=== PATIENT | female | born 1940 | race Caucasian/White ===

== ENCOUNTER → 2024-01-09 11:18 | Outpatient (REF) | payer OTHER, SELFPAY | LOC: HWRAD 11:18 | PROVIDERS: ATTENDING PHYSICIAN Urology; FAMILY PHYSICIAN Family Medicine | DX: N13.30 Unspecified hydronephrosis (principal); N13.5 Crossing vessel and stricture of ureter without hydronephrosis; N28.89 Other specified disorders of kidney and ureter | CPT/HCPCS: 74176 ==

== ENCOUNTER → 2024-01-16 11:26 | Outpatient (REF) | payer OTHER, SELFPAY ==
[2024-01-16 13:05] LABS: Hematocrit 38.3 % (37.0-47.0); Hemoglobin 12.4 g/dL (12.0-16.0); Mean Corp Hgb Conc. 32.4 g/dL (33.0-37.0); Mean Corpuscular Volume 89.5 fL (81.0-99.0); Platelet Count 351 10^3/uL (130-400); Red Blood Cell Count 4.28 10^6/uL (4.20-5.40); Red Cell Dist. Width 14.5 % (11.5-14.5)
[2024-01-16 13:11] LABS: Urine Protein 28 mg/dl (0-12)
[2024-01-16 13:14] LABS: Albumin 4.5 g/dl (3.5-5.0); Blood Urea Nitrogen 42 mg/dl (7-17); Calcium 9.8 mg/dl (8.4-10.2); Carbon Dioxide 33 mmol/L (22-30); Chloride 95 mmol/L (98-107); Glucose 99 mg/dl (70-99); Phosphorus 3.7 mg/dl (2.5-4.5); Potassium 3.1 mmol/L (3.5-5.1); Sodium 139 mmol/L (135-145); eGFR 19.31
[2024-01-17 13:21] LABS: Intact PTH 141.2 pg/ml (13.6-85.8)
[2024-01-17 17:11] LABS: Vitamin D, 25-OH*** 38.1 ng/mL (30-80)
== END ==
LOC: REG 11:26
PROVIDERS: ATTENDING PHYSICIAN Internal Medicine; FAMILY PHYSICIAN Family Medicine; OTHER PHYSICIAN Urology
DX: N18.4 Chronic kidney disease, stage 4 (severe) (principal)
CPT/HCPCS: 36415; 80069; 82306; 82570; 83970; 84156; 85027

== ENCOUNTER → 2024-03-06 12:49 | Outpatient (REF) | payer OTHER, SELFPAY ==
[2024-03-06 13:45] LABS: Urine Albumin Negative (Neg - Trace); Urine Bilirubin Negative (Negative); Urine Character Clear (Clear); Urine Color Yellow; Urine Glucose Negative (Negative); Urine Ketone Negative (Negative); Urine Leukocyte Trace (Negative); Urine Nitrite Negative (Negative); Urine Occult Blood Negative (Negative); Urine Urobilinogen Negative (Neg - 1+)
[2024-03-06 14:13] LABS: Blood Urea Nitrogen 40 mg/dl (7-17); Calcium 10.4 mg/dl (8.4-10.2); Carbon Dioxide 29 mmol/L (22-30); Chloride 105 mmol/L (98-107); Glucose 87 mg/dl (70-99); Potassium 4.4 mmol/L (3.5-5.1); Sodium 141 mmol/L (135-145); eGFR 20.32
[2024-03-06 14:39] LABS: Urine Amorphous Seen
[2024-03-06 14:40] LABS: Urine Bacteria Moderate (Negative); Urine Red Blood Cell 0-2 /HPF (0-2)
== END ==
LOC: REG 12:49
PROVIDERS: ATTENDING PHYSICIAN Internal Medicine; FAMILY PHYSICIAN Family Medicine; OTHER PHYSICIAN Surgery
DX: N18.32 Chronic kidney disease, stage 3b (principal); D64.9 Anemia, unspecified; N13.30 Unspecified hydronephrosis; E87.5 Hyperkalemia; I10 Essential (primary) hypertension
CPT/HCPCS: 36415; 80048; 81003; 81015

== ENCOUNTER → 2024-08-03 11:19 | Outpatient (REF) | payer OTHER, SELFPAY ==
[2024-08-03 12:33] LABS: Albumin 4.1 g/dl (3.5-5.0); Blood Urea Nitrogen 46 mg/dl (7-17); Calcium 9.4 mg/dl (8.4-10.2); Carbon Dioxide 29 mmol/L (22-30); Chloride 104 mmol/L (98-107); Glucose 106 mg/dl (70-99); Phosphorus 3.1 mg/dl (2.5-4.5); Potassium 3.4 mmol/L (3.5-5.1); Sodium 147 mmol/L (135-145); eGFR 20.19
[2024-08-03 13:04] LABS: Urine Protein 18 mg/dl (0-12)
== END ==
LOC: REG 11:19
PROVIDERS: ATTENDING PHYSICIAN Internal Medicine; FAMILY PHYSICIAN Family Medicine
DX: N18.4 Chronic kidney disease, stage 4 (severe) (principal)
CPT/HCPCS: 36415; 80069; 82570; 84156

== ENCOUNTER → 2024-09-17 10:57 | Outpatient (REF) | payer OTHER, SELFPAY | LOC: HWRAD 10:57 | PROVIDERS: ATTENDING PHYSICIAN Surgery; FAMILY PHYSICIAN Family Medicine; REFERRING PHYSICIAN Internal Medicine | DX: C68.9 Malignant neoplasm of urinary organ, unspecified (principal) | CPT/HCPCS: 71250 ==

== ENCOUNTER → 2024-10-19 10:57 | Outpatient (REF) | payer OTHER, SELFPAY ==
[2024-10-19 12:15] LABS: Hematocrit 34.8 % (37.0-47.0); Hemoglobin 11.1 g/dL (12.0-16.0); Mean Corp Hgb Conc. 31.9 g/dL (33.0-37.0); Mean Corpuscular Hgb 28.2 pg (27.0-31.0); Mean Corpuscular Volume 88.5 fL (81.0-99.0); Mean Platelet Volume 9.4 fL (7.4-10.4); Platelet Count 338 10^3/uL (130-400); Red Blood Cell Count 3.93 10^6/uL (4.20-5.40); Red Cell Dist. Width 14.8 % (11.5-14.5); White Blood Cell Count 10.8 10^3/uL (4.8-10.8)
[2024-10-19 12:56] LABS: Albumin 4.3 g/dl (3.5-5.0); Blood Urea Nitrogen 43 mg/dl (7-17); Calcium 9.5 mg/dl (8.4-10.2); Carbon Dioxide 27 mmol/L (22-30); Chloride 102 mmol/L (98-107); Glucose 100 mg/dl (70-99); Phosphorus 3.5 mg/dl (2.5-4.5); Potassium 3.9 mmol/L (3.5-5.1); Sodium 143 mmol/L (135-145); eGFR 19.19
[2024-10-20 09:41] LABS: Intact PTH 129.1 pg/ml (13.6-85.8)
== END ==
LOC: REG 10:57
PROVIDERS: ATTENDING PHYSICIAN Internal Medicine; FAMILY PHYSICIAN Family Medicine; OTHER PHYSICIAN Surgery
DX: N18.4 Chronic kidney disease, stage 4 (severe) (principal)
CPT/HCPCS: 36415; 80069; 83970; 85027

== ENCOUNTER → 2024-12-01 09:20 | Outpatient (REF) | payer OTHER, SELFPAY ==
[2024-12-01 09:54] LABS: Hemoglobin 7.9 g/dL (12.0-16.0); Mean Corp Hgb Conc. 31.6 g/dL (33.0-37.0); Mean Corpuscular Hgb 27.2 pg (27.0-31.0); Mean Corpuscular Volume 86.2 fL (81.0-99.0); Mean Platelet Volume 9.4 fL (7.4-10.4); Platelet Count 368 10^3/uL (130-400); Red Cell Dist. Width 15.7 % (11.5-14.5); White Blood Cell Count 14.5 10^3/uL (4.8-10.8)
[2024-12-01 10:10] LABS: NT-proBNP 3120 pg/ml
[2024-12-01 10:41] LABS: Vitamin D, 25-OH*** 31.4 ng/mL (30-80)
[2024-12-01 10:44] LABS: Albumin 3.5 g/dl (3.5-5.0); Blood Urea Nitrogen 85 mg/dl (7-17); Calcium 9.4 mg/dl (8.4-10.2); Carbon Dioxide 21 mmol/L (22-30); Chloride 109 mmol/L (98-107); Glucose 117 mg/dl (70-99); Phosphorus 6.2 mg/dl (2.5-4.5); Potassium 4.2 mmol/L (3.5-5.1); Sodium 146 mmol/L (135-145); eGFR 6.66
[2024-12-01 10:59] LABS: Urine Albumin 2+ (Neg - Trace); Urine Bilirubin Negative (Negative); Urine Character Cloudy (Clear); Urine Color Yellow; Urine Glucose Negative (Negative); Urine Ketone Negative (Negative); Urine Leukocyte 3+ (Negative); Urine Nitrite Negative (Negative); Urine Occult Blood 4+ (Negative); Urine Urobilinogen Negative (Neg - 1+)
[2024-12-01 11:51] LABS: Urine Red Blood Cell 30-40 /HPF (0-2); Urine White Cell >100 /HPF (0-5)
[2024-12-01 12:11] LABS: Protein/creatinine Ratio 0.6; Urine Protein 46 mg/dl
== END ==
LOC: REG 09:20
PROVIDERS: ATTENDING PHYSICIAN Internal Medicine; FAMILY PHYSICIAN Family Medicine; OTHER PHYSICIAN Surgery
DX: E78.00 Pure hypercholesterolemia, unspecified (principal); D61.9 Aplastic anemia, unspecified; N18.4 Chronic kidney disease, stage 4 (severe); N25.81 Secondary hyperparathyroidism of renal origin
CPT/HCPCS: 36415; 80069; 81003; 81015; 82306; 82570; 83880; 84156; 85027

== ENCOUNTER 2024-12-07 05:20 | Inpatient (IN) | payer OTHER, SELFPAY ==
[2024-12-06 23:40] VITALS: BMI 22.3
[2024-12-06 23:46] VITALS: BP 156/71
[2024-12-07] VITALS (20 sets, daily range): BP systolic 86–163; BP diastolic 46–106; BMI 26.3
[2024-12-07 01:00] LABS: % Basophils 0.5 % (0-2); % Eosinophils 2.2 % (0-6); % Immature Granulocytes 1.7 % (0-0.5); % Lymphocytes 3.9 % (20.5-51.1); % Monocytes 12.6 % (1.7-9.3); % Neutrophils 79.1 % (42.2-75.2); Absolute Basophils 0.1 10^3/uL (0-0.2); Absolute Eosinophils 0.4 10^3/uL (0-0.7); Absolute Immature Granulocytes 0.3 10^3/uL (0-0.05); Absolute Lymphocytes 0.8 10^3/uL (1.2-3.4); Absolute Monocytes 2.4 10^3/uL (0.1-0.6); Absolute Neutrophils 15.3 10^3/uL (1.4-6.5); Hematocrit 23.2 % (37.0-47.0); Hemoglobin 7.7 g/dL (12.0-16.0); Mean Corp Hgb Conc. 33.2 g/dL (33.0-37.0); Mean Corpuscular Hgb 27.6 pg (27.0-31.0); Mean Corpuscular Volume 83.2 fL (81.0-99.0); Mean Platelet Volume 9.2 fL (7.4-10.4); Nucleated Red Blood Cells % 0 %; Platelet Count 368 10^3/uL (130-400); Red Blood Cell Count 2.79 10^6/uL (4.20-5.40); Red Cell Dist. Width 15.9 % (11.5-14.5); White Blood Cell Count 19.3 10^3/uL (4.8-10.8)
[2024-12-07 01:12] LABS: PT 15.7 Sec (11.4-14.6)
[2024-12-07 01:13] LABS: APTT 36.4 Sec (23.4-35.0)
[2024-12-07 01:19] LABS: NT-proBNP 5030 pg/ml
[2024-12-07 01:22] LABS: ALT (SGPT) 38 U/L (0-35); AST (SGOT) 30 U/L (14-36); Albumin 3.6 g/dl (3.5-5.0); Alkaline Phosphatase 158 U/L (38-126); Blood Urea Nitrogen 108 mg/dl (7-17); Calcium 9.2 mg/dl (8.4-10.2); Carbon Dioxide 19 mmol/L (22-30); Chloride 107 mmol/L (98-107); Glucose 142 mg/dl (70-99); Potassium 4.2 mmol/L (3.5-5.1); Sodium 143 mmol/L (135-145); Total Bilirubin 1.5 mg/dl (0.2-1.3); Total Protein 6.5 g/dl (6.3-8.2); eGFR 4.52
--- NOTE | 2024-12-07 01:22 | ED.GENMED ---
History of Present Illness
General
Chief Complaint: Swelling
Source: patient
Exam Limitations: none
Time Seen by Provider: 12/07/24 00:44
Nursing documentation reviewed up to this point in time: agreed with
History of Present Illness
History of Present Illness:
84 y/o F with h/o ureteral strictuer, L ureteropelvic junction obstruction, (urothelial cancer, obstructing, treated with radiation 2023 [facility]) chronic hydro and CKD stage IV
2 weeks ago started having weight gain, edema in her legs and abdomen, WEBSTER
she had outpatietn labs which may have not been relayed to her immediately with bump in cr from 2.4 to 5.8
she has had a 10 pound weight gain
her bindery cutter operator harsha prescribed lasix 20 mg which she has been on for the past week
she feels like she is peeing but not enough
she continues to have leg edema, abdomen edema and some WEBSTER
apparently on outpatient imaging the edema was noticed and thus she had paracentesis yesterday at [facility] to tell whether this is malignant ascites
she has never had CHF before
used to be on HCTZ
pt has no chest pain, syncope, vomiting, bleeding
she is also chronically anemic and her hg is low [address] mcleod for admission
Past History
Past History
ED Past Medical History: GERD, HTN and Other (Sepsis)
ED Past Surgical History: Gynecological (Hysterectomy), Orthopedic (Right carpal tunnel release, right knee arthroscopy, right knee total replacement, cervical spine with tylor, lumbar synovial cyst excision, left carpal tunnel release, left knee
replacement) and Urological (Stent left ureter)
Social History
Tobacco: Former smoker
Alcohol: None
Drug: None
Personal:
Living: with family
Employment: Retired
Review of Systems
Review of Systems
Allergies reviewed?: Yes
All Other Systems: Not applicable
Phy Exam
Physical Exam
Physical Exam:
GENERAL: Alert , in no apparent distress
EYE: pupils equal and reactive
NECK: Supple
ENT: o/p clr, mmm.
CARDIAC: Regular rate and rhythm .+ edema in b/l LE, pitting symmetric 2+
LUNGS: slight crackles bases; no tachypnea
ABDOMEN: Soft, some edema in abdomen, nontender without focal tenderness, no r/g, no cvat, normal bowel sounds
NEUROLOGICAL: Alert and oriented, no focal neuro deficits
SKIN: Warm and dry, skin intact.
MUSCULOSKELETAL: moderate edema, well perfused. neg boubacar's sign
PSYCH: Normal and appropriate interaction.
Scores
Heart Failure Risk
Heart Failure Risk Score: Not Applicable
Course
Orders/Labs/Results
Orders:
Orders
12/07/24 00:51
IV Insert/Care/Rem.- Treatment PRN
12/07/24 00:52
Type+Screen Urgent
Complete Blood Count/With Diff Urgent
Comprehensive Metabolic Panel Urgent
PTT Urgent
Pro-BNP [NT-proBNP] Urgent
Prothrombin Time Urgent
12/07/24 01:11
Electrocardiogram (*1) Urgent
Reason for Study: Shortness of Breath
EKG- Treatment ONCE
12/07/24 01:18
CR Chest - 2 Views Urgent
Comment:
Reason For Exam: chf
12/07/24 01:22
CT Abd/pel Without Iv Or Oral Urgent
Comment:
Reason For Exam: ureteral stent, known cancer; ARF
12/07/24 02:54
Paris Placement- Treatment ONCE
Reason for insertion: Acute Kidney Injury
12/07/24 03:19
Urinalysis Reflex To Culture Urgent
Date Specimen was Collected: 12/07/24
Time Specimen was Collected: 03:17
Urine Microscopic Reflex Cult Urgent
Urine Culture Urgent
ISAAC Source: U
Specimen Description:
Date Specimen was Collected: 12/07/24
Time Specimen was Collected: 03:17
12/07/24 03:46
CefTRIAXone [Rocephin] 2,000 mg IV NOW STA
12/07/24 03:57
Sterile Water [Sterile Water For Injection] 20 ml .ROUTE .STK-MED
12/07/24 04:41
Admit/Transfer Patient As Directed
Co-Sign Provider:
Level of Care: Inpatient admission
Assign to:: IMU- Intermediate Care
Physician / Group: Lemuel
Diagnosis: CLAUDIA / Ureteral Obstruction
Reason for Hospitalization: CLAUDIA / Ureteral Obstruction
Expected length of stay greater than two midnights?: Yes
ELOS- Estimated Length of Stay in days: 5
I certify the patient meets the requirements for IP care: Yes
Code Status As Directed
Resuscitation Status: Full Code
PRN Pain Medication Management As Directed
May give lesser potent ordered pain med per pt: Yes
preference::
Protocol:: Medication orders for pain may be administered in a
manner that supports deferring to patient preference
when the pt is:
- Requesting an ordered lesser potent pain medication.
Least to most potent pain medications are defined
as: acetaminophen < NSAID < tramadol < opioids
(morphine, oxycodone, hydromorphone).
- Requesting a lesser dose of the same medication IF
ORDERED.
- Requesting a less intrusive route of administration
if both routes are prescribed by the provider (PO <
IV).
12/07/24 05:22
Basic Metabolic Panel IN AM
Complete Blood Count/No Diff IN AM
Magnesium IN AM
Phosphorus IN AM
12/07/24 Breakfast
NPO
Allow oral meds: Yes
Allow clear liquids: Sips of Clears
12/07/24 09:22
IRAD CONSULT Urgent
Consulting Provider: Andre Ly
Was physician already notified: Yes
Reason for Consult/Procedure: CLAUDIA / Ureteral Obstruction
Acknowledgement that appropriate orders are entered: N/A
UROLOGY CONSULT Routine
Consulting Provider: Felipe Damico Jr.
Was physician already notified: Yes
Comment: CLAUDIA / Ureteral Obstruction
Activity As Directed
Activity Level: Ambulate
With Assistance
Paris Catheter [Catheter- Indwelling] As Directed
Reason for insertion: Acute Retention
Discontinue Date/Time: 12/10/24 0600
I/O [Intake/ Output] As Directed
Frequency: Per unit guidelines
Pneumatic Compression Sleeves As Directed
Type: Knee high
Vital Signs As Directed
Frequency: Per unit guidelines
Weight As Directed
Frequency: Daily
Oxygen Therapy [O2 Therapy] [RESP] Routine
Titrate/Wean O2 to maintain O2 sat greater than (%): 94
DX Deep Vein Thrombosis Video Routine
12/07/24 15:16
B12 [Vitamin B12] Routine
Folate Routine
Iron Routine
Total Iron Binding Routine
12/08/24 06:00
CefTRIAXone [Rocephin] 1,000 mg IV Q24H
Abnormal Lab Results
12/07/24 12/07/24
00:52 03:19
WBC 19.3 H 10^3/uL
(4.8-10.8)
RBC 2.79 L 10^6/uL
(4.20-5.40)
Hgb 7.7 L g/dL
(12.0-16.0)
Hct 23.2 L %
(37.0-47.0)
RDW 15.9 H %
(11.5-14.5)
Abs Immat Gran (auto) 0.3 H 10^3/uL
(0-0.05)
Absolute Neuts (auto) 15.3 H 10^3/uL
(1.4-6.5)
Absolute Lymphs (auto) 0.8 L 10^3/uL
(1.2-3.4)
Absolute Monos (auto) 2.4 H 10^3/uL
(0.1-0.6)
Immature Gran % 1.7 H %
(0-0.5)
Neutrophils % 79.1 H %
(42.2-75.2)
Lymphocytes % 3.9 L %
(20.5-51.1)
Monocytes % 12.6 H %
(1.7-9.3)
PT 15.7 H Sec
(11.4-14.6)
APTT 36.4 H Sec
(23.4-35.0)
Carbon Dioxide 19 L mmol/L
(22-30)
BUN 108 H* mg/dl
(7-17)
Creatinine 8.0 H* mg/dL
(0.6-1.0)
Glucose 142 H mg/dl
(70-99)
Total Bilirubin 1.5 H mg/dl
(0.2-1.3)
ALT 38 H U/L
(0-35)
Alkaline Phosphatase 158 H U/L
(38-126)
Ur Occult Blood Reflex 4+ A
(Negative)
Urine Nitrite (Reflex) Positive A
(Negative)
Leukocyte Esterase Rfl 3+ A
(Negative)
Urine RBC >100 A /HPF
(0-2)
Urine WBC (Reflex) >100 A /HPF
(0-5)
Urine Bacteria (Reflex) Many A
(Negative)
Urine Albumin (Reflex) 2+ A
(Neg - Trace)
12/07/24 00:52
12/07/24 00:52
Vital Signs
Initial and Last Documented VS:
Initial Vital Signs
Temp Pulse Resp BP Pulse Ox
36.9 C 84 24 156/71 96
12/06/24 23:46 12/06/24 23:46 12/06/24 23:46 12/06/24 23:46 12/06/24 23:46
Last Documented Vital Signs
Temp Pulse Resp BP Pulse Ox
36.2 C 81 15 139/60 95
12/08/24 12:17 12/08/24 13:39 12/08/24 13:39 12/08/24 13:39 12/08/24 13:39
MDM/Problems Addressed
Differential Diagnosis Includes:
acute renal failure, CHF
MDM/Problems Addressed:
84 y/o F
h/o urothelial cell ca
s/p radiation treatment
has had stent
but L kidney nonworking
hash ad cr in the 2 range until recently, outpatient labs showing cr 5 and pt developing edema in the legs and abdomena nds ome WEBSTER
no h/o CHF
on lasix for the past 1 week but not really doing better
sent in for admission
today hypertensive 150/100
no o2 requirement
able to speak full sentences
some edema in legs
had paracentesis yesterday to r/o malignant ascites
no results back
no fever
abdomen nontender
lungs crackles bases but moving good air
bnp 5000
cxr shows fluid in R lung
cr is unfortuantely up to 8.0 from 5, k is normal
no ekg changes
noncon ct shows new hydro in the R side no obvious obstruction
chronic atrophic L kidney
ascites
d/w dr. mukherjee, ed attending
and updated dr. mcleod
hg also low
pt could not tolerate fluid at this point
will hold on trasnfusion
hold on lasix
needs her renal dysfucntion addressed
notified economics department chair urologist
also notified IR dr ly for perc nephrostomy, recommended consutlation by dr. damico from uro
*Critical Care Note
Total Time (30-74mins, 75-104mins- exclusive of procedures): Not Applicable
ED Attending Note
-
Portions of this chart may have been created with voice recognition software.� Occasional wrong word or��sound alike� substitutions may have occurred due to the inherent limitations of voice recognition software.
Discharge Plan
Departure
Patient Disposition: Admit
Date of Disposition: 12/07/24
Time of Disposition: 02:34
Admit to: IMU
Presentation/result/management discussed w/ accepting MD/DO: Hospitalist
Condition: Fair
Covid-19: Not Applicable
Discharge Problem:
Acute renal failure, Anemia, CHF (congestive heart failure)
Interventions
Interventions:
*Risk Screen - Suicide Last Done: 12/06/24 23:46
*Neglect/Abuse Screening Last Done: 12/07/24 03:29
*ED- Fall Risk Assessment Last Done: 12/06/24 23:52
ED- Cardiac Assessment Last Done: 12/07/24 03:28
ED- Pulmonary Assessment Last Done: 12/07/24 03:28
ED-Skin Assessment Last Done: 12/07/24 03:28
[2024-12-07 03:25] LABS: Urine Albumin 2+ (Neg - Trace); Urine Bilirubin Negative (Negative); Urine Character Cloudy (Clear); Urine Color Yellow; Urine Glucose Negative (Negative); Urine Ketone Negative (Negative); Urine Leukocyte 3+ (Negative); Urine Nitrite Positive (Negative); Urine Occult Blood 4+ (Negative); Urine Urobilinogen Negative (Neg - 1+)
[2024-12-07] MEDS: ROCEPHIN 2000 MG IV (04:01)
[2024-12-07 04:03] LABS: Urine Bacteria Many (Negative); Urine Red Blood Cell >100 /HPF (0-2); Urine White Cell >100 /HPF (0-5)
--- NOTE | 2024-12-07 04:45 | HPS.HSE ---
Family Physician
-
Family Physician: Rigo Ball
Chief Complaint
-
Weight Gain / Edema
History of Present Illness
Patient is an 84y F with PMH significant for urothelial carcinoma, CKD and GERD who presents to ED complaining of weight gain and edema. Patient states that she appreciated weight gain and worsening edema over the past 2 months or so. She spoke
with her Hardness Tester and was started on Lasix 20mg daily one week ago. She has noted no increase in urine output and in fact states that she is urinating less. She has continued to note progressive edema and weight gain. Patient had outpatient
labs done today that showed worsening of renal function and she was advised to present to the ED for further evaluation.
Patient has prior h/o L ureteral obstruction one year ago. She had initial ureteroscopy and biopsy done here. Biopsy was negative; however, stent could not be fully placed. Patient was then seen at [facility] and diagnosed with
urothelial carcinoma of the L ureter. She underwent XRT x 5 treatments. Patient states that her left kidney is '' as a result.
She denies any recent medication changes other than the newly added Lasix.
No fevers / chills. No flank pain. No dysuria, frequency, urgency or hematuria.
Medical History
Past Medical History
Past Medical History: Reports Other
Additional Past Medical History:
CKD IV
Hypertension
Migraine Headaches
Spinal Stenosis
GERD
Endometriosis
Urothelial Cancer s/p XRT
Past Surgical History: Reports Other
Additional Past Surgical History:
Bilateral TKA
Lumbar Laminectomy
Hysterectomy
Bilateral Carpal Tunnel Release
Left Ureteral Biopsy / Stent
Social History
Tobacco: Former Smoker (Quit smoking over 40 years ago.)
Alcohol: Occasional
Drug: None
Family History
Family History: Not pertinent
Allergies / Home Medications
Allergies reflects when Allergies were last updated in [facility].
Home Medications with original date entered in [facility]
Allergy/Medication List:
Allergies
Allergy/AdvReac Type Severity Reaction Status Date / Time
RADAMES Inhibitors Allergy lisinopril- Verified 12/06/24 23:45
Cough
lisinopril Allergy radames Verified 12/06/24 23:45
inhibitors-cough
Home Medications
doxepin 25 mg capsule 50 mg PO Q12H Mental Health 03/31/23
sodium bicarbonate 650 mg tablet 650 mg PO DAILY Electrolyte Repletion 03/31/23
cranberry 500 mg capsule 500 mg PO DAILY Supplement 04/05/23
multivitamin 1 tab PO DAILY Supplement 04/05/23
omega 6-phb-ukp-fish oil 1,000 mg (120 mg-180 mg) capsule (Fish Oil) 1 cap PO DAILY Supplement ##0 04/05/23
trospium 20 mg tablet 20 mg PO TIDPRN PRN frequent urination 04/05/23
brinzolamide 1 % eye drops,suspension 1 drp BOTH EYES TID Eye Condition 04/19/23
dextran 70-hypromellose 0.1 %-0.3 % eye drops (GenTeal Tears Mild) 1 drp BOTH EYES TIDPRN PRN dry eyes 04/19/23
cyclosporine 0.05 % eye drops 1 drp BOTH EYES Q12H 09/09/23
famotidine 10 mg tablet 10 mg PO DAILY 09/09/23
sennosides 8.6 mg-docusate sodium 50 mg tablet (Senna Plus) 1 tab PO DAILY 09/09/23
Review of Systems
-
History Source: Patient
A 12 point ROS was completed and negative except as noted: Yes
Constitutional: Reports Weight Gain and Fatigue; Denies Fever or Chills
Respiratory: Denies Cough or Trouble Breathing
Cardiac: Denies Chest Pain or Palpitations
Abdomen/GI: Denies Abdominal Pain, Nausea, Vomiting or Diarrhea
: Reports Other (Decreased urination.); Denies Dysuria, Frequency or Flank Pain
Musculoskeletal: Reports Edema
Neurological: Denies Dizzy or Headache
Psych: Denies Depression or Anxiety
Physical Exam
Vital Signs
Vital Signs
Temp Pulse Resp BP Pulse Ox
98.1 F 84 22 157/46 97
12/07/24 03:39 12/07/24 04:30 12/07/24 04:30 12/07/24 04:00 12/07/24 01:21
Physical Exam
General: Other (84y F in no acute distress.)
HEENT: Moist mucous membranes and PERRLA
Respiratory: Clear; No Wheezes, Rales or Rhonchi
Cardiac: S1/S2 and Regular Rhythm
GI: Normal Bowel Sounds and Other (Abdomen is distended. No focal tenderness.)
Genito-urinary: Other (Paris in place with minimal urine output.)
Musculoskeletal: Other (2+ pitting edema b/l LEs.)
Skin: Other (Ecchymosis L cosme and L eye / face from recent fall.)
Neuro: AO x 3
Laboratory Results
-
12/07/24 00:52
12/07/24 00:52
Laboratory Results
PT 15.7 Sec (11.4-14.6) H 12/07/24 00:52
INR 1.20 12/07/24 00:52
APTT 36.4 Sec (23.4-35.0) H 12/07/24 00:52
Total Bilirubin 1.5 mg/dl (0.2-1.3) H 12/07/24 00:52
AST 30 U/L (14-36) 12/07/24 00:52
ALT 38 U/L (0-35) H 12/07/24 00:52
Alkaline Phosphatase 158 U/L (38-126) H 12/07/24 00:52
Impression/Plan
-
A/P: Patient is an 84y F with PMH significant for urothelial carcinoma and CKD IV who presents to ED for evaluation of weight gain, edema and rising creatinine.
Right Hydronephrosis / Ureteral Obstruction
CLAUDIA on CKD IV secondary to the above
History of Urothelial Cancer / Left Ureteral Obstruction s/p XRT
- Admit for further evaluation and treatment.
- CT scan shows R hydronephrosis with atrophic L kidney.
- Paris placed in ED for minimal urine output.
- Needs R renal decompression with either ureteral stent or IR perc nephrostomy.
- Hold on further IVFs or diuretics for now pending above.
- SCr = 8 compared to baseline of 2.3.
- Nephrology, Urology and IR consults for further recommendations / interventions.
- Will likely require eventual diuresis with IV Lasix once obstruction has been alleviated.
UTI
- UA in the ED suggests infection. Leukocytosis but no other indicators to suggest sepsis.
- Continue IV ceftriaxone pending culture data.
- Urinary intervention(s) as noted above.
Normocytic Anemia
Anemia of CKD
- Hgb = 7.7 compared to baseline of 11-12 by recent labs.
- No gross blood loss, etc pre patient.
- ? degree of hemodilution given edema, weight gain, etc.
- Follow for changes in H&H.
- Monitor for improvement with eventual diuresis.
- Type and Screen and transfuse if needed.
Benign Hypertension
- Patient cannot recall her current meds / doses.
- Confirm meds with pharmacy in AM and then resume as appropriate.
DVT Prophylaxis: SCDs
Code Status: Full
[2024-12-07 05:42] LABS: Hematocrit 22.3 % (37.0-47.0); Hemoglobin 7.1 g/dL (12.0-16.0); Mean Corp Hgb Conc. 31.8 g/dL (33.0-37.0); Mean Corpuscular Hgb 26.6 pg (27.0-31.0); Mean Corpuscular Volume 83.5 fL (81.0-99.0); Mean Platelet Volume 9.2 fL (7.4-10.4); Platelet Count 347 10^3/uL (130-400); Red Blood Cell Count 2.67 10^6/uL (4.20-5.40); White Blood Cell Count 16.1 10^3/uL (4.8-10.8)
[2024-12-07 06:07] LABS: Blood Urea Nitrogen 110 mg/dl (7-17); Calcium 9.2 mg/dl (8.4-10.2); Carbon Dioxide 19 mmol/L (22-30); Chloride 109 mmol/L (98-107); Estimated Creatinine Clearance 5 ml/min; Glucose 111 mg/dl (70-99); Magnesium 2.5 mg/dl (1.6-2.3); Phosphorus 7.1 mg/dl (2.5-4.5); Potassium 4.3 mmol/L (3.5-5.1); Sodium 145 mmol/L (135-145); eGFR 4.52
--- NOTE | 2024-12-07 06:45 | CON.MD ---
Consultation - Medical
-
see dictated note
pt seen=- history reviewed and examined
likely malig obstruction of right kindey which is her only functional renal unit
reviewed options
discussed with IR
for perc placement lucy
pt currently clinically stable
--- NOTE | 2024-12-07 09:11 | CM ---
Patient seen at bedside in ED. Patient stated that she lives in a one story home with loft but her bedroom is in the loft as well as the bathroom. 2 steps to enter home and `3 steps to bedroom. Patient PCP is with [facility] and
she uses the [facility] in [facility]. Patient daughter Brandi at bedside. CM will continue to follow for discharge planning needs.
Plan; home with VN vs home with no needs.
--- NOTE | 2024-12-07 10:28 | W.CON.NEPH ---
Consultation
-
Date/Time Consultation Requested: December 07, 2024 at 7 AM
Date/Time Consultation Performed: December 07, 2024 at 10 AM
Requesting Provider: Dr. Hdez
Performing Provider: Dr. Sylvester
Reason for Consultation: Acute on chronic kidney disease
Medical History
-
Chief Complaint: Acute on chronic kidney disease
History of Present Illness:
84y F with PMH significant for urothelial carcinoma, CKD and GERD who presents to ED complaining of weight gain and edema. Patient states that she appreciated weight gain and worsening edema over the past 2 months or so. She spoke with
Gayle and was started on Lasix 20mg daily one week ago. She has noted no increase in urine output and in fact states that she is urinating less. was advised to present to the ED for further evaluation.
Patient has prior h/o L ureteral obstruction one year ago. She had initial ureteroscopy and biopsy done here. Biopsy was negative; however, stent could not be fully placed. Patient was then seen at [facility] and diagnosed with
urothelial carcinoma of the L ureter. She underwent XRT x 5 treatments.
Renal consult for acute on chronic kidney disease baseline creatinine at 2.4 with presenting creatinine of 8 and obstructive uropathy.
Past Medical History
PMH significant for urothelial carcinoma, CKD and GERD
Social History
Tobacco: Non-Smoker
Alcohol: None
Family History
Family History: Not Pertinent
Allergies / Home Medications
Allergy/AdvReac Type Severity Reaction Status Date / Time
RADAMES Inhibitors Allergy lisinopril- Verified 12/06/24 23:45
Cough
lisinopril Allergy radames Verified 12/06/24 23:45
inhibitors-cough
�Medication �Instructions �Recorded �Confirmed �Type
doxepin 25 mg capsule 50 mg PO Q12H Mental Health 03/31/23 09/15/23 History
sodium bicarbonate 650 mg tablet 650 mg PO DAILY Electrolyte 03/31/23 09/15/23 History
Repletion
cranberry 500 mg capsule 500 mg PO DAILY Supplement 04/05/23 09/15/23 History
multivitamin 1 tab PO DAILY Supplement 04/05/23 09/15/23 History
omega 6-jup-esm-fish oil 1,000 mg 1 cap PO DAILY Supplement ##0 04/05/23 09/15/23 History
(120 mg-180 mg) capsule (Fish Oil)
trospium 20 mg tablet 20 mg PO TIDPRN PRN frequent 04/05/23 09/15/23 History
urination
brinzolamide 1 % eye 1 drp BOTH EYES TID Eye Condition 04/19/23 09/15/23 History
drops,suspension
dextran 70-hypromellose 0.1 %-0.3 1 drp BOTH EYES TIDPRN PRN dry eyes 04/19/23 09/15/23 History
% eye drops (GenTeal Tears Mild)
cyclosporine 0.05 % eye drops 1 drp BOTH EYES Q12H 09/09/23 09/15/23 History
famotidine 10 mg tablet 10 mg PO DAILY 09/09/23 09/15/23 History
sennosides 8.6 mg-docusate sodium 1 tab PO DAILY 09/09/23 09/15/23 History
50 mg tablet (Senna Plus)
Review of Systems
-
Decreased urine output increased lower extremity swelling
All other systems: Negative unless noted
Physical Exam
Vital Signs
Vital Signs
Temp Pulse Resp BP Pulse Ox
98.1 F 84 14 98/56 95
12/07/24 03:39 12/07/24 10:00 12/07/24 10:00 12/07/24 07:00 12/07/24 10:00
Lab Results
WBC 16.1 10^3/uL (4.8-10.8) H 12/07/24 05:22
RBC 2.67 10^6/uL (4.20-5.40) L 12/07/24 05:22
Hgb 7.1 g/dL (12.0-16.0) L 12/07/24 05:22
Hct 22.3 % (37.0-47.0) L 12/07/24 05:22
Plt Count 347 10^3/uL (130-400) 12/07/24 05:22
Sodium 145 mmol/L (135-145) 12/07/24 05:22
Potassium 4.3 mmol/L (3.5-5.1) 12/07/24 05:22
Chloride 109 mmol/L (98-107) H 12/07/24 05:22
Carbon Dioxide 19 mmol/L (22-30) L 12/07/24 05:22
BUN 110 mg/dl (7-17) H* 12/07/24 05:22
Creatinine 8.0 mg/dL (0.6-1.0) H* 12/07/24 05:22
eGFR 4.52 12/07/24 05:22
Glucose 111 mg/dl (70-99) H 12/07/24 05:22
Calcium 9.2 mg/dl (8.4-10.2) 12/07/24 05:22
Phosphorus 7.1 mg/dl (2.5-4.5) H 12/07/24 05:22
Mmh-R-Nfzjkkdwsgw Pept 5030 pg/ml 12/07/24 00:52
Albumin 3.6 g/dl (3.5-5.0) 12/07/24 00:52
Physical Exam
General no acute distress
HEENT no cephalic atraumatic extraocular muscle intact no scleral icterus no JVD neck supple
lungs clear to auscultation bilateral
heart regular S1-S2 positive
abdomen soft nontender positive bowel sounds
extremities +2 edema bilateral lower extremity
Neurologically nonfocal alert and oriented x 3
Skin no lesions no abrasions no petechiae
Psych normal affect no bizarre behavior
Data Reviewed
-
CT Scan: Image Personally Visualized and interpreted
Labs: Labs Reviewed by me, Discussed with Patient and Discussed with Family
Critical Care Time (in minutes): 32
Assessment/Plan
-
Impression:
Acute kidney injury and obstructive uropathy with right hydro
CKD 4� (2.6),
Hypertension (now off meds)
New onset edema
Urothelial cancer
History of left hydronephrosis status post stent placement March 2023 with left atrophic kidney
Plan:
Follows with our practice at baseline creatinine at 2.4.
Obstructive uropathy acute kidney injury pending right percutaneous nephrostomy to be placed by interventional radiology.
Follow for postobstructive diuresis.
Redraw labs this afternoon.
Total Time Spent with Patient (in minutes): 35
--- NOTE | 2024-12-07 10:30 | PTCARENOTE ---
Rec'd pt from Ed. all vitals stable. Pt transported to IR for Neph tube placement.
--- NOTE | 2024-12-07 12:49 | PTCARENOTE ---
Rec'd pt from IRAD with new right nephrostomy tube. Pt nauseous on arrival to IMU with vomittiing. C/o headache since last night. Dr. Kohler notified via TT
[2024-12-07] MEDS: ZOFRAN 4 MG IV (13:01)
--- NOTE | 2024-12-07 14:10 | PTCARENOTE ---
Pt's nausea and vomitting relieved with zofran. Neph tube with puralent drainage.
--- NOTE | 2024-12-07 14:15 | W.PN.HOSP.TC ---
Today's Communication/Plan
-
IR for nephrostomy tube
Assessment / Plan
Assessment / Plan
Impression
patient is an 84y F with PMH significant for urothelial carcinoma and CKD IV who presents to ED for evaluation of weight gain, edema and rising creatinine.
Assessment/plan:
Right Hydronephrosis / Ureteral Obstruction
CLAUDIA on CKD IV secondary to the above
History of Urothelial Cancer / Left Ureteral Obstruction s/p XRT
- Admit for further evaluation and treatment.
- CT scan shows R hydronephrosis with atrophic L kidney.
- Paris placed in ED for minimal urine output.
- Needs R renal decompression with either ureteral stent or IR perc nephrostomy.
- Hold on further IVFs or diuretics for now pending above.
- SCr = 8 compared to baseline of 2.3.
- Nephrology, Urology and IR consults for further recommendations / interventions.
- Will likely require eventual diuresis with IV Lasix once obstruction has been alleviated.
4/4
For IR for right nephrostomy tube today
UTI
- UA in the ED suggests infection. Leukocytosis but no other indicators to suggest sepsis.
- Continue IV ceftriaxone pending culture data.
- Urinary intervention(s) as noted above.
Normocytic Anemia
Anemia of CKD
- Hgb = 7.7 compared to baseline of 11-12 by recent labs.
- No gross blood loss, etc pre patient.
- ? degree of hemodilution given edema, weight gain, etc.
- Follow for changes in H&H.
- Monitor for improvement with eventual diuresis.
- Type and Screen and transfuse if needed.
Benign Hypertension
- Patient cannot recall her current meds / doses.
- Confirm meds with pharmacy in AM and then resume as appropriate.
CODE STATUS: Full code
DVT prophylaxis: SCDs
Diet: renal
Total time spent on today's encounter was 75 minutes which included time spent in counseling the patient/family regarding diagnosis and treatment plan as listed above, goals of care, and symptom management. Case was discussed with nursing staff,
specialists, and care coordinators/case management. All labs and imaging personally reviewed by me. Remainder the time spent in detailed review of previous records, lab data, imaging, and other medical provider documentation.
Anticipated Discharge: > 48 hours
Subjective/Interval History
-
Date of Service: December 07, 2024
Patient seen and examined at bedside, denies any chest pain or shortness of breath, no abdominal pain, + nausea, no vomiting, no diarrhea or constipation.
Objective Data
-
Labs:
Laboratory Results
12/07/24
05:22
WBC 16.1 H
Hgb 7.1 L
Hct 22.3 L
Plt Count 347
Sodium 145
Potassium 4.3
Chloride 109 H
Carbon Dioxide 19 L
BUN 110 H*
Creatinine 8.0 H*
Glucose 111 H
Calcium 9.2
Vital Signs:
Vital Signs
Temp Pulse Resp BP Pulse Ox
98.4 F 88 18 157/72 100
12/07/24 12:30 12/07/24 12:00 12/07/24 12:00 12/07/24 12:00 12/07/24 12:00
I&O
12/06/24 12/07/24 12/08/24
06:59 06:59 06:59
Output Total 250 / 250
Balance -250 / -250
Physical Exam
-
General: Well Developed, Well Nourished, No Apparent Distress and Comfortable
HEENT: Normocephalic, Atraumatic, Moist Mucous Membranes, No Ptosis, PERRLA and Nose Appears Normal
Respiratory: Clear to Auscultation and Non Labored Respirations
Cardiac: Regular Rhythm and S1/S2
Breast: Deferred by me
GI: Soft, Nontender, Nondistended and Normal Bowel Sounds
Genito-urinary: No Costovertebral Tender
Musculoskeletal: No Clubbing, No Cyanosis and No Edema
Skin: Warm
Neuro: Awake, Alert, Oriented, AO x 3 and No Motor Deficits
Psych: Calm
Data Reviewed
-
Diagnostic Radiology: Image personally visualized and interpreted and Report Reviewed by me
CT Scan: Image personally visualized and interpreted and Report Reviewed by me
Ultrasound: Image personally visualized and interpreted and Report Reviewed by me
MRI: Image personally visualized and interpreted and Report Reviewed by me
Medical Tests (Nuc Med, Echo etc): Image personally visualized and interpreted and Report Reviewed by me
Labs: Labs Reviewed by me
Old Records: Reviewed
[2024-12-07 15:50] LABS: Iron 40 ug/dl (37-170)
[2024-12-07 15:59] LABS: Percent Saturation 18 % (20-50); Total Iron Binding Capacity 220 ug/dl (265-497)
[2024-12-07 16:44] LABS: Folate > 20.0 ng/ml (2.76-20); Vitamin B12 883 pg/ml (239-931)
[2024-12-08] VITALS (15 sets, daily range): BP systolic 118–166; BP diastolic 50–123; BMI 26.4
[2024-12-08] MEDS: STERILE WATER FOR INJECTION 10 ML IV (04:55)
[2024-12-08] MEDS: ROCEPHIN 1000 MG IV (04:55)
[2024-12-08 05:27] LABS: Hematocrit 22.8 % (37.0-47.0); Hemoglobin 7.3 g/dL (12.0-16.0); Mean Corpuscular Volume 84.4 fL (81.0-99.0); Mean Platelet Volume 9.3 fL (7.4-10.4); Platelet Count 363 10^3/uL (130-400); Red Cell Dist. Width 16.3 % (11.5-14.5); White Blood Cell Count 31.4 10^3/uL (4.8-10.8)
[2024-12-08 05:53] LABS: Blood Urea Nitrogen 106 mg/dl (7-17); Calcium 9.3 mg/dl (8.4-10.2); Carbon Dioxide 18 mmol/L (22-30); Chloride 108 mmol/L (98-107); Estimated Creatinine Clearance 4 ml/min; Glucose 118 mg/dl (70-99); Potassium 4.7 mmol/L (3.5-5.1); Sodium 146 mmol/L (135-145); eGFR 4.39
--- NOTE | 2024-12-08 10:00 | PTCARENOTE ---
Patient with no complaints. State she recalls having hallucinations last night but currently does not and is AAOx3. Nephrostomy tube CDI. NSR on monitor. VSS. Poor appetite. Will closely monitor.
--- NOTE | 2024-12-08 13:19 | W.PN.NEPH.PH ---
Today's Communication / Plan
-
Half-normal saline
Assessment/Plan
-
Impression:
Acute kidney injury and obstructive uropathy with right hydro
CKD 4� (2.6),
Hypertension (now off meds)
New onset edema
Urothelial cancer
History of left hydronephrosis status post stent placement March 2023 with left atrophic kidney
Plan:
Follows with our practice at baseline creatinine at 2.4.
Obstructive uropathy acute kidney injury status post right percutaneous nephrostomy.
Creatinine of 8.5 unfortunately no improvement status post decompression despite her being nonoliguric.
Discussed with the patient and her daughter at the bedside about potential for dialysis in the next 48 hours.
No acute need for dialysis at this time.
Start half-normal saline
Total Time Spent with Patient (in minutes): 35
-
-
Date of Service: December 08, 2024
CC / HPI / ROS
-
Chief Complaint:
Acute kidney injury
History of Present Illness:
Acute kidney injury status post 2 obstructive uropathy status post nephrostomy
Review of Systems:.
No chest pain or shortness of breath.
Nephrostomy tube draining as well as Paris catheter
Labs
-
Labs:
WBC 31.4 10^3/uL (4.8-10.8) H 12/08/24 04:55
RBC 2.70 10^6/uL (4.20-5.40) L 12/08/24 04:55
Hgb 7.3 g/dL (12.0-16.0) L 12/08/24 04:55
Hct 22.8 % (37.0-47.0) L 12/08/24 04:55
Plt Count 363 10^3/uL (130-400) 12/08/24 04:55
Sodium 146 mmol/L (135-145) H 12/08/24 04:55
Potassium 4.7 mmol/L (3.5-5.1) 12/08/24 04:55
Chloride 108 mmol/L (98-107) H 12/08/24 04:55
Carbon Dioxide 18 mmol/L (22-30) L 12/08/24 04:55
BUN 106 mg/dl (7-17) H* 12/08/24 04:55
Creatinine 8.2 mg/dL (0.6-1.0) H* 12/08/24 04:55
eGFR 4.39 12/08/24 04:55
Glucose 118 mg/dl (70-99) H 12/08/24 04:55
Calcium 9.3 mg/dl (8.4-10.2) 12/08/24 04:55
Phosphorus 7.1 mg/dl (2.5-4.5) H 12/07/24 05:22
Psn-Y-Hxnmwkqlaeh Pept 5030 pg/ml 12/07/24 00:52
Albumin 3.6 g/dl (3.5-5.0) 12/07/24 00:52
Physical Exam
-
Vital Signs:
Vital Signs
Temp Pulse Resp BP Pulse Ox
97.2 F 83 18 166/84 96
12/08/24 12:17 12/08/24 12:00 12/08/24 12:00 12/08/24 12:00 12/08/24 12:00
Cardiovascular:: Regular rate and rhythm
Respiratory:: Bilateral: CTA
Lung Excursion:: Normal
Abdomen:: Nontender
Bowel Sounds:: Normal
Extremity Edema:: +1: Bilateral:
Paris Catheter: No
[2024-12-08] MEDS: 0.45%NACL 1000 IV ×2 (13:39→20:33)
--- NOTE | 2024-12-08 15:43 | W.PN.HOSP.TC ---
Today's Communication/Plan
-
start normal saline
Assessment / Plan
Assessment / Plan
Impression
patient is an 84y F with PMH significant for urothelial carcinoma and CKD IV who presents to ED for evaluation of weight gain, edema and rising creatinine.
Status post right nephrostomy
Assessment/plan:
Right Hydronephrosis / Ureteral Obstruction
CLAUDIA on CKD IV secondary to the above
History of Urothelial Cancer / Left Ureteral Obstruction s/p XRT
- Admit for further evaluation and treatment.
- CT scan shows R hydronephrosis with atrophic L kidney.
- Paris placed in ED for minimal urine output.
- Needs R renal decompression with either ureteral stent or IR perc nephrostomy.
- Hold on further IVFs or diuretics for now pending above.
- SCr = 8 compared to baseline of 2.3.
- Nephrology, Urology and IR consults for further recommendations / interventions.
- Will likely require eventual diuresis with IV Lasix once obstruction has been alleviated.
4/4
For IR for right nephrostomy tube today
4/5
Acute function still elevated.
Status post right nephrostomy tube.
Start half-normal saline.
No indication for acute hemodialysis.
Acute metabolic encephalopathy, hallucinations.
Possible secondary to worsening uremia/UTI.
Cannot rule out underlying dementia
UTI
- UA in the ED suggests infection. Leukocytosis but no other indicators to suggest sepsis.
- Continue IV ceftriaxone pending culture data.
- Urinary intervention(s) as noted above.
Normocytic Anemia
Anemia of CKD
- Hgb = 7.7 compared to baseline of 11-12 by recent labs.
- No gross blood loss, etc pre patient.
- ? degree of hemodilution given edema, weight gain, etc.
- Follow for changes in H&H.
- Monitor for improvement with eventual diuresis.
- Type and Screen and transfuse if needed.
Benign Hypertension
- Patient cannot recall her current meds / doses.
- Confirm meds with pharmacy in AM and then resume as appropriate.
CODE STATUS: Full code
DVT prophylaxis: SCDs
Diet: renal
Total time spent on today's encounter was 75 minutes which included time spent in counseling the patient/family regarding diagnosis and treatment plan as listed above, goals of care, and symptom management. Case was discussed with nursing staff,
specialists, and care coordinators/case management. All labs and imaging personally reviewed by me. Remainder the time spent in detailed review of previous records, lab data, imaging, and other medical provider documentation.
Anticipated Discharge: > 48 hours
Subjective/Interval History
-
Date of Service: December 08, 2024
Patient seen and examined at bedside, daughter at bedside, episodes of hallucinations overnight but otherwise denies any chest pain or shortness of breath, no abdominal pain, no nausea, no vomiting, no diarrhea or constipation.
Objective Data
-
Labs:
Laboratory Results
12/08/24
04:55
WBC 31.4 H
Hgb 7.3 L
Hct 22.8 L
Plt Count 363
Sodium 146 H
Potassium 4.7
Chloride 108 H
Carbon Dioxide 18 L
BUN 106 H*
Creatinine 8.2 H*
Glucose 118 H
Calcium 9.3
Vital Signs:
Vital Signs
Temp Pulse Resp BP Pulse Ox
97.2 F 82 16 145/104 95
12/08/24 12:17 12/08/24 14:00 12/08/24 14:00 12/08/24 14:00 12/08/24 13:39
I&O
12/07/24 12/08/24 12/09/24
06:59 06:59 06:59
Output Total 1275 / 1275 410 / 410
Balance -1275 / -1275 -410 / -410
Physical Exam
-
General: Well Developed, Well Nourished, No Apparent Distress and Comfortable
HEENT: Normocephalic, Atraumatic, Moist Mucous Membranes, No Ptosis, PERRLA and Nose Appears Normal
Respiratory: Clear to Auscultation and Non Labored Respirations
Cardiac: Regular Rhythm and S1/S2
Breast: Deferred by me
GI: Soft, Nontender, Nondistended and Normal Bowel Sounds
Genito-urinary: No Costovertebral Tender
Musculoskeletal: No Clubbing, No Cyanosis, No Edema and Other (Right nephrostomy tube)
Skin: Warm
Neuro: Awake, Alert, Oriented, AO x 3 and No Motor Deficits
Psych: Calm
Data Reviewed
-
Diagnostic Radiology: Image personally visualized and interpreted and Report Reviewed by me
CT Scan: Image personally visualized and interpreted and Report Reviewed by me
Ultrasound: Image personally visualized and interpreted and Report Reviewed by me
MRI: Image personally visualized and interpreted and Report Reviewed by me
Medical Tests (Nuc Med, Echo etc): Image personally visualized and interpreted and Report Reviewed by me
Labs: Labs Reviewed by me
Old Records: Reviewed
[2024-12-08] MEDS: AZOPT 1% OPHTHALMIC SUSPENSION 1 DROP BOTH EYES ×2 (17:06→20:33)
[2024-12-08] MEDS: NORVASC 2.5 MG PO (17:06)
[2024-12-08] MEDS: XALATAN OPHTHALMIC SOLUTION 1 DROP BOTH EYES (20:33)
[2024-12-09] VITALS (23 sets, daily range): BP systolic 119–188; BP diastolic 52–150; BMI 26.6
[2024-12-09] MEDS: 0.45%NACL 1000 IV ×3 (03:29→15:32)
[2024-12-09] MEDS: STERILE WATER FOR INJECTION 10 ML IV (05:05)
[2024-12-09] MEDS: ROCEPHIN 1000 MG IV (05:05)
[2024-12-09 05:47] LABS: Hematocrit 23.2 % (37.0-47.0); Hemoglobin 7.6 g/dL (12.0-16.0); Mean Corp Hgb Conc. 32.8 g/dL (33.0-37.0); Mean Corpuscular Volume 82.6 fL (81.0-99.0); Platelet Count 351 10^3/uL (130-400); Red Blood Cell Count 2.81 10^6/uL (4.20-5.40); Red Cell Dist. Width 16.1 % (11.5-14.5); White Blood Cell Count 16.4 10^3/uL (4.8-10.8)
--- NOTE | 2024-12-09 06:00 | PTCARENOTE ---
Received pt at change of shift. Pt reports no hallucinations this shift. OOB to chair at start of shift. Assist x1 back to bed. Assessment as documented. Resting in bed with call hollis in reach.
[2024-12-09 06:15] LABS: Blood Urea Nitrogen 98 mg/dl (7-17); Calcium 8.8 mg/dl (8.4-10.2); Carbon Dioxide 17 mmol/L (22-30); Chloride 110 mmol/L (98-107); Estimated Creatinine Clearance 5 ml/min; Glucose 104 mg/dl (70-99); Potassium 3.8 mmol/L (3.5-5.1); Sodium 143 mmol/L (135-145); eGFR 5.31
[2024-12-09] MEDS: NORVASC 2.5 MG PO (08:09)
[2024-12-09] MEDS: AZOPT 1% OPHTHALMIC SUSPENSION 1 DROP BOTH EYES ×3 (08:10→22:05)
[2024-12-09] MEDS: TYLENOL 650 MG PO (08:18)
--- NOTE | 2024-12-09 11:04 | PTCARENOTE ---
Notified Dr. Her of positive urine cultures for ecoli.
--- NOTE | 2024-12-09 11:51 | W.PN.NEPH.PH ---
Today's Communication / Plan
-
Continue half-normal saline
Assessment/Plan
-
Impression:
Acute kidney injury and obstructive uropathy with right hydro
CKD 4� (2.6),
Hypertension (now off meds)
New onset edema
Urothelial cancer
History of left hydronephrosis status post stent placement March 2023 with left atrophic kidney
Plan:
Follows with our practice at baseline creatinine at 2.4.
Obstructive uropathy acute kidney injury status post right percutaneous nephrostomy.
Creatinine of 8.5 unfortunately no improvement status post decompression despite her being nonoliguric.
Discussed with the patient and her daughter at the bedside about potential for dialysis in the next 48 hours.
No acute need for dialysis at this time.
Mild improvement in the creatinine down to 7.
Nonoliguric.
Continue half-normal saline
Discussed with the patient and daughter at bedside
Total Time Spent with Patient (in minutes): 35
-
-
Date of Service: December 09, 2024
CC / HPI / ROS
-
Chief Complaint:
Acute kidney injury
History of Present Illness:
Acute kidney injury status post 2 obstructive uropathy status post nephrostomy
Review of Systems:.
No chest pain or shortness of breath.
Nephrostomy tube draining as well as Paris catheter
Labs
-
Labs:
WBC 16.4 10^3/uL (4.8-10.8) H 12/09/24 05:19
RBC 2.81 10^6/uL (4.20-5.40) L 12/09/24 05:19
Hgb 7.6 g/dL (12.0-16.0) L 12/09/24 05:19
Hct 23.2 % (37.0-47.0) L 12/09/24 05:19
Plt Count 351 10^3/uL (130-400) 12/09/24 05:19
Sodium 143 mmol/L (135-145) 12/09/24 05:10
Potassium 3.8 mmol/L (3.5-5.1) 12/09/24 05:10
Chloride 110 mmol/L (98-107) H 12/09/24 05:10
Carbon Dioxide 17 mmol/L (22-30) L 12/09/24 05:10
BUN 98 mg/dl (7-17) H 12/09/24 05:10
Creatinine 7.0 mg/dL (0.6-1.0) H* 12/09/24 05:10
eGFR 5.31 12/09/24 05:10
Glucose 104 mg/dl (70-99) H 12/09/24 05:10
Calcium 8.8 mg/dl (8.4-10.2) 12/09/24 05:10
Phosphorus 7.1 mg/dl (2.5-4.5) H 12/07/24 05:22
Lbz-O-Ckbcckeytbv Pept 5030 pg/ml 12/07/24 00:52
Albumin 3.6 g/dl (3.5-5.0) 12/07/24 00:52
Physical Exam
-
Vital Signs:
Vital Signs
Temp Pulse Resp BP Pulse Ox
97.6 F 78 16 152/60 96
12/09/24 11:05 12/09/24 08:09 12/08/24 20:00 12/09/24 08:09 12/08/24 16:49
--- NOTE | 2024-12-09 13:17 | W.PN.HOSP.TC ---
Today's Communication/Plan
-
Continue IV fluid
Assessment / Plan
Assessment / Plan
Impression
patient is an 84y F with PMH significant for urothelial carcinoma and CKD IV who presents to ED for evaluation of weight gain, edema and rising creatinine.
Status post right nephrostomy-creatinine continue to improve, also treated for UTI (pansensitive E. coli)
Assessment/plan:
Right Hydronephrosis / Ureteral Obstruction
CLAUDIA on CKD IV secondary to the above
History of Urothelial Cancer / Left Ureteral Obstruction s/p XRT
- Admit for further evaluation and treatment.
- CT scan shows R hydronephrosis with atrophic L kidney.
- Paris placed in ED for minimal urine output.
- Needs R renal decompression with either ureteral stent or IR perc nephrostomy.
- Hold on further IVFs or diuretics for now pending above.
- SCr = 8 compared to baseline of 2.3.
- Nephrology, Urology and IR consults for further recommendations / interventions.
- Will likely require eventual diuresis with IV Lasix once obstruction has been alleviated.
4/4
For IR for right nephrostomy tube today
4/5
Kidney function still elevated.
Status post right nephrostomy tube.
Start half-normal saline.
No indication for acute hemodialysis.
4/6
Improved creatinine.
Continue IVF
Acute metabolic encephalopathy, hallucinations.
Possible secondary to worsening uremia/UTI.
Cannot rule out underlying dementia
UTI (pansensitive E. coli)
- UA in the ED suggests infection. Leukocytosis but no other indicators to suggest sepsis.
- Continue IV ceftriaxone , culture with pansensitive E. coli, continue Rocephin for now (patient just had surgical procedure-nephrostomy tube).
- Urinary intervention(s) as noted above.
Normocytic Anemia
Anemia of CKD
- Hgb = 7.7 compared to baseline of 11-12 by recent labs.
- No gross blood loss, etc pre patient.
- ? degree of hemodilution given edema, weight gain, etc.
- Follow for changes in H&H.
- Monitor for improvement with eventual diuresis.
- Type and Screen and transfuse if needed.
Benign Hypertension
- Patient cannot recall her current meds / doses.
- Confirm meds with pharmacy in AM and then resume as appropriate.
CODE STATUS: Full code
DVT prophylaxis: SCDs
Diet: renal
Total time spent on today's encounter was 75 minutes which included time spent in counseling the patient/family regarding diagnosis and treatment plan as listed above, goals of care, and symptom management. Case was discussed with nursing staff,
specialists, and care coordinators/case management. All labs and imaging personally reviewed by me. Remainder the time spent in detailed review of previous records, lab data, imaging, and other medical provider documentation.
Anticipated Discharge: > 48 hours
Subjective/Interval History
-
Date of Service: December 09, 2024
Patient seen and examined at bedside, denies any chest pain or shortness of breath, no abdominal pain, no nausea, no vomiting, no diarrhea or constipation.
Family at bedside, improved creatinine.
Objective Data
-
Labs:
Laboratory Results
12/09/24 12/09/24
05:10 05:19
WBC 16.4 H
Hgb 7.6 L
Hct 23.2 L
Plt Count 351
Sodium 143
Potassium 3.8
Chloride 110 H
Carbon Dioxide 17 L
BUN 98 H
Creatinine 7.0 H*
Glucose 104 H
Calcium 8.8
Vital Signs:
Vital Signs
Temp Pulse Resp BP Pulse Ox
97.6 F 78 20 147/86 98
12/09/24 11:05 12/09/24 12:00 12/09/24 12:00 12/09/24 12:00 12/09/24 12:32
I&O
12/08/24 12/09/24 12/10/24
06:59 06:59 06:59
Intake Total 300 / 300
Output Total 1275 / 1275 1715 / 1715 950 / 950
Balance -1275 / -1275 -1715 / -1715 -650 / -650
Physical Exam
-
General: Well Developed, Well Nourished, No Apparent Distress and Comfortable
HEENT: Normocephalic, Atraumatic, Moist Mucous Membranes, No Ptosis, PERRLA and Nose Appears Normal
Respiratory: Clear to Auscultation and Non Labored Respirations
Cardiac: Regular Rhythm and S1/S2
Breast: Deferred by me
GI: Soft, Nontender, Nondistended and Normal Bowel Sounds
Genito-urinary: No Costovertebral Tender
Musculoskeletal: No Clubbing, No Cyanosis, No Edema and Other (Right nephrostomy tube)
Skin: Warm
Neuro: Awake, Alert, Oriented, AO x 3 and No Motor Deficits
Psych: Calm
Data Reviewed
-
Diagnostic Radiology: Image personally visualized and interpreted and Report Reviewed by me
CT Scan: Image personally visualized and interpreted and Report Reviewed by me
Ultrasound: Image personally visualized and interpreted and Report Reviewed by me
MRI: Image personally visualized and interpreted and Report Reviewed by me
Medical Tests (Nuc Med, Echo etc): Image personally visualized and interpreted and Report Reviewed by me
Labs: Labs Reviewed by me
Old Records: Reviewed
--- NOTE | 2024-12-09 14:48 | PTCARENOTE ---
Patient is out of bed to chair sitting with family. Patient had a bowel movement today, eating well. Mild headache relieved with Tylenol 650mg. Patients right sided nephrostomy draining juanjose urine so far 950 out this shift. IVF continue as per
doctors orders.
--- NOTE | 2024-12-09 18:12 | PTCARENOTE ---
Patients blood pressure is 176/69. Notified Dr. Her, new orders pending.
[2024-12-09] MEDS: APRESOLINE 10 MG IV (18:19)
[2024-12-09] MEDS: XALATAN OPHTHALMIC SOLUTION 1 DROP BOTH EYES (21:34)
[2024-12-09] MEDS: MELATONIN 5 MG PO (22:04)
--- NOTE | 2024-12-09 23:52 | PTCARENOTE ---
Assumed care of pt from day shift RN. Pt aaox3 and YAVAPAI-PRESCOTT. Pt NSR on monitor, hr 82. Pt 97% on RA, pt's RR 14. Expiratory wheezing auscultated throughout lungs and diminished at bilateral bases. Pt is asymptomatic and denies SOB or trouble breathing.
MAEVE Macdonald notified and CXR Rx'd.
Right nephrostomy dressing not intact. Wound care provided as ordered. Paris in place with scant amount of yellow urine in bag. Bladder scan showed no urine. MAEVE Macdonald made aware. Paris scheduled to be removed at 0730 on 12/10.
[2024-12-10] VITALS (25 sets, daily range): BP systolic 86–179; BP diastolic 49–118; BMI 26.6
[2024-12-10] MEDS: 0.45%NACL 1000 IV ×4 (00:46→22:54)
[2024-12-10] MEDS: APRESOLINE 10 MG IV (04:09)
[2024-12-10] MEDS: TYLENOL 650 MG PO ×2 (04:58→12:12)
[2024-12-10] MEDS: STERILE WATER FOR INJECTION 10 ML IV (05:01)
[2024-12-10] MEDS: ROCEPHIN 1000 MG IV (05:01)
[2024-12-10 05:02] LABS: Hematocrit 23.7 % (37.0-47.0); Hemoglobin 7.5 g/dL (12.0-16.0); Mean Corp Hgb Conc. 31.6 g/dL (33.0-37.0); Mean Corpuscular Hgb 26.2 pg (27.0-31.0); Mean Corpuscular Volume 82.9 fL (81.0-99.0); Mean Platelet Volume 8.9 fL (7.4-10.4); Platelet Count 392 10^3/uL (130-400); Red Blood Cell Count 2.86 10^6/uL (4.20-5.40); Red Cell Dist. Width 15.9 % (11.5-14.5); White Blood Cell Count 15.2 10^3/uL (4.8-10.8)
[2024-12-10 05:29] LABS: Blood Urea Nitrogen 89 mg/dl (7-17); Calcium 8.9 mg/dl (8.4-10.2); Carbon Dioxide 17 mmol/L (22-30); Chloride 109 mmol/L (98-107); Estimated Creatinine Clearance 6 ml/min; Glucose 109 mg/dl (70-99); Potassium 3.9 mmol/L (3.5-5.1); Sodium 142 mmol/L (135-145); eGFR 6.39
[2024-12-10] MEDS: NORVASC 2.5 MG PO (08:34)
[2024-12-10] MEDS: AZOPT 1% OPHTHALMIC SUSPENSION 1 DROP BOTH EYES ×3 (08:35→20:21)
--- NOTE | 2024-12-10 10:00 | W.PN.NEPH.PH ---
Today's Communication / Plan
-
follow BMP
Assessment/Plan
-
Impression:
Acute kidney injury and obstructive uropathy with right hydro
right PCN
CKD 4� (2.6), Dr. Shearer
Hypertension (now off meds)
New onset edema
Urothelial cancer, metastatic with malignant ascites
History of left hydronephrosis status post stent placement March 2023 with left atrophic kidney
Plan:
[facility] per urology
to see medical oncology at [facility]
follow BMP
no dialysis needs currently
continue IVF reduce rate
while she would accept HD if needed, there are no indications for initiation at this time
d/w pt and
-
-
Date of Service: December 10, 2024
CC / HPI / ROS
-
Chief Complaint:
Acute kidney injury
History of Present Illness:
Acute kidney injury status post 2 obstructive uropathy status post nephrostomy
CLAUDIA/Cr down to 6
acidosis persists
nonoliguric from right PCN
BP stable
Review of Systems:.
No chest pain or shortness of breath.
Nephrostomy tube draining as well as Wlilett catheter (less from willett)
Labs
-
Labs:
WBC 15.2 10^3/uL (4.8-10.8) H 12/10/24 04:21
RBC 2.86 10^6/uL (4.20-5.40) L 12/10/24 04:21
Hgb 7.5 g/dL (12.0-16.0) L 12/10/24 04:21
Hct 23.7 % (37.0-47.0) L 12/10/24 04:21
Plt Count 392 10^3/uL (130-400) 12/10/24 04:21
Sodium 142 mmol/L (135-145) 12/10/24 04:21
Potassium 3.9 mmol/L (3.5-5.1) 12/10/24 04:21
Chloride 109 mmol/L (98-107) H 12/10/24 04:21
Carbon Dioxide 17 mmol/L (22-30) L 12/10/24 04:21
BUN 89 mg/dl (7-17) H 12/10/24 04:21
Creatinine 6.0 mg/dL (0.6-1.0) H* 12/10/24 04:21
eGFR 6.39 12/10/24 04:21
Glucose 109 mg/dl (70-99) H 12/10/24 04:21
Calcium 8.9 mg/dl (8.4-10.2) 12/10/24 04:21
Phosphorus 7.1 mg/dl (2.5-4.5) H 12/07/24 05:22
Vzy-X-Reyuspqnimu Pept 5030 pg/ml 12/07/24 00:52
Albumin 3.6 g/dl (3.5-5.0) 12/07/24 00:52
Physical Exam
-
Vital Signs:
Vital Signs
Temp Pulse Resp BP Pulse Ox
98.4 F 88 15 152/70 98
12/10/24 07:18 12/10/24 08:34 12/10/24 07:00 12/10/24 08:34 12/10/24 07:00
Cardiovascular:: Regular rate and rhythm
Respiratory:: Bilateral: Coarse
Lung Excursion:: Normal
Abdomen:: Soft
Bowel Sounds:: Normal
Extremity Edema:: None: Bilateral:
--- NOTE | 2024-12-10 15:32 | W.PN.HOSP.TC ---
Today's Communication/Plan
-
Assessment / Plan
Assessment / Plan
NAD
Scleral Anicteric
MMM
No JVD
CTABL
RRR, S1/S2
Soft, NT, ND, BS+
Warm, Dry
AAOx3
Calm
Assessment/plan:
CLAUDIA on CKD stage IV secondary to right-sided hydronephrosis/urethral obstruction
S/p Paris placement in percutaneous nephrostomy placement on the right side with good output
Renal function improving slowly at 6 now down from 8 however baseline of 2.3
Continue to follow nephrology recommendations
I personally had a discussion today with Ms. Crump at bedside and Mr. Crump her over the phone.
- Informed her that she may require dialysis in the next 1 or 2 days however if her kidney function continues to improve without evidence of volume overload uremia or shortness of breath then likely able to avoid
- She tells me that she would not want hemodialysis whatsoever. I did bring up the subject of CODE STATUS however stated that she would need to talk to her . Therefore I called Mr. Crump to provide him with an update and informed him of
these findings. I did impress upon him that if she does not get dialysis electrolyte abnormalities can stop her heart, if she does not get dialysis she can become volume overloaded which could lead to respiratory arrest and eventual cardiac arrest.
Without dialysis we will not allow for meaningful recovery and if no dialysis is chosen would recommend DNR/DNI
History of Urothelial Cancer / Left Ureteral Obstruction s/p XRT
-Outpatient urology follow-up
Acute metabolic encephalopathy, hallucinations., Seems to have resolved
Possible secondary to worsening uremia/UTI.
Cannot rule out underlying dementia
UTI (pansensitive E. coli)
- UA in the ED suggests infection. Leukocytosis but no other indicators to suggest sepsis.
- Continue IV ceftriaxone , culture with pansensitive E. coli, continue Rocephin for now (patient just had surgical procedure-nephrostomy tube).
- Urinary intervention(s) as noted above.
Normocytic Anemia
Anemia of CKD
- Hgb = 7.7 compared to baseline of 11-12 by recent labs.
- No gross blood loss, etc pre patient.
- ? degree of hemodilution given edema, weight gain, etc.
- Follow for changes in H&H.
- Monitor for improvement with eventual diuresis.
- Type and Screen and transfuse if needed.
Benign Hypertension
- Patient cannot recall her current meds / doses.
- Confirm meds with pharmacy in AM and then resume as appropriate.
Anticipated Discharge: > 48 hours
Subjective/Interval History
-
Date of Service: December 10, 2024
seen and examined. no new complaints. no acute overnight events
Objective Data
-
Labs:
Laboratory Results
12/10/24
04:21
WBC 15.2 H
Hgb 7.5 L
Hct 23.7 L
Plt Count 392
Sodium 142
Potassium 3.9
Chloride 109 H
Carbon Dioxide 17 L
BUN 89 H
Creatinine 6.0 H*
Glucose 109 H
Calcium 8.9
Vital Signs:
Vital Signs
Temp Pulse Resp BP Pulse Ox
98.4 F 88 17 161/118 98
12/10/24 07:18 12/10/24 10:00 12/10/24 10:00 12/10/24 10:00 12/10/24 10:00
I&O
12/09/24 12/10/24 12/11/24
06:59 06:59 06:59
Intake Total 4020 / 4020
Output Total 1715 / 1715 3550 / 3550 250 / 250
Balance -1715 / -1715 470 / 470 -250 / -250
--- NOTE | 2024-12-10 16:43 | PTCARENOTE ---
Patient AAOx3, pleasant. C/o headaches which are not new for her. Tylenol given with some relief. Patient currently OOB to chair with family at bedside. VSS. Nephrostomy draining appropriately. IV fluids infusing per order. Paris removed, awaiting
void. Poor appetite noted. Will continue to closely monitor.
[2024-12-10] MEDS: XALATAN OPHTHALMIC SOLUTION 1 DROP BOTH EYES (22:54)
[2024-12-11] MEDS: MELATONIN 5 MG PO (00:19)
[2024-12-11 03:41] VITALS: BP 151/62
--- NOTE | 2024-12-11 04:32 | PTCARENOTE ---
Pt received from IMU as transfer. Pt aaox3 lethargic but easily arousable.Denies pain. Pt on bed alarm for safety.Pt R nephrostomy tube draining.Pt call hollis in reach.Plan of care continued.
[2024-12-11] MEDS: STERILE WATER FOR INJECTION 10 ML IV (05:02)
[2024-12-11] MEDS: ROCEPHIN 1000 MG IV (05:03)
[2024-12-11 06:00] VITALS: BMI 26.6
[2024-12-11 06:22] LABS: Hematocrit 22.8 % (37.0-47.0); Hemoglobin 7.4 g/dL (12.0-16.0); Mean Corp Hgb Conc. 32.5 g/dL (33.0-37.0); Mean Corpuscular Hgb 26.9 pg (27.0-31.0); Mean Corpuscular Volume 82.9 fL (81.0-99.0); Platelet Count 358 10^3/uL (130-400); Red Blood Cell Count 2.75 10^6/uL (4.20-5.40); Red Cell Dist. Width 15.9 % (11.5-14.5); White Blood Cell Count 11.9 10^3/uL (4.8-10.8)
[2024-12-11 06:43] LABS: Blood Urea Nitrogen 80 mg/dl (7-17); Calcium 8.6 mg/dl (8.4-10.2); Carbon Dioxide 19 mmol/L (22-30); Chloride 114 mmol/L (98-107); Estimated Creatinine Clearance 8 ml/min; Glucose 106 mg/dl (70-99); Potassium 3.3 mmol/L (3.5-5.1); Sodium 144 mmol/L (135-145); eGFR 8.57
[2024-12-11] MEDS: NORVASC 2.5 MG PO (07:43)
[2024-12-11] MEDS: AZOPT 1% OPHTHALMIC SUSPENSION 1 DROP BOTH EYES ×3 (07:43→19:47)
--- NOTE | 2024-12-11 07:49 | PN.CDI ---
CDI
- -
CDI:
Physician Documentation Request
Admit Date: 12/07/24 05:20
Dear Doctor Lauri,
Please review the following and provide your response in the progress notes.
Clinical Indicators:
- 12/10 PN 'right-sided hydronephrosis/urethral obstruction
- 12/07 Urology 'right hydronephrosis and proximal hydroureter...possible retroperitoneal mass or adenopathy'
- 'likely malignant nature of this obstruction, I have recommended a right percutaneous nephrostomy tube'
- 12/07 right neprhostomy tube placed
Please clarify the likely/suspected etiology of right sided urethral obstruction:
Malignant right ureteral obstruction
Other (please specify)
Use of terms such as suspected, likely, concern for, or probable (associated with a specific diagnosis that is being evaluated, monitored, or treated as if it exists) are acceptable and can be coded in the inpatient setting, when documented at the
time of discharge.
Thank you,
Colette Vazquez RN
CDI Specialist
Please use your independent medical judgment in providing your response.
[2024-12-11 07:59] VITALS: BP 162/78
[2024-12-11] MEDS: KCL 20 MEQ PO (08:52)
--- NOTE | 2024-12-11 11:28 | W.PN.NEPH.PH ---
Today's Communication / Plan
-
cap IVF
Assessment/Plan
-
Impression:
Acute kidney injury and obstructive uropathy with right hydro
right PCN
CKD 4� (2.6), Dr. Shearer
Hypertension (now off meds)
New onset edema
Urothelial cancer, metastatic with malignant ascites
History of left hydronephrosis status post stent placement March 2023 with left atrophic kidney
Plan:
to see medical oncology at [facility]
follow BMP
no dialysis needs
cap IVF
encourage po intake
-
-
Date of Service: December 11, 2024
CC / HPI / ROS
-
Chief Complaint:
Acute kidney injury
History of Present Illness:
Acute kidney injury status post 2 obstructive uropathy status post nephrostomy
CLAUDIA/Cr down to 4.7
acidosis persists 19
nonoliguric from right PCN
BP stable
Hgb low stable 7.4
Review of Systems:.
No chest pain or shortness of breath.
Nephrostomy tube draining well
willett out
eating
Labs
-
Labs:
WBC 11.9 10^3/uL (4.8-10.8) H 12/11/24 05:46
RBC 2.75 10^6/uL (4.20-5.40) L 12/11/24 05:46
Hgb 7.4 g/dL (12.0-16.0) L 12/11/24 05:46
Hct 22.8 % (37.0-47.0) L 12/11/24 05:46
Plt Count 358 10^3/uL (130-400) 12/11/24 05:46
Sodium 144 mmol/L (135-145) 12/11/24 05:46
Potassium 3.3 mmol/L (3.5-5.1) L 12/11/24 05:46
Chloride 114 mmol/L (98-107) H 12/11/24 05:46
Carbon Dioxide 19 mmol/L (22-30) L 12/11/24 05:46
BUN 80 mg/dl (7-17) H 12/11/24 05:46
Creatinine 4.7 mg/dL (0.6-1.0) H* 12/11/24 05:46
eGFR 8.57 12/11/24 05:46
Glucose 106 mg/dl (70-99) H 12/11/24 05:46
Calcium 8.6 mg/dl (8.4-10.2) 12/11/24 05:46
Phosphorus 7.1 mg/dl (2.5-4.5) H 12/07/24 05:22
Bug-D-Fahxautjixt Pept 5030 pg/ml 12/07/24 00:52
Albumin 3.6 g/dl (3.5-5.0) 12/07/24 00:52
Physical Exam
-
Vital Signs:
Vital Signs
Temp Pulse Resp BP Pulse Ox
98 F 81 18 162/78 97
12/11/24 07:59 12/11/24 07:59 12/11/24 07:59 12/11/24 07:59 12/11/24 07:59
Cardiovascular:: Regular rate and rhythm
Respiratory:: Bilateral: CTA
Lung Excursion:: Normal
Abdomen:: Nontender and Soft
Bowel Sounds:: Normal
Extremity Edema:: None: Bilateral:
[2024-12-11 12:11] VITALS: BP 128/70
--- NOTE | 2024-12-11 12:46 | W.PN.HOSP.TC ---
Today's Communication/Plan
-
Physical therapy/Occupational Therapy to evaluate
Begin disposition process/discharge plan
Assessment / Plan
Assessment / Plan
NAD
Scleral Anicteric
MMM
No JVD
CTABL
RRR, S1/S2
Soft, NT, ND, BS+
Warm, Dry
AAOx3
Calm
Assessment/plan:
CLAUDIA on CKD stage IV secondary to right-sided hydronephrosis/urethral obstruction
S/p Paris placement in percutaneous nephrostomy placement on the right side with good output
Renal function improving slowly at 6 now down from 8 however baseline of 2.3
Continue to follow nephrology recommendations
I personally had a discussion today with Ms. Crump at bedside and Mr. Crump her over the phone.
- Informed her that she may require dialysis in the next 1 or 2 days however if her kidney function continues to improve without evidence of volume overload uremia or shortness of breath then likely able to avoid
- She tells me that she would not want hemodialysis whatsoever. I did bring up the subject of CODE STATUS however stated that she would need to talk to her . Therefore I called Mr. Crump to provide him with an update and informed him of
these findings. I did impress upon him that if she does not get dialysis electrolyte abnormalities can stop her heart, if she does not get dialysis she can become volume overloaded which could lead to respiratory arrest and eventual cardiac arrest.
Without dialysis we will not allow for meaningful recovery and if no dialysis is chosen would recommend DNR/DNI
History of Urothelial Cancer / Left Ureteral Obstruction s/p XRT
-Outpatient urology follow-up
Acute metabolic encephalopathy, hallucinations., Seems to have resolved
Possible secondary to worsening uremia/UTI.
Cannot rule out underlying dementia
UTI (pansensitive E. coli)
- UA in the ED suggests infection. Leukocytosis but no other indicators to suggest sepsis.
- Continue IV ceftriaxone , culture with pansensitive E. coli, continue Rocephin for now (patient just had surgical procedure-nephrostomy tube).
- Urinary intervention(s) as noted above.
Normocytic Anemia
Anemia of CKD
- Hgb = 7.7 compared to baseline of -12 by recent labs.
- No gross blood loss, etc pre patient.
- ? degree of hemodilution given edema, weight gain, etc.
- Follow for changes in H&H.
- Monitor for improvement with eventual diuresis.
- Type and Screen and transfuse if needed.
Benign Hypertension
- Patient cannot recall her current meds / doses.
- Confirm meds with pharmacy in AM and then resume as appropriate.
Anticipated Discharge: 24 - 48 hours
Subjective/Interval History
-
Date of Service: December 11, 2024
Seen and examined. No new complaints. No acute overnight events.
Objective Data
-
Labs:
Laboratory Results
12/11/24
05:46
WBC 11.9 H
Hgb 7.4 L
Hct 22.8 L
Plt Count 358
Sodium 144
Potassium 3.3 L
Chloride 114 H
Carbon Dioxide 19 L
BUN 80 H
Creatinine 4.7 H*
Glucose 106 H
Calcium 8.6
Vital Signs:
Vital Signs
Temp Pulse Resp BP Pulse Ox
98.2 F 88 18 128/70 98
12/11/24 12:11 12/11/24 12:11 12/11/24 12:11 12/11/24 12:11 12/11/24 12:11
I&O
12/10/24 12/11/24 12/12/24
06:59 06:59 06:59
Intake Total 4020 / 4020 323 / 323
Output Total 3550 / 3550 300 / 300 1370 / 1370
Balance 470 / 470 -300 / -300 -1047 / -1047
[2024-12-11 15:54] VITALS: BP 157/71
--- NOTE | 2024-12-11 17:05 | CM ---
Nephrology involved. Pt has right nephrostomy tube.
Requested Pt OT order for pt.
Will continue to follow for dc needs
PLAN Will depend on PT OT
[2024-12-11 19:40] VITALS: BP 154/63
[2024-12-11] MEDS: XALATAN OPHTHALMIC SOLUTION 1 DROP BOTH EYES (19:47)
[2024-12-11 23:53] VITALS: BP 120/53
[2024-12-12] VITALS (8 sets, daily range): BP systolic 112–152; BP diastolic 51–66; PULSE 84–88; O2SAT 96; BMI 26.4
[2024-12-12] MEDS: MELATONIN 5 MG PO ×2 (00:41→23:07)
[2024-12-12] MEDS: STERILE WATER FOR INJECTION IV (05:10)
[2024-12-12 06:29] LABS: Hematocrit 21.7 % (37.0-47.0); Hemoglobin 7.1 g/dL (12.0-16.0); Mean Corp Hgb Conc. 32.7 g/dL (33.0-37.0); Mean Corpuscular Hgb 27.3 pg (27.0-31.0); Mean Corpuscular Volume 83.5 fL (81.0-99.0); Mean Platelet Volume 8.8 fL (7.4-10.4); Platelet Count 345 10^3/uL (130-400); Red Cell Dist. Width 15.9 % (11.5-14.5)
[2024-12-12 06:58] LABS: Blood Urea Nitrogen 75 mg/dl (7-17); Calcium 8.8 mg/dl (8.4-10.2); Carbon Dioxide 19 mmol/L (22-30); Chloride 113 mmol/L (98-107); Estimated Creatinine Clearance 9 ml/min; Glucose 109 mg/dl (70-99); Potassium 3.4 mmol/L (3.5-5.1); Sodium 144 mmol/L (135-145); eGFR 10.39
[2024-12-12] MEDS: AZOPT 1% OPHTHALMIC SUSPENSION 1 DROP BOTH EYES ×3 (07:54→20:31)
[2024-12-12] MEDS: NORVASC 2.5 MG PO (07:54)
[2024-12-12] MEDS: FLUSH (NSS) 1 FLUSH IV (07:56)
--- NOTE | 2024-12-12 12:10 | W.PN.HOSP.TC ---
Today's Communication/Plan
-
Assessment / Plan
Assessment / Plan
NAD
Scleral Anicteric
MMM
No JVD
CTABL
RRR, S1/S2
Soft, NT, ND, BS+
Warm, Dry
AAOx3
Calm
Assessment/plan:
CLAUDIA on CKD stage IV secondary to right-sided hydronephrosis/urethral obstruction
S/p Paris placement in percutaneous nephrostomy placement on the right side with good output
Renal function improving slowly at 4 now down from 8 however baseline of 2.3
Continue to follow nephrology recommendations
History of Urothelial Cancer / Left Ureteral Obstruction s/p XRT
-Outpatient urology follow-up
Acute metabolic encephalopathy, hallucinations., Resolved
Possible secondary to worsening uremia/UTI.
Cannot rule out underlying dementia
UTI (pansensitive E. coli)
- Completed 3days
Normocytic Anemia
Anemia of CKD
- Hgb = 7.1 compared to baseline of 11-12 by recent labs.
- No gross blood loss, etc pre patient.
- ? degree of hemodilution given edema, weight gain, etc.
- Follow for changes in H&H.
- Monitor for improvement with eventual diuresis.
- Type and Screen and transfuse if needed.
Benign Hypertension
- Patient cannot recall her current meds / doses.
- Confirm meds with pharmacy in AM and then resume as appropriate.
PT/OT
Begin Dispo planning
Anticipated Discharge: Within 24 hours
Subjective/Interval History
-
Date of Service: December 12, 2024
Seen and examined. no new complaints. no acute overnight events
Objective Data
-
Labs:
Laboratory Results
12/12/24
06:06
WBC 12.0 H
Hgb 7.1 L
Hct 21.7 L
Plt Count 345
Sodium 144
Potassium 3.4 L
Chloride 113 H
Carbon Dioxide 19 L
BUN 75 H
Creatinine 4.0 H
Glucose 109 H
Calcium 8.8
Vital Signs:
Vital Signs
Temp Pulse Resp BP Pulse Ox
98.5 F 83 16 134/63 98
12/12/24 11:00 12/12/24 11:00 12/12/24 11:00 12/12/24 11:00 12/12/24 11:00
I&O
12/11/24 12/12/24 12/13/24
06:59 06:59 06:59
Intake Total 723 / 723
Output Total 300 / 300 3195 / 3195
Balance -300 / -300 -2472 / -2472
[2024-12-12] MEDS: KCL 10 MEQ PO (13:00)
--- NOTE | 2024-12-12 15:51 | W.PN.NEPH.PH ---
Today's Communication / Plan
-
replace k
resume po bicarb
labs in am
Assessment/Plan
-
Impression:
Acute kidney injury and obstructive uropathy with right hydro
right PCN
CKD 4� (2.6), Dr. Shearer
Hypertension (now off meds)
New onset edema
Urothelial cancer, metastatic with malignant ascites
History of left hydronephrosis status post stent placement March 2023 with left atrophic kidney
Plan:
cr improving to 4, non oliguric
off IVF and encourage po intake
edema seem to improve, cont to hold diuretics
Ascites s/p paracentesis [facility] at [facility] and reportedly has malig effusion
to see medical oncology at [facility] however prefers at to stay closer to home
no dialysis needs
replace k
mild met acidosis resume po bicarb
BP stable on low dose CCB
labs in am
d/w pt and family at bedside
d/c plan
-
-
Date of Service: December 12, 2024
CC / HPI / ROS
-
Chief Complaint:
Acute kidney injury
History of Present Illness:
Acute kidney injury status post 2 obstructive uropathy status post nephrostomy
CLAUDIA/Cr down to 4.
acidosis persists 19
nonoliguric from right PCN
BP stable
Hgb low stable 7.1
Review of Systems:.
No chest pain or shortness of breath.
Nephrostomy tube draining well
eating
Labs
-
Labs:
WBC 12.0 10^3/uL (4.8-10.8) H 12/12/24 06:06
RBC 2.60 10^6/uL (4.20-5.40) L 12/12/24 06:06
Hgb 7.1 g/dL (12.0-16.0) L 12/12/24 06:06
Hct 21.7 % (37.0-47.0) L 12/12/24 06:06
Plt Count 345 10^3/uL (130-400) 12/12/24 06:06
Sodium 144 mmol/L (135-145) 12/12/24 06:06
Potassium 3.4 mmol/L (3.5-5.1) L 12/12/24 06:06
Chloride 113 mmol/L (98-107) H 12/12/24 06:06
Carbon Dioxide 19 mmol/L (22-30) L 12/12/24 06:06
BUN 75 mg/dl (7-17) H 12/12/24 06:06
Creatinine 4.0 mg/dL (0.6-1.0) H 12/12/24 06:06
eGFR 10.39 12/12/24 06:06
Glucose 109 mg/dl (70-99) H 12/12/24 06:06
Calcium 8.8 mg/dl (8.4-10.2) 12/12/24 06:06
Phosphorus 7.1 mg/dl (2.5-4.5) H 12/07/24 05:22
Rej-G-Kgvgeyddtcc Pept 5030 pg/ml 12/07/24 00:52
Albumin 3.6 g/dl (3.5-5.0) 12/07/24 00:52
Physical Exam
-
Vital Signs:
Vital Signs
Temp Pulse Resp BP Pulse Ox
98.5 F 83 16 134/63 98
12/12/24 11:00 12/12/24 11:00 12/12/24 11:00 12/12/24 11:00 12/12/24 11:00
Cardiovascular:: Regular rate and rhythm
Respiratory:: Bilateral: CTA (trace)
Lung Excursion:: Normal
Abdomen:: Nontender and Soft
Bowel Sounds:: Normal
Extremity Edema:: None: Bilateral:
Paris Catheter: No
--- NOTE | 2024-12-12 16:28 | PTCARENOTE ---
Pt AAO x3, sl forgetful at times. MCKEON well, OOB in chair for most of shift with assistance, dusty well. VSS. Telemetry:NSR. On room air- pulse ox 97%, no c/o SOB. Abd large, soft, dusty PO. Pt oliguric; Rt PCN tube P/I large amts occ slightly
pink-tinged clear yellow urine; site dsg D/I. Skin pale, afebrile; bruised areas Lt upper cheek/outer eye/Lt lower legs/bilat arms. Resting comfortably at present. Will continue to monitor.
--- NOTE | 2024-12-12 16:35 | CM ---
Reviewed PT OT with pt son and in room.
Pt requested [facility] PCP Hussein Becerril
Referral placed in care port.
PLAN Home with [facility]
[2024-12-12] MEDS: TYLENOL 650 MG PO (16:47)
[2024-12-12] MEDS: SODIUM BICARBONATE 650 MG PO (16:47)
[2024-12-12] MEDS: XALATAN OPHTHALMIC SOLUTION 1 DROP BOTH EYES (20:31)
[2024-12-13] MEDS: TYLENOL 650 MG PO (03:17)
[2024-12-13 03:24] VITALS: BP 137/51
[2024-12-13 05:40] VITALS: BMI 26.6
[2024-12-13 07:10] VITALS: BP 129/55
[2024-12-13] MEDS: AZOPT 1% OPHTHALMIC SUSPENSION 1 DROP BOTH EYES (08:36)
[2024-12-13] MEDS: SODIUM BICARBONATE 650 MG PO (08:37)
[2024-12-13] MEDS: NORVASC 2.5 MG PO (08:37)
[2024-12-13 09:47] LABS: Blood Urea Nitrogen 73 mg/dl (7-17); Calcium 8.9 mg/dl (8.4-10.2); Carbon Dioxide 22 mmol/L (22-30); Chloride 112 mmol/L (98-107); Estimated Creatinine Clearance 10 ml/min; Glucose 107 mg/dl (70-99); Potassium 3.5 mmol/L (3.5-5.1); Sodium 144 mmol/L (135-145)
[2024-12-13 11:00] VITALS: BP 134/50
--- NOTE | 2024-12-13 11:53 | VNURNOTE ---
Chart reviewed. [facility] Lia[facility] met with patient and spouse at bedside. Patient and spouse have had [facility] in the past. Reviewed visits, schedule and homebound status. Patient is agreeable and understands that visits at home will be 2-3 x per week
to assess and teach medical management. [facility] 1-2 days after discharge from . Referral accepted [facility].
--- NOTE | 2024-12-13 12:07 | W.PN.NEPH.PH ---
Today's Communication / Plan
-
follow labs
Assessment/Plan
-
Impression:
Acute kidney injury and obstructive uropathy with right hydro
right PCN
CKD 4� (2.6), Dr. Shearer
Hypertension (now off meds)
New onset edema
Urothelial cancer, metastatic with malignant ascites
History of left hydronephrosis status post stent placement March 2023 with left atrophic kidney
Plan:
cr improving to 3.6, non oliguric
cont to hold diuretics
Ascites s/p paracentesis HEEL BLACKER at [facility] and reportedly has malig effusion-onc consulted
monitor h/h, hb low 7.1 transfusion per primary
met acidosis better on po bicarb
BP stable on low dose CCB
d/w pt and family at bedside
d/c plan
f/u Dr Shearer
-
-
Date of Service: December 13, 2024
CC / HPI / ROS
-
Chief Complaint:
Acute kidney injury
History of Present Illness:
Acute kidney injury status post 2 obstructive uropathy status post nephrostomy
CLAUDIA/Cr down to 3.6
acidosis better at 22
nonoliguric from right PCN
BP stable
Hgb low stable 7.1
Review of Systems:.
No chest pain or shortness of breath.
Nephrostomy tube draining well
eating well
Labs
-
Labs:
WBC 12.0 10^3/uL (4.8-10.8) H 12/12/24 06:06
RBC 2.60 10^6/uL (4.20-5.40) L 12/12/24 06:06
Hgb 7.1 g/dL (12.0-16.0) L 12/12/24 06:06
Hct 21.7 % (37.0-47.0) L 12/12/24 06:06
Plt Count 345 10^3/uL (130-400) 12/12/24 06:06
Sodium 144 mmol/L (135-145) 12/13/24 09:02
Potassium 3.5 mmol/L (3.5-5.1) 12/13/24 09:02
Chloride 112 mmol/L (98-107) H 12/13/24 09:02
Carbon Dioxide 22 mmol/L (22-30) 12/13/24 09:02
BUN 73 mg/dl (7-17) H 12/13/24 09:02
Creatinine 3.6 mg/dL (0.6-1.0) H 12/13/24 09:02
eGFR 11.80 12/13/24 09:02
Glucose 107 mg/dl (70-99) H 12/13/24 09:02
Calcium 8.9 mg/dl (8.4-10.2) 12/13/24 09:02
Phosphorus 7.1 mg/dl (2.5-4.5) H 12/07/24 05:22
Kwu-P-Rgoudyikblg Pept 5030 pg/ml 12/07/24 00:52
Albumin 3.6 g/dl (3.5-5.0) 12/07/24 00:52
Physical Exam
-
Vital Signs:
Vital Signs
Temp Pulse Resp BP Pulse Ox
97.9 F 80 18 134/50 97
12/13/24 11:00 12/13/24 11:00 12/13/24 11:00 12/13/24 11:00 12/13/24 11:00
Cardiovascular:: Regular rate and rhythm
Respiratory:: Bilateral: CTA
Lung Excursion:: Normal
Abdomen:: Nontender and Soft
Bowel Sounds:: Normal
Extremity Edema:: None: Bilateral: (trace)
Paris Catheter: No
--- NOTE | 2024-12-13 12:31 | CON.ONC ---
Impression
Impression
Metastatic urothelial carcinoma
Ascites
Deteriorating performance status
CLAUDIA with history of left hydronephrosis
Plan
Plan
Discussed with patient general prognosis associated with your recurrent urothelial carcinoma
She understands that therapeutic interventions would be palliative
These palliative measures would be systemic in character
She will likely need a port placed pending her performance status on discharge
She may be be a candidate for Padcev/pembrolizumab
Will arrange follow-up
Patient History
History of Present Illness
The patient is an 84-year-old female with a fairly
complex urologic history. In brief, she was followed by Dr. Leon
throughout 2022 and 2023 for renal insufficiency and what appeared
to be an obstructed left kidney. The presumptive diagnosis was ureteral
carcinoma and she received radiation therapy in July 29.
She continued to have renal insufficiency and some anemia. She denies
any hematuria. Recent imaging, however, at [facility] revealed ascites. There was some
concern that this was malignant in nature. Within the last 48
hours, again at [facility], she had a paracentesis, and results of
this fluid was pending. She has continued to feel poorly since treatment.
A recent CAT scan showed an atrophic, chronically obstructed
left kidney still with a mass in the area of the proximal ureter.
There was still ascitic fluid in the pelvis. The ascitic fluid was sampled and
Cells consistent consistent with urothelial carcinoma were identified.
Past-Medical/Surgical History
Past Medical History
Past Medical History: Reports Other
Additional Past Medical History:
CKD IV
Hypertension
Migraine Headaches
Spinal Stenosis
GERD
Endometriosis
Urothelial Cancer s/p XRT
Past Surgical History:
Bilateral TKA
Lumbar Laminectomy
Hysterectomy
Bilateral Carpal Tunnel Release
Left Ureteral Biopsy / Stent
Social History
Tobacco: Former Smoker (Quit smoking over 40 years ago.)
Alcohol: Occasional
Drug: None
Family History
Family History: Not pertinent
Patient Medication
�Medication �Instructions �Recorded �Confirmed �Last Taken �Type
doxepin 25 mg capsule 50 mg PO Q12H Mental Health 03/31/23 09/15/23 09/15/23 05:30 History
brinzolamide 1 % eye 1 drp BOTH EYES TID Eye Condition 04/19/23 09/15/23 09/14/23 22:00 History
drops,suspension
cyclosporine 0.05 % eye drops 1 drp BOTH EYES Q12H DRY EYES 09/09/23 09/15/23 09/14/23 22:30 History
amlodipine 2.5 mg tablet 2.5 mg PO DAILY Blood Pressure 12/07/24 Unknown History
furosemide 20 mg tablet 20 mg PO DAILY Fluid 12/07/24 Unknown History
Retention/Swelling
hydrochlorothiazide 12.5 mg capsule 25 mg PO DAILY Fluid 12/07/24 Unknown History
Retention/Swelling
latanoprost 0.005 % eye drops 1 drp BOTH EYES HS Eye Condition 12/07/24 Unknown History
potassium chloride 10 mEq 10 meq PO DAILY Electrolyte 12/07/24 Unknown History
tablet,extended release(part/cryst) Repletion
sodium bicarbonate 650 mg tablet 650 mg PO DAILY 12/07/24 Unknown History
Active Medications
Generic Name Dose Route Start Last Admin
Trade Name Freq PRN Reason Stop Dose Admin
Acetaminophen 650 mg 12/09/24 08:14 12/13/24 03:17
Acetaminophen 325 Mg Tablet PO 01/06/25 08:13 650 mg
Q6HPRN PRN Administration
mild pain/ fever>100.5F
Albuterol/Ipratropium 3 ml 12/09/24 23:45
Ipratropium 0.5/Albuterol 3 Mg (3 Ml Ampul) INH
R Q4HPRN PRN
SOB or wheezing
Protocol
Amlodipine Besylate 2.5 mg 12/08/24 16:00 12/13/24 08:37
Amlodipine 2.5 Mg Tablet PO 01/05/25 15:59 2.5 mg
DAILY NILSON Administration
Brinzolamide 0 drop 12/08/24 16:00 12/13/24 08:36
Brinzolamide 1% (Ophthalmic Suspension) 10 Ml Bottle BOTH EYES 01/05/25 15:59 1 drop
TID NILSON Administration
Hydralazine HCl 10 mg 12/09/24 18:13 12/10/24 04:09
Hydralazine 20 Mg/Ml Vial IV 01/06/25 18:12 10 mg
Q6HPRN PRN Administration
SBP>170
Latanoprost 0 drop 12/08/24 22:00 12/12/24 20:31
Latanoprost 0.005% (Ophthalmic Solution) 2.5 Ml Bottle BOTH EYES 01/05/25 21:59 1 drop
HS NILSON Administration
Melatonin 5 mg 12/12/24 23:00 12/12/24 23:07
Melatonin 5 Mg Tablet PO 01/09/25 22:59 5 mg
HSPRN PRN Administration
insomnina
Ondansetron HCl 4 mg 12/07/24 12:53 12/07/24 13:01
Ondansetron 4 Mg/2 Ml Vial IV 01/04/25 12:52 4 mg
Q6HPRN PRN Administration
NAUSEA/VOMITING
Sodium Bicarbonate 650 mg 12/12/24 16:00 12/13/24 08:37
Sodium Bicarbonate 650 Mg Tablet PO 01/09/25 15:59 650 mg
DAILY NILSON Administration
Sodium Chloride 0 flush 12/07/24 10:00 12/12/24 07:56
Sodium Chloride 0.9% (Flush) Syringe IV 01/04/25 09:59 1 flush
PER PROTOCOL NILSON Administration
Review of Systems
-
12 point review of systems fails to elicit additional complaints of those reviewed in the HPI.
Physical Exam
-
Physical Exam
General: Sitting in chair comfortable well-hydrated
HEENT: Moist mucous membranes and no scleral icterus
Respiratory: Clear; No Wheezes, Rales or Rhonchi
Cardiac: S1/S2 and Regular Rhythm
GI: Normal Bowel Sounds and mildly distended with ascitic fluid
Musculoskeletal: +1 bilateral edema
Neuro: AO x 3
Labs
Lab Results
WBC 12.0 10^3/uL (4.8-10.8) H 12/12/24 06:06
RBC 2.60 10^6/uL (4.20-5.40) L 12/12/24 06:06
Hgb 7.1 g/dL (12.0-16.0) L 12/12/24 06:06
Hct 21.7 % (37.0-47.0) L 12/12/24 06:06
MCV 83.5 fL (81.0-99.0) 12/12/24 06:06
MCH 27.3 pg (27.0-31.0) 12/12/24 06:06
MCHC 32.7 g/dL (33.0-37.0) L 12/12/24 06:06
RDW 15.9 % (11.5-14.5) H 12/12/24 06:06
Plt Count 345 10^3/uL (130-400) 12/12/24 06:06
MPV 8.8 fL (7.4-10.4) 12/12/24 06:06
Abs Immat Gran (auto) 0.3 10^3/uL (0-0.05) H 12/07/24 00:52
Absolute Neuts (auto) 15.3 10^3/uL (1.4-6.5) H 12/07/24 00:52
Absolute Lymphs (auto) 0.8 10^3/uL (1.2-3.4) L 12/07/24 00:52
Absolute Monos (auto) 2.4 10^3/uL (0.1-0.6) H 12/07/24 00:52
Absolute Eos (auto) 0.4 10^3/uL (0-0.7) 12/07/24 00:52
Absolute Basos (auto) 0.1 10^3/uL (0-0.2) 12/07/24 00:52
Immature Gran % 1.7 % (0-0.5) H 12/07/24 00:52
Neutrophils % 79.1 % (42.2-75.2) H 12/07/24 00:52
Lymphocytes % 3.9 % (20.5-51.1) L 12/07/24 00:52
Monocytes % 12.6 % (1.7-9.3) H 12/07/24 00:52
Eosinophils % 2.2 % (0-6) 12/07/24 00:52
Basophils % 0.5 % (0-2) 12/07/24 00:52
Creatinine 3.6 mg/dL (0.6-1.0) H 12/13/24 09:02
Vital Signs
Vital Signs
Temp Pulse Resp BP Pulse Ox
97.9 F 80 18 134/50 97
12/13/24 11:00 12/13/24 11:00 12/13/24 11:00 12/13/24 11:00 12/13/24 11:00
--- NOTE | 2024-12-13 13:00 | W.PN.HOSP.TC ---
Addendum entered and electronically signed by Bryant Carreon MD 12/13/24 14:08:
Malignant right ureteral obstruction
Original Note:
Today's Communication/Plan
-
Discharge home
More than 30 minutes spent in discharge including
Final examination of the patient
Summarizing hospital stay
Instructions for continuing care to all relevant caregivers
Preparation of discharge records, prescriptions, and referral forms
Total time spent (in minutes): 33min
Assessment / Plan
Assessment / Plan
NAD
Scleral Anicteric
MMM
No JVD
CTABL
RRR, S1/S2
Soft, NT, ND, BS+
Warm, Dry
AAOx3
Calm
Assessment/plan:
CLAUDIA on CKD stage IV secondary to right-sided hydronephrosis/urethral obstruction
S/p [place] placement in percutaneous nephrostomy placement on the right side with good output
Renal function improving slowly at 3.6 now down from 8 however baseline of 2.3
Continue to follow nephrology recommendations
History of Urothelial Cancer / Left Ureteral Obstruction s/p XRT
-Outpatient urology follow-up
Acute metabolic encephalopathy, hallucinations., Resolved
Possible secondary to worsening uremia/UTI.
Cannot rule out underlying dementia
UTI (pansensitive E. coli)
- Completed 3days
Normocytic Anemia
Anemia of CKD
- Hgb = 7.1 compared to baseline of 11-12 by recent labs.
- No gross blood loss, etc pre patient.
- ? degree of hemodilution given edema, weight gain, etc.
- Follow for changes in H&H.
- Monitor for improvement with eventual diuresis.
- Type and Screen and transfuse if needed.
Benign Hypertension
- Patient cannot recall her current meds / doses.
- Confirm meds with pharmacy in AM and then resume as appropriate.
PT/OT
Home with visiting nurses
Anticipated Discharge: Today
Subjective/Interval History
-
Date of Service: December 13, 2024
Seen and examined. No new complaints. No acute overnight events.
Objective Data
-
Labs:
Laboratory Results
12/13/24
09:02
Sodium 144
Potassium 3.5
Chloride 112 H
Carbon Dioxide 22
BUN 73 H
Creatinine 3.6 H
Glucose 107 H
Calcium 8.9
Vital Signs:
Vital Signs
Temp Pulse Resp BP Pulse Ox
97.9 F 80 18 134/50 97
12/13/24 11:00 12/13/24 11:00 12/13/24 11:00 12/13/24 11:00 12/13/24 11:00
I&O
12/12/24 12/13/24 12/14/24
06:59 06:59 06:59
Intake Total 723 / 723 1500 / 1500
Output Total 3195 / 3195 1400 / 1400
Balance -2472 / -2472 100 / 100
--- NOTE | 2024-12-13 13:01 | W.DCSUMMARY ---
Discharge Summary
Discharge Data
Date of Admission: 12/07/24
Date of Discharge: 12/13/24
-
Pending Results: No
Hospital Course
84y F with PMH significant for urothelial carcinoma, CKD and GERD
Presenting with complaints of of weight gain and edema in the increasing/rising creatinine of 8.5. Imaging studies demonstrating concerning findings for urethral obstruction with right-sided hydronephrosis with an CLAUDIA on CKD with known history of
urothelial cancer. Nephrology and urology were both consulted. Urology believed the obstruction was secondary to malignancy therefore IR was consulted and a right percutaneous nephrostomy tube was placed. Renal function did begin improving with a
creatinine on discharge of 3.6. Should be noted there was as dialysis may be required fortunately we did not need to go down this route at this time but may need to do so in the very near future. Will need continued outpatient nephrology
follow-up/care. Follow-up with IR as outpatient
Will need outpatient oncology follow-up for history of urothelial cancer. Stated that she wants to transfer care from [place] to [place]
Discharge Plan
-
Patient Disposition: Home with Home Care
Discharge Diagnosis/Procedures: Claudia on CKD
post obstructive uropathy secondary to malignancy
Condition: Good
Diet: As tolerated, Low Fat, Low Cholesterol, Low Sodium and Restrict fluids to 48 oz
Activity: As tolerated
Blood Work: Repeat CBC and BMP in 1 weeks
Activity Restrictions/Additional Instructions:
Presenting with complaints of of weight gain and edema in the increasing/rising creatinine of 8.5. Imaging studies demonstrating concerning findings for urethral obstruction with right-sided hydronephrosis with an CLAUDIA on CKD with known history of
urothelial cancer. Nephrology and urology were both consulted. Urology believed the obstruction was secondary to malignancy therefore IR was consulted and a right percutaneous nephrostomy tube was placed. Renal function did begin improving with a
creatinine on discharge of 3.6. Should be noted there was as dialysis may be required fortunately we did not need to go down this route at this time but may need to do so in the very near future. Will need continued outpatient nephrology
follow-up/care. Follow-up with IR as outpatient
Will need outpatient oncology follow-up for history of urothelial cancer. Stated that she wants to transfer care from [place] to [place]
Instructions: How to care for a nephrostomy tube, Percutaneous nephrostomy
Referrals:
All Drake DO [Active] - in two to three weeks
Rigo Ball MD [Family Provider] -
Andre Ly MD [Active] - in two to three weeks
Felipe Sanchez Jr., MD [Active] - in two weeks
Additional Discharge Medication Instructions: Avoid NSAID's
Prescriptions:
Continued
doxepin 25 mg Capsule
50 mg PO Q12H
brinzolamide 1 % Drops,Suspension
1 drp BOTH EYES TID
cyclosporine 0.05 % Drops
1 drp BOTH EYES Q12H
latanoprost 0.005 % drops
1 drp BOTH EYES HS
amlodipine 2.5 mg tablet
2.5 mg PO DAILY
sodium bicarbonate 650 mg tablet
650 mg PO DAILY
Held
potassium chloride 10 mEq tablet,ER particles/crystals
10 meq PO DAILY
Hold Instructions: Resume on 12/20/24. Until recommended by medical provider to resume
Discontinued
hydrochlorothiazide 12.5 mg capsule
25 mg PO DAILY
furosemide 20 mg tablet
20 mg PO DAILY
Discharge Orders:
Discharge Patient (As Directed); Ordered 12/13/24
Ordered By: Bryant Carreon
Discharge Date and Time
Print Language: EGYPTIAN
--- NOTE | 2024-12-13 15:28 | PTCARENOTE ---
Received patient this am AAOx3. Pt is [facility] Nephrostomy Tube Teaching completed. Pt tolerated diet. OOB to chair as tolerated. Offered no complaints. Made patient comfortable. Pt for discharge today.
--- NOTE | 2024-12-13 16:42 | CM ---
MD entered order for discharge.
Pt with nephrostomy tube.
[facility] set up .
IMM reviewed signed on chart.
son drove her home.
PLAN Home with [facility]
== END 2024-12-13 14:28 | disposition home health service (06) | DRG 686 ==
LOC: 4 EAST ACU 05:20
PROVIDERS: General Practice; Internal Medicine; Physician Assistant; Radiology Vascular & Interventional Radiology; Student in an Organized Health Care Education/Training Program; ADMITTING PHYSICIAN Hospitalist; ATTENDING PHYSICIAN Hospitalist; CONSULT PHYSICIAN Specialist; EMERGENCY PHYSICIAN Emergency Medicine; FAMILY PHYSICIAN Family Medicine; OTHER PHYSICIAN Internal Medicine Hematology & Oncology; OTHER PHYSICIAN Internal Medicine Nephrology
PROC: 0T9030Z Drainage of Right Kidney with Drainage Device, Percutaneous Approach (ICD-10-PCS; 2024-12-07)
DX: C66.1 Malignant neoplasm of right ureter (principal); G93.41 Metabolic encephalopathy; N18.4 Chronic kidney disease, stage 4 (severe); I13.0 Hypertensive heart and chronic kidney disease with heart failure and stage 1 through stage 4 chronic kidney disease, or unspecified chronic kidney disease; N17.9 Acute kidney failure, unspecified; N13.6 Pyonephrosis; R18.8 Other ascites; R44.3 Hallucinations, unspecified; R18.0 Malignant ascites; E87.20 Acidosis, unspecified; I50.9 Heart failure, unspecified; R63.5 Abnormal weight gain; N26.1 Atrophy of kidney (terminal); K21.9 Gastro-esophageal reflux disease without esophagitis; G43.909 Migraine, unspecified, not intractable, without status migrainosus; N80.9 Endometriosis, unspecified; M48.00 Spinal stenosis, site unspecified; B96.20 Unspecified Escherichia coli [E. coli] as the cause of diseases classified elsewhere; D63.1 Anemia in chronic kidney disease; Z96.653 Presence of artificial knee joint, bilateral; Z88.8 Allergy status to other drugs, medicaments and biological substances; Z87.891 Personal history of nicotine dependence; Z90.710 Acquired absence of both cervix and uterus; Z92.3 Personal history of irradiation
CPT/HCPCS: 50432; 71045; 71046; 74176; 80048; 80053; 81003; 81015; 82607; 82746; 83540; 83550; 83735; 83880; 84100; 85025; 85027; 85610; 85730; 86850; 86900; 86901; 87077; 87086; 87186; 93005; 97163; 97167; 99152; 99153; C1729; C1769

== ENCOUNTER → 2024-12-18 12:23 | Outpatient (REF) | payer OTHER, SELFPAY ==
[2024-12-18 13:43] LABS: % Basophils 0.8 % (0-2); % Eosinophils 2.4 % (0-6); % Lymphocytes 9.3 % (20.5-51.1); % Monocytes 10.1 % (1.7-9.3); % Neutrophils 76.4 % (42.2-75.2); Absolute Basophils 0.1 10^3/uL (0-0.2); Absolute Eosinophils 0.3 10^3/uL (0-0.7); Absolute Immature Granulocytes 0.1 10^3/uL (0-0.05); Absolute Lymphocytes 1.1 10^3/uL (1.2-3.4); Absolute Monocytes 1.2 10^3/uL (0.1-0.6); Absolute Neutrophils 9.3 10^3/uL (1.4-6.5); Hematocrit 23.3 % (37.0-47.0); Hemoglobin 7.3 g/dL (12.0-16.0); Mean Corp Hgb Conc. 31.3 g/dL (33.0-37.0); Mean Corpuscular Hgb 27.1 pg (27.0-31.0); Mean Corpuscular Volume 86.6 fL (81.0-99.0); Mean Platelet Volume 9.3 fL (7.4-10.4); Nucleated Red Blood Cells % 0 %; Platelet Count 508 10^3/uL (130-400); Red Blood Cell Count 2.69 10^6/uL (4.20-5.40); Red Cell Dist. Width 16.8 % (11.5-14.5); White Blood Cell Count 12.2 10^3/uL (4.8-10.8)
[2024-12-18 15:23] LABS: ALT (SGPT) 30 U/L (0-35); AST (SGOT) 32 U/L (14-36); Albumin 3.8 g/dl (3.5-5.0); Alkaline Phosphatase 183 U/L (38-126); Blood Urea Nitrogen 48 mg/dl (7-17); Calcium 9.3 mg/dl (8.4-10.2); Carbon Dioxide 21 mmol/L (22-30); Chloride 110 mmol/L (98-107); Glucose 107 mg/dl (70-99); Phosphorus 3.8 mg/dl (2.5-4.5); Potassium 3.8 mmol/L (3.5-5.1); Sodium 144 mmol/L (135-145); Total Bilirubin 0.6 mg/dl (0.2-1.3); Total Protein 6.6 g/dl (6.3-8.2); eGFR 15.95
[2024-12-18 15:48] LABS: TSH 4.47 uIU/ml (0.47-4.68)
== END ==
LOC: REG 12:23
PROVIDERS: ATTENDING PHYSICIAN Internal Medicine; FAMILY PHYSICIAN Family Medicine; REFERRING PHYSICIAN Internal Medicine Hematology & Oncology
DX: E78.00 Pure hypercholesterolemia, unspecified (principal); D63.8 Anemia in other chronic diseases classified elsewhere; I10 Essential (primary) hypertension; N18.4 Chronic kidney disease, stage 4 (severe); C67.9 Malignant neoplasm of bladder, unspecified
CPT/HCPCS: 36415; 80053; 84100; 84439; 84443; 84480; 85025; 86850; 86900; 86901

== ENCOUNTER → 2024-12-27 10:59 | Outpatient (REF) | payer OTHER, SELFPAY ==
[2024-12-27 11:45] LABS: % Basophils 1.1 % (0-2); % Immature Granulocytes 0.7 % (0-0.5); % Lymphocytes 10.1 % (20.5-51.1); % Monocytes 12.6 % (1.7-9.3); % Neutrophils 73.5 % (42.2-75.2); Absolute Basophils 0.1 10^3/uL (0-0.2); Absolute Eosinophils 0.2 10^3/uL (0-0.7); Absolute Immature Granulocytes 0.1 10^3/uL (0-0.05); Absolute Monocytes 1.2 10^3/uL (0.1-0.6); Absolute Neutrophils 7.1 10^3/uL (1.4-6.5); Hematocrit 27.1 % (37.0-47.0); Hemoglobin 8.4 g/dL (12.0-16.0); Mean Corpuscular Hgb 27.2 pg (27.0-31.0); Mean Corpuscular Volume 87.7 fL (81.0-99.0); Mean Platelet Volume 8.9 fL (7.4-10.4); Nucleated Red Blood Cells % 0 %; Platelet Count 451 10^3/uL (130-400); Red Blood Cell Count 3.09 10^6/uL (4.20-5.40); Red Cell Dist. Width 16.6 % (11.5-14.5); White Blood Cell Count 9.7 10^3/uL (4.8-10.8)
== END ==
LOC: REG 10:59
PROVIDERS: ATTENDING PHYSICIAN Internal Medicine Hematology & Oncology; FAMILY PHYSICIAN Family Medicine
DX: C67.9 Malignant neoplasm of bladder, unspecified (principal); N18.4 Chronic kidney disease, stage 4 (severe); D63.1 Anemia in chronic kidney disease; D63.0 Anemia in neoplastic disease
CPT/HCPCS: 36415; 85025; 86850; 86900; 86901

== ENCOUNTER → 2025-01-01 08:31 | Outpatient (REF) | payer OTHER, SELFPAY ==
[2025-01-01 08:45] VITALS: BP 146/69; BP_SYST 78; BMI 26.5
[2025-01-01] MEDS: ANCEF 10 IV (09:21)
[2025-01-01 10:56] VITALS: BP 135/91
== END ==
LOC: RADI 08:31
PROVIDERS: ATTENDING PHYSICIAN Internal Medicine Hematology & Oncology
DX: C67.9 Malignant neoplasm of bladder, unspecified (principal)
CPT/HCPCS: 36561; 76937; 77001; 99152; 99153; C1788

== ENCOUNTER → 2025-01-03 11:25 | Outpatient (REF) | payer OTHER, SELFPAY ==
[2025-01-03 12:23] LABS: % Basophils 0.9 % (0-2); % Eosinophils 1.9 % (0-6); % Immature Granulocytes 0.8 % (0-0.5); % Lymphocytes 7.3 % (20.5-51.1); % Monocytes 12.2 % (1.7-9.3); % Neutrophils 76.9 % (42.2-75.2); Absolute Basophils 0.1 10^3/uL (0-0.2); Absolute Eosinophils 0.2 10^3/uL (0-0.7); Absolute Immature Granulocytes 0.1 10^3/uL (0-0.05); Absolute Lymphocytes 0.9 10^3/uL (1.2-3.4); Absolute Monocytes 1.4 10^3/uL (0.1-0.6); Hematocrit 26.9 % (37.0-47.0); Hemoglobin 8.4 g/dL (12.0-16.0); Mean Corp Hgb Conc. 31.2 g/dL (33.0-37.0); Mean Corpuscular Hgb 27.2 pg (27.0-31.0); Mean Corpuscular Volume 87.1 fL (81.0-99.0); Mean Platelet Volume 9.1 fL (7.4-10.4); Nucleated Red Blood Cells % 0 %; Platelet Count 437 10^3/uL (130-400); Red Blood Cell Count 3.09 10^6/uL (4.20-5.40); Red Cell Dist. Width 16.2 % (11.5-14.5); White Blood Cell Count 11.7 10^3/uL (4.8-10.8)
[2025-01-03 13:01] LABS: ALT (SGPT) 12 U/L (0-35); AST (SGOT) 28 U/L (14-36); Albumin 3.4 g/dl (3.5-5.0); Alkaline Phosphatase 157 U/L (38-126); Blood Urea Nitrogen 36 mg/dl (7-17); Calcium 9.3 mg/dl (8.4-10.2); Carbon Dioxide 25 mmol/L (22-30); Chloride 106 mmol/L (98-107); Glucose 120 mg/dl (70-99); Sodium 143 mmol/L (135-145); Total Bilirubin 0.6 mg/dl (0.2-1.3); Total Protein 6.2 g/dl (6.3-8.2); eGFR 17.43
== END ==
LOC: REG 11:25
PROVIDERS: ATTENDING PHYSICIAN Internal Medicine Hematology & Oncology; FAMILY PHYSICIAN Internal Medicine
DX: C67.9 Malignant neoplasm of bladder, unspecified (principal); N18.4 Chronic kidney disease, stage 4 (severe); D63.1 Anemia in chronic kidney disease; D63.0 Anemia in neoplastic disease
CPT/HCPCS: 36415; 80053; 85025; 86850; 86900; 86901

== ENCOUNTER → 2025-01-09 10:50 | Outpatient (REF) | payer OTHER, SELFPAY | LOC: PET 10:50 | PROVIDERS: ATTENDING PHYSICIAN Internal Medicine Hematology & Oncology | DX: C67.9 Malignant neoplasm of bladder, unspecified (principal) | CPT/HCPCS: 78815; A9552 ==

== ENCOUNTER → 2025-01-10 11:07 | Outpatient (REF) | payer OTHER, SELFPAY ==
[2025-01-10 11:45] LABS: % Basophils 0.4 % (0-2); % Eosinophils 2.4 % (0-6); % Immature Granulocytes 1.6 % (0-0.5); % Lymphocytes 4.9 % (20.5-51.1); % Monocytes 13.8 % (1.7-9.3); % Neutrophils 76.9 % (42.2-75.2); Absolute Basophils 0.1 10^3/uL (0-0.2); Absolute Eosinophils 0.3 10^3/uL (0-0.7); Absolute Immature Granulocytes 0.2 10^3/uL (0-0.05); Absolute Lymphocytes 0.7 10^3/uL (1.2-3.4); Absolute Neutrophils 10.9 10^3/uL (1.4-6.5); Hematocrit 24.5 % (37.0-47.0); Hemoglobin 7.6 g/dL (12.0-16.0); Mean Corpuscular Hgb 26.7 pg (27.0-31.0); Mean Platelet Volume 9.1 fL (7.4-10.4); Nucleated Red Blood Cells % 0.2 %; Platelet Count 464 10^3/uL (130-400); Red Blood Cell Count 2.85 10^6/uL (4.20-5.40); Red Cell Dist. Width 16.9 % (11.5-14.5); White Blood Cell Count 14.2 10^3/uL (4.8-10.8)
[2025-01-10 12:00] LABS: ALT (SGPT) 18 U/L (0-35); AST (SGOT) 32 U/L (14-36); Albumin 3.4 g/dl (3.5-5.0); Alkaline Phosphatase 147 U/L (38-126); Blood Urea Nitrogen 50 mg/dl (7-17); Calcium 9.5 mg/dl (8.4-10.2); Carbon Dioxide 26 mmol/L (22-30); Chloride 104 mmol/L (98-107); Glucose 121 mg/dl (70-99); Potassium 3.7 mmol/L (3.5-5.1); Sodium 142 mmol/L (135-145); Total Bilirubin 0.8 mg/dl (0.2-1.3); Total Protein 6.1 g/dl (6.3-8.2); eGFR 15.95
== END ==
LOC: REG 11:07
PROVIDERS: ATTENDING PHYSICIAN Internal Medicine Hematology & Oncology; FAMILY PHYSICIAN Family Medicine; REFERRING PHYSICIAN Internal Medicine
DX: C67.9 Malignant neoplasm of bladder, unspecified (principal); N18.4 Chronic kidney disease, stage 4 (severe); D63.1 Anemia in chronic kidney disease; D63.0 Anemia in neoplastic disease
CPT/HCPCS: 36415; 80053; 85025; 86850; 86900; 86901

== ENCOUNTER 2025-01-13 16:23 | Inpatient (IN) | payer OTHER, SELFPAY ==
[2025-01-13] VITALS (18 sets, daily range): BP systolic 109–161; BP diastolic 61–87; BMI 26.7; BMI 27.7
--- NOTE | 2025-01-13 12:34 | ED.GENMED ---
History of Present Illness
General
Chief Complaint: Breathing Problem
Source: patient and family
Time Seen by Provider: 01/13/25 12:17
History of Present Illness
History of Present Illness:
Patient presents with progressive shortness of breath. Some weight gain. History of anemia. Short of breath with any exertion. No chest pain no fever no cough.
Past History
Past History
ED Past Medical History: GERD, HTN, Other (Sepsis) and Other (Metastatic urothelial CA)
ED Past Surgical History: Gynecological (Hysterectomy), Orthopedic (Right carpal tunnel release, right knee arthroscopy, right knee total replacement, cervical spine with tylor, lumbar synovial cyst excision, left carpal tunnel release, left knee
replacement) and Urological (Stent left ureter)
Social History
Tobacco: Former smoker
Alcohol: None
Drug: None
Personal:
Living: with family
Employment: Retired
Review of Systems
Review of Systems
All Other Systems: Not applicable
Constitutional: Denies fever or chills
Cardiac: Denies chest pain or syncope
ABD/GI: Denies bloody stools or black stools
Phy Exam
Physical Exam
Physical Exam:
GENERAL: Alert and oriented in no apparent distress
EYE: Orbits normal.
NECK: Supple, no significant adenopathy.
ENT: Pharynx without erythema
CARDIAC: Tachycardic and regular with midsystolic murmur
LUNGS: Relatively clear but tachypnea
ABDOMEN: Soft, without focal tenderness or distention. Stool heme-negative
NEUROLOGICAL: Alert and oriented , grossly non-focal
SKIN: Warm and dry, no rash or lesion, no discoloration, skin intact.
MUSCULOSKELETAL: Moderate bilateral lower extremity pitting edema
PSYCH: Normal and appropriate interaction.
Scores
Heart Failure Risk
Heart Failure Risk Score: Not Applicable
Course
Orders/Labs/Results
Orders:
Orders
01/13/25 12:24
IV Insert/Care/Rem.- Treatment PRN
Pulse Ox/cont/shift [RESP] Stat
Quantity: 1
01/13/25 12:25
Electrocardiogram (*1) Stat
Reason for Study: Other
Other Reason for Exam: chest pain
Cardiac Monitoring- Treatment ONCE
EKG- Treatment ONCE
IV Insert/Care/Rem.- Treatment PRN
CR Chest - 2 Views Urgent
Comment:
Reason For Exam: Short of breath
01/13/25 12:26
Add On- LAB Urgent
Tests Added?: weight please
01/13/25 13:24
Basic Metabolic Panel Urgent
Complete Blood Count/With Diff Urgent
NT-proBNP Urgent
Troponin I Urgent
01/13/25 13:46
* Blood Bank Products Urgent
Blood Bank Products: *Packed RBC Leuko(PRBC's)
Quantity: 2
Transfuse Today: Yes
Reason: Anemia
01/13/25 13:47
IV Insert/Care/Rem.- Treatment PRN
01/13/25 13:57
Type+Screen Urgent
BBK Wristband Number:
Abnormal Lab Results
01/13/25 01/13/25
13:24 13:57
WBC 18.2 H 10^3/uL
(4.8-10.8)
RBC 2.22 L 10^6/uL
(4.20-5.40)
Hgb 5.9 L* D g/dL
(12.0-16.0)
Hct 19.1 L* %
(37.0-47.0)
MCH 26.6 L pg
(27.0-31.0)
MCHC 30.9 L g/dL
(33.0-37.0)
RDW 17.8 H %
(11.5-14.5)
Plt Count 450 H 10^3/uL
(130-400)
Abs Immat Gran (auto) 0.3 H 10^3/uL
(0-0.05)
Absolute Neuts (auto) 15.3 H 10^3/uL
(1.4-6.5)
Absolute Lymphs (auto) 0.5 L 10^3/uL
(1.2-3.4)
Absolute Monos (auto) 2.1 H 10^3/uL
(0.1-0.6)
Immature Gran % 1.4 H %
(0-0.5)
Neutrophils % 83.9 H %
(42.2-75.2)
Lymphocytes % 2.7 L %
(20.5-51.1)
Monocytes % 11.4 H %
(1.7-9.3)
Potassium 3.3 L mmol/L
(3.5-5.1)
BUN 57 H mg/dl
(7-17)
Creatinine 2.7 H mg/dL
(0.6-1.0)
Glucose 144 H mg/dl
(70-99)
Crossmatch IS Only See Detail
01/13/25 13:24
01/13/25 13:24
Vital Signs
Initial and Last Documented VS:
Initial Vital Signs
Temp Pulse Resp BP Pulse Ox
98.0 F 116 18 154/87 97
01/13/25 12:10 01/13/25 12:10 01/13/25 12:10 01/13/25 12:10 01/13/25 12:10
Last Documented Vital Signs
Temp Pulse Resp BP Pulse Ox
98.4 F 92 21 109/81 93
01/13/25 15:36 01/13/25 15:45 01/13/25 15:45 01/13/25 15:36 01/13/25 15:45
MDM/Problems Addressed
Differential Diagnosis Includes:
Differential includes CHF/fluid retention, symptomatic anemia, pulmonary emboli. Doubt infectious issue. Workup in progress
*Radiology
Radiology exam reviewed: radiology read reviewed (Trace effusions)
*Pulse Oximetry
Patient hypoxic: no
*EKG
Interpreted by ED Provider?: Yes
Interpretation: abnormal
Comparison EKG: changes noted
Heart Rate: 114
Rate: tachycardiac
Rhythm: sinus
Hurst: normal axis
Interval: normal interval
QRS Pattern: right bundle branch block
Ischemia: non-specific ST changes
*Critical Care Note
Total Time (30-74mins, 75-104mins- exclusive of procedures): Not Applicable
Data Reviewed
Review of Other/Old Records Reveals: Labs, Records and Testing
Update Note
Update Note:
Severe symptomatic anemia. Warrants in place and management
ED Attending Note
-
Portions of this chart may have been created with voice recognition software.� Occasional wrong word or��sound alike� substitutions may have occurred due to the inherent limitations of voice recognition software.
Discharge Plan
Departure
Patient Disposition: Admit
Date of Disposition: 01/13/25
Time of Disposition: 15:31
Presentation/result/management discussed w/ accepting MD/DO: Hospitalist
Discharge Problem:
Symptomatic anemia, Renal insufficiency, Metastatic urothelial CA
Prescriptions:
No Action
doxepin 25 mg Capsule
50 mg PO Q12H
brinzolamide 1 % Drops,Suspension
1 drp BOTH EYES TID
cyclosporine 0.05 % Drops
1 drp BOTH EYES Q12H
latanoprost 0.005 % drops
1 drp BOTH EYES HS
amlodipine 2.5 mg tablet
2.5 mg PO DAILY
sodium bicarbonate 650 mg tablet
650 mg PO DAILY
potassium chloride 10 mEq tablet,ER particles/crystals
10 meq PO DAILY
Referrals:
Rigo Ball MD [Family Provider] -
Interventions
Interventions:
*Risk Screen - Suicide Last Done: 01/13/25 12:10
*General Assessment Last Done: 01/13/25 12:10
*Neglect/Abuse Screening Last Done: 01/13/25 12:10
*ED- Fall Risk Assessment Last Done: 01/13/25 13:29
*ED COVID-19 Vaccine History Last Done: 01/13/25 13:29
ED- Cardiac Assessment Last Done: 01/13/25 13:29
ED- Pulmonary Assessment Last Done: 01/13/25 13:29
Discharge Date and Time
Print Language: YORUBA
[2025-01-13 13:45] LABS: % Basophils 0.2 % (0-2); % Eosinophils 0.4 % (0-6); % Immature Granulocytes 1.4 % (0-0.5); % Lymphocytes 2.7 % (20.5-51.1); % Monocytes 11.4 % (1.7-9.3); % Neutrophils 83.9 % (42.2-75.2); Absolute Eosinophils 0.1 10^3/uL (0-0.7); Absolute Immature Granulocytes 0.3 10^3/uL (0-0.05); Absolute Lymphocytes 0.5 10^3/uL (1.2-3.4); Absolute Monocytes 2.1 10^3/uL (0.1-0.6); Absolute Neutrophils 15.3 10^3/uL (1.4-6.5); Hematocrit 19.1 % (37.0-47.0); Hemoglobin 5.9 g/dL (12.0-16.0); Mean Corp Hgb Conc. 30.9 g/dL (33.0-37.0); Mean Corpuscular Hgb 26.6 pg (27.0-31.0); Mean Platelet Volume 8.8 fL (7.4-10.4); Nucleated Red Blood Cells % 0.3 %; Platelet Count 450 10^3/uL (130-400); Red Blood Cell Count 2.22 10^6/uL (4.20-5.40); Red Cell Dist. Width 17.8 % (11.5-14.5); White Blood Cell Count 18.2 10^3/uL (4.8-10.8)
[2025-01-13 13:49] LABS: Blood Urea Nitrogen 57 mg/dl (7-17); Calcium 8.7 mg/dl (8.4-10.2); Carbon Dioxide 25 mmol/L (22-30); Chloride 104 mmol/L (98-107); Estimated Creatinine Clearance 13 ml/min; Glucose 144 mg/dl (70-99); Potassium 3.3 mmol/L (3.5-5.1); Sodium 141 mmol/L (135-145); eGFR 16.66
[2025-01-13 14:01] LABS: NT-proBNP 2520 pg/ml; Troponin I 0.018 ng/ml
--- NOTE | 2025-01-13 15:00 | EDRN ---
per the provider Dr. Mckenzie, this RN is to run the pts unit of blood over 3 hours
--- NOTE | 2025-01-13 16:14 | HPS.HSE ---
Family Physician
-
Family Physician: Rigo Ball
Chief Complaint
-
History of Present Illness
84 female history of urothelial cancer, CKD, GERD, endometriosis, complaining of shortness of breath fatigue that has been progressively getting worse over the last 4 days. Found to have a hemoglobin of 5.9 previously checked approximately 10 days
ago prior to chemotherapy which at that time was in the sevens. No chest pain fevers chills. No blood in urine stool, no dark stool, no coughing blood vomiting blood or bloody noses. Currently not on anticoagulants or NSAIDs.
Past surgical history bilateral knee replacements, total hysterectomy in her 30s
Family history father brain cancer, mother emphysema
Former smoker quit 40 years ago, drinks a glass of wine occasionally, no drug use history
12 point ROS completed everything negative apart from what is stated above
Medical History
Past Medical History
Past Medical History: Reports Cancer
Past Surgical History: Reports Gynocological and Orthopedic
Social History
Tobacco: Former Smoker
Alcohol: Occasional
Drug: None
Family History
Family History: Not pertinent and Cancer
Allergies / Home Medications
Allergies reflects when Allergies were last updated in [facility].
Home Medications with original date entered in [facility]
Allergy/Medication List:
Allergies
Allergy/AdvReac Type Severity Reaction Status Date / Time
RADAMES Inhibitors Allergy lisinopril- Verified 01/13/25 12:10
Cough
lisinopril Allergy radames Verified 01/13/25 12:10
inhibitors-cough
Home Medications
doxepin 25 mg capsule 50 mg PO Q12H Mental Health 03/31/23
brinzolamide 1 % eye drops,suspension 1 drp BOTH EYES TID Eye Condition 04/19/23
cyclosporine 0.05 % eye drops 1 drp BOTH EYES Q12H DRY EYES 09/09/23
amlodipine 2.5 mg tablet 2.5 mg PO DAILY Blood Pressure 12/07/24
latanoprost 0.005 % eye drops 1 drp BOTH EYES HS Eye Condition 12/07/24
potassium chloride 10 mEq tablet,extended release(part/cryst) 10 meq PO DAILY Electrolyte Repletion 12/07/24
sodium bicarbonate 650 mg tablet 650 mg PO DAILY 12/07/24
Review of Systems
-
History Source: Patient
A 12 point ROS was completed and negative except as noted: Yes
Physical Exam
Vital Signs
Vital Signs
Temp Pulse Resp BP Pulse Ox
98.6 F 102 22 129/66 93
01/13/25 15:56 01/13/25 16:00 01/13/25 16:00 01/13/25 16:00 01/13/25 15:56
Physical Exam
General: Well Developed
Laboratory Results
-
01/13/25 13:24
01/13/25 13:24
Laboratory Results
Troponin I 0.018 ng/ml 01/13/25 13:24
Impression/Plan
-
NAD
Scleral Anicteric, wearing corrective lenses
MMM
No JVD
CTABL
Chest port with blood running through it
RRR, S1/S2
Soft, NT, ND, BS+
Warm, Dry
Bilateral lower extremity pitting edema
AAOx3
Symptomatic anemia without evidence of acute blood loss. Likely related to anemia of renal disease in the setting of chemotherapy.
Consult oncology
Transfuse
Give 40 mg IV Lasix after 1 unit has completed
Repeat CBC in the a.m.
Right-sided hydronephrosis/urethral obstruction in the setting of urothelial cancer. S/p nephrostomy tube draining yellow urine.
Outpatient oncology follow-up
CKD stage IV
Avoid nephrotoxins hypotension
Will need outpatient nephrology follow-up for initiating discussions about hemodialysis
Continue bicarb
Hypertension
Continue antihypertensives
--- NOTE | 2025-01-13 18:17 | EDRN ---
this RN called the receiving unit and notified them that paper report was going to be tubed up
[2025-01-13] MEDS: SINEQUAN 50 MG PO (20:24)
[2025-01-13] MEDS: LASIX 40 MG IV (20:24)
[2025-01-13] MEDS: TYLENOL 650 MG PO (20:24)
[2025-01-13] MEDS: RESTASIS 0.05% OPHTHALMIC EMULSION 1 DROPS BOTH EYES (20:24)
[2025-01-13] MEDS: XALATAN OPHTHALMIC SOLUTION 1 DROP BOTH EYES (22:08)
[2025-01-13] MEDS: AZOPT 1% OPHTHALMIC SUSPENSION 1 DROP BOTH EYES (22:08)
[2025-01-13] MEDS: AZOPT 1% OPHTHALMIC SUSPENSION BOTH EYES (22:11)
[2025-01-13 22:18] LABS: Glucose - Point of Care 185 mg/dl (70-99)
[2025-01-14] MEDS: MELATONIN 10 MG PO (00:26)
[2025-01-14 02:03] VITALS: BP 154/82
[2025-01-14] MEDS: TYLENOL 650 MG PO ×2 (03:24→10:14)
[2025-01-14] MEDS: COMPAZINE 5 MG IV (03:24)
[2025-01-14 04:00] VITALS: BP 145/63
[2025-01-14] MEDS: FIORICET 1 TAB PO ×2 (05:10→11:21)
[2025-01-14 05:22] LABS: Blood Urea Nitrogen 56 mg/dl (7-17); Calcium 8.5 mg/dl (8.4-10.2); Carbon Dioxide 25 mmol/L (22-30); Chloride 105 mmol/L (98-107); Estimated Creatinine Clearance 14 ml/min; Glucose 138 mg/dl (70-99); Potassium 3.1 mmol/L (3.5-5.1); Sodium 141 mmol/L (135-145); eGFR 17.43
[2025-01-14 05:41] LABS: Hematocrit 26.4 % (37.0-47.0); Hemoglobin 8.6 g/dL (12.0-16.0); Mean Corp Hgb Conc. 32.6 g/dL (33.0-37.0); Mean Corpuscular Hgb 27.5 pg (27.0-31.0); Mean Corpuscular Volume 84.3 fL (81.0-99.0); Mean Platelet Volume 8.6 fL (7.4-10.4); Platelet Count 384 10^3/uL (130-400); Red Blood Cell Count 3.13 10^6/uL (4.20-5.40); Red Cell Dist. Width 16.1 % (11.5-14.5); White Blood Cell Count 15.2 10^3/uL (4.8-10.8)
[2025-01-14] MEDS: KCL 40 MEQ PO (05:54)
--- NOTE | 2025-01-14 06:14 | W.PN.UPDATE ---
Update Note
Progress Note Update
-Ordered Lasix 40 mg IV x 1 in between 2 units PRBC's as per note.
K+ 3.2, repeat labs ordered for 2 hours after transfusion completed for 2nd unit.�
~ 4 AM�Repeat K+ 3.1, ordered supplemental potassium 40 meq PO.�
~ 8 pm�Pt c/o headache, ordered Tylenol 650 mg PO Q4HPRN.
~ midnight�Pt c/o insomnia, said she takes Melatonin 10 mg po at home every night. Medication ordered.
~ 3 am�Pt c/o nausea, takes compazine at home. Ordered Compazine 5 mg IV Q6HPRN.
~ 5 am�Pt c/o headache, unrelieved by Tylenol. Pt w/hx of migraine headaches, ordered Fioricet 1 tab x 1 dose. Pt stated worked well.
--- NOTE | 2025-01-14 06:28 | W.PN.HOSP.TC ---
Today's Communication/Plan
-
discharge
Assessment / Plan
Assessment / Plan
Physical Exam
Genera: no acute distress, appears comfortable at this time.
HEENT: Scleral Anicteric, MMM, No JVD
Pulm: CTABL
Cardio: S1 S2 Sinus Tachy no murmurs/rubs/gallops, chest port present
Abd: Soft, NT, distended, BS+. Right nephrostomy tube draining yellow urine.
Ext: Warm, Dry, Bilateral lower extremity pitting edema
Neuro: AAOx3
Psych: Calm cooperative
84F urothelial Ca on chemo CKD IV GERD Endometriosis here for symptomatic severe Anemia Hgb 5.9
Symptomatic anemia without evidence of acute blood loss. Likely related to anemia of renal disease and recent chemo.
responded well to 2PRBC
Consult oncology appreciated stable for discharge outpatient follow up
Right-sided hydronephrosis/urethral obstruction in the setting of urothelial cancer. S/p nephrostomy tube draining yellow urine.
Outpatient oncology follow-up
CKD stage IV
Avoid nephrotoxins hypotension
Continue bicarb
outpt nephro follow up
Hypertension
Continue antihypertensives
PT/OT appreciated home services
Medically stable for discharge home with home services and outpatient follow up recommendations.
Discussed with patient and patient's Tang
Total Time Preparing Discharge __40 minutes including examination of the patient, summary of the hospital stay, instructions for continuing care to all relevant caregivers; and preparation of discharge records, prescriptions, and referral
forms if necessary.
Anticipated Discharge: Today
Subjective/Interval History
-
Date of Service: January 14, 2025
Seen and examined at bedside in no acute distress resting comfortably in bed. Reports improvement in overall symptoms since transfusion, including weakness/fatigue. Eager to go home. Tang present during evaluation.
Objective Data
-
Labs:
Laboratory Results
01/14/25 01/14/25
02:00 04:07
WBC Pending 15.2 H
Hgb Pending 8.6 L D
Hct Pending 26.4 L
Plt Count Pending 384
Sodium Pending 141
Potassium Pending 3.1 L
Chloride Pending 105
Carbon Dioxide Pending 25
BUN Pending 56 H
Creatinine Pending 2.6 H
Glucose Pending 138 H
Calcium Pending 8.5
Vital Signs:
Vital Signs
Temp Pulse Resp BP Pulse Ox
98.6 F 102 18 145/63 96
01/14/25 04:00 01/14/25 04:00 01/14/25 04:00 01/14/25 04:00 01/14/25 04:00
I&O
01/12/25 01/13/25 01/14/25
06:59 06:59 06:59
Intake Total 500 / 500
Balance 500 / 500
[2025-01-14 07:15] VITALS: BP 131/70
[2025-01-14] MEDS: SINEQUAN PO (08:12)
[2025-01-14] MEDS: KCL 10 MEQ PO (08:13)
[2025-01-14] MEDS: RESTASIS 0.05% OPHTHALMIC EMULSION 1 DROPS BOTH EYES (08:13)
[2025-01-14] MEDS: SODIUM BICARBONATE 650 MG PO (08:13)
[2025-01-14] MEDS: NORVASC 2.5 MG PO (08:14)
[2025-01-14 08:25] LABS: Glucose - Point of Care 149 mg/dl (70-99)
--- NOTE | 2025-01-14 08:42 | VNURNOTE ---
Chart reviewed. Patient is current with [facility] nursing. Will continue to follow hospital course and DC plans.
--- NOTE | 2025-01-14 09:27 | CON.ONC ---
Consultation
-
Reason for Consultation: anemia
Impression
Impression
- continue to monitor Hb levels and transfuse as needed
- plan for OP bone marrow biopsy with Dr. Solorzano
- continue to replete electrolytes as needed
- continue all other care per primary medical team
Patient History
History of Present Illness
84 YO F with PMH of urothelial cancer (dx 12/28), CKD, GERD, endometriosis presenting to with complaints of SOB. Hb at time of admission was 5.9 and pt recieved 2 units of pRBC overnight. 10 days ago during chemotherapy, Hb levels were in the 7s.
Hb this morning 8.6. She follows with Dr. Solorzano outpatient at [facility] for chemotherapy.
She states she continues to have SOB with exertion and currently has a headache. She has been having ongoing abdominal distension and discomfort, but has never had a paracentesis in the past.
Past-Medical/Surgical History
Gynecological (Hysterectomy), Orthopedic (Right carpal tunnel release, right knee arthroscopy, right knee total replacement, cervical spine with tylor, lumbar synovial cyst excision, left carpal tunnel release, left knee replacement) and Urological
(Stent left ureter)
Patient Medication
�Medication �Instructions �Recorded �Confirmed �Last Taken �Type
doxepin 25 mg capsule 50 mg PO Q12H Mental Health 03/31/23 01/01/25 12/31/24 History
brinzolamide 1 % eye 1 drp BOTH EYES TID Eye Condition 04/19/23 01/01/25 12/31/24 History
drops,suspension
cyclosporine 0.05 % eye drops 1 drp BOTH EYES Q12H DRY EYES 09/09/23 01/01/25 12/31/24 History
amlodipine 2.5 mg tablet 2.5 mg PO DAILY Blood Pressure 12/07/24 01/01/25 01/01/25 History
latanoprost 0.005 % eye drops 1 drp BOTH EYES HS Eye Condition 12/07/24 01/01/25 12/31/24 History
potassium chloride 10 mEq 10 meq PO DAILY Electrolyte 12/07/24 01/01/25 12/31/24 History
tablet,extended release(part/cryst) Repletion
sodium bicarbonate 650 mg tablet 650 mg PO DAILY alkalinizer 12/07/24 01/01/25 12/31/24 History
Active Medications
Generic Name Dose Route Start Last Admin
Trade Name Freq PRN Reason Stop Dose Admin
Acetaminophen 650 mg 01/13/25 20:14 01/14/25 03:24
Acetaminophen 325 Mg Tablet PO 02/10/25 20:13 650 mg
Q4HPRN PRN Administration
headache,mild pain,fever>100.4
Amlodipine Besylate 2.5 mg 01/14/25 08:00 01/14/25 08:14
Amlodipine 2.5 Mg Tablet PO 02/11/25 07:59 2.5 mg
DAILY NILSON Administration
Bisacodyl 10 mg 01/13/25 19:42
Bisacodyl 10 Mg Rectal Suppository RECTAL 02/10/25 19:41
[id number] PRN
constipation
Brinzolamide 0 drop 01/13/25 19:42 01/13/25 22:11
Brinzolamide 1% (Ophthalmic Suspension) 10 Ml Bottle BOTH EYES 02/10/25 19:41 Not Given
TID NILSON
Cyclosporine 1 drops 01/13/25 20:00 01/14/25 08:13
Cyclosporine 0.05% (Ophthalmic Emulsion) 10 Drop Droperette BOTH EYES 02/10/25 19:59 1 drops
Q12H NILSON Administration
Doxepin HCl 50 mg 01/13/25 20:00 01/14/25 08:12
Doxepin 25 Mg Capsule PO 02/10/25 19:59 Not Given
Q12H NILSON
Latanoprost 0 drop 01/13/25 22:00 01/13/25 22:08
Latanoprost 0.005% (Ophthalmic Solution) 2.5 Ml Bottle BOTH EYES 02/10/25 21:59 1 drop
HS NILSON Administration
Melatonin 10 mg 01/14/25 00:13 01/14/25 00:26
Melatonin 5 Mg Tablet PO 02/11/25 21:59 10 mg
HS PRN Administration
insomnia
Polyethylene Glycol 17 grams 01/13/25 19:42
Polyethylene Glycol Powder 17 Grams Packet PO 02/10/25 19:41
DAILYPRN PRN
constipation
Potassium Chloride 10 meq 01/14/25 08:00 01/14/25 08:13
Potassium Chloride 10 Meq Extended Release Tablet PO 02/11/25 07:59 10 meq
DAILY NILSON Administration
Prochlorperazine Edisylate 5 mg 01/14/25 03:13 01/14/25 03:24
Prochlorperazine 10 Mg/2 Ml Vial IV 02/11/25 03:12 5 mg
Q6HPRN PRN Administration
nausea/vomiting
Senna/Docusate Sodium 1 tablet 01/13/25 19:42
Docusate W/Senna (Araceli-Colace) Tablet PO 02/10/25 19:41
BIDPRN PRN
constipation
Sodium Bicarbonate 650 mg 01/14/25 08:00 01/14/25 08:13
Sodium Bicarbonate 650 Mg Tablet PO 02/11/25 07:59 650 mg
DAILY NILSON Administration
Sodium Chloride 0 flush 01/13/25 21:00
Sodium Chloride 0.9% (Flush) Syringe IV 02/10/25 20:59
PER PROTOCOL NILSON
Review of Systems
-
History Source: Patient
Constitutional: Reports Fatigue and Weakness
Respiratory: Reports Trouble Breathing
Cardiac: Reports No Symptoms
GI: Reports Other (distention)
Musculoskeletal: Reports Muscle Weakness
Neuro: Reports Headache
Physical Exam
-
General: Comfortable, Conversant and Appears Chronically Ill
GI: Soft and Distended
Musculoskeletal: No Clubbing and No Cyanosis
Skin: Warm and Dry
Psych: Calm
Labs
Lab Results
WBC 15.2 10^3/uL (4.8-10.8) H 01/14/25 04:07
RBC 3.13 10^6/uL (4.20-5.40) L 01/14/25 04:07
Hgb 8.6 g/dL (12.0-16.0) L D 01/14/25 04:07
Hct 26.4 % (37.0-47.0) L 01/14/25 04:07
MCV 84.3 fL (81.0-99.0) 01/14/25 04:07
MCH 27.5 pg (27.0-31.0) 01/14/25 04:07
MCHC 32.6 g/dL (33.0-37.0) L 01/14/25 04:07
RDW 16.1 % (11.5-14.5) H 01/14/25 04:07
Plt Count 384 10^3/uL (130-400) 01/14/25 04:07
MPV 8.6 fL (7.4-10.4) 01/14/25 04:07
Abs Immat Gran (auto) 0.3 10^3/uL (0-0.05) H 01/13/25 13:24
Absolute Neuts (auto) 15.3 10^3/uL (1.4-6.5) H 01/13/25 13:24
Absolute Lymphs (auto) 0.5 10^3/uL (1.2-3.4) L 01/13/25 13:24
Absolute Monos (auto) 2.1 10^3/uL (0.1-0.6) H 01/13/25 13:24
Absolute Eos (auto) 0.1 10^3/uL (0-0.7) 01/13/25 13:24
Absolute Basos (auto) 0.0 10^3/uL (0-0.2) 01/13/25 13:24
Immature Gran % 1.4 % (0-0.5) H 01/13/25 13:24
Neutrophils % 83.9 % (42.2-75.2) H 01/13/25 13:24
Lymphocytes % 2.7 % (20.5-51.1) L 01/13/25 13:24
Monocytes % 11.4 % (1.7-9.3) H 01/13/25 13:24
Eosinophils % 0.4 % (0-6) 01/13/25 13:24
Basophils % 0.2 % (0-2) 01/13/25 13:24
Creatinine 2.6 mg/dL (0.6-1.0) H 01/14/25 04:07
Vital Signs
Vital Signs
Temp Pulse Resp BP Pulse Ox
98.6 F 97 18 149/79 96
01/14/25 04:00 01/14/25 08:14 01/14/25 04:00 01/14/25 08:14 01/14/25 04:00
[2025-01-14 09:43] LABS: Magnesium 1.6 mg/dl (1.6-2.3); Phosphorus 4.1 mg/dl (2.5-4.5)
[2025-01-14] MEDS: AZOPT 1% OPHTHALMIC SUSPENSION 1 DROP BOTH EYES ×2 (10:34→15:45)
[2025-01-14 11:56] VITALS: BP 141/85
[2025-01-14 12:26] LABS: Glucose - Point of Care 140 mg/dl (70-99)
[2025-01-14 13:01] LABS: Blood Urea Nitrogen 55 mg/dl (7-17); Calcium 8.6 mg/dl (8.4-10.2); Carbon Dioxide 25 mmol/L (22-30); Chloride 104 mmol/L (98-107); Estimated Creatinine Clearance 14 ml/min; Glucose 123 mg/dl (70-99); Potassium 3.7 mmol/L (3.5-5.1); Sodium 140 mmol/L (135-145); eGFR 17.43
[2025-01-14 14:31] VITALS: BP 142/85; PULSE 118; O2SAT 94
--- NOTE | 2025-01-14 14:55 | CM ---
Alert awake oriented patient who lives with her Tang in a 2 story home with 1 steps to enter.They live on first floor. She is assisted in activates of daily living.She does not drive .She uses a walker.PT OT saw pt said home with VN . Pt
requested [facility] . Liaison Bettye S aware of resumption.
Has [facility] . No SNF hx
Pharmacy [facility] [place]
PCP Dr Rigo Ball
PLAN Home with [facility]
[2025-01-14 15:10] VITALS: BP 143/73
--- NOTE | 2025-01-14 15:48 | W.DCSUMMARY ---
Discharge Summary
Discharge Data
Date of Admission: 01/13/25
Date of Discharge: 01/14/25
-
Pending Results: No
Discharge Plan
-
Patient Disposition: Home with Home Care
Discharge Diagnosis/Procedures: Severe anemia likely secondary to chronic renal insufficiency and chemotherapy
Chronic Kidney Disease Stage IV
Urothelial Cancer
Condition: Fair
Diet: Regular
Activity: As tolerated and With Walker
Driving Restrictions: As prior to admission
Bathing Restrictions: None
Other Services: PT and OT
Activity Restrictions/Additional Instructions:
Keep your appointment with oncology. Follow up with primary care provider in 1 week of discharge and Nephrology in 2-4 weeks.
Referrals:
Rigo Ball MD [Family Provider] - in one week
Karolina Guerra MD [Active] - 01/17/25
Taty Shearer MD [Active] - in two to four weeks
Prescriptions:
Continued
doxepin 25 mg Capsule
50 mg PO QHS
brinzolamide 1 % Drops,Suspension
1 drp BOTH EYES TID
cyclosporine 0.05 % Drops
1 drp BOTH EYES BID
latanoprost 0.005 % drops
1 drp BOTH EYES HS
amlodipine 2.5 mg tablet
2.5 mg PO DAILY
sodium bicarbonate 650 mg tablet
650 mg PO DAILY
potassium chloride 10 mEq tablet,ER particles/crystals
10 meq PO DAILY
Lasix
40 mg PO DAILY
Discharge Orders:
Discharge Patient (As Directed); Ordered 01/14/25
Ordered By: Balbina Enriquez
Discharge Date and Time
Print Language: PANAMANIAN
== END 2025-01-14 16:52 | disposition home health service (06) | DRG 683 ==
LOC: 3 WEST ACU 16:23
PROVIDERS: ADMITTING PHYSICIAN Hospitalist; ATTENDING PHYSICIAN Internal Medicine; EMERGENCY PHYSICIAN Emergency Medicine; FAMILY PHYSICIAN Family Medicine; OTHER PHYSICIAN Internal Medicine Hematology & Oncology
DX: N18.4 Chronic kidney disease, stage 4 (severe) (principal); C68.9 Malignant neoplasm of urinary organ, unspecified; D63.1 Anemia in chronic kidney disease; K21.9 Gastro-esophageal reflux disease without esophagitis; N13.30 Unspecified hydronephrosis; Z93.6 Other artificial openings of urinary tract status; Z96.653 Presence of artificial knee joint, bilateral; Z87.891 Personal history of nicotine dependence; Z88.8 Allergy status to other drugs, medicaments and biological substances; G47.00 Insomnia, unspecified; I12.9 Hypertensive chronic kidney disease with stage 1 through stage 4 chronic kidney disease, or unspecified chronic kidney disease; I45.10 Unspecified right bundle-branch block; K59.00 Constipation, unspecified; Z79.899 Other long term (current) drug therapy; Z80.8 Family history of malignant neoplasm of other organs or systems; Z90.710 Acquired absence of both cervix and uterus
CPT/HCPCS: 71046; 80048; 82962; 83735; 83880; 84100; 84484; 85025; 85027; 86850; 86900; 86901; 86920; 93005; 97116; 97162; 97166; 99285; P9016

== ENCOUNTER 2025-01-15 17:06 | Inpatient (IN) | payer OTHER, SELFPAY ==
[2025-01-15] VITALS (20 sets, daily range): BP systolic 93–160; BP diastolic 49–102; BMI 27.9; BMI 26.2
[2025-01-15 10:50] LABS: % Basophils 0.2 % (0-2); % Eosinophils 0.8 % (0-6); % Immature Granulocytes 1.1 % (0-0.5); % Lymphocytes 2.7 % (20.5-51.1); % Monocytes 14.1 % (1.7-9.3); % Neutrophils 81.1 % (42.2-75.2); Absolute Eosinophils 0.1 10^3/uL (0-0.7); Absolute Immature Granulocytes 0.2 10^3/uL (0-0.05); Absolute Lymphocytes 0.5 10^3/uL (1.2-3.4); Absolute Monocytes 2.3 10^3/uL (0.1-0.6); Absolute Neutrophils 13.5 10^3/uL (1.4-6.5); Hematocrit 24.1 % (37.0-47.0); Hemoglobin 7.8 g/dL (12.0-16.0); Mean Corp Hgb Conc. 32.4 g/dL (33.0-37.0); Mean Corpuscular Hgb 27.2 pg (27.0-31.0); Mean Platelet Volume 8.6 fL (7.4-10.4); Nucleated Red Blood Cells % 0.2 %; Platelet Count 386 10^3/uL (130-400); Red Blood Cell Count 2.87 10^6/uL (4.20-5.40); Red Cell Dist. Width 16.9 % (11.5-14.5); White Blood Cell Count 16.6 10^3/uL (4.8-10.8)
--- NOTE | 2025-01-15 10:59 | ED.GENMED ---
Addendum entered and electronically signed by Stanley Anne MD 01/15/25 16:52:
Final report for CT read as significant abdominal ascites and some blood products noted in the right upper abdomen. Discussed with patient she did not have any recent fall or trauma�she says that in November she had a fall on a cement floor but
nothing more recent than this. Discussed with the radiologist and no bleeding source identified and it appears convincingly to be old blood products. She did have a biopsy of her liver about a month ago and this could be potential source. Patient
consented for blood and we will give her 2 units of PRBCs as she is tachycardic. She was taken to [facility] and had paracentesis which showed ascites mixed with old appearing blood�fluid studies sent off. Discussed with hospitalist team as well as
patient to update.
Original Note:
History of Present Illness
General
Chief Complaint: Cancer Problem
Source: patient, records and spouse
Exam Limitations: none
Time Seen by Provider: 01/15/25 10:29
Nursing documentation reviewed up to this point in time: agreed with
History of Present Illness
History of Present Illness:
84-year-old female with extensive medical history as documented presents to the emergency room with her for evaluation of weakness. Patient is notably on chemotherapy and immunotherapy for urothelial cancer; her oncologist is Dr. Solorzano.
She has a right sided nephrostomy tube. She started treatment 2 weeks ago, last treatment was chemotherapy this past Tuesday. She was notably admitted to this hospital 01/13 until 01/14 with weakness secondary to anemia requiring blood transfusion.
She received 2 units of PRBCs while she was admitted. Since returning home she has had increasing weakness once again to the point that she says she cannot even walk. She describes weakness all over no focal weakness. No numbness or tingling or
other neurologic symptoms. She has felt short of breath with minimal exertion. She has had swelling in her legs which she says this is been going on for a few weeks. Denies any cough, fever. Good output from her nephrostomy tube; although she
did notice some leaking around the tube earlier today that seems to have resolved.
Past History
Past History
ED Past Medical History: GERD, HTN, Other (Sepsis) and Other (Metastatic urothelial CA)
ED Past Surgical History: Gynecological (Hysterectomy), Orthopedic (Right carpal tunnel release, right knee arthroscopy, right knee total replacement, cervical spine with tylor, lumbar synovial cyst excision, left carpal tunnel release, left knee
replacement) and Urological (Stent left ureter)
Social History
Tobacco: Former smoker
Alcohol: None
Drug: None
Personal:
Living: with family
Employment: Retired
Review of Systems
Review of Systems
All Other Systems: ROS reviewed and negative except as documented in HPI and ROS
Constitutional: Reports fatigue; Denies fever
Respiratory: Reports trouble breathing; Denies cough
Cardiac: Denies chest pain or palpitations
ABD/GI: Denies abdominal pain, nausea, vomiting or diarrhea
: Denies flank pain
Musculoskeletal: Reports edema; Denies neck pain or back pain
Neurological: Reports weakness (Generalized); Denies headache or numbness
Phy Exam
Physical Exam
Physical Exam:
General: Awake, alert, oriented x3; no acute distress
Head: Normocephalic, atraumatic
Eyes: Conjunctiva normal
Throat: Airway intact, handling secretions
Neck: Trachea midline, JVD
Lungs: Breath sounds diminished at the lung bases bilaterally; mild tachypnea but no hypoxia
Heart: Tachycardia with regular rhythm, no murmurs, gallops, or rubs; port right upper chest
Abd: Soft, mildly distended, mild diffuse tenderness, positive fluid wave
Neuro: No gross deficits
Extremities: +2 pitting edema in the legs bilaterally; extremities are warm and well-perfused
Scores
Heart Failure Risk
Heart Failure Risk Score: Not Applicable
Heart Score for Chest Pain Patients
STEMI patient?: Not applicable
Withdrawal Assessment of Alcohol
Withdrawal Assessment Completed?: Not applicable
Course
Orders/Labs/Results
Orders:
Orders
01/15/25 10:31
Electrocardiogram (*1) Urgent
Reason for Study: Shortness of Breath
EKG- Treatment ONCE
01/15/25 10:40
CMP [Comprehensive Metabolic Panel] Urgent
Complete Blood Count/With Diff Urgent
Pro-BNP [NT-proBNP] Urgent
Tryptase [S] Urgent
Comment: ADD ON
01/15/25 10:53
CR Chest Portable - 1 View Urgent
Comment:
Reason For Exam: sob
Reason Study Needs to be Portable: Unable to Transport
01/15/25 11:11
Add On- LAB Urgent
Tests Added?: trypstase
01/15/25 11:16
Urinalysis Reflex To Culture Urgent
Date Specimen was Collected: 01/15/25
Time Specimen was Collected: 11:10
Comment: from nephrostomy tube
Urine Microscopic Reflex Cult Urgent
Urine Culture Urgent
ISAAC Source: U
Specimen Description:
Date Specimen was Collected: 01/15/25
Time Specimen was Collected: 11:10
01/15/25 11:30
CT Abd/pel Without Iv Or Oral Urgent
Comment:
Reason For Exam: weakness, abd distention, leaking nephrostomy
01/15/25 15:21
IRAD CONSULT Urgent
Consulting Provider: Pablo Cm
Was physician already notified: Yes
Procedure being ordered, including laterality if applicable: paracentesis
Acknowledgement that appropriate orders are entered: Yes
CefTRIAXone [Rocephin] 1,000 mg IV NOW STA
Doxycycline Hyclate [Vibramycin] 100 mg 0.9% Sodium Chloride 250 ml [Nss] 250 ml IV NOW
01/15/25 15:23
Body Fluid Albumin Routine
Fluid Source: Peritoneal (Ascites)
Body Fluid Cell Count Routine
What is the Body Fluid: peritoneal fluid
Comment: post procedure
Body Fluid LDH Routine
Fluid Source: Peritoneal (Ascites)
Body Fluid Protein Routine
Fluid Source: Peritoneal (Ascites)
Fluid Culture with Gram Stain Routine
ISAAC Source: Peritoneal Fluid
Specimen Description:
Comment: Post Procedure
Abnormal Lab Results
01/15/25 01/15/25
10:40 11:16
WBC 16.6 H 10^3/uL
(4.8-10.8)
RBC 2.87 L 10^6/uL
(4.20-5.40)
Hgb 7.8 L g/dL
(12.0-16.0)
Hct 24.1 L %
(37.0-47.0)
MCHC 32.4 L g/dL
(33.0-37.0)
RDW 16.9 H %
(11.5-14.5)
Abs Immat Gran (auto) 0.2 H 10^3/uL
(0-0.05)
Absolute Neuts (auto) 13.5 H 10^3/uL
(1.4-6.5)
Absolute Lymphs (auto) 0.5 L 10^3/uL
(1.2-3.4)
Absolute Monos (auto) 2.3 H 10^3/uL
(0.1-0.6)
Immature Gran % 1.1 H %
(0-0.5)
Neutrophils % 81.1 H %
(42.2-75.2)
Lymphocytes % 2.7 L %
(20.5-51.1)
Monocytes % 14.1 H %
(1.7-9.3)
Chloride 108 H mmol/L
(98-107)
BUN 59 H mg/dl
(7-17)
Creatinine 2.6 H mg/dL
(0.6-1.0)
Glucose 137 H mg/dl
(70-99)
Alkaline Phosphatase 139 H U/L
(38-126)
Total Protein 5.6 L g/dl
(6.3-8.2)
Albumin 3.0 L g/dl
(3.5-5.0)
Ur Occult Blood Reflex 3+ A
(Negative)
Leukocyte Esterase Rfl 3+ A
(Negative)
Urine WBC (Reflex) 21-25 A /HPF
(0-5)
Urine Albumin (Reflex) 3+ A
(Neg - Trace)
01/15/25 10:40
01/15/25 10:40
Vital Signs
Initial and Last Documented VS:
Initial Vital Signs
BP
148/73
01/15/25 10:06
Last Documented Vital Signs
Temp Pulse Resp BP Pulse Ox
36.6 C 113 22 125/71 95
01/15/25 14:49 01/15/25 14:30 01/15/25 14:30 01/15/25 14:14 01/15/25 14:30
MDM/Problems Addressed
Differential Diagnosis Includes:
Symptomatic anemia, CHF, infection such as UTI/pneumonia, chemotherapy side effects
MDM/Problems Addressed:
84-year-old female who is on chemotherapy for urothelial cancer, recent admission for acute on chronic anemia requiring blood transfusion returns to the emergency room for severe generalized weakness and shortness of breath. She is tachycardic,
mild tachypnea but no fever, no hypoxia, normotensive. Physical exam as above. Plan to check labs including a CBC, CMP, urinalysis, EKG, proBNP. Send type and screen. Check chest x-ray. Given distended abdomen and reported leaking from
nephrostomy will check CT abdomen pelvis. Monitor closely reassess after the above.
Initial labs reviewed: CBC shows stable leukocytosis, stable anemia 7.8. CMP shows stable CKD. Her proBNP is elevated but similar to most recent. Imaging pending.
Chest x-ray shows bibasilar atelectasis versus pneumonia; somewhat lower suspicion for infection without fever but will cover with antibiotics given dyspnea as one of her primary symptoms. Her CT abdomen does show significant abdominal ascites as
well which could be contributing to her dyspnea. Will plan to admit for continued treatment, discussed with IR for paracentesis. Discussed case with hospitalist.
Chronic conditions affecting care:
Urothelial cancer
*Radiology
Radiology exam reviewed: preliminary read by ED provider and radiology read reviewed
*Pulse Oximetry
Patient hypoxic: no
*EKG
Interpreted by ED Provider?: Yes
Heart Rate: 102
Rate: tachycardiac
Rhythm: sinus and sinus tachycardia
[place]: normal axis
Interval: long QT
QRS Pattern: right bundle branch block
Ischemia: non-specific ST changes
*Critical Care Note
Total Time (30-74mins, 75-104mins- exclusive of procedures): Not Applicable
Data Reviewed
Review of Other/Old Records Reveals: Labs, Records and Discharge Summary
Source: patient, records and spouse
Patient Management
Discussion with other providers: Hospitalist (Discussed with hospitalist) and Client Services Representative (Discussed with interventional radiologist)
Escalation/DeEscalation of care consider admission/obs:
Admission indicated
ED Attending Note
-
Portions of this chart may have been created with voice recognition software.� Occasional wrong word or��sound alike� substitutions may have occurred due to the inherent limitations of voice recognition software.
Discharge Plan
Departure
Patient Disposition: Admit
Date of Disposition: 01/15/25
Time of Disposition: 15:27
Admit to doctor: Christoph
Presentation/result/management discussed w/ accepting MD/DO: Hospitalist
Discharge Problem:
Pneumonia, Abdominal ascites
Prescriptions:
No Action
doxepin 25 mg Capsule
50 mg PO QHS
brinzolamide 1 % Drops,Suspension
1 drp BOTH EYES TID
cyclosporine 0.05 % Drops
1 drp BOTH EYES BID
latanoprost 0.005 % drops
1 drp BOTH EYES HS
amlodipine 2.5 mg tablet
2.5 mg PO DAILY
sodium bicarbonate 650 mg tablet
650 mg PO DAILY
potassium chloride 10 mEq tablet,ER particles/crystals
10 meq PO DAILY
Lasix
20 mg PO DAILY
multivitamin Tablet
1 tab PO DAILY
prochlorperazine maleate 10 mg Tablet
10 mg PO Q6H PRN (Reason: nausea)
ondansetron 8 mg Tablet,Disintegrating
8 mg PO Q8H PRN (Reason: nausea)
acetaminophen 650 mg Tablet Extended Release
1,300 mg PO Q12H PRN (Reason: pain)
famotidine 20 mg Tablet
20 mg PO BID
escitalopram oxalate 5 mg Tablet
5 mg PO DAILY
Gentle Iron 28 mg iron-60mg -400 mcg-8 mcg Capsule
1 cap PO DAILY
Courtenay 3 Fish Oil
1,290 mg PO DAILY
cranberry
25,000 mg PO DAILY
Referrals:
Rigo Ball MD [Family Provider] -
Interventions
Interventions:
*Risk Screen - Suicide Last Done: 01/15/25 10:10
*Neglect/Abuse Screening Last Done: 01/15/25 10:10
*ED- Fall Risk Assessment Last Done: 01/15/25 10:14
*ED COVID-19 Vaccine History Last Done: 01/15/25 10:14
ED- Cardiac Assessment Last Done: 01/15/25 10:15
ED- Neurological Assessment Last Done: 01/15/25 10:15
ED- Pulmonary Assessment Last Done: 01/15/25 10:15
Discharge Date and Time
Print Language: BULGARIAN
[2025-01-15 11:18] LABS: ALT (SGPT) 21 U/L (0-35); AST (SGOT) 29 U/L (14-36); Alkaline Phosphatase 139 U/L (38-126); Blood Urea Nitrogen 59 mg/dl (7-17); Calcium 8.8 mg/dl (8.4-10.2); Carbon Dioxide 25 mmol/L (22-30); Chloride 108 mmol/L (98-107); Estimated Creatinine Clearance 14 ml/min; Glucose 137 mg/dl (70-99); Potassium 3.6 mmol/L (3.5-5.1); Sodium 141 mmol/L (135-145); Total Bilirubin 0.9 mg/dl (0.2-1.3); Total Protein 5.6 g/dl (6.3-8.2); eGFR 17.43
[2025-01-15 11:27] LABS: NT-proBNP 2470 pg/ml
[2025-01-15 11:44] LABS: Urine Albumin 3+ (Neg - Trace); Urine Bilirubin Negative (Negative); Urine Character Clear (Clear); Urine Color Yellow; Urine Glucose Negative (Negative); Urine Ketone Negative (Negative); Urine Leukocyte 3+ (Negative); Urine Nitrite Negative (Negative); Urine Occult Blood 3+ (Negative); Urine Urobilinogen Negative (Neg - 1+)
[2025-01-15 12:40] LABS: Urine White Cell 21-25 /HPF (0-5)
[2025-01-15 12:41] LABS: Urine Amorphous Seen
[2025-01-15 12:42] LABS: Urine Red Blood Cell 0-2 /HPF (0-2)
[2025-01-15 12:43] LABS: Urine Granular Cast 0-2 /LPF (0)
--- NOTE | 2025-01-15 15:39 | HPS.HSE ---
Family Physician
-
Family Physician: Rigo Ball
Chief Complaint
-
Shortness of breath, increased weakness
History of Present Illness
84-year-old female in the ER with her complaining of increased weakness to the point she cannot walk. She also feels short of breath with minimal exertion she has had ongoing swelling to bilateral legs for weeks. She noticed some leaking
around the nephrostomy tube however there is good output from her current nephrostomy tube in the ER. She states overnight her shortness of breath became worse with activity and she did have 3 episodes of migraines yesterday relieved with 1300 mg
of Tylenol. She is status post paracentesis 2.1 L. During my exam she denies current headache, sore throat, fever, chills, chest pain, palpitations, cough, abdominal pain, nausea, vomiting, diarrhea, rash. She was discharged yesterday 01/14/2025
for admission 01/13 - 01/14/2025 secondary to severe anemia from chronic renal insufficiency/chemotherapy urothelial cancer with chronic right-sided hydronephrosis/urethral obstruction status post nephrostomy tube, CKD stage V. During her stay she
received 2 units of packed red blood cells due to hemoglobin of 5.9. She follows with Dr. Solorzano for chemo and immunotherapy
She has past medical history of right-sided hydronephrosis/urethral obstruction in setting of metastatic urothelial cancer, on chemotherapy, status post nephrostomy tube, anemia secondary to chemotherapy/renal insufficiency requiring 2 transfusions
of PRBC on 01/13/2025, HTN CKD stage IV, endometriosis
Medical History
Past Medical History
Past Medical History: Reports Other
Additional Past Medical History:
Right-sided hydronephrosis/urethral obstruction in setting of urothelial cancer,-on chemotherapy
status post nephrostomy tube 12/07/2024
Ascites biopsy [facility] 12/05/2024
anemia secondary to chemotherapy/renal insufficiency requiring 2 transfusions of PRBC on 01/13/2025
HTN
CKD stage IV
endometriosis
Past Surgical History: Reports Other
Additional Past Surgical History:
Right-sided nephrostomy tube
Social History
Tobacco: Former Smoker (20-year 1/4 pack a day quit 40 years ago)
Alcohol: Occasional (Glass of wine)
Drug: None
Personal:
Living: With Family ( Apolinar at bedside)
Employment: Retired
Family History
Family History: Not pertinent
Allergies / Home Medications
Allergies reflects when Allergies were last updated in [employer].
Home Medications with original date entered in [employer]
Allergy/Medication List:
Allergies
Allergy/AdvReac Type Severity Reaction Status Date / Time
RADAMES Inhibitors Allergy lisinopril- Verified 01/15/25 11:04
Cough
lisinopril Allergy radames Verified 01/15/25 11:04
inhibitors-cough
Home Medications
doxepin 25 mg capsule 50 mg PO [facility] Mental Health 03/31/23
brinzolamide 1 % eye drops,suspension 1 drp BOTH EYES TID Eye Condition 04/19/23
cyclosporine 0.05 % eye drops (Restasis MultiDose) 1 drp BOTH EYES BID DRY EYES 09/09/23
amlodipine 2.5 mg tablet 2.5 mg PO DAILY Blood Pressure 12/07/24
latanoprost 0.005 % eye drops 1 drp BOTH EYES HS Eye Condition 12/07/24
potassium chloride 10 mEq tablet,extended release(part/cryst) 10 meq PO DAILY Electrolyte Repletion 12/07/24
sodium bicarbonate 650 mg tablet 650 mg PO DAILY alkalinizer 12/07/24
furosemide 40 mg tablet (Lasix) 40 mg PO DAILY Weight Gain ##0 01/14/25
acetaminophen 650 mg tablet,extended release 1,300 mg PO [id number] PRN mild pain 01/15/25
cranberry fruit 450 mg tablet (cranberry) 450 mg PO DAILY 01/15/25
escitalopram oxalate 5 mg tablet 5 mg PO DAILY 01/15/25
famotidine 20 mg tablet 20 mg PO BID 01/15/25
iron bis glycinate mike 28 mg iron-vit C 60 mg-FA 400 mcg-B12 8mcg cap (Gentle Iron) 1 cap PO DAILY 01/15/25
omega [id number]-fish oil 1,000 mg (120 mg-180 mg) capsule (Fish Oil) 1 cap PO DAILY 01/15/25
ondansetron 8 mg disintegrating tablet 8 mg PO Q8HPRN PRN nausea 01/15/25
prochlorperazine maleate 10 mg tablet 10 mg PO Q6HPRN PRN nausea 01/15/25
therapeutic multivitamin 1 tab PO DAILY 01/15/25
Review of Systems
-
History Source: Patient and Family ( Apolinar at bedside)
A 12 point ROS was completed and negative except as noted: Yes
Constitutional: Reports Fatigue; Denies Fever or Chills
EENT: Denies Sore Throat or Runny Nose
Respiratory: Reports Cough (Nonproductive) and Trouble Breathing
Cardiac: Denies Chest Pain, Palpitations or Syncope
Abdomen/GI: Denies Abdominal Pain, Nausea, Vomiting, Diarrhea, Constipated or Bloody Stools
: Reports Other (Nephrostomy tube right sided draining yellow in color)
Musculoskeletal: Reports Edema (+3 bilateral lower leg edema); Denies Joint Pain
Skin: Denies Itching or Rash
Neurological: Reports Headache (On and off yesterday) and Weakness (Generalized); Denies Dizzy
Endocrine: Reports No Symptoms
Hematologic/Lymphatic: Reports No Symptoms
Psych: Reports Calm
Physical Exam
Vital Signs
Vital Signs
Temp Pulse Resp BP Pulse Ox
98 F 113 22 125/71 95
01/15/25 14:49 01/15/25 14:30 01/15/25 14:30 01/15/25 14:14 01/15/25 14:30
Physical Exam
General: Comfortable (Post paracentesis) and Conversant; No Pain, Fever or Chills
HEENT: NormoCephalic, Anicteric, Moist mucous membranes, PERRLA, [place] Conjunctivae and No Ptosis
Respiratory: Clear; No Wheezes, Rales or Rhonchi
Cardiac: S1/S2, Regular Rhythm and Peripheral Edema (+3 bilateral lower legs); No Murmur, Rub or Gallop
GI: Soft, Non Distended (Post paracentesis 2.1 L drained serosanguineous fluid per IR) and Normal Bowel Sounds
Rectal: Deferred by Provider
Genito-urinary: Other (Right nephrostomy tube draining yellow in color)
Musculoskeletal: No Clubbing, No Cyanosis, Edema, Left Lower Extremity (+3 pitting) and Edema, Right Lower Extremity (+3 pitting); No Edema, Left Upper Extremity or Edema, Right Upper Extremity
Skin: Warm and Dry; No Rash or Jaundice
Neuro: AO x 3, No Motor Deficits, Nonfocal/grossly intact, Cranial Nerves Intact and No Sensory Deficits; No Slurred Speech, Facial Droop, Tremors or Sedated
Psych: Calm
Laboratory Results
-
01/15/25 10:40
01/15/25 10:40
Laboratory Results
Total Bilirubin 0.9 mg/dl (0.2-1.3) 01/15/25 10:40
AST 29 U/L (14-36) 01/15/25 10:40
ALT 21 U/L (0-35) 01/15/25 10:40
Alkaline Phosphatase 139 U/L (38-126) H 01/15/25 10:40
Data Reviewed
-
Lab Data: Labs Reviewed by me
Impression/Plan
-
Impression/plan:
Admit to IMU
#Sepsis secondary to bibasilar pneumonia on chemotherapy/immunotherapy
WBC 16.6 with left shift, 98F, HR 113, 125/71
95% on 3 L nasal cannula(was 94-95% on recent admission 05/17 - 05/18/2025)
- Check influenza/COVID
- IV Rocephin, IV doxycycline given in ER
- Incentive spirometry
follow cbcb
-iv pepcid 20 mg bid
#Acute abdominal ascites in a static probable blood products in the right upper quadrant
Status post peritoneal fluid biopsy 12/05/2024 malignant cells
- Consult IR for paracentesis with cytology status post 2.1 L of serosanguineous fluid thought to be combination of blood and ascites
CT abdomen pelvis with out IV or oral contrast;
1. Large volume abdominopelvic ascites. High attenuation probable blood products in the right upper quadrant under the right hemidiaphragm, new from prior and of uncertain etiology/origin. No free intraperitoneal air.
2. Acute left-sided colitis, likely of infectious/inflammatory etiology.
3. Small to moderate bilateral pleural effusions.
#Anemia symptomatic from chemotherapy/CKD 4
Hgb 7.8 >, 8.6 yesterday 01/14/2025 however increased from 5.9 on 01/13/2025 status post 2 units PRBC
Type and screen
Obtain blood consent
-Transfuse 2 units PRBC now
-Continue Lasix 40 mg daily with hold parameters
--Apply Tubigrip's
#CKD stage IV
Creat 2.6 appears stable from baseline
Follow BMP
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
#Status post peritoneal fluid biopsy 12/05/2024 malignant cells at [facility]
Status post radiation treatment left kidney August 2024
#Right-sided hydronephrosis/urethral obstruction in setting of urothelial cancer,-on chemotherapy
status post nephrostomy tube 12/07/2024 [facility]
-
#HTN
- BP 125/71
-Hold amlodipine,
Continue Lasix 40 mg daily with hold parameters
GERD
-Continue Pepcid 20 mg twice daily
#Endometriosis
Glaucoma
Continue latanoprost both eyes at bedtime
Depression
-Continue Lexapro 5 mg daily, doxepin 50 mg nightly
DVT prophylaxis
SCDs
Full code per patient with Apolinar at bedside
--- NOTE | 2025-01-15 15:52 | W.PN.UPDATE ---
Update Note
Progress Note Update
This note serves as an addendum to the H&P by courtroom deputy or calendar clerk DELPHINE
Rayna BALJINDER
HPI
84y F with PMH significant for urothelial carcinoma, s/p XRT, HTN, CKD4, severe ACDz due to CKD, and GERD who was admitted from 01/13/25 - 01/14/25 with severe anemia( Hgb 5.9) following chemo 10 daysd [employer]. She received 2units of PRBC on las
admission. Hgb was 8.6 upon DC. She follows with Dr. Solorzano outpatient at [place] for chemotherapy seen at ER:
- evaluation of weakness. P
- notably on chemotherapy and immunotherapy for urothelial cancer ( oncologist is Dr. Solorzano)
- lastr chemo was was chemotherapy this past Tuesday01/11/25
- has a right sided nephrostomy tube.
- following DC'd reports increasing weakness all over no focal weakness.
- No numbness or tingling or other neurologic symptoms.
- felt short of breath with minimal exertion.
- swelling in her legs which she says this is been going on for a few weeks.
- Good output from her nephrostomy tube; although she did notice some leaking around the tube earlier today
ROS
Denies any cough, fever.
Vital Signs
Temp Pulse Resp BP Pulse Ox
98 F 113 22 125/71 95
01/15/25 14:49 01/15/25 14:30 01/15/25 14:30 01/15/25 14:14 01/15/25 14:30
PE
Gen: Comfortable, Conversant and Appears Chronically Ill
HEENT:anicteric
Abdomen: Soft and Distended
: Rt sided PCN tube - draining clear light yellow urine
B/L LE edema
Psych: normal mood anf affect
Laboratory Tests
12/07/24 01/14/25 01/14/25
03:19 04:07 12:21
WBC 15.2 H
Hgb 8.6 L D
Plt Count 384
Potassium
Creatinine 2.6 H
eGFR 17.43
Leukocyte Esterase Rfl 3+ A
Urine WBC (Reflex) >100 A
SARS-CoV-2 Antigen
01/15/25 01/15/25 01/15/25
10:40 11:16 15:37
WBC 15.2 --> 16.6 H
Hgb 8.6 ---> 7.8 L
Plt Count 386
Potassium 3.6
Creatinine 2.6 --> 2.6 H
eGFR 17.43 --> 17.43
Leukocyte Esterase Rfl 3+ A
Urine WBC (Reflex) > 100 ---> 21-25 A
SARS-CoV-2 Antigen Pending
CXR
Mild bibasilar atelectasis and/or pneumonia.
01/09/25 PET/CT examination mid body.
- Ascites.
This is relatively diffuse nonfocal FDG activity.
No serosal nodularity or focal FDG activity, SUV max 2.7.
No peritoneal focal nodularity or FDG activity.
- There is pelvic ascites, some which appear somewhat rounded and focal in configuration, suggesting possibly loculated character.
Within the central pelvis, one of the more rounded suspected loculated components measures approximately 6.8 cm transverse.
Along the posterior margin, there is mild diffuse thickening, which is associated with mild diffuse, nonfocal FDG activity, SUV max 4.
- Percutaneous nephrostomy tube on the right.
01/15/25 CT Abd/pel Without Iv Or Oral
1. Large volume abdominopelvic ascites.
High attenuation probable blood products in the right upper quadrant under the right hemidiaphragm, new from prior and of uncertain etiology/origin. No free intraperitoneal air.
2. Acute left-sided colitis, likely of infectious/inflammatory etiology.
3. Small to moderate bilateral pleural effusions.
Last hospitalist admission: 01/13/25 - 01/14/25
DC DXS:
- Severe anemia likely secondary to chronic renal insufficiency and chemotherapy
- Chronic Kidney Disease Stage IV
- Urothelial Cancer
ASSESSMENT & PLAN
Large volume ascites - likely malignant ( 12/09/24 Onco note - Ascitic fluid POS for urothelial CA )
High attenuation probable blood products in the right upper quadrant - per radiologist strongly suspicious for OLD BLOOD ?
Prior HX PET scan ( 01/09/25) POs malignant ascites
- IR consulted for Dxtic - Rxtic abdominal paracentesis
- Oncology consult
Acute new interval Hgb drop is concerning for bleeding from metastatic dz
Anemia chr dz due to CKD4 plus cancer treatment , just started Aranesp 01/04.
Baseline Hgb is usually hi7s
CKD since 03/2023
HX multiple Blood Tx.
- Type and screen
- Blood consented
- agree with Blood Tx 2 units by ER attd
- Transfuse if Hgb < 7
- pending plan for BM to exclude primary bone marrow process per Dr Solorzano
Right-sided hydronephrosis/urethral obstruction in the setting of urothelial cancer.
S/p nephrostomy tube placed on 12/07/24
- draining yellow urine
CKD stage IV
- Avoid nephrotoxins hypotension
- Continue bicarb
- OP nephro follow up
Hypertension
- Hold antihypertensives
DVT Px: SCD
Full code
IMU
[2025-01-15] MEDS: VIBRAMYCIN 260 MG IV (17:21)
[2025-01-15] MEDS: ROCEPHIN 1000 MG IV (17:21)
[2025-01-15 17:27] LABS: Body Fluid Mononuclear 48.3 %; Body Fluid Polymorphonuclear 51.7 %; Body Fluid WBC 2900 /CUMM
[2025-01-15 17:34] LABS: Body Fluid Second Tech FB
[2025-01-15 17:40] LABS: Body Fluid Albumin 2.1 g/dl; Body Fluid LDH 472 U/L; Body Fluid Protein 3.8 g/dl
[2025-01-15 18:07] LABS: COVID-19 Antigen Negative (Negative)
--- NOTE | 2025-01-15 18:47 | PTCARENOTE ---
Addendum entered by Giovanna Carrizales RN 01/15/25 19:14:
Right low abdominal bandaid CDI, Right nephrostomy tube with small amt juanjose urine.
Original Note:
Admitted to [facility], IMU monitors intact. ST on tele 110s- 111/94 96% on RAIR. Admission completed bedside. IV Antibx just finished.
[2025-01-15] MEDS: RESTASIS 0.05% OPHTHALMIC EMULSION 1 DROPS BOTH EYES (20:40)
[2025-01-15] MEDS: SINEQUAN 50 MG PO (20:41)
[2025-01-15] MEDS: AZOPT 1% OPHTHALMIC SUSPENSION 1 DROP BOTH EYES (22:22)
[2025-01-15] MEDS: XALATAN OPHTHALMIC SOLUTION 1 DROP BOTH EYES (22:22)
--- NOTE | 2025-01-15 22:31 | PTCARENOTE ---
Received pt at change of shift s/p paracentesis. AAOx3. Lungs CTA, diminished. +2 pedal edema. 2 units PRBCs ordered. T&S sent to lab. 1 unit transfusing now. Pt tolerating well. VSS a this time. Laying in bed with call hollis in reach.
[2025-01-16] VITALS (33 sets, daily range): BP systolic 96–157; BP diastolic 46–108; PULSE 99; O2SAT 97; BMI 25.9
--- NOTE | 2025-01-16 06:06 | PTCARENOTE ---
Pt desatted to the 70s on RA while sleeping. 2L O2 applied and pulse ox remains in the mid to high 90s. Notified [employer].
[2025-01-16 06:07] LABS: % Basophils 0.3 % (0-2); % Eosinophils 4.8 % (0-6); % Immature Granulocytes 1.1 % (0-0.5); % Lymphocytes 4.3 % (20.5-51.1); % Monocytes 18.5 % (1.7-9.3); Absolute Eosinophils 0.6 10^3/uL (0-0.7); Absolute Immature Granulocytes 0.1 10^3/uL (0-0.05); Absolute Lymphocytes 0.5 10^3/uL (1.2-3.4); Absolute Monocytes 2.3 10^3/uL (0.1-0.6); Absolute Neutrophils 8.7 10^3/uL (1.4-6.5); Hematocrit 28.3 % (37.0-47.0); Hemoglobin 9.3 g/dL (12.0-16.0); Mean Corp Hgb Conc. 32.9 g/dL (33.0-37.0); Mean Corpuscular Hgb 27.5 pg (27.0-31.0); Mean Corpuscular Volume 83.7 fL (81.0-99.0); Mean Platelet Volume 8.9 fL (7.4-10.4); Nucleated Red Blood Cells % 0.2 %; Platelet Count 347 10^3/uL (130-400); Red Blood Cell Count 3.38 10^6/uL (4.20-5.40); Red Cell Dist. Width 15.9 % (11.5-14.5); White Blood Cell Count 12.2 10^3/uL (4.8-10.8)
[2025-01-16 06:48] LABS: ALT (SGPT) 18 U/L (0-35); AST (SGOT) 28 U/L (14-36); Albumin 2.5 g/dl (3.5-5.0); Alkaline Phosphatase 110 U/L (38-126); Blood Urea Nitrogen 54 mg/dl (7-17); Calcium 8.2 mg/dl (8.4-10.2); Carbon Dioxide 24 mmol/L (22-30); Chloride 111 mmol/L (98-107); Estimated Creatinine Clearance 14 ml/min; Glucose 110 mg/dl (70-99); Potassium 3.8 mmol/L (3.5-5.1); Sodium 140 mmol/L (135-145); Total Bilirubin 0.8 mg/dl (0.2-1.3); Total Protein 4.8 g/dl (6.3-8.2); eGFR 20.19
--- NOTE | 2025-01-16 08:42 | VNURNOTE ---
Chart reviewed. Patient is current with [facility] nursing. Will continue to follow hospital course and DC plans.
[2025-01-16] MEDS: LEXAPRO 5 MG PO (09:00)
[2025-01-16] MEDS: VIBRAMYCIN 260 MG IV (09:00)
[2025-01-16] MEDS: RESTASIS 0.05% OPHTHALMIC EMULSION 1 DROPS BOTH EYES ×2 (09:00→22:06)
[2025-01-16] MEDS: SODIUM BICARBONATE 650 MG PO (09:00)
[2025-01-16] MEDS: LASIX 40 MG PO (09:00)
[2025-01-16] MEDS: AZOPT 1% OPHTHALMIC SUSPENSION 1 DROP BOTH EYES ×3 (09:01→22:06)
--- NOTE | 2025-01-16 09:15 | W.PN.HOSP.TC ---
Today's Communication/Plan
-
see a/p
Assessment / Plan
Assessment / Plan
Physical Exam
Genera: no acute distress, appears comfortable at this time.
HEENT: Scleral Anicteric, MMM, No JVD
Pulm: CTABL
Cardio: S1 S2 Sinus Tachy no murmurs/rubs/gallops, chest port present
Abd: Soft, NT, distended, BS+. Right nephrostomy tube draining yellow urine.
Ext: Warm, Dry, Bilateral lower extremity pitting edema
Neuro: AAOx3
Psych: Calm cooperative
84F urothelial Ca on chemo CKD IV GERD Endometriosis originally here for symptomatic severe Anemia Hgb 5.9 responded well to 2PRBC transfusion and was discharged home with home services. Patient however returned next day d/t increased weakness
shortness of breath exertional dyspnea leg swelling. CT scan was concerning for large ascites and possible colitis. CXR also noted possible atelectasis vs pna. Stable respiratory status on room air, patient was started on empiric abx. 2L ascites
was drawn on paracentesis.
#Possible Sepsis (leukocytosis, tachycardia)
#Possible SBP vs Colitis vs PNA (less likely) vs no active infection
- influenza/COVID neg
- IV Rocephin, IV doxycycline given in ER
- Incentive spirometry
-urine cx neg follow blood and ascites cx's
- ID eval appreciated cont Ceftriaxone 2g daily
#Acute abdominal ascites in a static probable blood products in the right upper quadrant
Status post peritoneal fluid biopsy 12/05/2024 malignant cells
- Consult IR appreciated paracentesis with cytology status post 2.1 L of serosanguineous fluid thought to be combination of blood and ascites
#Anemia symptomatic from chemotherapy/CKD 4
-Transfused 2 units PRBC Hgb 7.8 noted on ED evaluation, improved appropriately to 9.3
-monitor H&H
Lower Ext Edema
-Continue Lasix 40 mg daily with hold parameters
-Venous Duplex neg for DVT
-RADAMES compression wrapping ordered
-Check ECHO
#CKD stage IV
Creat 2.6 appears stable from baseline
Follow BMP
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
#Status post peritoneal fluid biopsy 12/05/2024 malignant cells at [facility]
Status post radiation treatment left kidney August 2024
#Right-sided hydronephrosis/urethral obstruction in setting of urothelial cancer,-on chemotherapy
status post nephrostomy tube 12/07/2024 [facility]
-IR eval requested concern leaking nephrostomy tube though urine output is good.
-Oncology eval appreciated
#HTN
Continue Lasix and Amlodipine with hold parameters
GERD
-Continue Pepcid 20 mg twice daily
#Endometriosis
Glaucoma
Continue latanoprost both eyes at bedtime
Depression
-Continue Lexapro 5 mg daily, doxepin 50 mg nightly
DVT prophylaxis SCDs
Full Code
discussed with patient and patient's granddaughter Sylvia at bedside
I spent a total of 50 minutes with the patient or on the floor. More than 50% of this time involved counseling and coordination of care.
Anticipated Discharge: 24 - 48 hours
Subjective/Interval History
-
Date of Service: January 16, 2025
no acute distress resting comfortably bed. Reports overall feeling well though generally weak. Granddaughter Sylvia present during evaluation.
Objective Data
-
Labs:
Laboratory Results
01/16/25
05:49
WBC 12.2 H
Hgb 9.3 L
Hct 28.3 L
Plt Count 347
Sodium 140
Potassium 3.8
Chloride 111 H
Carbon Dioxide 24
BUN 54 H
Creatinine 2.3 H
Glucose 110 H
Calcium 8.2 L
Total Bilirubin 0.8
AST 28
ALT 18
Alkaline Phosphatase 110
Vital Signs:
Vital Signs
Temp Pulse Resp BP Pulse Ox
97.4 F 93 17 157/69 97
01/16/25 07:35 01/16/25 06:00 01/16/25 06:00 01/16/25 09:00 01/16/25 06:00
I&O
01/15/25 01/16/25 01/17/25
06:59 06:59 06:59
Intake Total 500 / 500
Output Total 575 / 575
Balance -75 / -75
--- NOTE | 2025-01-16 10:43 | CON.ONC ---
Consultation
-
Date Consultation Requested: 01/16/25
Date Consultation Performed: 01/16/25
Requesting Provider: ELLEN
Performing Provider: Neda
Reason for Consultation: Bladder Ca
Impression
Impression
Metastatic urothelial cancer Dx 12/23/2024 in the lower pelvis of abdomen, low-grade pleural metastatic disease on current chemo/immunotherapy
Abdominal ascites with Bx + 12/05/2024 malignant cells at [facility]
Anemia symptomatic from chemotherapy/CKD 4
CKD stage IV
Right-sided hydronephrosis/urethral obstruction in setting of urothelial cancer,-on chemotherapy s/p nephrostomy tube 12/07/2024
Plan
Plan
Paracentesis PRN for comfort with consideration of Pleurx ASCEPT type catheter if ascites becomes refractory.
Previous all care and treatment was all at [facility]. [facility] last month for the first time x [address] Solorzano.
Continue supportive care for now. She remains full code.
Generalized weakness and poor functional status may preclude salvage therapy hospice care may be the most appropriate treatment option but for now patient's goals of care are restorative.
Patient History
History of Present Illness
Family Physician: Rigo Ball
CC: Shortness of breath, increased weakness
HPI: 84-year-old female presents with progressive weakness and inability to walk. Worsening ascites. Feels SOB with minimal exertion & B/L LE swelling. She is status post paracentesis 2.1 L. Recent admission 01/13 - 01/14/2025 secondary to severe
anemia from chronic renal insufficiency/chemotherapy urothelial cancer with chronic right-sided hydronephrosis/urethral obstruction status post nephrostomy tube, CKD stage V. During her stay she received 2 units of packed red blood cells due to
hemoglobin of 5.9. She follows with Dr. Solorzano for chemo and immunotherapy
Past-Medical/Surgical History
PMH:
Right-sided hydronephrosis/urethral obstruction in setting of urothelial cancer,-on chemotherapy
status post nephrostomy tube 12/07/2024
Ascites biopsy [facility] 12/05/2024
anemia secondary to chemotherapy/renal insufficiency requiring 2 transfusions of PRBC on 01/13/2025
HTN
CKD stage IV
endometriosis
PSH:
Right-sided nephrostomy tube
Social History
Tobacco: Former Smoker (20-year 1/4 pack a day quit 40 years ago)
Alcohol: Occasional (Glass of wine)
Drug: None
Personal: )
Employment: Retired
Family History
Family History: Not pertinent
Allergies / Home Medications
Patient Medication
�Medication �Instructions �Recorded �Confirmed �Last Taken �Type
doxepin 25 mg capsule 50 mg PO QHS Mental Health 03/31/23 01/15/25 01/14/25 History
brinzolamide 1 % eye 1 drp BOTH EYES TID Eye Condition 04/19/23 01/15/25 12/31/24 History
drops,suspension
cyclosporine 0.05 % eye drops 1 drp BOTH EYES BID DRY EYES 09/09/23 01/15/25 12/31/24 History
(Restasis MultiDose)
amlodipine 2.5 mg tablet 2.5 mg PO DAILY Blood Pressure 12/07/24 01/15/25 01/01/25 History
latanoprost 0.005 % eye drops 1 drp BOTH EYES HS Eye Condition 12/07/24 01/15/25 01/14/25 History
potassium chloride 10 mEq 10 meq PO DAILY Electrolyte 12/07/24 01/15/25 12/31/24 History
tablet,extended release(part/cryst) Repletion
sodium bicarbonate 650 mg tablet 650 mg PO DAILY alkalinizer 12/07/24 01/15/25 12/31/24 History
furosemide 40 mg tablet (Lasix) 40 mg PO DAILY Weight Gain ##0 01/14/25 01/15/25 Unknown History
acetaminophen 650 mg 1,300 mg PO [id number] PRN mild pain 01/15/25 01/15/25 01/14/25 History
tablet,extended release
cranberry fruit 450 mg tablet 450 mg PO DAILY 01/15/25 01/15/25 Unknown History
(cranberry)
escitalopram oxalate 5 mg tablet 5 mg PO DAILY 01/15/25 01/15/25 Unknown History
famotidine 20 mg tablet 20 mg PO BID 01/15/25 01/15/25 Unknown History
iron bis glycinate mike 28 mg 1 cap PO DAILY 01/15/25 01/15/25 Unknown History
iron-vit C 60 mg-FA 400 mcg-B12
8mcg cap (Gentle Iron)
omega 0-uwg-yil-fish oil 1,000 mg 1 cap PO DAILY 01/15/25 01/15/25 Unknown History
(120 mg-180 mg) capsule (Fish Oil)
ondansetron 8 mg disintegrating 8 mg PO Q8HPRN PRN nausea 01/15/25 01/15/25 Unknown History
tablet
prochlorperazine maleate 10 mg 10 mg PO Q6HPRN PRN nausea 01/15/25 01/15/25 Unknown History
tablet
therapeutic multivitamin 1 tab PO DAILY 01/15/25 01/15/25 Unknown History
Active Medications
Generic Name Dose Route Start Last Admin
Trade Name Freq PRN Reason Stop Dose Admin
Acetaminophen 650 mg 01/15/25 18:19
Acetaminophen 325 Mg Tablet PO 02/12/25 18:18
Q4HPRN PRN
mild pain/ODEN/temp> 100.4F
Albuterol/Ipratropium 3 ml 01/15/25 18:19
Ipratropium 0.5/Albuterol 3 Mg (3 Ml Ampul) INH
R Q4HPRN PRN
shortness of breath
Protocol
Brinzolamide 0 drop 01/15/25 22:00 01/16/25 09:01
Brinzolamide 1% (Ophthalmic Suspension) 10 Ml Bottle BOTH EYES 02/12/25 21:59 1 drop
TID NILSON Administration
Ceftriaxone Sodium 1,000 mg 01/16/25 18:00
Ceftriaxone 1000 Mg / 10 Ml Vial IV
Q24H NILSON
Cyclosporine 1 drops 01/15/25 20:00 01/16/25 09:00
Cyclosporine 0.05% (Ophthalmic Emulsion) 10 Drop Droperette BOTH EYES 02/12/25 19:59 1 drops
BID NILSON Administration
Doxepin HCl 50 mg 01/15/25 22:00 01/15/25 20:41
Doxepin 50 Mg Capsule PO 02/12/25 21:59 50 mg
HS NILSON Administration
Doxycycline Hyclate 100 mg 01/16/25 20:00
Doxycycline 100 Mg Capsule PO
Q12 NILSON
Escitalopram Oxalate 5 mg 01/16/25 08:00 01/16/25 09:00
Escitalopram 5 Mg Tablet PO 02/13/25 07:59 5 mg
DAILY NILSON Administration
Furosemide 40 mg 01/16/25 08:00 01/16/25 09:00
Furosemide 40 Mg Tablet PO 02/13/25 07:59 40 mg
DAILY NILSON Administration
Latanoprost 0 drop 01/15/25 22:00 01/15/25 22:22
Latanoprost 0.005% (Ophthalmic Solution) 2.5 Ml Bottle BOTH EYES 02/12/25 21:59 1 drop
HS NILSON Administration
Ondansetron HCl 4 mg 01/15/25 18:19
Ondansetron 4 Mg/2 Ml Vial IV 02/12/25 18:18
Q6HPRN PRN
nausea and vomiting
Sodium Bicarbonate 650 mg 01/16/25 08:00 01/16/25 09:00
Sodium Bicarbonate 650 Mg Tablet PO 02/13/25 07:59 650 mg
DAILY NILSON Administration
Sodium Chloride 0 flush 01/15/25 19:00
Sodium Chloride 0.9% (Flush) Syringe IV 02/12/25 18:59
PER PROTOCOL NILSON
Sterile Water 10 ml 01/16/25 18:00
Sterile Water For Injection 10 Ml Vial IV 02/13/25 17:59
Q24H NILSON
Physical Exam
-
General: No Apparent Distress and Comfortable; Negative Respiratory Distress
Cardiology: S1 and S2
Pulmonary: Clear
GI: Soft, Distended and Fluid Wave
Extremities: No C/C/E
Labs
Lab Results
WBC 12.2 10^3/uL (4.8-10.8) H 01/16/25 05:49
RBC 3.38 10^6/uL (4.20-5.40) L 01/16/25 05:49
Hgb 9.3 g/dL (12.0-16.0) L 01/16/25 05:49
Hct 28.3 % (37.0-47.0) L 01/16/25 05:49
MCV 83.7 fL (81.0-99.0) 01/16/25 05:49
MCH 27.5 pg (27.0-31.0) 01/16/25 05:49
MCHC 32.9 g/dL (33.0-37.0) L 01/16/25 05:49
RDW 15.9 % (11.5-14.5) H 01/16/25 05:49
Plt Count 347 10^3/uL (130-400) 01/16/25 05:49
MPV 8.9 fL (7.4-10.4) 01/16/25 05:49
Abs Immat Gran (auto) 0.1 10^3/uL (0-0.05) H 01/16/25 05:49
Absolute Neuts (auto) 8.7 10^3/uL (1.4-6.5) H 01/16/25 05:49
Absolute Lymphs (auto) 0.5 10^3/uL (1.2-3.4) L 01/16/25 05:49
Absolute Monos (auto) 2.3 10^3/uL (0.1-0.6) H 01/16/25 05:49
Absolute Eos (auto) 0.6 10^3/uL (0-0.7) 01/16/25 05:49
Absolute Basos (auto) 0.0 10^3/uL (0-0.2) 01/16/25 05:49
Immature Gran % 1.1 % (0-0.5) H 01/16/25 05:49
Neutrophils % 71.0 % (42.2-75.2) 01/16/25 05:49
Lymphocytes % 4.3 % (20.5-51.1) L 01/16/25 05:49
Monocytes % 18.5 % (1.7-9.3) H 01/16/25 05:49
Eosinophils % 4.8 % (0-6) 01/16/25 05:49
Basophils % 0.3 % (0-2) 01/16/25 05:49
Creatinine 2.3 mg/dL (0.6-1.0) H 01/16/25 05:49
Vital Signs
Vital Signs
Temp Pulse Resp BP Pulse Ox
97.4 F 93 17 157/69 97
01/16/25 07:35 01/16/25 06:00 01/16/25 06:00 01/16/25 09:00 01/16/25 06:00
--- NOTE | 2025-01-16 14:12 | CON.ID ---
Addendum entered and electronically signed by Suzette Bergman MD 01/16/25 17:39:
I personally performed a history and physical exam of the patient and discussed management with the resident. I reviewed the resident's note and agree with the documented findings and plan of care HPI/CC with the following additions/corrections:
HPI
Ms Crump is an 84 year old female with history of urothelial cancer and chronic right-sided hydronephrosis/urethral obstruction s/p nephrostomy tube on chemotherapy (last dose two weeks ago) and immunotherapy, endometriosis, anasarca who was
admitted here 01/13-01/14 for anemia hgb 5.9; during her stay she received two units of PRBCs. Today she represents for weakness to the point that she cannot walk, fell and was on the ground for about an hour before they were able to pick her up.
Also c/o dyspnea with minimal exertion, and subacute bilateral lower extremity swelling. Also reports some leaking around the nephrostomy tube. Endorse migraines improved with high doses of tylenol. 01/15 she had paracentesis for 3L of dark,
hemorrhagic ascitic fluid. WBC count was 2900, with corrected PMN count ~1450 PMNs, body fluid is no growth to date.
Abdominal ascites with Bx + 12/05/2024 malignant cells at [facility] [place]
Since arrival this visit she has been afebrile, bp stable, wbc initially 16 now 12.2, hgb initially 7.8 now 9.3, plt 347, L shift was noted on arrival and resolved today cr 2.3 today which may be her new baseline, na 140, t bili 0.8, ast 28, alt 18,
alk hos 110, BNP 2500, UA with 20-25 wbc/hpf and few squamous cells, crystals were seen on the ua, CT a/p large volume ascites with probable blood products - unclear origin, acute L sided colitis, small/mod bilateral pleural effusions, 01/16
peripheral venous US: no DVT, 01/15 CXR: mild bibasilar atelectasis, 01/09 PET: thyroid mass, ascites - no peritoneal abnormality, bood cultures x2 in progress, flu swab negative, covid ag negative, 01/15 urine culture finalized negative, patient is
currently on ceftriaxone and doxycycline she has
Physical Exam
General: Comfortable
Respiratory: Clear; No Wheezes, Rales or Rhonchi
Cardiac: S1/S2, Regular Rhythm; No Murmur, Rub or Gallop
GI: Diffusely tender, Soft, mildly Distended and Normal Bowel Sounds
Genito-urinary: Other (Right nephrostomy tube draining clear urine)
Musculoskeletal: Left Lower Extremity (+3 pitting) and Edema, Right Lower Extremity (+3 pitting)
Skin: Warm and Dry; No Rash or Jaundice
Psych: Calm
DLOA: port accessed
A&P
Possible SBP - not definitive
Right-sided hydronephrosis/urethral obstruction in setting of urothelial cancer,-on chemotherapy
status post nephrostomy tube 12/07/2024
Hemorrhagic products in the ascites - unclear cause
Leukocytosis
CKD5
Port
- blood cultures x2 in progress
- cannot reliably calculate peritoneal neutrophils given that RBCs were not counted, culture no growth to date will continue to follow
- Abdominal ascites with Bx + 12/05/2024 malignant cells at [facility] [place]; SAAG < 1.1 and known peritoneal malignacy (alternative diagnosis) thus SBP unlikely
- unclear cause of hemoperitoneum - reports liver biopsy was remote
- CXR most consistent with anasarca and bilateral pleural effusions - doubt pneumonia
- urine culture finalized negative
- QTc 503
- continue with ceftriaxone increased dose to 2 gm IV q24h, pending peritoneal fluid culture results
- pleurex may be considered management per oncology
AW
Original Note:
Consultation
-
Date/Time Consultation Requested: 01/16/2025 9:29
Date/Time Consultation Performed: 01/16/2025 14:28
Requesting Provider: Zoe Mortensen MD
Performing Provider: Suzette Bergman MD
Reason for Consultation: suspected sepsis on chemo
Chief Complaint / Past History
Chief Complaint
Recurrent fatigue
History of Present Illness
History was provided by patient and her son Gurwinder.
Ms. Crump is an 84-year-old female with PMH of metastatic urothelial carcinoma s/p chemotherapy, s/p radiation, CKD stage IV, hypertension who presented to the ED with increased fatigue, dyspnea on exertion and bilateral LE swelling for several
weeks. Patient was recently discharged had a stay in this hospital from 01/13 to 01/14 due to severe anemia after her second round of chemotherapy. She reports a history of left ureteral cancer for which she got radiation in August 2024 and
subsequently had fluid retention that was not responsive to Lasix (Dr. Burgess). About 2 months later she was found to have a right kidney cancer and started chemotherapy and immunotherapy 2 weeks ago and was also transfused due to low Hb. 5 days
ago, she underwent her second round of chemo, went home and felt so weak that she fell again and was down for about an hour before her son was able to come and pick her up. She was brought into the hospital the next day and was found to have a Hb
of 5.9. She received 2 units of PRBC and was discharged the next day. On 01/15 she returned to ED due to severe weakness and had paracentesis of 3 L significant for dark ascitic fluid.
While in the ED, her WBC count was 16.6 with left shift, Hb 7.8, platelets 386, she was afebrile with BP 125/71, pulse 113, respiratory 22 and saturating at 95% on room air. Her urinalysis was significant for WBC count 21-25/hpf, 3+ leukocyte
esterase, 3+ blood and few squamous cells. she was admitted for sepsis and ID was consulted for recommendations on management.
Past History
Past Medical History: Cancer (Urothelial cancer, BCC chest), GERD, HTN, Hypercholesterolemia, Psychiatric (Anxiety), Renal Failure (CKD stage V) and Other (Anemia of chronic disease)
Past Surgical History: Gynecological (Hysterectomy) and Other (Nephrostomy, bilateral knee replacement, cataract extraction, cervical laminectomy, otosclerosis surgery, surgery)
Allergy History:
RADAMES Inhibitors Allergy (Verified 01/15/25 11:04)
lisinopril-Cough
lisinopril Allergy (Verified 01/15/25 11:04)
radames inhibitors-cough
Medications Reviewed: Yes
Social History
Tobacco: Former Smoker
Alcohol: Occasional
Drug: None
Personal:
Living: With Family
Employment: Retired
Family History
Family History: Not Pertinent
Review of Systems
Review of Systems
General: Negative Fever or Chills
Cardiovascular: Edema (3+ bilateral lower extremity edema); Negative Chest Pain, Dyspnea or Palpitations
Respiratory: Negative Dyspnea or Hemoptysis
Gasteroenterology: Negative Nausea or Vomiting
Genital / Urological: Negative Flank Pain
Neurological: Dizziness and Other (Generalized weakness); Negative Headache
All systems: All other systems were reviewed and were negative
Vital Signs
Temp Pulse Resp BP Pulse Ox
98.1 F 116 17 128/71 96
01/16/25 10:55 01/16/25 13:30 01/16/25 13:30 01/16/25 13:00 01/16/25 13:35
Physical Exam
Physical Exam
Constitutional: No Acute Distress, Comfortable and Chronically Ill
Cardiovascular: Regular Rate, S1/S2 and Peripheral Edema
Pulmonary: Clear; Negative Wheezes or Rales
Gastrointestinal: Soft, Non Tender, Non Distended and Normal Bowel Sounds
Genito-Urinary: Clear Urine (Right nephrostomy tube draining yellowish urine); Negative CVA Tenderness
Extremities: Edema (3+ bilateral LE edema); Negative Calf Swelling
Musculoskeletal: Negative Joint Swelling
Skin: Warm and Dry
Neurological: Awake and AO x 3
Psychological: Calm
Lab / Diagnostic Study Results
01/16/25 05:49
01/16/25 05:49
Abs Immat Gran (auto) 0.1 10^3/uL (0-0.05) H 01/16/25 05:49
Absolute Neuts (auto) 8.7 10^3/uL (1.4-6.5) H 01/16/25 05:49
Absolute Lymphs (auto) 0.5 10^3/uL (1.2-3.4) L 01/16/25 05:49
Absolute Monos (auto) 2.3 10^3/uL (0.1-0.6) H 01/16/25 05:49
Absolute Basos (auto) 0.0 10^3/uL (0-0.2) 01/16/25 05:49
Immature Gran % 1.1 % (0-0.5) H 01/16/25 05:49
Neutrophils % 71.0 % (42.2-75.2) 01/16/25 05:49
Lymphocytes % 4.3 % (20.5-51.1) L 01/16/25 05:49
Monocytes % 18.5 % (1.7-9.3) H 01/16/25 05:49
Eosinophils % 4.8 % (0-6) 01/16/25 05:49
Basophils % 0.3 % (0-2) 01/16/25 05:49
Ur Squamous Epith Cells 3-5 /LPF (Few) 01/15/25 11:16
Microbiology Results
Micro:
01/15/25 16:33 Body Fluid Culture - Preliminary
Peritoneal Fluid No Growth After 18-24 Hours
Gram Stain - Preliminary
01/15/25 11:16 Urine Culture - Final
Urine NO GROWTH
01/15/25 17:19 Influenza Types A & B (DEEDEE) - Final
Nasal Swab Negative for Influenza A & B, NAAT
Negative results must be combined with clinical observations
and patient history.
Nucleic Acid Amplification test (NAAT)performed on the
[employer] platform.
01/15/25 17:20 Blood Culture - Pending
Blood/Venous
01/15/25 17:20 Blood Culture - Pending
Blood/Venous
Assessment / Plan
84-year-old female with PMH of metastatic urothelial carcinoma s/p chemotherapy, s/p radiation, CKD stage IV, hypertension who presented to the ED with increased fatigue, dyspnea on exertion and bilateral LE swelling for several weeks.
Assessment/plan:
#Sepsis
# Suspected spontaneous bacterial peritonitis
#Suspected bibasilar pneumonia
#Right-sided nephrostomy tube
- Patient has been afebrile since arrival.
- Leukocytosis looks chronic.
- Ascites fluid hemorrhagic, noninterpretable without RBC count, consider repeat when able. However SAAG of 0.9 with ascites biopsy malignant cells reported at [facility] [place] 12/05/2024 supports peritoneal carcinomatosis, portal hypertension less likely.
- Blood cultures 01/15 in progress.
- Peritoneal fluid culture and Gram stain with no growth in 24 hours.
- Urine culture 01/15 no growth.
- Continue ceftriaxone 2 g IV Q24H and doxycycline 100 mg PO Q12H for now.
- Follow cultures.
- QTc 503 noted. Avoid fluoroquinolones.
- PleurX ASCEPT catheter for refractory ascites per oncology.
Care Review
Plan reviewed with: Physician
[2025-01-16] MEDS: STERILE WATER FOR INJECTION 20 ML IV (16:31)
[2025-01-16] MEDS: ROCEPHIN 2000 MG IV (16:31)
--- NOTE | 2025-01-16 16:47 | CM ---
Patient with Hx Metastatic urothelial cancer on chemo with Dx Sepsis secondary to bibasilar pneumonia, Abdominal ascites, Anemia. Paracentesis yesterday. Room air. Receiving IV/PO Abx. PT recommends HH. OT Eval pending.
Spoke with patient's Tang;
the patient was discharged to home on 01/14 and was ok that evening, however the next morning she was unable to walk due to weakness so called 911 to have her return to the hospital.
The patient resides with her in a 2 story home with 1 step to enter, and first floor bedroom/bath.
She was assisted with ADLs and ambulates using her RW.
DME - RW, SPC, w/c
VN - current with [facility]
SNF - none
PCP - Rigo Ball
Pharmacy - [facility]
Plan home with resumption [facility].
--- NOTE | 2025-01-16 16:47 | PTCARENOTE ---
Patient's nephrostomy tube appears to be leaking from site. Patient found to have drainage on pad underneath her. No signs of leakage from tubing or bag. Dressing previous on site was saturated and falling off. New dressing applied. on floor
at the time and made aware. Consult for IR.
[2025-01-16] MEDS: SINEQUAN 50 MG PO (22:06)
[2025-01-16] MEDS: VIBRAMYCIN 100 MG PO (22:06)
[2025-01-16] MEDS: XALATAN OPHTHALMIC SOLUTION 1 DROP BOTH EYES (22:06)
[2025-01-16] MEDS: TYLENOL 650 MG PO (22:06)
[2025-01-16] MEDS: MELATONIN 5 MG PO (22:07)
[2025-01-17] VITALS (26 sets, daily range): BP systolic 103–156; BP diastolic 46–102; BMI 26.0
--- NOTE | 2025-01-17 04:45 | PTCARENOTE ---
Nephrostomy tube draining yellow urine. No evidence of leaking around the site; pt has been very careful with tubing when moving in bed. Pt states her abdomen just feels more uncomfortable as the day went on. Tylenol administered per order for
discomfort. No events noted over night.
[2025-01-17 05:27] LABS: % Basophils 0.3 % (0-2); % Eosinophils 2.4 % (0-6); % Immature Granulocytes 0.9 % (0-0.5); % Monocytes 18.3 % (1.7-9.3); % Neutrophils 73.1 % (42.2-75.2); Absolute Eosinophils 0.3 10^3/uL (0-0.7); Absolute Immature Granulocytes 0.1 10^3/uL (0-0.05); Absolute Lymphocytes 0.6 10^3/uL (1.2-3.4); Absolute Monocytes 2.3 10^3/uL (0.1-0.6); Absolute Neutrophils 9.1 10^3/uL (1.4-6.5); Hemoglobin 8.7 g/dL (12.0-16.0); Mean Corp Hgb Conc. 33.5 g/dL (33.0-37.0); Mean Corpuscular Hgb 27.8 pg (27.0-31.0); Mean Corpuscular Volume 83.1 fL (81.0-99.0); Mean Platelet Volume 8.8 fL (7.4-10.4); Nucleated Red Blood Cells % 0.2 %; Platelet Count 380 10^3/uL (130-400); Red Blood Cell Count 3.13 10^6/uL (4.20-5.40); Red Cell Dist. Width 16.5 % (11.5-14.5); White Blood Cell Count 12.5 10^3/uL (4.8-10.8)
[2025-01-17 05:52] LABS: ALT (SGPT) 20 U/L (0-35); AST (SGOT) 29 U/L (14-36); Albumin 2.5 g/dl (3.5-5.0); Alkaline Phosphatase 141 U/L (38-126); Blood Urea Nitrogen 50 mg/dl (7-17); Calcium 8.1 mg/dl (8.4-10.2); Carbon Dioxide 23 mmol/L (22-30); Chloride 110 mmol/L (98-107); Estimated Creatinine Clearance 15 ml/min; Glucose 121 mg/dl (70-99); Magnesium 1.5 mg/dl (1.6-2.3); Phosphorus 3.6 mg/dl (2.5-4.5); Potassium 3.5 mmol/L (3.5-5.1); Sodium 139 mmol/L (135-145); Total Bilirubin 0.7 mg/dl (0.2-1.3); Total Protein 4.9 g/dl (6.3-8.2); eGFR 22.52
--- NOTE | 2025-01-17 08:04 | W.PN.ID1 ---
Addendum entered and electronically signed by Suzette Bergman MD 01/17/25 17:12:
I saw and evaluated the patient. I reviewed the resident�s note and agree with findings and plan as documented in the resident�s note - please see my separately documented update note for additions/corrections.
Original Note:
Date of Service
Date of Service: January 17, 2025
Patient seen and examined at bedside lying in bed in no acute distress. Patient states 'I do not feel good today'. She describes abdominal pain rated 8/10 which she attributes to reaccumulation of ascitic fluid. She also reports some nausea but
no vomiting. She denies fever, chills, chest pain or shortness of breath. Her nephrostomy tube is in place, draining yellow urine, no leakage seen.
Today's Communication
Continue ceftriaxone 2 g IV Q24H and doxycycline 100 mg PO Q12H
Follow blood and peritoneal fluid cultures
Assessment / Plan
84-year-old female with PMH of metastatic urothelial carcinoma s/p chemotherapy, s/p radiation, CKD stage IV, hypertension who presented to the ED with increased fatigue, dyspnea on exertion and bilateral LE swelling for several weeks.
Assessment/plan:
# Suspected sepsis (leukocytosis, tachycardia, tachypnea)
SIRS with unclear source
# Suspected spontaneous bacterial peritonitis
#Suspected bibasilar pneumonia
#Right-sided nephrostomy tube
#Abdominal pain
- Patient has been afebrile since arrival.
- Leukocytosis looks chronic.
- Hb down 8.7.
- Ascites fluid hemorrhagic, uninterpretable without RBC count, consider repeat when able. However SAAG of 0.9 with ascites biopsy malignant cells reported at [facility] 12/05/2024 supports peritoneal carcinomatosis, portal hypertension less likely. High
risk of reaccumulation.
- Blood cultures 01/15 in progress.
- CT abdomen and pelvis with large volume abdominopelvic ascites with high attenuation representing clotted blood from recent liver mass biopsy.
- Peritoneal fluid culture and Gram stain with no growth in 24 hours.
- UA with 20-25 WBC/hpf with few squamous cells and crystals.
- Urine culture 01/15 no growth.
- Nasal swab flu and COVID-negative.
- Continue ceftriaxone 2 g IV Q24H and doxycycline 100 mg PO Q12H for now. will switch to Cefdinir at discharge.
- Pain control.
- Follow cultures.
- QTc 503 noted. Avoid fluoroquinolones.
- PleurX ASCEPT catheter for refractory ascites per oncology.
- Prognosis guarded.
Chief Complaint
-: Leukocytosis and Other (Nephrostomy tube, paracentesis)
Subjective / Review of Systems
Review of Systems: No Fever, No Chills, No Stiff Neck, No Chest Pain, No Palpitations, No Abdominal Pain, No Nausea, No Vomiting and Other (Weakness)
Vital Signs / Physical Exam
Vital Signs
Vital Signs
Temp Pulse Resp BP Pulse Ox
98.3 F 116 21 156/73 94
01/17/25 03:00 01/17/25 06:00 01/17/25 06:00 01/17/25 06:00 01/17/25 06:00
Physical Exam
Constitutional: No Acute Distress, Comfortable and Chronically Ill
Cardiovascular: Regular Rate and S1/S2
Pulmonary: Clear and Non Labored; Negative Wheezes, Rales or Rhonchi
Gastrointestinal: Soft, Non Tender, Non Distended and Normal Bowel Sounds
Genito-Urinary: Other ((Right nephrostomy tube draining yellowish urine); Negative CVA Tenderness
Extremities: Edema (3+ bilateral LE edema)
Musculoskeletal: Negative Joint Swelling
Skin: Warm and Dry; Negative Rash or Jaundice
Neurological: Awake and AO x 3
Psychological: Calm
Objective Data
Lab Data
Lab Results
01/17/25 05:12
01/17/25 05:12
Estimated Creat Clear 15 ml/min 01/17/25 05:12
Total Bilirubin 0.7 mg/dl (0.2-1.3) 01/17/25 05:12
AST 29 U/L (14-36) 01/17/25 05:12
ALT 20 U/L (0-35) 01/17/25 05:12
Alkaline Phosphatase 141 U/L (38-126) H 01/17/25 05:12
Most recent labs reviewed.
Microbiology: Report Reviewed
Micro Results:
01/15/25 17:20 Blood Culture - Preliminary
Blood/Venous No Growth in 24 hours- Final report to follow
01/15/25 17:20 Blood Culture - Preliminary
Blood/Venous No Growth in 24 hours- Final report to follow
01/15/25 16:33 Body Fluid Culture - Preliminary
Peritoneal Fluid No Growth After 18-24 Hours
Gram Stain - Preliminary
01/15/25 11:16 Urine Culture - Final
Urine NO GROWTH
01/15/25 17:19 Influenza Types A & B (DEEDEE) - Final
Nasal Swab Negative for Influenza A & B, NAAT
Negative results must be combined with clinical observations
and patient history.
Nucleic Acid Amplification test (NAAT)performed on the
[employer] platform.
Care Review
Plan reviewed with: Nurse and Physician
[2025-01-17] MEDS: NORVASC 2.5 MG PO (08:17)
[2025-01-17] MEDS: SODIUM BICARBONATE 650 MG PO (08:17)
[2025-01-17] MEDS: VIBRAMYCIN 100 MG PO ×2 (08:18→20:20)
[2025-01-17] MEDS: AZOPT 1% OPHTHALMIC SUSPENSION 1 DROP BOTH EYES ×3 (08:18→20:20)
[2025-01-17] MEDS: LASIX 40 MG PO (08:18)
[2025-01-17] MEDS: LEXAPRO 5 MG PO (08:18)
[2025-01-17] MEDS: RESTASIS 0.05% OPHTHALMIC EMULSION 1 DROPS BOTH EYES ×2 (08:18→20:20)
--- NOTE | 2025-01-17 08:25 | W.PN.HOSP.TC ---
Addendum entered and electronically signed by Balbina Enriquez MD 01/18/25 06:56:
Anemia symptomatic from chemotherapy/CKD 4, possible acute blood loss as well
Original Note:
Today's Communication/Plan
-
cont abx as per ID
PT/OT
compressive wraps lower ext's
Protonix, Maalox prn
Assessment / Plan
Assessment / Plan
Physical Exam
Genera: no acute distress, appears comfortable at this time.
HEENT: Scleral Anicteric, MMM, No JVD
Pulm: CTABL
Cardio: S1 S2 Sinus Tachy no murmurs/rubs/gallops, chest port present
Abd: Soft, NT, distended, BS+. Right nephrostomy tube draining yellow urine.
Ext: Warm, Dry, Bilateral lower extremity pitting edema
Neuro: AAOx3
Psych: Calm cooperative
84F urothelial Ca on chemo CKD IV GERD Endometriosis originally here for symptomatic severe Anemia Hgb 5.9 responded well to 2PRBC transfusion and was discharged home with home services. Patient however returned next day d/t increased weakness
shortness of breath exertional dyspnea leg swelling. CT scan was concerning for large ascites and possible colitis. CXR also noted possible atelectasis vs pna. Stable respiratory status on room air, patient was started on empiric abx. 2L ascites
was drawn on paracentesis.
#Possible Sepsis (leukocytosis, tachycardia)
#Possible SBP vs Colitis vs PNA (less likely) vs no active infection
- influenza/COVID neg
- IV Rocephin, IV doxycycline given in ER
- Incentive spirometry
-urine cx neg follow blood and ascites cx's
- ID eval appreciated cont Ceftriaxone 2g daily
#Acute abdominal ascites in a static probable blood products in the right upper quadrant
Status post peritoneal fluid biopsy 12/05/2024 malignant cells
- Consult IR appreciated paracentesis with cytology status post 2.1 L of serosanguineous fluid thought to be combination of blood and ascites
#Anemia symptomatic from chemotherapy/CKD 4
-Transfused 2 units PRBC Hgb 7.8 noted on ED evaluation, improved appropriately to 9.3
-monitor H&H
Lower Ext Edema
-Continue Lasix 40 mg daily with hold parameters
-Venous Duplex neg for DVT
-RADAMES compression wrapping ordered
-ECHO appreciated EF >75% no significant valve disease, no significant change from prior ECHO 04/20/25
#CLAUDIA on CKD stage IV
Initial Creat 2.6 since improved
Follow BMP
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
#Status post peritoneal fluid biopsy 12/05/2024 malignant cells at [facility]
Status post radiation treatment left kidney August 2024
#Right-sided hydronephrosis/urethral obstruction in setting of urothelial cancer,-on chemotherapy
status post nephrostomy tube 12/07/2024 [facility]
-IR eval requested concern leaking nephrostomy tube though urine output is good. Assessed and found to be in good condition/position 01/17/25. No further episodes of leaking noted.
-Oncology eval appreciated
#HTN
Continue Lasix and Amlodipine with hold parameters
GERD
Heartburn
-discontinued Pepcid 20 mg twice daily (with current kidney function/Cr clearance at most Pepcid 10 mg daily or 20 mg every other day)
-protonix 40 mg daily
-Maalox prn
#Endometriosis
Glaucoma
Continue latanoprost both eyes at bedtime
Depression
-Continue Lexapro 5 mg daily, doxepin 50 mg nightly
DVT prophylaxis SCDs
Full Code
discussed with patient and patient's Apolinar
I spent a total of 50 minutes with the patient or on the floor. More than 50% of this time involved counseling and coordination of care.
Anticipated Discharge: > 48 hours
Subjective/Interval History
-
Date of Service: January 17, 2025
No acute distress resting comfortably in bed. Reports some abd discomfort distention but remains significantly improved since recent paracentesis. Also reporting heart burn
Objective Data
-
Labs:
Laboratory Results
01/17/25
05:12
WBC 12.5 H
Hgb 8.7 L
Hct 26.0 L
Plt Count 380
Sodium 139
Potassium 3.5
Chloride 110 H
Carbon Dioxide 23
BUN 50 H
Creatinine 2.1 H
Glucose 121 H
Calcium 8.1 L
Total Bilirubin 0.7
AST 29
ALT 20
Alkaline Phosphatase 141 H
Vital Signs:
Vital Signs
Temp Pulse Resp BP Pulse Ox
98.3 F 116 21 121/64 94
01/17/25 03:00 01/17/25 08:18 01/17/25 06:00 01/17/25 08:18 01/17/25 06:00
I&O
01/16/25 01/17/25 01/18/25
06:59 06:59 06:59
Intake Total 500 / 500
Output Total 575 / 575 750 / 750
Balance -75 / -75 -750 / -750
--- NOTE | 2025-01-17 08:58 | W.PN.ONC2 ---
Today's Communication / Plan
-
.
Impression
Impression
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
Abdominal ascites with Bx + 12/05/2024 malignant cells -01/15 s/p 3000 cc of dark hemorrhagic ascitic fluid, cx NTD
Anemia symptomatic from chemotherapy/CKD 4 (on REINALDO) +/- hemorrhagic ascites s/p 2U PRBC, last 01/16
CKD stage IV
Right-sided hydronephrosis/urethral obstruction in setting of urothelial cancer,-on chemotherapy s/p nephrostomy tube 12/07/2024
LE edema US neg for DVT 01/16
Plan
Plan
abx per ID
check coags
Paracentesis PRN with consideration of Pleurx ASCEPT type catheter if ascites becomes refractory.
Continue supportive care for now.
option but for now patient's goals of care are restorative, PT/OT/nutrition
OP follow up with Dr. Rashad Russell upon discharge to continue palliative systemic therapy
Subjective/Objective
Subjective
no new complaints
Vital Signs:
Vital Signs
Temp Pulse Resp BP Pulse Ox
97 F 116 21 121/64 94
01/17/25 07:53 01/17/25 08:18 01/17/25 06:00 01/17/25 08:18 01/17/25 06:00
Lab Results:
Laboratory Data
WBC 12.5 10^3/uL (4.8-10.8) H 01/17/25 05:12
Hgb 8.7 g/dL (12.0-16.0) L 01/17/25 05:12
Plt Count 380 10^3/uL (130-400) 01/17/25 05:12
eGFR 22.52 01/17/25 05:12
Physical Exam
General: Comfortable
Respiratory: Clear, unlabored
Cardiac: S1/S2, Regular Rhythm
GI: TTP, soft, distended
Genito-urinary: Right nephrostomy tube draining clear urine
Ext b/l LE edema +3
Psych: Calm
integ mediport
--- NOTE | 2025-01-17 10:12 | PN.CDI ---
CDI
- -
CDI:
Physician Documentation Request
Admit Date: 01/15/25 17:06
Dear Doctor Zoe,
Clinical Indicators:
Patient presented with generalized weakness.
PRBCs 2 units transfused.
01/15 Paracentesis, '3000 cc of dark hemorrhagic ascitic fluid was evacuated'
01/16 PN, 'status post 2.1 L of serosanguineous fluid thought to be combination of blood and ascites...Anemia symptomatic from chemotherapy/CKD 4'
Hgb/Hct trend:
01/15/25 01/16/25
10:40 05:49
Hgb 7.8 L 9.3 L
Hct 24.1 L 28.3 L
Based on the above, could you clarify, in your progress note, which of the following is the most likely type of anemia you are evaluating, monitoring and/or treating?
Anemia from chemotherapy/CKD and acute blood loss
Anemia from chemotherapy/CKD 4 only
Other, please specify
Use of terms such as suspected, likely, concern for, or probable (associated with a specific diagnosis that is being evaluated, monitored, or treated as if it exists) are acceptable and can be coded in the inpatient setting, when documented at the
time of discharge.
Thank you,
STU Harrington RN
CDI Specialist
available via tiger text
Please use your independent medical judgment in providing your response.
[2025-01-17] MEDS: MAGNESIUM SULFATE 100 IV (11:46)
[2025-01-17] MEDS: TYLENOL 650 MG PO ×2 (12:36→20:23)
--- NOTE | 2025-01-17 13:43 | PTCARENOTE ---
Patient sent to [facility] to check Nephrostomy tube, reported tube was intact, they added another suture to hold in place. When patient returned, she reported a headache 7/10 on the right side of her head and requested only Tylenol. Pt has not eaten any
breakfast or lunch and reports no appetite. Assessment, care and VS as charted.
[2025-01-17] MEDS: STERILE WATER FOR INJECTION 20 ML IV (15:35)
[2025-01-17] MEDS: LOPRESSOR 5 MG IV (15:36)
[2025-01-17] MEDS: ROCEPHIN 2000 MG IV (15:36)
[2025-01-17] MEDS: MAALOX 30 ML PO (15:48)
[2025-01-17] MEDS: PROTONIX 40 MG PO (15:48)
--- NOTE | 2025-01-17 16:15 | PTCARENOTE ---
Patient's HR elevated in 120s. TT to , order for PRN Metoprolol, see MAR.
Patient also complained of heart burn and normally takes Famotidine. Order for Protonix and Maalox, see MAR.
--- NOTE | 2025-01-17 17:04 | W.PN.UPDATE ---
Update Note
Progress Note Update
I saw and evaluated the patient. I reviewed the resident�s note and agree with findings and plan as documented in the resident�s separately documented note with the following additions/corrections:
Subjective:
afebrile
bp stable
increased abdominal pain and distension today
Physical Exam
General: Comfortable
Respiratory: Clear; No Wheezes, Rales or Rhonchi
Cardiac: S1/S2, Regular Rhythm; No Murmur, Rub or Gallop
GI: Diffusely tender increased, soft, moderately Distended and Normal Bowel Sounds
Skin: Warm and Dry; No Rash or Jaundice
Psych: Calm
DLOA: port accessed
A&P
Possible SBP - not definitive
Right-sided hydronephrosis/urethral obstruction in setting of urothelial cancer,-on chemotherapy
status post nephrostomy tube 12/07/2024
Hemorrhagic products in the ascites - unclear cause
Leukocytosis
CKD5
Port
- blood cultures x2 in progress
- cannot reliably calculate peritoneal neutrophils given that RBCs were not counted, culture no growth to date will continue to follow
- Abdominal ascites with Bx + 12/05/2024 malignant cells at [facility]; SAAG < 1.1 and known peritoneal malignancy (alternative diagnosis) thus SBP unlikely
- unclear cause of hemoperitoneum - perhaps peritoneal biopsy?
- CXR most consistent with anasarca and bilateral pleural effusions - doubt pneumonia
- urine culture finalized negative
- QTc 503
- continue with ceftriaxone increased dose to 2 gm IV q24h x5 days, if discharge is planned can switch to cefdinir 300 mg PO BID to complete the course. QTc is over 500 relative CI to quinolones, and renal function is relative CI to bactrim
- if repeat paracentesis is pursued in patient would repeat peritoneal studies including an aerobic culture into a blood culture bottle and RBC count on the peritoneal fluid
- pleurex may be considered management per oncology
[2025-01-17] MEDS: XALATAN OPHTHALMIC SOLUTION 1 DROP BOTH EYES (20:20)
[2025-01-17] MEDS: SINEQUAN 50 MG PO (20:20)
[2025-01-17] MEDS: MELATONIN 5 MG PO (20:23)
[2025-01-18] VITALS (34 sets, daily range): BP systolic 87–129; BP diastolic 39–86; BMI 25.4
[2025-01-18 03:58] LABS: % Basophils 0.4 % (0-2); % Eosinophils 0.7 % (0-6); % Immature Granulocytes 0.9 % (0-0.5); % Lymphocytes 4.2 % (20.5-51.1); % Neutrophils 75.8 % (42.2-75.2); Absolute Basophils 0.1 10^3/uL (0-0.2); Absolute Eosinophils 0.1 10^3/uL (0-0.7); Absolute Immature Granulocytes 0.1 10^3/uL (0-0.05); Absolute Lymphocytes 0.6 10^3/uL (1.2-3.4); Absolute Monocytes 2.5 10^3/uL (0.1-0.6); Absolute Neutrophils 10.4 10^3/uL (1.4-6.5); Hematocrit 24.1 % (37.0-47.0); Mean Corp Hgb Conc. 33.2 g/dL (33.0-37.0); Mean Corpuscular Hgb 27.7 pg (27.0-31.0); Mean Corpuscular Volume 83.4 fL (81.0-99.0); Nucleated Red Blood Cells % 0.1 %; Platelet Count 422 10^3/uL (130-400); Red Blood Cell Count 2.89 10^6/uL (4.20-5.40); Red Cell Dist. Width 16.4 % (11.5-14.5); White Blood Cell Count 13.8 10^3/uL (4.8-10.8)
[2025-01-18 04:11] LABS: INR 1.17; PT 15.2 Sec (11.4-14.6)
[2025-01-18 04:12] LABS: APTT 36.3 Sec (23.4-35.0); Fibrinogen 499 MG/DL (199-459)
[2025-01-18 04:26] LABS: ALT (SGPT) 19 U/L (0-35); AST (SGOT) 28 U/L (14-36); Albumin 2.8 g/dl (3.5-5.0); Alkaline Phosphatase 155 U/L (38-126); Blood Urea Nitrogen 49 mg/dl (7-17); Calcium 8.3 mg/dl (8.4-10.2); Carbon Dioxide 27 mmol/L (22-30); Chloride 108 mmol/L (98-107); Estimated Creatinine Clearance 16 ml/min; Glucose 134 mg/dl (70-99); Magnesium 2.6 mg/dl (1.6-2.3); Phosphorus 3.6 mg/dl (2.5-4.5); Potassium 3.6 mmol/L (3.5-5.1); Sodium 142 mmol/L (135-145); Total Bilirubin 0.6 mg/dl (0.2-1.3); Total Protein 5.1 g/dl (6.3-8.2); eGFR 23.88
--- NOTE | 2025-01-18 08:47 | W.PN.ID1 ---
Addendum entered and electronically signed by Suzette Bergman MD 01/18/25 14:47:
I saw and evaluated the patient. I reviewed the resident�s note and agree with findings and plan as documented in the resident�s separately documented note with the following additions/corrections:
Subjective:
afebrile
bp stable
increased abdominal pain and distension today
Objective:
labs reviewed
Physical Exam
General: Comfortable
Respiratory: Clear; No Wheezes, Rales or Rhonchi
Cardiac: S1/S2, Regular Rhythm; No Murmur, Rub or Gallop
GI: Diffusely tender increased, soft, moderately Distended and Normal Bowel Sounds
Skin: Warm and Dry; No Rash or Jaundice
Psych: Calm
DLOA: port accessed
A&P
Possible SBP - not definitive
Right-sided hydronephrosis/urethral obstruction in setting of urothelial cancer,-on chemotherapy
status post nephrostomy tube 12/07/2024
Hemorrhagic products in the ascites - unclear cause
Leukocytosis
CKD4
Port
- blood cultures x2 in progress
- cannot reliably calculate peritoneal neutrophils given that RBCs were not counted, culture no growth to date will continue to follow
- Abdominal ascites with Bx + 12/05/2024 malignant cells at [facility]; SAAG < 1.1 and known peritoneal malignancy (alternative diagnosis) thus SBP less likely
- unclear cause of hemoperitoneum - perhaps peritoneal biopsy?
- CXR most consistent with anasarca and bilateral pleural effusions - doubt pneumonia
- urine culture finalized negative
- QTc 503
- continue with ceftriaxone 2 gm IV q24h day 4
- given progressive thrombocytosis, leukocytosis, L shift and increased abdominal tenderness - repeat paracentesis
- consulted IR
- body fluid cell count (including RBCs), culture, protein, LDH, glucose, albumin
AW
Original Note:
Date of Service
Date of Service: January 18, 2025
I saw and evaluated this patient. Patient's lying in bed in no acute distress. Complaints of mid abdominal pain rated 7/10 which she suspects is from reaccumulation of peritoneal fluid. She also reported feelings of pills stuck in her throat.
Otherwise, she has no fever, chills, nausea, vomiting, diarrhea, chest pain or shortness of breath.
Today's Communication
Continue ceftriaxone 2 g IV Q24H x 5 days, last day 01/20
Assessment / Plan
84-year-old female with PMH of metastatic urothelial carcinoma s/p chemotherapy, s/p radiation, CKD stage IV, hypertension who presented to the ED with increased fatigue, dyspnea on exertion and bilateral LE swelling for several weeks.
Assessment/plan:
# Suspected sepsis (leukocytosis, tachycardia, tachypnea)
SIRS with unclear source
# Suspected spontaneous bacterial peritonitis
#Suspected bibasilar pneumonia
#CKD 5
#Right-sided nephrostomy tube
#Abdominal pain
- Patient has been afebrile since arrival.
- Leukocytosis looks chronic.
- Hb further down 8.0 (8.7), source unidentified.
- Ascites biopsy reported malignant cells [facility] 12/05/2024 supports peritoneal carcinomatosis, portal hypertension (SBP) less likely. High risk of reaccumulation.
- Fibrinogen mildly increased at 499, platelets count 422; both are acute phase reactants. Also note high PT and PTT-consider liver pathology. Could have active liver bleeding.
- Peritoneal fluid culture and Gram stain with no growth in 48 hours.
- Consider RBC count on repeat peritoneal fluid if repeat paracentesis is planned.
- Blood cultures 01/15 in progress no growth in 48 hours.
- UA with 20-25 WBC/hpf with few squamous cells and crystals.
- Urine culture 01/15 no growth.
- Continue ceftriaxone 2 g IV Q24H x 5 days, last day 01/20. Will switch to Cefdinir 300 mg PO BID if discharge is planned, to complete course.
- Pain control.
- Protonix.
- QTc 503 noted. Avoid fluoroquinolones.
- PleurX ASCEPT catheter for refractory ascites per oncology.
- Prognosis guarded.
Chief Complaint
-: Leukocytosis and Other (Nephrostomy tube, paracentesis)
Subjective / Review of Systems
Review of Systems: No Fever, No Chills, No Stiff Neck, No Chest Pain, No Palpitations, Abdominal Pain (Mid abdominal pain 7/10), No Nausea, No Vomiting and Other (Weakness)
Vital Signs / Physical Exam
Vital Signs
Vital Signs
Temp Pulse Resp BP Pulse Ox
97.7 F 91 26 118/72 85
01/18/25 03:00 01/18/25 05:30 01/18/25 05:30 01/18/25 05:00 01/18/25 05:30
Physical Exam
Constitutional: No Acute Distress, Comfortable and Chronically Ill
Cardiovascular: Regular Rate and S1/S2
Pulmonary: Clear and Non Labored; Negative Wheezes, Rales or Rhonchi
Gastrointestinal: Soft, Non Tender, Non Distended and Normal Bowel Sounds
Genito-Urinary: Other ((Right nephrostomy tube draining yellowish urine); Negative CVA Tenderness
Extremities: Edema (3+ bilateral LE edema)
Musculoskeletal: Other (Bilateral Naman wraps); Negative Joint Swelling
Skin: Warm and Dry; Negative Rash or Jaundice
Neurological: Awake and AO x 3
Psychological: Calm
Objective Data
Lab Data
Lab Results
01/18/25 03:47
01/18/25 03:47
PT 15.2 Sec (11.4-14.6) H 01/18/25 03:47
INR 1.17 01/18/25 03:47
APTT 36.3 Sec (23.4-35.0) H 01/18/25 03:47
Estimated Creat Clear 16 ml/min 01/18/25 03:47
Total Bilirubin 0.6 mg/dl (0.2-1.3) 01/18/25 03:47
AST 28 U/L (14-36) 01/18/25 03:47
ALT 19 U/L (0-35) 01/18/25 03:47
Alkaline Phosphatase 155 U/L (38-126) H 01/18/25 03:47
Most recent labs reviewed.
Microbiology: Report Reviewed
Micro Results:
01/15/25 17:20 Blood Culture - Preliminary
Blood/Venous No Growth in 48 hours- Final report to follow
01/15/25 17:20 Blood Culture - Preliminary
Blood/Venous No Growth in 48 hours- Final report to follow
01/15/25 16:33 Body Fluid Culture - Preliminary
Peritoneal Fluid No Growth After 48 Hours
Gram Stain - Preliminary
01/15/25 11:16 Urine Culture - Final
Urine NO GROWTH
01/15/25 17:19 Influenza Types A & B (DEEDEE) - Final
Nasal Swab Negative for Influenza A & B, NAAT
Negative results must be combined with clinical observations
and patient history.
Nucleic Acid Amplification test (NAAT)performed on the
vocaltap platform.
Other: Report Reviewed (Nephrostogram-patent right percutaneous nephrostomy tube in satisfactory position)
--- NOTE | 2025-01-18 08:51 | W.PN.HOSP.TC ---
Today's Communication/Plan
-
see a/p
Assessment / Plan
Assessment / Plan
Physical Exam
Genera: no acute distress, appears relatively comfortable at this time.
HEENT: Scleral Anicteric, MMM, No JVD
Pulm: CTABL
Cardio: S1 S2 Sinus Tachy no murmurs/rubs/gallops, chest port present
Abd: Soft, NT, distended, BS+. Right nephrostomy tube draining yellow urine.
Ext: Warm, Dry, Bilateral lower extremity pitting edema
Neuro: AAOx3
Psych: Calm cooperative
84F urothelial Ca on chemo CKD IV GERD Endometriosis originally here for symptomatic severe Anemia Hgb 5.9 responded well to 2PRBC transfusion and was discharged home with home services. Patient however returned next day d/t increased weakness
shortness of breath exertional dyspnea leg swelling. CT scan was concerning for large ascites and possible colitis. CXR also noted possible atelectasis vs pna. Stable respiratory status on room air, patient was started on empiric abx. 2L ascites
was drawn on paracentesis.
#Possible Sepsis (leukocytosis, tachycardia)
#Possible SBP vs Colitis vs PNA (less likely) vs no active infection
- influenza/COVID neg
- IV Rocephin, IV doxycycline given in ER
- Incentive spirometry
-urine cx neg follow blood and ascites cx's
- ID eval appreciated cont Ceftriaxone 2g daily
#Acute abdominal ascites in a static probable blood products in the right upper quadrant
Status post peritoneal fluid biopsy 12/05/2024 malignant cells
- Consult IR appreciated paracentesis with cytology status post 2.1 L of serosanguineous fluid thought to be combination of blood and ascites
- paracentesis repeated 01/18 1850 cc of grossly bloody ascitic fluid was evacuated, albumin bolus provided following paracentesis.
#Anemia symptomatic from chemotherapy/CKD 4
-Transfused 2 units PRBC Hgb 7.8 noted on ED evaluation, improved appropriately to 9.3
-monitor H&H
-transfuse prn Hgb<7
Lower Ext Edema/Ascites/Anasarca
-Continue Lasix 40 mg daily with hold parameters
-Venous Duplex neg for DVT
-RADAMES compression wrapping ordered
-ECHO appreciated EF >75% no significant valve disease, no significant change from prior ECHO 04/20/25
-Cardio eval appreciated heart failure ruled out
#CLAUDIA on CKD stage IV
Initial Creat 2.6 since improved 2.0
Follow BMP
Hypomagnesemia
-monitor and replete as necessary
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
#Status post peritoneal fluid biopsy 12/05/2024 malignant cells at [facility]
Status post radiation treatment left kidney August 2024
#Right-sided hydronephrosis/urethral obstruction in setting of urothelial cancer,-on chemotherapy
status post nephrostomy tube 12/07/2024 [facility]
-IR eval requested concern leaking nephrostomy tube though urine output is good. Assessed and found to be in good condition/position 01/17/25. No further episodes of leaking noted.
-Oncology eval appreciated
#hx HTN
bp consistently low normotensive
Continue Lasix
home amlodipine discontinued at this time
GERD
Heartburn
-discontinued Pepcid 20 mg twice daily (with current kidney function/Cr clearance at most Pepcid 10 mg daily or 20 mg every other day)
-protonix 40 mg daily
-Maalox prn
#Endometriosis
Glaucoma
Continue latanoprost both eyes at bedtime
Depression
-Continue Lexapro 5 mg daily, doxepin 50 mg nightly
PT/OT appreciated Home Health
DVT prophylaxis SCDs
Full Code
discussed with patient and patient's son Gurwinder
I spent a total of 50 minutes with the patient or on the floor. More than 50% of this time involved counseling and coordination of care.
Anticipated Discharge: 24 - 48 hours
Subjective/Interval History
-
Date of Service: January 18, 2025
no acute distress. reports discomfort from abd distension.
Objective Data
-
Labs:
Laboratory Results
01/18/25
03:47
WBC 13.8 H
Hgb 8.0 L
Hct 24.1 L
Plt Count 422 H
PT 15.2 H
INR 1.17
APTT 36.3 H
Sodium 142
Potassium 3.6
Chloride 108 H
Carbon Dioxide 27
BUN 49 H
Creatinine 2.0 H
Glucose 134 H
Calcium 8.3 L
Total Bilirubin 0.6
AST 28
ALT 19
Alkaline Phosphatase 155 H
Vital Signs:
Vital Signs
Temp Pulse Resp BP Pulse Ox
97.7 F 91 26 118/72 85
01/18/25 03:00 01/18/25 05:30 01/18/25 05:30 01/18/25 05:00 01/18/25 05:30
I&O
01/17/25 01/18/25 01/19/25
06:59 06:59 06:59
Output Total 750 / 750 900 / 900
Balance -750 / -750 -900 / -900
--- NOTE | 2025-01-18 09:08 | W.PN.ONC2 ---
Today's Communication / Plan
-
.
Impression
Impression
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
Abdominal ascites with Bx + 12/05/2024 malignant cells -01/15 s/p 3000 cc of dark hemorrhagic ascitic fluid, cx NTD. No evidence of acute DIC with elevated fibrinogen
Anemia symptomatic from chemotherapy/CKD 4 (on REINALDO) +/- hemorrhagic ascites s/p 2U PRBC, last 01/16
CKD stage IV
Right-sided hydronephrosis/urethral obstruction in setting of urothelial cancer,-on chemotherapy s/p nephrostomy tube 12/07/2024
LE edema US neg for DVT 01/16
Plan
Plan
abx per ID
Paracentesis PRN with consideration of Pleurx ASCEPT type catheter if ascites becomes refractory.
Continue supportive care for now.
option but for now patient's goals of care are restorative, PT/OT/nutrition
OP follow up with Dr. Rashad Russell upon discharge to continue palliative systemic therapy
Subjective/Objective
Subjective
no new complaints
OOB->commode
Vital Signs:
Vital Signs
Temp Pulse Resp BP Pulse Ox
97.7 F 91 26 118/72 85
01/18/25 03:00 01/18/25 05:30 01/18/25 05:30 01/18/25 05:00 01/18/25 05:30
Lab Results:
Laboratory Data
WBC 13.8 10^3/uL (4.8-10.8) H 01/18/25 03:47
Hgb 8.0 g/dL (12.0-16.0) L 01/18/25 03:47
Plt Count 422 10^3/uL (130-400) H 01/18/25 03:47
PT 15.2 Sec (11.4-14.6) H 01/18/25 03:47
INR 1.17 01/18/25 03:47
APTT 36.3 Sec (23.4-35.0) H 01/18/25 03:47
eGFR 23.88 01/18/25 03:47
Physical Exam
General: Comfortable
Respiratory: Clear, unlabored
Cardiac: S1/S2, Regular Rhythm
GI: TTP, soft, distended
Genito-urinary: Right nephrostomy tube draining clear urine
Ext b/l LE edema +3
Psych: Calm
integ mediport
Orders
Orders
Orders From Last 24 Hours
01/18/25 03:47
Fibrinogen IN AM
INR [Prothrombin Time] IN AM
PTT IN AM
[2025-01-18] MEDS: LEXAPRO 5 MG PO (09:24)
[2025-01-18] MEDS: PROTONIX 40 MG PO (09:24)
[2025-01-18] MEDS: SODIUM BICARBONATE 650 MG PO (09:24)
[2025-01-18] MEDS: RESTASIS 0.05% OPHTHALMIC EMULSION 1 DROPS BOTH EYES ×2 (09:25→21:36)
[2025-01-18] MEDS: LASIX 40 MG PO (09:25)
[2025-01-18] MEDS: NORVASC 2.5 MG PO (09:25)
[2025-01-18] MEDS: AZOPT 1% OPHTHALMIC SUSPENSION 1 DROP BOTH EYES ×3 (09:26→21:36)
--- NOTE | 2025-01-18 11:30 | CON.CAR ---
Addendum entered and electronically signed by Tana Sanabria MD 01/18/25 17:29:
I saw and examined the patient.
The TAP DANCER's note was reviewed and I agree with the note.
Comment: 84 yo female with metastatic urothelial cancer (12/23/2024 in the lower pelvis of abdomen with low-grade pleural metastatic disease s/p chemo) managed by Oncology Dr. Solorzano, symptomatic anemia (s/p 2U PRBC 01/16/25) from chemotherapy,
CKD 4 (on REINALDO) followed by Dr. Shearer, right-sided hydronephrosis/urethral obstruction s/p nephrostomy tube 12/07/2024, chronic LE edema, HTN, and GERD, we are asked to evaluate for possible chf and arrhythmia. She is currently feeling much better as
she returned from IR after large-volume paracentesis. She is not short of breath. On exam she has a rapid but regular rate and rhythm. Normal S1-S2 no murmur rubs or gallops, lungs were clear to auscultation abdomen was soft nontender. She had
mild anasarca. She was alert and oriented x 3. and son were at the bedside. I do not suspect any heart failure. Echocardiogram was done today IVC was normal size and collapsible. Additionally, she has many reasons for anasarca namely
low albumin, pelvic mass, pleural studding, renal disease. I do not think there is decompensated heart failure contributing. EKG shows sinus tachycardia with right bundle branch block and PACs. Telemetry shows sinus tachycardia. No evidence of
significant arrhythmia. I think her sinus tachycardia is appropriate to her level of illness. She has no symptoms of palpitation. Would continue to treat underlying causes. While she has many issues including metastatic CA, hypertension, anemia,
CKD 4, I think her issues of ascites, and anasarca are not related to her heart. No further cardiac recommendations. I will sign off.
Original Note:
Consultation
Consultation Request
Date/Time Consultation Requested: 01/18/25 10:15a
Date/Time Consultation Performed: 01/18/25 11a
Requesting Provider: Dr. Enriquez
Performing Provider: SUSAN Mariano for Dr. Sanabria
Reason for Consultation: LE edema
Medical History
-
Chief Complaint: abdominal ascities and LE edema
History of Present Illness:
Mrs. Crump is an 84 yo female with metastatic urothelial cancer (12/23/2024 in the lower pelvis of abdomen with low-grade pleural metastatic disease s/p chemo) managed by Oncology Dr. Solorzano, symptomatic anemia (s/p 2U PRBC 01/16/25) from
chemotherapy, CKD 4 (on REINALDO) followed by Dr. Shearer, right-sided hydronephrosis/urethral obstruction s/p nephrostomy tube 12/07/2024, chronic LE edema, HTN, and GERD, who presents to the ER with c/o weakness, increased LE edema and abdominal
distention. She is admitted to the hospitalist and we are consulted for sinus tachycardia and LE edema. She states having LE edema previously and Dr. Shearer manages this with PO Lasix. Most recently she has been on Lasix 40mg daily.
Past Medical History
Past Medical History: Other (as above)
Past Surgical History: Orthopedic (b/l TKA and b/l carpal tunnel release )
Social History
Tobacco: Former Smoker (social smoker quit 40 years ago)
Alcohol: Occasional (glass of wine with dinner)
Personal: (66 years!)
Living: With Family
Family History
Family History: Reviewed & Not Pertinent
Allergies / Home Medications
Allergy/AdvReac Type Severity Reaction Status Date / Time
RADAMES Inhibitors Allergy lisinopril- Verified 01/15/25 11:04
Cough
lisinopril Allergy radames Verified 01/15/25 11:04
inhibitors-cough
�Medication �Instructions �Recorded �Confirmed �Type
doxepin 25 mg capsule 50 mg PO QHS Mental Health 03/31/23 01/15/25 History
brinzolamide 1 % eye 1 drp BOTH EYES TID Eye Condition 04/19/23 01/15/25 History
drops,suspension
cyclosporine 0.05 % eye drops 1 drp BOTH EYES BID DRY EYES 09/09/23 01/15/25 History
(Restasis MultiDose)
amlodipine 2.5 mg tablet 2.5 mg PO DAILY Blood Pressure 12/07/24 01/15/25 History
latanoprost 0.005 % eye drops 1 drp BOTH EYES HS Eye Condition 12/07/24 01/15/25 History
potassium chloride 10 mEq 10 meq PO DAILY Electrolyte 12/07/24 01/15/25 History
tablet,extended release(part/cryst) Repletion
sodium bicarbonate 650 mg tablet 650 mg PO DAILY alkalinizer 12/07/24 01/15/25 History
furosemide 40 mg tablet (Lasix) 40 mg PO DAILY Weight Gain ##0 01/14/25 01/15/25 History
acetaminophen 650 mg 1,300 mg PO [id number] PRN mild pain 01/15/25 01/15/25 History
tablet,extended release
cranberry fruit 450 mg tablet 450 mg PO DAILY Supplement 01/15/25 01/15/25 History
(cranberry)
escitalopram oxalate 5 mg tablet 5 mg PO DAILY Mental Health/Anxiety 01/15/25 01/15/25 History
famotidine 20 mg tablet 20 mg PO BID Gastrointestinal Issue 01/15/25 01/15/25 History
iron bis glycinate mike 28 mg 1 cap PO DAILY Supplement 01/15/25 01/15/25 History
iron-vit C 60 mg-FA 400 mcg-B12
8mcg cap (Gentle Iron)
omega 0-eal-xtr-fish oil 1,000 mg 1 cap PO DAILY Supplement 01/15/25 01/15/25 History
(120 mg-180 mg) capsule (Fish Oil)
ondansetron 8 mg disintegrating 8 mg PO Q8HPRN PRN nausea 01/15/25 01/15/25 History
tablet
prochlorperazine maleate 10 mg 10 mg PO Q6HPRN PRN nausea 01/15/25 01/15/25 History
tablet
therapeutic multivitamin 1 tab PO DAILY Supplement 01/15/25 01/15/25 History
Review of Systems
-
History Source: Patient
All other systems: Negative unless noted
Physical Exam
Vital Signs
Temp Pulse Resp BP Pulse Ox
97.3 F 116 26 129/64 85
01/18/25 07:33 01/18/25 09:25 01/18/25 05:30 01/18/25 09:25 01/18/25 05:30
Lab Results
01/18/25 03:47
01/18/25 03:47
Zgc-[id number]-[id number] Pept 2470 pg/ml 01/15/25 10:40
Physical Exam
General: No Apparent Distress and Other (elderly, frail)
HEENT: Normocephalic and Anicteric
Respiratory: Non Labored Respirations (diminished b/l bases)
Cardiac: S1/S2, Regular Rhythm (tachycardia) and Peripheral Edema (b/l LE with radames wraps intact)
Breast: Deferred by me
GI: Soft, Normal Bowel Sounds and Distended
Rectal: Deferred by Provider
Musculoskeletal: No Clubbing and No Cyanosis
Skin: Warm and Dry
Neuro: AO x 3
Psych: Calm
Impression / Plan
-
Sinus tachycardia - asymptomatic.
- no arrhythmias on tele.
- monitor on tele.
- treat underlying issues (sepsis, cancer).
LE edema - related to CKD 4 and metastatic cancer...
- agree with Lasix, would have nephrology continue to manage given her CKD 4.
- will stop Norvasc 2.5mg daily.
- albumin 2.8.
- no heart failure.
Abdominal ascites - s/p paracentesis 01/15/25 with 3000 ml hemorrhagic fluid removed.
- recurrent on u/s today.
- PRN paracentesis, consider Pleurx catheter.
Metastatic urothelial cancer - diagnosed 12/23/2024 in the lower pelvis of abdomen.
- with low-grade pleural metastatic disease.
- s/p chemo managed by Oncology Dr. Solorzano.
CKD 4 - on REINALDO followed by Dr. Shearer.
- manages diuretics, continue.
- right-sided hydronephrosis/urethral obstruction s/p nephrostomy tube 12/07/2024.
HTN - low/normal.
- stop Norvasc as can be contributing to edema.
Anemia - symptomatic, s/p PRBCs.
- followed by Oncology.
Data Reviewed
-
EKG: Tracing Personally Visualized and interpreted (ST with PACs 102 bpm)
Ultrasound: Report Reviewed by me (LE u/s negative for DVT)
Medical Tests (Nuc Med, Echo etc): Report Reviewed by me (echo 01/17/25: EF > 75%, no valve disease.) and Other (paracentesis 01/15/25: 3000 cc of dark hemorrhagic ascitic fluid was evacuated.)
Labs: Labs Reviewed by me
[2025-01-18 16:29] LABS: Body Fluid Mononuclear 39.2 %; Body Fluid Polymorphonuclear 60.8 %; Body Fluid WBC 2463 /CUMM
[2025-01-18 16:31] LABS: Body Fluid Second Tech FB
[2025-01-18 16:36] LABS: Body Fluid Albumin 1.8 g/dl; Body Fluid Glucose 128 mg/dl; Body Fluid LDH 495 U/L; Body Fluid Protein 3.5 g/dl
[2025-01-18] MEDS: STERILE WATER FOR INJECTION 20 ML IV (16:37)
[2025-01-18] MEDS: ROCEPHIN 2000 MG IV (16:40)
[2025-01-18] MEDS: FLEXBUMIN 100 IV (18:35)
[2025-01-18 18:45] LABS: Hemoglobin 7.7 g/dL (12.0-16.0)
[2025-01-18] MEDS: MELATONIN 5 MG PO (21:36)
[2025-01-18] MEDS: TYLENOL 650 MG PO (21:36)
[2025-01-18] MEDS: XALATAN OPHTHALMIC SOLUTION 1 DROP BOTH EYES (21:36)
[2025-01-18] MEDS: SINEQUAN 50 MG PO (21:36)
[2025-01-19] VITALS (28 sets, daily range): BP systolic 98–144; BP diastolic 46–101; PULSE 88–103; O2SAT 97–100; BMI 24.8
[2025-01-19 04:02] LABS: % Basophils 0.4 % (0-2); % Eosinophils 1.7 % (0-6); % Immature Granulocytes 1.1 % (0-0.5); % Monocytes 17.9 % (1.7-9.3); % Neutrophils 72.9 % (42.2-75.2); Absolute Basophils 0.1 10^3/uL (0-0.2); Absolute Eosinophils 0.2 10^3/uL (0-0.7); Absolute Immature Granulocytes 0.1 10^3/uL (0-0.05); Absolute Lymphocytes 0.7 10^3/uL (1.2-3.4); Absolute Monocytes 2.1 10^3/uL (0.1-0.6); Absolute Neutrophils 8.5 10^3/uL (1.4-6.5); Hematocrit 19.6 % (37.0-47.0); Hemoglobin 6.4 g/dL (12.0-16.0); Mean Corp Hgb Conc. 32.7 g/dL (33.0-37.0); Mean Corpuscular Hgb 27.7 pg (27.0-31.0); Mean Corpuscular Volume 84.8 fL (81.0-99.0); Mean Platelet Volume 9.1 fL (7.4-10.4); Nucleated Red Blood Cells % 0 %; Platelet Count 375 10^3/uL (130-400); Red Blood Cell Count 2.31 10^6/uL (4.20-5.40); Red Cell Dist. Width 16.9 % (11.5-14.5); White Blood Cell Count 11.7 10^3/uL (4.8-10.8)
[2025-01-19] MEDS: TYLENOL 650 MG PO ×2 (04:13→21:20)
[2025-01-19 04:26] LABS: ALT (SGPT) 15 U/L (0-35); AST (SGOT) 21 U/L (14-36); Albumin 2.8 g/dl (3.5-5.0); Alkaline Phosphatase 122 U/L (38-126); Blood Urea Nitrogen 46 mg/dl (7-17); Calcium 8.1 mg/dl (8.4-10.2); Carbon Dioxide 28 mmol/L (22-30); Chloride 106 mmol/L (98-107); Estimated Creatinine Clearance 16 ml/min; Glucose 114 mg/dl (70-99); Magnesium 2.3 mg/dl (1.6-2.3); Phosphorus 3.5 mg/dl (2.5-4.5); Potassium 3.2 mmol/L (3.5-5.1); Sodium 140 mmol/L (135-145); Total Bilirubin 0.4 mg/dl (0.2-1.3); Total Protein 4.8 g/dl (6.3-8.2); eGFR 23.88
[2025-01-19] MEDS: KCL ELIXIR 40 MEQ PO (05:17)
--- NOTE | 2025-01-19 05:42 | PTCARENOTE ---
Patient Hgb this am was 6.4, TT MORPHOLOGIST. type and cross sent. 1 unit PRBC ordered. Waiting for type and cross to result. No other acute events overnight.
[2025-01-19] MEDS: RESTASIS 0.05% OPHTHALMIC EMULSION 1 DROPS BOTH EYES ×2 (07:25→20:16)
[2025-01-19] MEDS: LEXAPRO 5 MG PO (07:25)
[2025-01-19] MEDS: PROTONIX 40 MG PO (07:26)
[2025-01-19] MEDS: AZOPT 1% OPHTHALMIC SUSPENSION 1 DROP BOTH EYES ×3 (07:26→21:21)
[2025-01-19] MEDS: LASIX 40 MG PO (07:26)
[2025-01-19] MEDS: SODIUM BICARBONATE 650 MG PO (07:26)
[2025-01-19] MEDS: KCL 270 MEQ IV (09:55)
[2025-01-19] MEDS: FIORICET 1 TAB PO ×2 (10:02→20:20)
--- NOTE | 2025-01-19 10:04 | W.PN.ID1 ---
Date of Service
Date of Service: January 19, 2025
Today's Communication
Continue ceftriaxone for now.
Assessment / Plan
84-year-old female with PMH of metastatic urothelial carcinoma s/p chemotherapy, s/p radiation, CKD stage IV, hypertension who presented to the ED with increased fatigue, dyspnea on exertion and bilateral LE swelling for several weeks.
Assessment/plan:
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
#CKD 5
#Right-sided nephrostomy tube due to malignant obstruction
- Patient has been afebrile since arrival.
- Leukocytosis looks chronic.
- Hb further down 6.7,
- Ascites biopsy reported malignant cells [facility] 12/05/2024 supports peritoneal carcinomatosis, portal hypertension (SBP) less likely. High risk of reaccumulation.
- Fibrinogen mildly increased at 499, platelets count 422; both are acute phase reactants. Also note high PT and PTT-consider liver pathology. Could have active liver bleeding.
- 01/15 Peritoneal fluid culture and Gram stain with no growth
- Consider RBC count on repeat peritoneal fluid if repeat paracentesis is planned.
- Blood cultures 01/15 in progress no growth in 48 hours.
- Urine culture 01/15 no growth.
- Continue ceftriaxone 2 g IV Q24H x 5 days, last day 01/20. Will switch to Cefdinir 300 mg PO BID if discharge is planned, to complete course.
- Pain control.
- Protonix.
- QTc 503 noted. Avoid fluoroquinolones.
- 01/18 s/p repeat diagnostic and therapeutic paracentesis
Ascites fluid 2463 wbc, 61% polys, 39%mono
Cx pending (suspect will be negative)
Of note elevated polys in malignant ascites is not uncommon.
- Can continue ceftriaxone for now.
- Overall poor prognosis.
Chief Complaint
-: Leukocytosis and Other (Nephrostomy tube, paracentesis)
Subjective / Review of Systems
Weak
Vital Signs / Physical Exam
Vital Signs
Vital Signs
Temp Pulse Resp BP Pulse Ox
97.7 F 90 17 129/65 97
01/19/25 07:35 01/19/25 07:35 01/19/25 07:35 01/19/25 07:35 01/19/25 05:30
Physical Exam
Constitutional: No Acute Distress, Comfortable and Chronically Ill
Cardiovascular: Regular Rate and S1/S2
Pulmonary: Clear and Non Labored
Gastrointestinal: Soft, Non Tender and Normal Bowel Sounds
Genito-Urinary: Other ((Right nephrostomy tube draining yellowish urine); Negative CVA Tenderness
Extremities: Edema (3+ bilateral LE edema)
Musculoskeletal: Other (Bilateral Naman wraps)
Objective Data
Lab Data
Lab Results
01/19/25 03:38
01/19/25 03:38
PT 15.2 Sec (11.4-14.6) H 01/18/25 03:47
INR 1.17 01/18/25 03:47
APTT 36.3 Sec (23.4-35.0) H 01/18/25 03:47
Estimated Creat Clear 16 ml/min 01/19/25 03:38
Total Bilirubin 0.4 mg/dl (0.2-1.3) 01/19/25 03:38
AST 21 U/L (14-36) 01/19/25 03:38
ALT 15 U/L (0-35) 01/19/25 03:38
Alkaline Phosphatase 122 U/L (38-126) 01/19/25 03:38
Most recent labs reviewed.
Micro Results:
01/18/25 16:04 Body Fluid Culture - Pending
Peritoneal Fluid Gram Stain - Preliminary
01/15/25 17:20 Blood Culture - Preliminary
Blood/Venous No Growth in 72 hours- Final report to follow
01/15/25 17:20 Blood Culture - Preliminary
Blood/Venous No Growth in 72 hours- Final report to follow
01/15/25 16:33 Body Fluid Culture - Final
Peritoneal Fluid No Growth After 72 Hours
Gram Stain - Final
01/15/25 11:16 Urine Culture - Final
Urine NO GROWTH
01/15/25 17:19 Influenza Types A & B (DEEDEE) - Final
Nasal Swab Negative for Influenza A & B, NAAT
Negative results must be combined with clinical observations
and patient history.
Nucleic Acid Amplification test (NAAT)performed on the
[employer] platform.
01/15/25 CT a/p: Large volume abdominopelvic ascites. High attenuation probable blood products in the right upper quadrant under the right hemidiaphragm, new from prior and of uncertain etiology/origin. No free intraperitoneal air.
[2025-01-19] MEDS: MAALOX 30 ML PO ×2 (13:32→17:54)
--- NOTE | 2025-01-19 14:15 | W.PN.HOSP.TC ---
Today's Communication/Plan
-
Follow cultures
abx as per ID
monitor and transfuse prn Hgb<7.5 as per Oncology
PT/OT
Assessment / Plan
Assessment / Plan
Physical Exam
Genera: no acute distress, appears relatively comfortable at this time.
HEENT: Scleral Anicteric, MMM, No JVD
Pulm: CTABL
Cardio: S1 S2 Sinus Tachy no murmurs/rubs/gallops, chest port present
Abd: Soft, NT, distended, BS+. Right nephrostomy tube draining yellow urine.
Ext: Warm, Dry, Bilateral lower extremity pitting edema significantly improved from initial presentation since start compressive RADAMES wraps
Neuro: AAOx3
Psych: Calm cooperative
84F urothelial Ca on chemo CKD IV GERD Endometriosis originally here for symptomatic severe Anemia Hgb 5.9 responded well to 2PRBC transfusion and was discharged home with home services. Patient however returned next day d/t increased weakness
shortness of breath exertional dyspnea leg swelling. CT scan was concerning for large ascites and possible colitis. CXR also noted possible atelectasis vs pna. Stable respiratory status on room air, patient was started on empiric abx. 2L ascites
was drawn on paracentesis.
#Possible Sepsis (leukocytosis, tachycardia)
#Possible SBP vs Colitis vs PNA (less likely) vs no active infection
- influenza/COVID neg
- IV Rocephin, IV doxycycline given in ER
- Incentive spirometry
-urine cx neg follow blood and ascites cx's
- ID eval appreciated cont Ceftriaxone 2g daily
#Acute abdominal ascites in a static probable blood products in the right upper quadrant
Status post peritoneal fluid biopsy 12/05/2024 malignant cells
- Consult IR appreciated paracentesis with cytology status post 2.1 L of serosanguineous fluid thought to be combination of blood and ascites
- paracentesis repeated 01/18 1850 cc of grossly bloody ascitic fluid was evacuated, albumin bolus provided following paracentesis.
#Anemia symptomatic from chemotherapy/CKD 4
-Transfused 2 units PRBC Hgb 7.8 noted on ED evaluation, improved appropriately to 9.3
-monitor H&H
-transfuse prn Hgb<7
Lower Ext Edema/Ascites/Anasarca
-Continue Lasix 40 mg daily with hold parameters
-Venous Duplex neg for DVT
-RADAMES compression wrapping ordered
-ECHO appreciated EF >75% no significant valve disease, no significant change from prior ECHO 04/20/25
-Cardio eval appreciated heart failure ruled out
#CLAUDIA on CKD stage IV
Initial Creat 2.6 since improved 2.0
Follow BMP
Hypomagnesemia
-monitor and replete as necessary
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
#Status post peritoneal fluid biopsy 12/05/2024 malignant cells at [facility]
Status post radiation treatment left kidney August 2024
#Right-sided hydronephrosis/urethral obstruction in setting of urothelial cancer,-on chemotherapy
status post nephrostomy tube 12/07/2024 [facility]
-IR eval requested concern leaking nephrostomy tube though urine output is good. Assessed and found to be in good condition/position 01/17/25. No further episodes of leaking noted.
-Oncology eval appreciated
#hx HTN
bp consistently low normotensive
Continue Lasix
home amlodipine discontinued at this time
GERD
Heartburn
-discontinued Pepcid 20 mg twice daily (with current kidney function/Cr clearance at most Pepcid 10 mg daily or 20 mg every other day)
-protonix 40 mg daily
-Maalox prn
#Endometriosis
Glaucoma
Continue latanoprost both eyes at bedtime
Depression
-Continue Lexapro 5 mg daily, doxepin 50 mg nightly
PT/OT appreciated Home Health
DVT prophylaxis SCDs
Full Code
discussed with patient and patient's daughter Ashley
I spent a total of 45 minutes with the patient or on the floor. More than 50% of this time involved counseling and coordination of care.
Anticipated Discharge: 24 - 48 hours
Subjective/Interval History
-
Date of Service: January 19, 2025
reports improvement in abd discomfort since paracentesis. GERD/heartburn persists resulting in poor oral intake.
Objective Data
-
Labs:
Laboratory Results
01/19/25
03:38
WBC 11.7 H
Hgb 6.4 L*
Hct 19.6 L*
Plt Count 375
Sodium 140
Potassium 3.2 L
Chloride 106
Carbon Dioxide 28
BUN 46 H
Creatinine 2.0 H
Glucose 114 H
Calcium 8.1 L
Total Bilirubin 0.4
AST 21
ALT 15
Alkaline Phosphatase 122
Vital Signs:
Vital Signs
Temp Pulse Resp BP Pulse Ox
97.5 F 89 17 121/62 97
01/19/25 11:05 01/19/25 10:06 01/19/25 10:06 01/19/25 10:06 01/19/25 05:30
I&O
01/18/25 01/19/25 01/20/25
06:59 06:59 06:59
Intake Total 360 / 360 250 / 250
Output Total 900 / 900 1150 / 1150 175 / 175
Balance -900 / -900 -790 / -790 75 / 75
[2025-01-19] MEDS: ROCEPHIN 2000 MG IV (15:49)
[2025-01-19] MEDS: STERILE WATER FOR INJECTION 20 ML IV (15:50)
--- NOTE | 2025-01-19 17:02 | W.PN.ONC2 ---
Today's Communication / Plan
-
s/p 1 additional unit pRBCs today for drop in hgb to 6.4 g/dl.
monitor ascites, consider repeat para prior to discharge.
CBC daily.
Impression
Impression
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
Abdominal ascites with Bx + 12/05/2024 malignant cells -01/15 s/p 3000 cc of dark hemorrhagic ascitic fluid, cx NTD. No evidence of acute DIC with elevated fibrinogen
Anemia symptomatic from chemotherapy/CKD 4 (on REINALDO) +/- hemorrhagic ascites s/p 2U PRBC, last 01/16
CKD stage IV
Right-sided hydronephrosis/urethral obstruction in setting of urothelial cancer,-on chemotherapy s/p nephrostomy tube 12/07/2024
LE edema US neg for DVT 01/16
Plan
Plan
abx per ID
Paracentesis PRN. would likely benefit from standing weekly order with hopes this will improve with tx response.
Continue supportive care for now.
patient's goals of care are restorative, PT/OT/nutrition
OP follow up with Dr. Rashad Russell upon discharge to continue palliative systemic therapy
CBC daily. transfuse for hgb < 7.5 g/dl.
Subjective/Objective
Chief Complaint
acute anemia, bladder cancer, hemorrhagia ascites
Subjective
hgb dropped to 6.4 g/dl today s/p drainage of additional 1.8 L yesterday. She feels abdomen distention better but mild return of pain. Denies fevers, chills.
Vital Signs:
Vital Signs
Temp Pulse Resp BP Pulse Ox
98.1 F 89 17 121/62 96
01/19/25 15:05 01/19/25 10:06 01/19/25 10:06 01/19/25 10:06 01/19/25 10:18
Lab Results:
Laboratory Data
WBC 11.7 10^3/uL (4.8-10.8) H 01/19/25 03:38
Hgb 9.0 g/dL (12.0-16.0) L D 01/19/25 14:36
Plt Count 375 10^3/uL (130-400) 01/19/25 03:38
PT 15.2 Sec (11.4-14.6) H 01/18/25 03:47
INR 1.17 01/18/25 03:47
APTT 36.3 Sec (23.4-35.0) H 01/18/25 03:47
eGFR 23.88 01/19/25 03:38
Physical Exam
HEENT: No Jaundice
Cardiology: Normal Sinus Rhythm
Pulmonary: Clear; No Wheezes
GI: Soft, Distended (mild ) and Other (diffusely tender to palpation )
Extremities: No Edema
Neuro: Non Focal
Review of Systems
Review of Systems
Constitutional: Reports Fatigue; Denies Fever
Respiratory: Denies Dyspnea
Cardiovascular: Denies Chest Pain
Genitourinary: Denies Hematuria
--- NOTE | 2025-01-19 20:00 | PTCARENOTE ---
Resumed care of pt sitting up in bed AAOx3, with visitor at bedside. Pt [place]> Pt reports headache/ migraine 9/10 pain. Medication administered as ordered see MAR. PT also complaining of indigestion, abd discomfort and cramping. Abd dist upon
assessement. RLQ bandaid in place post paracentesis. Pt states 'IM filling up again'. HR in the 90's in NSR on the monitor. Lungs dec with slight ex wheeze. WEBSTER. Right nephrostomy tube in place draining yellow urine. B/L LE facundo wraps removed, +2
edema noted. Heels elevated on pillows. Right SQ port capped. Left AC INT capped. Pt positioned per comfort. Will continue to monitor.
[2025-01-19] MEDS: SINEQUAN 50 MG PO (21:19)
[2025-01-19] MEDS: MELATONIN 5 MG PO (21:20)
[2025-01-19] MEDS: XALATAN OPHTHALMIC SOLUTION 1 DROP BOTH EYES (21:21)
--- NOTE | 2025-01-19 22:16 | PTCARENOTE ---
Within a few minutes of taking HS medications, pt abruptly vomited. Pt denied any complaints of nausea. Pt had been having indigestion earlier in the evening. Bedbath provided. Linens changed. Pt continues to deny nausea. Will continue to monitor.
[2025-01-20] VITALS (24 sets, daily range): BP systolic 109–155; BP diastolic 54–88; BMI 24.8
[2025-01-20] MEDS: FIORICET 1 TAB PO ×2 (03:52→21:45)
[2025-01-20 04:38] LABS: Hematocrit 23.7 % (37.0-47.0); Hemoglobin 7.8 g/dL (12.0-16.0); Mean Corp Hgb Conc. 32.9 g/dL (33.0-37.0); Mean Corpuscular Volume 84.9 fL (81.0-99.0); Mean Platelet Volume 9.3 fL (7.4-10.4); Platelet Count 422 10^3/uL (130-400); Red Blood Cell Count 2.79 10^6/uL (4.20-5.40); Red Cell Dist. Width 16.5 % (11.5-14.5); White Blood Cell Count 13.7 10^3/uL (4.8-10.8)
[2025-01-20 05:04] LABS: Blood Urea Nitrogen 42 mg/dl (7-17); Calcium 8.1 mg/dl (8.4-10.2); Carbon Dioxide 27 mmol/L (22-30); Chloride 106 mmol/L (98-107); Estimated Creatinine Clearance 15 ml/min; Glucose 116 mg/dl (70-99); Potassium 3.7 mmol/L (3.5-5.1); Sodium 139 mmol/L (135-145); eGFR 22.52
--- NOTE | 2025-01-20 07:32 | W.PN.HOSP.TC ---
Today's Communication/Plan
-
Repeat therapeutic paracentesis requested
prn zofran nausea, ativan prn if zofran insufficient
IVF support, hold lasix, while oral intake remains poor
pain control
flame planer eval requested
cont abx
monitor H&H transfuse prn Hgb<7.5 as per oncology
Assessment / Plan
Assessment / Plan
Physical Exam
Genera: no acute distress, appears relatively comfortable at this time.
HEENT: Scleral Anicteric, MMM, No JVD
Pulm: CTABL
Cardio: S1 S2 Sinus Tachy no murmurs/rubs/gallops, chest port present
Abd: Soft, NT, distended, BS+. Right nephrostomy tube draining yellow urine.
Ext: Warm, Dry, Bilateral lower extremity pitting edema significantly improved from initial presentation since start compressive RADAMES wraps
Neuro: AAOx3
Psych: Calm cooperative
84F urothelial Ca on chemo CKD IV GERD Endometriosis originally here for symptomatic severe Anemia Hgb 5.9 responded well to 2PRBC transfusion and was discharged home with home services. Patient however returned next day d/t increased weakness
shortness of breath exertional dyspnea leg swelling. CT scan was concerning for large ascites and possible colitis. CXR also noted possible atelectasis vs pna. Stable respiratory status on room air, patient was started on empiric abx. 2L ascites
was drawn on paracentesis.
#Possible Sepsis (leukocytosis, tachycardia)
#Possible SBP vs Colitis vs PNA (less likely) vs no active infection
- influenza/COVID neg
- IV Rocephin, IV doxycycline given in ER
- Incentive spirometry
-urine cx neg follow blood and ascites cx's
- ID eval appreciated cont Ceftriaxone 2g daily
#Acute abdominal ascites in a static probable blood products in the right upper quadrant
Status post peritoneal fluid biopsy 12/05/2024 malignant cells
- Consult IR appreciated paracentesis with cytology status post 2.1 L of serosanguineous fluid thought to be combination of blood and ascites
- paracentesis repeated 01/18 1850 cc of grossly bloody ascitic fluid was evacuated, albumin bolus provided following paracentesis.
-Saturday 01/20 repeat Therapeutic Paracentesis requested with increased distension abd pain poor appetite nausea vomiting
-Potential may require drain placement vs scheduled weekly paracentesis outpt (less likely to be effective w/ freq need for drain)
#Poor Appetite, nausea vomiting
nausea prn zofran, prn ativan if zofran insufficient
IVF support gentle hydration while oral intake remains poor
Nutrition Therapist eval requested for possible need/benefit TPN recc's
#Anemia symptomatic from chemotherapy/malignancy/CKD 4
#Likely Anemia of Chronic disease
-01/15 Transfused 2 units PRBC Hgb 7.8 noted on ED evaluation, improved appropriately to 9.3
-Required 3rd transfusion 01/19 Hgb 6.4, responded well
-monitor H&H
-transfuse prn Hgb<7.5 as per
Lower Ext Edema/Ascites/Anasarca
-Lasix placed on hold d/t poor appetite/oral intake/nausea/vomiting as above
-Venous Duplex neg for DVT
-RADAMES compression wrapping ordered
-ECHO appreciated EF >75% no significant valve disease, no significant change from prior ECHO 04/20/25
-Cardio eval appreciated heart failure ruled out
#CLAUDIA on CKD stage IV
Initial Creat 2.6 since improved 2.0
Follow BMP
Hypomagnesemia
-monitor and replete as necessary
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
#Status post peritoneal fluid biopsy 12/05/2024 malignant cells at [facility]
Status post radiation treatment left kidney August 2024
#Right-sided hydronephrosis/urethral obstruction in setting of urothelial cancer,-on chemotherapy
status post nephrostomy tube 12/07/2024 [facility]
-IR eval requested concern leaking nephrostomy tube though urine output is good. Assessed and found to be in good condition/position 01/17/25. No further episodes of leaking noted.
-Oncology eval appreciated
-pain control, 2 lidocaine patches abd pain, prn Tylenol, prn IV dilaudid moderate severe pain
Migraine
-prn Fioricet
#hx HTN
bp consistently low normotensive
Lasix held as above
home amlodipine discontinued at this time
GERD
Heartburn
-discontinued Pepcid 20 mg twice daily (with current kidney function/Cr clearance at most Pepcid 10 mg daily or 20 mg every other day)
-Protonix 40 mg daily switched to IV d/t poor oral intake/nausea/vomiting as above
-Maalox ACHS (noted some improvement on this new regimen).
#Endometriosis
Glaucoma
Continue latanoprost both eyes at bedtime
Depression
-Continue Lexapro 5 mg daily, doxepin 50 mg nightly
PT/OT appreciated Home Health vs SNF rehab (patient adamantly against going to SNF see case mgmt note 01/20)
DVT prophylaxis SCDs
Full Code
discussed with patient and patient's Son Gurwinder, daughters Ashley and Brandi, and Granddaughter Sylvia at bedside
I spent a total of 51 minutes with the patient or on the floor. More than 50% of this time involved counseling and coordination of care.
Anticipated Discharge: > 48 hours
Subjective/Interval History
-
Date of Service: January 20, 2025
Nausea vomiting this morning increased abd discomfort distension pain, some improvement noted following prn zofran and lidocaine patch. Poor appetite, though reports she was able to eat yesterday with maalox given before meals. Son Gurwinder, daughters
Ashley and Brandi, and Granddaughter Sylvia present during evaluation.
Objective Data
-
Labs:
Laboratory Results
01/20/25 01/20/25
03:44 12:00
WBC 13.7 H
Hgb 7.8 L Pending
Hct 23.7 L Pending
Plt Count 422 H
Sodium 139
Potassium 3.7
Chloride 106
Carbon Dioxide 27
BUN 42 H
Creatinine 2.1 H
Glucose 116 H
Calcium 8.1 L
Vital Signs:
Vital Signs
Temp Pulse Resp BP Pulse Ox
98.3 F 111 16 109/88 93
01/20/25 03:08 01/20/25 06:30 01/20/25 06:30 01/20/25 06:00 01/20/25 06:30
I&O
01/19/25 01/20/25 01/21/25
06:59 06:59 06:59
Intake Total 360 / 360 250 / 250
Output Total 1150 / 1150 1550 / 1550
Balance -790 / -790 -1300 / -1300
[2025-01-20] MEDS: LIDOCAINE 4% PATCH 1 PATCH TOPICAL (09:04)
[2025-01-20] MEDS: ZOFRAN 4 MG IV (09:04)
[2025-01-20] MEDS: RESTASIS 0.05% OPHTHALMIC EMULSION 1 DROPS BOTH EYES ×2 (09:04→21:43)
[2025-01-20] MEDS: AZOPT 1% OPHTHALMIC SUSPENSION 1 DROP BOTH EYES ×3 (09:19→21:44)
--- NOTE | 2025-01-20 10:01 | W.PN.ID1 ---
Date of Service
Date of Service: January 20, 2025
Today's Communication
Continue ceftriaxone for now.
Assessment / Plan
84-year-old female with PMH of metastatic urothelial carcinoma s/p chemotherapy, s/p radiation, CKD stage IV, hypertension who presented to the ED with increased fatigue, dyspnea on exertion and bilateral LE swelling for several weeks.
Assessment/plan:
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
#CKD 5
#Right-sided nephrostomy tube due to malignant obstruction
- Leukocytosis looks chronic.
- Hb further down 6.7,
- Ascites biopsy reported malignant cells [facility] 12/05/2024 supports peritoneal carcinomatosis, portal hypertension (SBP) less likely. High risk of reaccumulation.
- Fibrinogen mildly increased at 499, platelets count 422; both are acute phase reactants. Also note high PT and PTT-consider liver pathology. Could have active liver bleeding.
- 01/15 Peritoneal fluid culture and Gram stain with no growth
- Consider RBC count on repeat peritoneal fluid if repeat paracentesis is planned.
- Blood cultures 01/15 in progress no growth in 48 hours.
- Urine culture 01/15 no growth.
- Continue ceftriaxone 2 g IV Q24H x 5 days, last day 01/20. Will switch to Cefdinir 300 mg PO BID if discharge is planned, to complete course.
- Pain control.
- Protonix.
- QTc 503 noted. Avoid fluoroquinolones.
- 01/18 s/p repeat diagnostic and therapeutic paracentesis
Ascites fluid 2463 wbc, 61% polys, 39%mono
Cx neg to date (as expected)
Of note elevated wbc/polys in malignant ascites is not uncommon.
-On ceftriaxone for now.
- Overall poor prognosis.
Chief Complaint
-: Leukocytosis and Other (Nephrostomy tube, paracentesis)
Subjective / Review of Systems
No worsening abd pain.
Vital Signs / Physical Exam
Vital Signs
Vital Signs
Temp Pulse Resp BP Pulse Ox
98.3 F 111 16 109/88 93
01/20/25 03:08 01/20/25 06:30 01/20/25 06:30 01/20/25 06:00 01/20/25 06:30
Physical Exam
Constitutional: No Acute Distress, Comfortable and Chronically Ill
Cardiovascular: Regular Rate and S1/S2
Pulmonary: Clear
Gastrointestinal: Soft, Non Tender, Distended (mild) and Normal Bowel Sounds
Genito-Urinary: Other ((Right nephrostomy tube draining yellowish urine); Negative CVA Tenderness
Extremities: Edema (1+ ble)
Neurological: AO x 3
Objective Data
Lab Data
Lab Results
01/20/25 03:44
PT 15.2 Sec (11.4-14.6) H 01/18/25 03:47
INR 1.17 01/18/25 03:47
APTT 36.3 Sec (23.4-35.0) H 01/18/25 03:47
Estimated Creat Clear 15 ml/min 01/20/25 03:44
Total Bilirubin 0.4 mg/dl (0.2-1.3) 01/19/25 03:38
AST 21 U/L (14-36) 01/19/25 03:38
ALT 15 U/L (0-35) 01/19/25 03:38
Alkaline Phosphatase 122 U/L (38-126) 01/19/25 03:38
Most recent labs reviewed.
Micro Results:
01/18/25 16:04 Body Fluid Culture - Preliminary
Peritoneal Fluid No Growth After 48 Hours
Gram Stain - Preliminary
01/15/25 17:20 Blood Culture - Preliminary
Blood/Venous No Growth in 4 days- Final report to follow
01/15/25 17:20 Blood Culture - Preliminary
Blood/Venous No Growth in 4 days- Final report to follow
01/15/25 16:33 Body Fluid Culture - Final
Peritoneal Fluid No Growth After 72 Hours
Gram Stain - Final
01/15/25 11:16 Urine Culture - Final
Urine NO GROWTH
01/15/25 17:19 Influenza Types A & B (DEEDEE) - Final
Nasal Swab Negative for Influenza A & B, NAAT
Negative results must be combined with clinical observations
and patient history.
Nucleic Acid Amplification test (NAAT)performed on the
[employer] platform.
01/15/25 CT a/p: Large volume abdominopelvic ascites. High attenuation probable blood products in the right upper quadrant under the right hemidiaphragm, new from prior and of uncertain etiology/origin. No free intraperitoneal air.
[2025-01-20] MEDS: ATIVAN 0.5 MG IV (10:55)
[2025-01-20] MEDS: NSS (PRESERVATIVE FREE) 0.25 ML IV (10:57)
--- NOTE | 2025-01-20 11:22 | CM ---
CM following re: discharge planning.
CM consulted to address pt's family concerns regarding pt unsafe to return back home.
CM met with pt and two pt's daughters at bedside. Pt made it very clear she will not go to a SNF and she will return back home and she and her family are working on arranging caregiver services for her and her who is 88 year old. Pt stated:
'i will not leave my house where I have been living for 65 years and if I need to i would prefer to in my house and I will never ever go back to a hospital'. Pt stated that [facility] did not do anything for her and she preferred just to have
caregiver services. [facility] benefits explained to the pt and she expressed her agreement to have [facility] services if needed. Pt's daughter expressed their support.
D/C plan: per pt's strong request home with [facility] and caregiver services. Both pt, her and 4 children are working on setting up caregiver services. Per pt, money to pay for caregiver services is not an issue. Pt stated she has a list of fee for
services caregiver agencies.
CM will follow with discharge plan updates as hospitalization progresses
[2025-01-20] MEDS: LEXAPRO PO (11:41)
[2025-01-20] MEDS: SODIUM BICARBONATE PO (11:41)
[2025-01-20] MEDS: MAALOX PO (11:42)
[2025-01-20] MEDS: D5/0.9% SODIUM CHLORIDE 1000 IV (11:46)
[2025-01-20] MEDS: LASIX PO (11:59)
[2025-01-20] MEDS: PROTONIX PO (11:59)
[2025-01-20] MEDS: NSS (PRESERVATIVE FREE) 10 ML IV (12:41)
[2025-01-20] MEDS: PROTONIX IV 40 MG IV (12:41)
[2025-01-20 12:49] LABS: Hematocrit 24.7 % (37.0-47.0); Hemoglobin 8.2 g/dL (12.0-16.0)
--- NOTE | 2025-01-20 12:58 | W.PN.ONC2 ---
Today's Communication / Plan
-
- continue to monitor CBC, transfuse prn.
- ascites re-accumulation, para with IR ideally tomorrow.
Impression
Impression
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
Abdominal ascites with Bx + 12/05/2024 malignant cells -01/15 s/p 3000 cc of dark hemorrhagic ascitic fluid, cx NTD. No evidence of acute DIC with elevated fibrinogen
Anemia symptomatic from chemotherapy/CKD 4 (on REINALDO) +/- hemorrhagic ascites s/p 3U PRBC, last 01/19.
CKD stage IV
Right-sided hydronephrosis/urethral obstruction in setting of urothelial cancer,-on chemotherapy s/p nephrostomy tube 12/07/2024
LE edema US neg for DVT 01/16
Plan
Plan
abx per ID
Paracentesis PRN. would likely benefit from repeat para 01/21 and standing weekly order with hopes this will improve with tx response.
Continue supportive care for now.
patient's goals of care are restorative, PT/OT/nutrition
OP follow up with Dr. Rashad Russell upon discharge to continue palliative systemic therapy
CBC daily. transfuse for hgb < 7.5 g/dl. received additional 1 unit 01/19 with rise in hgb to 9.0 g/dl, drop to 8.2 g/dl today.
Subjective/Objective
Chief Complaint
symptomatic anemia, ascites. bladder cancer
Subjective
pt with more abdominal distention this am, episode of vomiting after taking meds that was sudden. denies nausea. last BM yesterday am, passing gas.
Vital Signs:
Vital Signs
Temp Pulse Resp BP Pulse Ox
97.8 F 116 22 142/84 92
01/20/25 12:57 01/20/25 12:30 01/20/25 12:30 01/20/25 12:00 01/20/25 12:30
Lab Results:
Laboratory Data
WBC 13.7 10^3/uL (4.8-10.8) H 01/20/25 03:44
Hgb 8.2 g/dL (12.0-16.0) L 01/20/25 12:33
Plt Count 422 10^3/uL (130-400) H 01/20/25 03:44
PT 15.2 Sec (11.4-14.6) H 01/18/25 03:47
INR 1.17 01/18/25 03:47
APTT 36.3 Sec (23.4-35.0) H 01/18/25 03:47
eGFR 22.52 01/20/25 03:44
Physical Exam
HEENT: No Jaundice
Cardiology: Normal Sinus Rhythm
Pulmonary: Clear
GI: Soft, Distended, Fluid Wave and Other (tender to palpation )
Extremities: No Edema
Neuro: Non Focal
Review of Systems
Review of Systems
Constitutional: Reports Fatigue; Denies Fever
Respiratory: Reports Dyspnea
Cardiovascular: Denies Chest Pain
Gastrointestinal: Reports Nausea/Vomiting and Other (abdominal pain )
Genitourinary: Denies Hematuria
--- NOTE | 2025-01-20 13:47 | PTCARENOTE ---
This morning patient was complaining of nausea and right sided abdominal pain. Discussed with Dr. Yip, Camilafrinessa and ativan administered with relief. Patient stating that she is afraid to eat due to recent nausea and vomiting. Refused to take oral
medications, has had poor po intake for days as per family-Dr. Yip aware. Patient tolerated a lemon water ice for lunch.
[2025-01-20] MEDS: ROCEPHIN 2000 MG IV (16:55)
[2025-01-20] MEDS: STERILE WATER FOR INJECTION 20 ML IV (16:55)
[2025-01-20] MEDS: MAALOX 30 ML PO ×2 (16:56→21:46)
[2025-01-20 21:18] LABS: Iron 25 ug/dl (37-170)
[2025-01-20 21:28] LABS: Percent Saturation 14 % (20-50); Total Iron Binding Capacity 174 ug/dl (265-497)
[2025-01-20] MEDS: XALATAN OPHTHALMIC SOLUTION 1 DROP BOTH EYES (21:44)
[2025-01-20] MEDS: SINEQUAN 50 MG PO (21:45)
[2025-01-20] MEDS: TYLENOL 650 MG PO (21:45)
[2025-01-20] MEDS: MELATONIN 5 MG PO (21:46)
[2025-01-20 22:25] LABS: Folate > 20.0 ng/ml (2.76-20); Vitamin B12 954 pg/ml (239-931)
[2025-01-21] VITALS (32 sets, daily range): BP systolic 97–155; BP diastolic 46–126; BMI 25.0
--- NOTE | 2025-01-21 00:08 | PTCARENOTE ---
Assumed care for patient overnight, pt AAOx3, slightly withdrawn. Pt states she 'feels okay but just sleepy'. Pt requesting Fioricet and Tylenol before bed. Pt states her migraine pain is 8/10 and has 5/10 pain to the lower abdomen. See MAR. Pt
denies any nausea and hasn't had anymore bouts of vomiting. Abdomen is round and firm and tender to palpation. Pt aware of therapeutic paracentesis. RLQ Nephrostomy site is intact, sutures present, and dressing reinforced. Sacral foam clean dry and
intact. RADAMES to LE removed HS. Skin slightly indented otherwise intact. NSR on the monitor. +2 pitting edema to b/l lower extremities. IVF cont. Pt tolerating frequent turning and repositioning, pt reeducated on the importance. Call hollis within
reach.
[2025-01-21] MEDS: D5/0.9% SODIUM CHLORIDE 1000 IV ×2 (01:59→19:15)
[2025-01-21 05:49] LABS: Hematocrit 23.2 % (37.0-47.0); Hemoglobin 7.4 g/dL (12.0-16.0); Mean Corp Hgb Conc. 31.9 g/dL (33.0-37.0); Mean Corpuscular Hgb 27.9 pg (27.0-31.0); Mean Corpuscular Volume 87.5 fL (81.0-99.0); Mean Platelet Volume 9.1 fL (7.4-10.4); Platelet Count 435 10^3/uL (130-400); Red Blood Cell Count 2.65 10^6/uL (4.20-5.40); Red Cell Dist. Width 16.7 % (11.5-14.5); White Blood Cell Count 12.3 10^3/uL (4.8-10.8)
[2025-01-21 06:14] LABS: Blood Urea Nitrogen 37 mg/dl (7-17); Carbon Dioxide 27 mmol/L (22-30); Chloride 108 mmol/L (98-107); Estimated Creatinine Clearance 17 ml/min; Glucose 136 mg/dl (70-99); Magnesium 2.3 mg/dl (1.6-2.3); Potassium 3.6 mmol/L (3.5-5.1); Sodium 140 mmol/L (135-145)
[2025-01-21] MEDS: MAALOX 30 ML PO ×4 (07:03→21:43)
--- NOTE | 2025-01-21 07:56 | W.PN.ID1 ---
Addendum entered and electronically signed by Suzette Bergman MD 01/21/25 16:05:
I reviewed the patients chart, however she was off the floors during my rounds - nonbillable note. I reviewed the resident�s note and agree with findings and plan as documented in the resident�s separately documented note with the following
additions/corrections:
Subjective:
afebrile
bp stable
01/18 paracentesis fluid remained hemorrhagic
Objective:
labs reviewed
Physical Exam
General: Comfortable
Respiratory: Clear; No Wheezes, Rales or Rhonchi
Cardiac: S1/S2, Regular Rhythm; No Murmur, Rub or Gallop
GI: Diffusely tender increased, soft, moderately Distended and Normal Bowel Sounds
Skin: Warm and Dry; No Rash or Jaundice
Psych: Calm
DLOA: port accessed
A&P
Possible SBP - not definitive
Right-sided hydronephrosis/urethral obstruction in setting of urothelial cancer,-on chemotherapy
status post nephrostomy tube 12/07/2024
Hemorrhagic products in the ascites - unclear cause
Leukocytosis
CKD4
Port
- blood cultures x2 in progress
- cannot reliably calculate peritoneal neutrophils given that RBCs were again not counted (despite note on the orders), culture x2 no growth to date; I have called and discussed with the laborer concrete paving in the hematology lab and they report a CBC count is
possible - this request will need to be specified on the paper from from IR and not just the electronic orders - I have will facilitated tomorrow
- peritoneal fluid culture to be done 10 ccs into a blood culture bottle
- unclear cause of hemoperitoneum - perhaps peritoneal biopsy?
- CXR most consistent with anasarca and bilateral pleural effusions - doubt pneumonia
- urine culture finalized negative
- QTc 503
- continue with ceftriaxone 2 gm IV q24h day 4
- given progressive thrombocytosis, leukocytosis, L shift and increased abdominal tenderness - repeat paracentesis
- consulted IR
- body fluid cell count (including RBCs), culture, protein, LDH, glucose, albumin
- given pace of reaccumulation would consider placement of pleurex drain
AW
Original Note:
Date of Service
Date of Service: January 21, 2025
Patient seen and examined with daughter at bedside. Reports abdominal pain 5/10, denies nausea vomiting. No acute events reported overnight. Patient reports that she has not been eating due to nausea but feels better today and is optimistic. She
does not have any headaches, fever or chills.
Today's Communication
Obtain aerobic culture into a blood culture bottle to increase reviewed; RBC count on the peritoneal fluid to properly assess for SBP.
Continue ceftriaxone, plan to stop in 2 days.
Overall poor prognosis.
Assessment / Plan
84-year-old female with PMH of metastatic urothelial carcinoma s/p chemotherapy, s/p radiation, CKD stage IV, hypertension who presented to the ED with increased fatigue, dyspnea on exertion and bilateral LE swelling for several weeks.
Assessment/plan:
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
#CKD 5
#Right-sided nephrostomy tube due to malignant obstruction
- Leukocytosis looks chronic.
- Ascites biopsy reported malignant cells [facility] 12/05/2024 supports peritoneal carcinomatosis, portal hypertension (SBP) less likely. High risk of reaccumulation.
- Fibrinogen mildly increased at 499, platelets count 422; both are acute phase reactants. Also note high PT and PTT-consider liver pathology. Could have active liver bleeding.
- 01/15 Peritoneal fluid culture and Gram stain with no growth.
- S/p repeat diagnostic and therapeutic paracentesis 01/18: Ascites fluid 2463 wbc, 61% PMNs, 39%mono; elevated WBC and PMNs supports malignant ascites.
- Peritoneal fluid Cx expected NGTD.
- Repeat diagnostic and therapeutic paracentesis tentatively today, then standing weekly order per oncology.
- Obtain aerobic culture into a blood culture bottle to increase reviewed; RBC count on the peritoneal fluid to properly assess for SBP.
- Blood cultures 05/13 no growth.
- Urine culture 01/15 no growth.
- Continue ceftriaxone 2 g IV Q24H, plan to stop on 01/23.
- Patient may ultimately require a drain.
- Pain control.
- Protonix.
- Zofran for nausea.
- QTc 503 noted. Avoid fluoroquinolones, monitor on telemetry with Zofran.
- Overall poor prognosis.
Chief Complaint
-: Leukocytosis and Other (Nephrostomy tube, paracentesis)
Subjective / Review of Systems
Review of Systems: No Fever, No Chills, No Chest Pain, Abdominal Pain, Nausea, No Vomiting and No Diarrhea
Vital Signs / Physical Exam
Vital Signs
Vital Signs
Temp Pulse Resp BP Pulse Ox
97.8 F 95 16 124/63 92
01/21/25 07:41 01/21/25 05:30 01/21/25 05:30 01/21/25 04:00 01/21/25 05:30
Physical Exam
Constitutional: No Acute Distress, Comfortable and Chronically Ill
Cardiovascular: Regular Rate and S1/S2
Pulmonary: Clear; Negative Wheezes
Gastrointestinal: Soft, Tender (Tender on palpation), Distended (Moderate distention) and Normal Bowel Sounds
Genito-Urinary: Other (Right nephrostomy tube draining yellowish urine); Negative CVA Tenderness
Extremities: Edema (1+ ble); Negative Calf Swelling
Skin: Warm and Dry; Negative Jaundice
Neurological: Awake and AO x 3
Psychological: Calm
Objective Data
Lab Data
Lab Results
01/21/25 05:15
01/21/25 05:15
PT 15.2 Sec (11.4-14.6) H 01/18/25 03:47
INR 1.17 01/18/25 03:47
APTT 36.3 Sec (23.4-35.0) H 01/18/25 03:47
Estimated Creat Clear 17 ml/min 01/21/25 05:15
Total Bilirubin 0.4 mg/dl (0.2-1.3) 01/19/25 03:38
AST 21 U/L (14-36) 01/19/25 03:38
ALT 15 U/L (0-35) 01/19/25 03:38
Alkaline Phosphatase 122 U/L (38-126) 01/19/25 03:38
Most recent labs reviewed.
Microbiology: Report Reviewed
Micro Results:
01/15/25 17:20 Blood Culture - Final
Blood/Venous No Growth - Final Report
01/15/25 17:20 Blood Culture - Final
Blood/Venous No Growth - Final Report
01/18/25 16:04 Body Fluid Culture - Preliminary
Peritoneal Fluid No Growth After 48 Hours
Gram Stain - Preliminary
01/15/25 16:33 Body Fluid Culture - Final
Peritoneal Fluid No Growth After 72 Hours
Gram Stain - Final
01/15/25 11:16 Urine Culture - Final
Urine NO GROWTH
01/15/25 17:19 Influenza Types A & B (DEEDEE) - Final
Nasal Swab Negative for Influenza A & B, NAAT
Negative results must be combined with clinical observations
and patient history.
Nucleic Acid Amplification test (NAAT)performed on the
[employer] platform.
01/15/25 CT a/p: Large volume abdominopelvic ascites. High attenuation probable blood products in the right upper quadrant under the right hemidiaphragm, new from prior and of uncertain etiology/origin. No free intraperitoneal air.
Care Review
Plan reviewed with: Nurse and Physician
[2025-01-21] MEDS: LIDOCAINE 4% PATCH 1 PATCH TOPICAL (08:19)
[2025-01-21] MEDS: SODIUM BICARBONATE 650 MG PO (08:20)
[2025-01-21] MEDS: AZOPT 1% OPHTHALMIC SUSPENSION 1 DROP BOTH EYES ×3 (08:20→20:20)
[2025-01-21] MEDS: LEXAPRO 5 MG PO (08:20)
[2025-01-21] MEDS: NSS (PRESERVATIVE FREE) 10 ML IV (08:20)
[2025-01-21] MEDS: PROTONIX IV 40 MG IV (08:20)
[2025-01-21] MEDS: RESTASIS 0.05% OPHTHALMIC EMULSION 1 DROPS BOTH EYES ×2 (08:20→21:42)
--- NOTE | 2025-01-21 08:32 | PTCARENOTE ---
Patient received from plate inspector. Patient resting comfortably in bed. AAO, VSS. No events noted over night. Complaints of abdominal pain at this time, tender to palpation. Patient with very poor appetite, to try Zofran prior to lunch. Patient
scheduled for Paracentesis today, time unknown. Call hollis in reach.
--- NOTE | 2025-01-21 09:42 | W.PN.UPDATE ---
Update Note
Progress Note Update
I reviewed the patients chart, however she was off the floors during my rounds - nonbillable note. I reviewed the resident�s note and agree with findings and plan as documented in the resident�s separately documented note with the following
additions/corrections:
Subjective:
afebrile
bp stable
01/18 paracentesis fluid remained hemorrhagic
Objective:
labs reviewed
A&P
Possible SBP - not definitive
Right-sided hydronephrosis/urethral obstruction in setting of urothelial cancer,-on chemotherapy
status post nephrostomy tube 12/07/2024
Hemorrhagic products in the ascites - unclear cause
Leukocytosis
CKD4
Port
- blood cultures x2 in progress
- cannot reliably calculate peritoneal neutrophils given that RBCs were again not counted (despite note on the orders), culture x2 no growth to date; I have called and discussed with the cardiovascular lab director in the hematology lab and they report a CBC count is
possible - this request will need to be specified on the paper from from IR and not just the electronic orders - I have will facilitated tomorrow
- peritoneal fluid culture to be done 10 ccs into a blood culture bottle
- unclear cause of hemoperitoneum - perhaps peritoneal biopsy?
- CXR most consistent with anasarca and bilateral pleural effusions - doubt pneumonia
- urine culture finalized negative
- QTc 503
- continue with ceftriaxone 2 gm IV q24h day 4
- given progressive thrombocytosis, leukocytosis, L shift and increased abdominal tenderness - repeat paracentesis
- consulted IR
- body fluid cell count (including RBCs), culture, protein, LDH, glucose, albumin
- given pace of reaccumulation would consider placement of pleurex drain
AW
[2025-01-21] MEDS: TYLENOL 650 MG PO (12:46)
[2025-01-21] MEDS: ZOFRAN 4 MG IV (12:46)
--- NOTE | 2025-01-21 14:14 | W.PN.HOSP.TC ---
Today's Communication/Plan
-
Monitor vital signs see plan
Patient requiring frequent paracentesis
Oncology to discuss prognosis with patient and family
Continue to monitor hemoglobin
1 unit PRBC today
Discussed with daughter at bedside
Assessment / Plan
Assessment / Plan
Physical Exam
Genera: no acute distress, appears relatively comfortable at this time.
HEENT: Scleral Anicteric, MMM, No JVD
Pulm: CTABL
Cardio: S1 S2 Sinus Tachy no murmurs/rubs/gallops, chest port present
Abd: Soft, NT, distended, BS+. Right nephrostomy tube draining yellow urine.
Ext: Warm, Dry, Bilateral lower extremity pitting edema significantly improved from initial presentation since start compressive RADAMES wraps
Neuro: AAOx3
Psych: Calm cooperative
84F urothelial Ca on chemo CKD IV GERD Endometriosis originally here for symptomatic severe Anemia Hgb 5.9 responded well to 2PRBC transfusion and was discharged home with home services. Patient however returned next day d/t increased weakness
shortness of breath exertional dyspnea leg swelling. CT scan was concerning for large ascites and possible colitis. CXR also noted possible atelectasis vs pna. Stable respiratory status on room air, patient was started on empiric abx. 2L ascites
was drawn on paracentesis.
#Possible Sepsis (leukocytosis, tachycardia)
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 High risk of reaccumulation. Given blood in ascites, making it hard to rule out SBP
- influenza/COVID neg
- IV Rocephin, IV doxycycline given in ER
- Incentive spirometry
-urine cx neg follow blood and ascites cx's
- ID eval appreciated cont Ceftriaxone
#Acute abdominal ascites in a static probable blood products in the right upper quadrant
Status post peritoneal fluid biopsy 12/05/2024 malignant cells
- Consult IR appreciated paracentesis with cytology status post 2.1 L of serosanguineous fluid thought to be combination of blood and ascites
- paracentesis repeated 01/18 1850 cc of grossly bloody ascitic fluid was evacuated, albumin bolus provided following paracentesis.
-Saturday 01/20 repeat Therapeutic Paracentesis requested with increased distension abd pain poor appetite nausea vomiting
-Potential may require drain placement vs scheduled weekly paracentesis outpt (less likely to be effective w/ freq need for drain)
para 01/21
#Poor Appetite, nausea vomiting
nausea prn zofran, prn ativan if zofran insufficient
IVF support gentle hydration while oral intake remains poor
Game Master eval requested for possible need/benefit TPN recc's
#Anemia symptomatic from chemotherapy/malignancy/CKD 4
#Likely Anemia of Chronic disease
-01/15 Transfused 2 units PRBC Hgb 7.8 noted on ED evaluation, improved appropriately to 9.3
-Required 3rd transfusion 01/19 Hgb 6.4, responded well
-monitor H&H
-transfuse prn Hgb<7.5 as per
transfuse 1 unit prbc 01/21
Lower Ext Edema/Ascites/Anasarca
-Lasix placed on hold d/t poor appetite/oral intake/nausea/vomiting as above
-Venous Duplex neg for DVT
-RADAMES compression wrapping ordered
-ECHO appreciated EF >75% no significant valve disease, no significant change from prior ECHO 04/20/25
-Cardio eval appreciated heart failure ruled out
#CLAUDIA on CKD stage IV
Initial Creat 2.6. since improving and now 1.9
Follow BMP
Hypomagnesemia
-monitor and replete as necessary
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
#Status post peritoneal fluid biopsy 12/05/2024 malignant cells at [facility]
Status post radiation treatment left kidney August 2024
#Right-sided hydronephrosis/urethral obstruction in setting of urothelial cancer,-on chemotherapy
status post nephrostomy tube 12/07/2024 [facility]
-IR evblair requested concern leaking nephrostomy tube though urine output is good. Assessed and found to be in good condition/position 01/17/25. No further episodes of leaking noted.
-Oncology eval appreciated
-pain control, 2 lidocaine patches abd pain, prn Tylenol, prn IV dilaudid moderate severe pain
Migraine
-prn Fioricet
#hx HTN
bp consistently low normotensive
Lasix held as above
home amlodipine discontinued at this time
GERD
Heartburn
-discontinued Pepcid 20 mg twice daily (with current kidney function/Cr clearance at most Pepcid 10 mg daily or 20 mg every other day)
-Protonix 40 mg daily switched to IV d/t poor oral intake/nausea/vomiting as above
-Maalox ACHS (noted some improvement on this new regimen).
#Endometriosis
Glaucoma
Continue latanoprost both eyes at bedtime
Depression
-Continue Lexapro 5 mg daily, doxepin 50 mg nightly
PT/OT appreciated Home Health vs SNF rehab (patient adamantly against going to SNF see case mgmt note 01/20)
DVT prophylaxis SCDs
Full Code
discussed with daughter at bedside
Oncology to discuss prognosis
I spent a total of 52 minutes with the patient or on the floor. More than 50% of this time involved counseling and coordination of care.
Anticipated Discharge: > 48 hours
Subjective/Interval History
-
Date of Service: January 21, 2025
Continues to have pain at times
Objective Data
-
Labs:
Laboratory Results
01/21/25
05:15
WBC 12.3 H
Hgb 7.4 L
Hct 23.2 L
Plt Count 435 H
Sodium 140
Potassium 3.6
Chloride 108 H
Carbon Dioxide 27
BUN 37 H
Creatinine 1.9 H
Glucose 136 H
Calcium 8.0 L
Vital Signs:
Vital Signs
Temp Pulse Resp BP Pulse Ox
98.1 F 93 20 122/61 96
01/21/25 13:10 01/21/25 14:04 01/21/25 14:04 01/21/25 14:04 01/21/25 14:04
I&O
01/20/25 01/21/25 01/22/25
06:59 06:59 06:59
Intake Total 250 / 250 1450 / 1450 0 / 0
Output Total 1550 / 1550 850 / 850
Balance -1300 / -1300 600 / 600 0 / 0
[2025-01-21] MEDS: FIORICET 1 TAB PO ×2 (14:23→21:43)
[2025-01-21 14:58] LABS: Body Fluid WBC 2534 /CUMM
[2025-01-21 14:59] LABS: Body Fluid Mononuclear 44.8 %; Body Fluid Polymorphonuclear 55.2 %
[2025-01-21 15:00] LABS: Body Fluid Glucose 142 mg/dl; Body Fluid LDH 505 U/L; Body Fluid Protein 3.2 g/dl
[2025-01-21 15:04] LABS: Body Fluid Second Tech AMA
[2025-01-21] MEDS: ROCEPHIN 2000 MG IV (16:49)
[2025-01-21] MEDS: STERILE WATER FOR INJECTION 20 ML IV (16:49)
[2025-01-21] MEDS: NSS (PRESERVATIVE FREE) 0.125 ML IV (17:05)
[2025-01-21] MEDS: ATIVAN 0.25 MG IV (17:05)
[2025-01-21] MEDS: XALATAN OPHTHALMIC SOLUTION 1 DROP BOTH EYES (20:20)
[2025-01-21] MEDS: SINEQUAN 50 MG PO (21:43)
[2025-01-21] MEDS: MELATONIN 5 MG PO (21:44)
--- NOTE | 2025-01-21 21:50 | W.PN.ONC2 ---
Today's Communication / Plan
-
Unclear why patient's ascites is hemorrhagic.
Prior to starting chemo less than a month ago she had well preserved performance status.
She has low-volume disease and I would not recommend hospice at this time.
Might she be a candidate for ex lap to look for bleeding source?
Not sure if bleeding could be coming from nephrostomy tube.
Suggest trying to identify bleeding source.
Impression
Impression
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
Abdominal ascites with Bx + 12/05/2024 malignant cells -01/15 s/p 3000 cc of dark hemorrhagic ascitic fluid, cx NTD. No evidence of acute DIC with elevated fibrinogen
Anemia symptomatic from chemotherapy/CKD 4 (on REINALDO) +/- hemorrhagic ascites s/p 3U PRBC, last 01/19.
CKD stage IV
Right-sided hydronephrosis/urethral obstruction in setting of urothelial cancer,-on chemotherapy s/p nephrostomy tube 12/07/2024
LE edema US neg for DVT 01/16
Plan
Plan
abx per ID
Paracentesis PRN. would likely benefit from repeat para 01/21 and standing weekly order with hopes this will improve with tx response.
Continue supportive care for now.
patient's goals of care are restorative, PT/OT/nutrition
OP follow up with Dr. Rashad Russell upon discharge to continue palliative systemic therapy
CBC daily. transfuse for hgb < 7.5 g/dl. received additional 1 unit 01/19 with rise in hgb to 9.0 g/dl, drop to 8.2 g/dl today.
Subjective/Objective
Chief Complaint
Metastatic bladder cancer
Subjective
Denies new complaint.
Vital Signs:
Vital Signs
Temp Pulse Resp BP Pulse Ox
98.0 F 90 20 132/59 95
01/21/25 19:06 01/21/25 19:30 01/21/25 19:30 01/21/25 19:00 01/21/25 19:30
Lab Results:
Laboratory Data
WBC 12.3 10^3/uL (4.8-10.8) H 01/21/25 05:15
Hgb 7.4 g/dL (12.0-16.0) L 01/21/25 05:15
Plt Count 435 10^3/uL (130-400) H 01/21/25 05:15
PT 15.2 Sec (11.4-14.6) H 01/18/25 03:47
INR 1.17 01/18/25 03:47
APTT 36.3 Sec (23.4-35.0) H 01/18/25 03:47
eGFR 25.40 01/21/25 05:15
[2025-01-22] VITALS (24 sets, daily range): BP systolic 110–149; BP diastolic 57–125; BMI 25.1
--- NOTE | 2025-01-22 02:34 | PTCARENOTE ---
Patient AAOx3, drowsy. Family members bedside. VSS. SpO2 95% on room air. Pt 04/14 pain from migraine. PRN Fioricet see MAR. VSS. Pt denies any nausea or symptoms after receiving paracentesis. Pt abdomen is distended. Paracentesis site clean, dry,
and intact. Pt drank a small amount of ensure. IVF cont. RADAMES removed from b/l legs HS. Pt tolerating frequent turning and repositioning.
[2025-01-22 06:05] LABS: Hematocrit 25.6 % (37.0-47.0); Hemoglobin 8.5 g/dL (12.0-16.0); Mean Corp Hgb Conc. 33.2 g/dL (33.0-37.0); Mean Corpuscular Hgb 27.7 pg (27.0-31.0); Mean Corpuscular Volume 83.4 fL (81.0-99.0); Mean Platelet Volume 8.9 fL (7.4-10.4); Platelet Count 380 10^3/uL (130-400); Red Blood Cell Count 3.07 10^6/uL (4.20-5.40); Red Cell Dist. Width 17.9 % (11.5-14.5); White Blood Cell Count 13.1 10^3/uL (4.8-10.8)
[2025-01-22 06:27] LABS: Blood Urea Nitrogen 32 mg/dl (7-17); Carbon Dioxide 28 mmol/L (22-30); Chloride 109 mmol/L (98-107); Estimated Creatinine Clearance 19 ml/min; Glucose 135 mg/dl (70-99); Magnesium 2.2 mg/dl (1.6-2.3); Phosphorus 2.5 mg/dl (2.5-4.5); Potassium 3.6 mmol/L (3.5-5.1); Sodium 141 mmol/L (135-145); eGFR 29.02
[2025-01-22] MEDS: D5/0.9% SODIUM CHLORIDE 1000 IV ×2 (07:35→20:16)
--- NOTE | 2025-01-22 09:11 | W.PN.ID1 ---
Date of Service
Date of Service: January 22, 2025
Today's Communication
- RBC count: 2 million
- corrected peritoneal fluid WBC count: 0 thus, SBP ruled out
- stop ceftriaxone
- management of recurrent ascites per oncology
- if patient remains in house, will follow off of antibiotics 48 hours
Assessment / Plan
Ruled out SBP
Right-sided hydronephrosis/urethral obstruction in setting of urothelial cancer,-on chemotherapy
status post nephrostomy tube 12/07/2024
Hemorrhagic products in the ascites - unclear cause
Leukocytosis
CKD4
Port
- no significant change in peritoneal fluid results
- RBC count: 2 million
- corrected peritoneal fluid WBC count: 0 thus, SBP ruled out
- stop ceftriaxone
- management of recurrent ascites per oncology
- if patient remains in house, will follow off of antibiotics 48 hours
Chief Complaint
-: Leukocytosis and Other (Nephrostomy tube, paracentesis)
Subjective / Review of Systems
afebrile
bp stable
no new complaints
Vital Signs / Physical Exam
Vital Signs
Vital Signs
Temp Pulse Resp BP Pulse Ox
98.2 F 96 26 110/66 97
01/22/25 03:47 01/22/25 07:30 01/22/25 07:30 01/22/25 07:00 01/22/25 07:30
Physical Exam
Constitutional: No Acute Distress and Chronically Ill
Cardiovascular: Regular Rate and S1/S2; Negative Murmur or Rub
Pulmonary: Clear and Symmetric; Negative Wheezes or Rales
Gastrointestinal: Soft, Non Tender, Non Distended and Normal Bowel Sounds
Skin: Warm and Dry; Negative Rash or Jaundice
Objective Data
Lab Data
Lab Results
01/22/25 05:51
01/22/25 05:51
PT 15.2 Sec (11.4-14.6) H 01/18/25 03:47
INR 1.17 01/18/25 03:47
APTT 36.3 Sec (23.4-35.0) H 01/18/25 03:47
Estimated Creat Clear 19 ml/min 01/22/25 05:51
Total Bilirubin 0.4 mg/dl (0.2-1.3) 01/19/25 03:38
AST 21 U/L (14-36) 01/19/25 03:38
ALT 15 U/L (0-35) 01/19/25 03:38
Alkaline Phosphatase 122 U/L (38-126) 01/19/25 03:38
Most recent labs reviewed.
Micro Results:
01/21/25 13:59 Body Fluid Culture - Pending
Peritoneal Fluid Gram Stain - Pending
01/18/25 16:04 Body Fluid Culture - Final
Peritoneal Fluid No Growth After 72 Hours
Gram Stain - Final
01/15/25 17:20 Blood Culture - Final
Blood/Venous No Growth - Final Report
01/15/25 17:20 Blood Culture - Final
Blood/Venous No Growth - Final Report
01/15/25 16:33 Body Fluid Culture - Final
Peritoneal Fluid No Growth After 72 Hours
Gram Stain - Final
01/15/25 11:16 Urine Culture - Final
Urine NO GROWTH
01/15/25 17:19 Influenza Types A & B (DEEDEE) - Final
Nasal Swab Negative for Influenza A & B, NAAT
Negative results must be combined with clinical observations
and patient history.
Nucleic Acid Amplification test (NAAT)performed on the
[employer] platform.
01/15/25 CT a/p: Large volume abdominopelvic ascites. High attenuation probable blood products in the right upper quadrant under the right hemidiaphragm, new from prior and of uncertain etiology/origin. No free intraperitoneal air.
Care Review
Plan reviewed with: Physician (Dr Ambrose and Dr Chris - stopping antibiotics)
[2025-01-22] MEDS: MAALOX 30 ML PO ×2 (09:52→20:16)
[2025-01-22] MEDS: LEXAPRO 5 MG PO (09:53)
[2025-01-22] MEDS: SODIUM BICARBONATE 650 MG PO (09:53)
[2025-01-22] MEDS: LIDOCAINE 4% PATCH 1 PATCH TOPICAL (09:53)
[2025-01-22] MEDS: RESTASIS 0.05% OPHTHALMIC EMULSION 1 DROPS BOTH EYES ×2 (09:53→20:18)
[2025-01-22] MEDS: PROTONIX IV 40 MG IV ×2 (09:54→20:17)
[2025-01-22] MEDS: NSS (PRESERVATIVE FREE) 10 ML IV ×2 (09:54→20:17)
[2025-01-22] MEDS: AZOPT 1% OPHTHALMIC SUSPENSION 1 DROP BOTH EYES ×3 (10:00→20:18)
[2025-01-22] MEDS: FIORICET 1 TAB PO ×2 (12:18→20:17)
[2025-01-22] MEDS: MAALOX PO ×2 (12:31→16:46)
--- NOTE | 2025-01-22 12:38 | CON.GI ---
Addendum entered and electronically signed by Christy Hinojosa MD 01/22/25 16:33:
I personally performed a history and physical exam of the patient and discussed management with the resident. I reviewed the resident's note and agree with the documented findings and plan of care HPI/CC.
84-year-old female past medical history of urothelial cancer status ongoing chemotherapy and immunotherapy, CKD, initially presented January 15 with shortness of breath and increased weakness. Found to have malignant ascites undergoing paracentesis as
needed with recent ascites being hemorrhagic.
GI has been consulted for dysphagia. She has been having issues of food getting stuck in her chest for the last month since her prior admission. No issues with liquids. She also does admit to some worsening reflux. Will she also has some nausea
and vomiting likely due to her malignancy as well as treatment for her malignancy. Patient overall has been declining.
Differential diagnosis for dysphagia include reflux and/or reflux esophagitis with possible esophageal ulcers, candidal esophagitis as she is immunosuppressed although not having odynophagia, structural issue, less likely motility issue.
In regards to her dysphagia, we will get a barium esophagram tomorrow. I would like to avoid endoscopy given her overall clinical status unless absolutely necessary.
Will increase Protonix to IV twice daily. Another option is possibly doing a empiric trial of fluconazole although she has no thrush.
Further recommendations pending barium esophagram.
Original Note:
Consultation
-
Date/Time Consultation Requested: 01/22/25
Date/Time Consultation Performed: 01/22/25
Requesting Provider: Dr Pari Hinojosa
Performing Provider: Dr Juan Diego Hay
Reason for Consultation: dysphagia
Medical History
Chief Complaint / HPI
Chief Complaint: food stuck in chest
History of Present Illness:
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 She received 2units
of PRBC on last admission. Hgb was 8.6 upon DC. She follows with Dr. Solorzano outpatient at [facility] for chemotherapy. She is managed by Dr Guerrero for CKD.
Patient had 5 L for hemorrhagic ascitic fluid drained since this admission. Patient reports of food getting stuck with solid foods more than liquids. She states that 'it feels like the food is stuck in chest and takes time for the food to pass'.
This started a month ago. Patient denies odynophagia, no issues initiating swallowing. Denies alcohol use. GI is consulted to evaluate further for dysphagia.
She has had 2 EGD in the past at and [facility] as the pt states. Previous EGD in was in 2012 which revealed few gastric polyps and a single non-bleeding angioectasia in the stomach.
Past Medical History
Past Medical History: Other (as above )
Past Surgical History: Other (b/l TKA and b/l carpal tunnel release)
Social History
Tobacco: Former Smoker
Alcohol: None
Drug: None
Family History
Family History: Reviewed & Not Pertinent
Allergies / Home Medications
Allergy/AdvReac Type Severity Reaction Status Date / Time
RADAMES Inhibitors Allergy lisinopril- Verified 01/15/25 11:04
Cough
lisinopril Allergy radames Verified 01/15/25 11:04
inhibitors-cough
�Medication �Instructions �Recorded
doxepin 25 mg capsule 50 mg PO [facility] Mental Health 03/31/23
brinzolamide 1 % eye 1 drp BOTH EYES TID Eye Condition 04/19/23
drops,suspension
cyclosporine 0.05 % eye drops 1 drp BOTH EYES BID DRY EYES 09/09/23
(Restasis MultiDose)
amlodipine 2.5 mg tablet 2.5 mg PO DAILY Blood Pressure 12/07/24
latanoprost 0.005 % eye drops 1 drp BOTH EYES HS Eye Condition 12/07/24
potassium chloride 10 mEq 10 meq PO DAILY Electrolyte 12/07/24
tablet,extended release(part/cryst) Repletion
sodium bicarbonate 650 mg tablet 650 mg PO DAILY alkalinizer 12/07/24
furosemide 40 mg tablet (Lasix) 40 mg PO DAILY Weight Gain ##0 01/14/25
acetaminophen 650 mg 1,300 mg PO [id number] PRN mild pain 01/15/25
tablet,extended release
cranberry fruit 450 mg tablet 450 mg PO DAILY Supplement 01/15/25
(cranberry)
escitalopram oxalate 5 mg tablet 5 mg PO DAILY Mental Health/Anxiety 01/15/25
famotidine 20 mg tablet 20 mg PO BID Gastrointestinal Issue 01/15/25
iron bis glycinate mike 28 mg 1 cap PO DAILY Supplement 01/15/25
iron-vit C 60 mg-FA 400 mcg-B12
8mcg cap (Gentle Iron)
omega 9-qkh-kkq-fish oil 1,000 mg 1 cap PO DAILY Supplement 01/15/25
(120 mg-180 mg) capsule (Fish Oil)
ondansetron 8 mg disintegrating 8 mg PO Q8HPRN PRN nausea 01/15/25
tablet
prochlorperazine maleate 10 mg 10 mg PO Q6HPRN PRN nausea 01/15/25
tablet
therapeutic multivitamin 1 tab PO DAILY Supplement 01/15/25
hjlsgkvisy-ntrqkuyqvebaf-dydllctu 1 cap PO Q4H PRN Migraine headache 01/19/25
50 mg-300 mg-40 mg capsule
(Fioricet)
Review of Systems
-
All other systems: A 12 pt ROS was Negative except as stated above in HPI
Vital Signs
Temp Pulse Resp BP Pulse Ox
97.4 F 96 21 124/73 91
01/22/25 09:54 01/22/25 12:00 01/22/25 12:00 01/22/25 12:00 01/22/25 10:30
Physical Exam
Exam
General: Comfortable
HEENT: Normocephalic and Anicteric
Cardiac: S1/S2, Regular Rhythm and Murmur
GI: Tender and Distended (firm abd, no guarding or rigidity )
Neuro: AO x 3
Psych: Calm
Results
WBC 13.1 10^3/uL (4.8-10.8) H 01/22/25 05:51
Hgb 8.5 g/dL (12.0-16.0) L 01/22/25 05:51
Hct 25.6 % (37.0-47.0) L 01/22/25 05:51
MCV 83.4 fL (81.0-99.0) 01/22/25 05:51
Plt Count 380 10^3/uL (130-400) 01/22/25 05:51
Absolute Neuts (auto) 8.5 10^3/uL (1.4-6.5) H 01/19/25 03:38
PT 15.2 Sec (11.4-14.6) H 01/18/25 03:47
INR 1.17 01/18/25 03:47
APTT 36.3 Sec (23.4-35.0) H 01/18/25 03:47
Sodium 141 mmol/L (135-145) 01/22/25 05:51
Potassium 3.6 mmol/L (3.5-5.1) 01/22/25 05:51
Chloride 109 mmol/L (98-107) H 01/22/25 05:51
Carbon Dioxide 28 mmol/L (22-30) 01/22/25 05:51
BUN 32 mg/dl (7-17) H 01/22/25 05:51
Creatinine 1.7 mg/dL (0.6-1.0) H 01/22/25 05:51
Calcium 8.0 mg/dl (8.4-10.2) L 01/22/25 05:51
Total Bilirubin 0.4 mg/dl (0.2-1.3) 01/19/25 03:38
AST 21 U/L (14-36) 01/19/25 03:38
ALT 15 U/L (0-35) 01/19/25 03:38
Alkaline Phosphatase 122 U/L (38-126) 01/19/25 03:38
Diagnostic Image Results:
Prior GI Procedures:
EGD: 08/13/2013
- Normal duodenal bulb and 2nd part of the duodenum.
Biopsied.
- Erythematous mucosa in the antrum. Biopsied.
- A single non-bleeding angioectasia in the stomach.
- Gastric mucosal atrophy. Biopsied.
- A few gastric polyps. Biopsied.
- Hiatus hernia.
- Normal cardia.
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
- Z-line regular, 36 cm from the incisors.
- LA Grade A reflux esophagitis.
Colonoscopy:
Assessment / Plan
-
PLAN
#Metastatic urothelial cancer ongoing chemo
#Hemorrhagic abd ascites with unclear etiology s/p total 5 L hemorrhagic ascitic fluid drained
GI is consulted to evaluate dysphagia to solids x1 month
Likely esophageal dysphagia
Motility disorder vs structural disorder
This looks like a structural disorder as the patient has problems with food and not liquid
D/D- 1. Stricture 2. Web/ring 3. Mass
- Reports of nausea/vomiting-- d/t chemo-- on Zofran prn
- Dysphagia to solids-- feeling food getting stuck in chest -- all these symptoms started on this admission
- No thrush seen on exam-- chances of candidal esophagitis is high as patient is immunosuppressant.
- Will start with esophagram in AM. NPO after midnight (no meds or ice chips)
- May consider prophylactic anti fungal antibiotic.
Data Reviewed
-
Radiology: Report Reviewed by me and Discussed with Physician
Ultrasound: Report Reviewed by me and Discussed with Physician
-
-
Thank you for consultation and allowing me to participate in the patient's care. Please call the invoice control clerk GI physician during the after hours with any questions or concerns.
--- NOTE | 2025-01-22 12:51 | CM ---
Patient with Hx Metastatic urothelial cancer on chemo with Dx Sepsis secondary to bibasilar pneumonia, Abdominal ascites s/p paracentesis, Anemia s/p transfusions. Per oncology: patient's goals of care are restorative, possible need for ex lap to
determine bleeding source. Room air. Receiving IVF. PT recommends skilled rehab. OT recommends HH vs SNF.
Met with patient and spoke with daughter Brandi at length by phone;
patient and daughter both intend for patient to return home at d/c.
Patient states she is feeling poorly and feels unable to eat and daughter also expressing concern patient not eating.
Daughter says , who is age 88, had car accident yesterday, has been showing signs of being vague and she is wondering if he is starting to have some cognitive decline. Daughter realizes she needs caregiver to assist both of her parents at
home, however has been resistant to having caregiver. CM suggested approach of giving her father 2 workable choices that include most likely choice with caregiver option and she may try this.
Daughter was given caregiver list by [facility] after Dec 2024 admission, and she will start calling agencies to line up caregiver (patient resides in [facility]). She would like to have caregiver for 4 hrs/day. 3 family members will assist the patient
& as well, including daughter, son and grand-daughter.
Brandi agrees to resumption of [facility] for nurse and will consider PT/OT- she is unsure her mother can do much with PT/OT right now due to weakness - discussed that continuing these therapies may be beneficial to help maintain her current functional
mobility.
CM continuing to follow for d/c needs.
Plan home with resumption [facility] with partner [facility] agency caregiver, with family.
--- NOTE | 2025-01-22 13:20 | W.PN.HOSP.TC ---
Today's Communication/Plan
-
monitor vitals
see plan
GI evaluation
monitor ascites
monitor hgb
Oncology to see today
observe off abx
Assessment / Plan
Assessment / Plan
Physical Exam
Genera: no acute distress, appears relatively comfortable at this time.
HEENT: Scleral Anicteric, MMM, No JVD
Pulm: CTABL
Cardio: S1 S2 Sinus Tachy no murmurs/rubs/gallops, chest port present
Abd: Soft, NT, distended, BS+. Right nephrostomy tube draining yellow urine.
Ext: Warm, Dry, Bilateral lower extremity pitting edema significantly improved from initial presentation since start compressive RADAMES wraps
Neuro: AAOx3
Psych: Calm cooperative
84F urothelial Ca on chemo CKD IV GERD Endometriosis originally here for symptomatic severe Anemia Hgb 5.9 responded well to 2PRBC transfusion and was discharged home with home services. Patient however returned next day d/t increased weakness
shortness of breath exertional dyspnea leg swelling. CT scan was concerning for large ascites and possible colitis. CXR also noted possible atelectasis vs pna. Stable respiratory status on room air, patient was started on empiric abx. 2L ascites
was drawn on paracentesis.
#Possible Sepsis (leukocytosis, tachycardia)
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 High risk of reaccumulation
- influenza/COVID neg
- IV Rocephin, IV doxycycline given in ER
- Incentive spirometry
-urine cx neg follow blood and ascites cx's
- ID eval appreciated; appears para tap's + for blood and correct WBC is not significant. further abx stopped. monitor
discussed with oncology. Abdominal ascites with Bx + 12/05/2024 malignant cells -01/15 s/p 3000 cc of dark hemorrhagic ascitic fluid
#Acute abdominal ascites in a static probable blood products in the right upper quadrant
Status post peritoneal fluid biopsy 12/05/2024 malignant cells
- Consult IR appreciated paracentesis with cytology status post 2.1 L of serosanguineous fluid thought to be combination of blood and ascites
- paracentesis repeated 01/18 1850 cc of grossly bloody ascitic fluid was evacuated, albumin bolus provided following paracentesis.
-Saturday 01/20 repeat Therapeutic Paracentesis requested with increased distension abd pain poor appetite nausea vomiting
-Potential may require drain placement vs scheduled weekly paracentesis outpt (less likely to be effective w/ freq need for drain)
para 01/21 with hemophagic ascites fluid
Discussed with oncology 01/22, does appear to be secondary to malignancy. Dr. Chris will speak to patient today. patient is declining
#Poor Appetite, nausea vomiting
nausea prn zofran, prn ativan if zofran insufficient
IVF support gentle hydration while oral intake remains poor
patient also reported dysphagia; hx of GERD. GI consulted
#Anemia symptomatic from chemotherapy/malignancy/CKD 4
#Likely Anemia of Chronic disease
-01/15 Transfused 2 units PRBC Hgb 7.8 noted on ED evaluation, improved appropriately to 9.3
-Required 3rd transfusion 01/19 Hgb 6.4, responded well
-monitor H&H
-transfuse prn Hgb<7.5 as per
transfuse 1 unit prbc 01/21
Lower Ext Edema/Ascites/Anasarca
-Lasix placed on hold d/t poor appetite/oral intake/nausea/vomiting as above
-Venous Duplex neg for DVT
-RADAMES compression wrapping ordered
-ECHO appreciated EF >75% no significant valve disease, no significant change from prior ECHO 04/20/25
-Cardio eval appreciated heart failure ruled out
#CLAUDIA on CKD stage IV
Initial Creat 2.6. since improving and now 1.7
Follow BMP
Hypomagnesemia
-monitor and replete as necessary
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
#Status post peritoneal fluid biopsy 12/05/2024 malignant cells at [facility]
Status post radiation treatment left kidney August 2024
#Right-sided hydronephrosis/urethral obstruction in setting of urothelial cancer,-on chemotherapy
status post nephrostomy tube 12/07/2024 [facility]
-IR eval requested concern leaking nephrostomy tube though urine output is good. Assessed and found to be in good condition/position 01/17/25. No further episodes of leaking noted. urine is yellow in nephrostomy bag
-Oncology eval appreciated
-pain control, 2 lidocaine patches abd pain, prn Tylenol, prn IV dilaudid moderate severe pain
Migraine
-prn Fioricet
#hx HTN
bp consistently low normotensive
Lasix held as above
home amlodipine discontinued at this time
GERD
Heartburn
-Protonix 40 mg daily switched to IV d/t poor oral intake/nausea/vomiting as above
-Maalox ACHS (noted some improvement on this new regimen).
#Endometriosis
Glaucoma
Continue latanoprost both eyes at bedtime
Depression
-Continue Lexapro 5 mg daily, doxepin 50 mg nightly
PT/OT appreciated Home Health vs SNF rehab (patient adamantly against going to SNF see case mgmt note 01/20)
DVT prophylaxis SCDs
Full Code
Oncology to discuss prognosis; patient is declining with limited PO intake. recurrence of hemorrhagic ascites every few days. likely 2/2 malignancy. nephrostomy tube has no bleeding
I spent a total of 52 minutes with the patient or on the floor. More than 50% of this time involved counseling and coordination of care.
Anticipated Discharge: > 48 hours
Subjective/Interval History
-
Date of Service: January 22, 2025
has intermittent abdominal pain
Objective Data
-
Labs:
Laboratory Results
01/22/25
05:51
WBC 13.1 H
Hgb 8.5 L
Hct 25.6 L
Plt Count 380
Sodium 141
Potassium 3.6
Chloride 109 H
Carbon Dioxide 28
BUN 32 H
Creatinine 1.7 H
Glucose 135 H
Calcium 8.0 L
Vital Signs:
Vital Signs
Temp Pulse Resp BP Pulse Ox
97.4 F 96 21 124/73 91
01/22/25 09:54 01/22/25 12:00 01/22/25 12:00 01/22/25 12:00 01/22/25 10:30
I&O
01/21/25 01/22/25 01/23/25
06:59 06:59 06:59
Intake Total 1450 / 1450 2270 / 2270
Output Total 850 / 850 550 / 550
Balance 600 / 600 1720 / 1720
--- NOTE | 2025-01-22 16:02 | W.PN.ONC ---
Today's Communication / Plan
-
Suspect hemorrhagic ascites is related to peritoneal disease involvement
Monitor CBC, transfuse for hgb < 7.5
PRN paracenteses
Optimize performance status so that she may be a candidate for further chemo/IO
patient's goals of care are restorative, PT/OT/nutrition
OP follow up with Dr. Rashad Russell upon discharge, to continue palliative systemic therapy
Impression
Impression
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
Abdominal ascites with Bx + 12/05/2024 malignant cells -01/15 s/p 3000 cc of dark hemorrhagic ascitic fluid, cx NTD. No evidence of acute DIC with elevated fibrinogen
Anemia symptomatic from chemotherapy/CKD 4 (on REINALDO) +/- hemorrhagic ascites s/p 3U PRBC, last 01/19.
CKD stage IV
Right-sided hydronephrosis/urethral obstruction in setting of urothelial cancer,-on chemotherapy s/p nephrostomy tube 12/07/2024
LE edema US neg for DVT 01/16
Plan
Plan
Suspect hemorrhagic ascites is related to peritoneal disease involvement
Monitor CBC, transfuse for hgb < 7.5
PRN paracenteses
Optimize performance status so that she may be a candidate for further chemo/IO
patient's goals of care are restorative, PT/OT/nutrition
OP follow up with Dr. Rashad Russell upon discharge, to continue palliative systemic therapy
Subjective/Objective
Subjective/Objective
no new complaints this am
Vital Signs:
Vital Signs
Temp Pulse Resp BP Pulse Ox
97.7 F 96 21 124/73 91
01/22/25 11:05 01/22/25 12:00 01/22/25 12:00 01/22/25 12:00 01/22/25 10:30
Lab Results:
Laboratory Data
WBC 13.1 10^3/uL (4.8-10.8) H 01/22/25 05:51
Hgb 8.5 g/dL (12.0-16.0) L 01/22/25 05:51
Plt Count 380 10^3/uL (130-400) 01/22/25 05:51
PT 15.2 Sec (11.4-14.6) H 01/18/25 03:47
INR 1.17 01/18/25 03:47
APTT 36.3 Sec (23.4-35.0) H 01/18/25 03:47
eGFR 29.02 01/22/25 05:51
[2025-01-22] MEDS: ATIVAN 0.25 MG IV (16:42)
[2025-01-22] MEDS: ZOFRAN 4 MG IV (16:42)
--- NOTE | 2025-01-22 17:33 | PTCARENOTE ---
Pt's assessment as documented. Aox3. NSR on tele monitor. Family at bedside, updated on plan of care. Medicated with PRN Fiorocet for migraine and Ativan & Zofran for nausea with good effect. Ringing appropriately, call hollis within reach.
[2025-01-22] MEDS: MELATONIN 5 MG PO (20:17)
[2025-01-22] MEDS: SINEQUAN 50 MG PO (20:17)
[2025-01-22] MEDS: XALATAN OPHTHALMIC SOLUTION 1 DROP BOTH EYES (20:18)
[2025-01-23] VITALS (23 sets, daily range): BP systolic 90–149; BP diastolic 51–92; BMI 26.0
--- NOTE | 2025-01-23 00:51 | PTCARENOTE ---
Received patient at change of shift. Patient aaox3, c/o headache pain 8/ at that time. PRN fiorcet administered with positive results. NSR on the monitor. Patient has D5 NS at 70ml/hr through right SQ port. Right nephrostomy tube dressing noted to
be peeling off, rn cleaned and replaced dressing, sutures remain intact. Patient resting in bed, call hollis within reach. Will continue to monitor.
[2025-01-23 05:08] LABS: Hematocrit 25.6 % (37.0-47.0); Hemoglobin 8.2 g/dL (12.0-16.0); Mean Corpuscular Hgb 27.3 pg (27.0-31.0); Mean Corpuscular Volume 85.3 fL (81.0-99.0); Mean Platelet Volume 8.7 fL (7.4-10.4); Platelet Count 371 10^3/uL (130-400); Red Cell Dist. Width 18.1 % (11.5-14.5); White Blood Cell Count 12.1 10^3/uL (4.8-10.8)
[2025-01-23 05:35] LABS: Blood Urea Nitrogen 28 mg/dl (7-17); Calcium 7.9 mg/dl (8.4-10.2); Carbon Dioxide 28 mmol/L (22-30); Chloride 110 mmol/L (98-107); Estimated Creatinine Clearance 20 ml/min; Glucose 130 mg/dl (70-99); Magnesium 2.3 mg/dl (1.6-2.3); Phosphorus 2.5 mg/dl (2.5-4.5); Potassium 3.6 mmol/L (3.5-5.1); Sodium 142 mmol/L (135-145); eGFR 31.21
--- NOTE | 2025-01-23 09:29 | W.PN.ID1 ---
Date of Service
Date of Service: January 23, 2025
Today's Communication
- if patient remains in house, will follow off of antibiotics another 24 hours
Assessment / Plan
Ruled out SBP
Right-sided hydronephrosis/urethral obstruction in setting of urothelial cancer,-on chemotherapy
status post nephrostomy tube 12/07/2024
Hemorrhagic products in the ascites - unclear cause
Leukocytosis
CKD4
Port
- SBP ruled out
- leukocytosis is likely reactive
- cultures remain negative
- management of recurrent ascites per oncology
- if patient remains in house, will follow off of antibiotics another 24 hours
Chief Complaint
-: Leukocytosis
Subjective / Review of Systems
afebrile
bp stable
no new events overnight
Vital Signs / Physical Exam
Vital Signs
Vital Signs
Temp Pulse Resp BP Pulse Ox
98.0 F 92 17 139/78 98
01/23/25 03:16 01/23/25 05:30 01/23/25 05:30 01/23/25 05:00 01/23/25 05:30
Physical Exam
Constitutional: No Acute Distress and Chronically Ill
Cardiovascular: Regular Rate
Pulmonary: Symmetric, Rales and Non Labored
Gastrointestinal: Other (diarrhea)
Skin: Dry; Negative Rash or Jaundice
Neurological: Awake
Objective Data
Lab Data
Lab Results
01/23/25 05:00
01/23/25 05:00
PT 15.2 Sec (11.4-14.6) H 01/18/25 03:47
INR 1.17 01/18/25 03:47
APTT 36.3 Sec (23.4-35.0) H 01/18/25 03:47
Estimated Creat Clear 20 ml/min 01/23/25 05:00
Total Bilirubin 0.4 mg/dl (0.2-1.3) 01/19/25 03:38
AST 21 U/L (14-36) 01/19/25 03:38
ALT 15 U/L (0-35) 01/19/25 03:38
Alkaline Phosphatase 122 U/L (38-126) 01/19/25 03:38
Most recent labs reviewed.
Micro Results:
01/21/25 13:59 Body Fluid Culture - Preliminary
Peritoneal Fluid No Growth After 18-24 Hours
Gram Stain - Preliminary
01/18/25 16:04 Body Fluid Culture - Final
Peritoneal Fluid No Growth After 72 Hours
Gram Stain - Final
01/15/25 17:20 Blood Culture - Final
Blood/Venous No Growth - Final Report
01/15/25 17:20 Blood Culture - Final
Blood/Venous No Growth - Final Report
01/15/25 16:33 Body Fluid Culture - Final
Peritoneal Fluid No Growth After 72 Hours
Gram Stain - Final
01/15/25 11:16 Urine Culture - Final
Urine NO GROWTH
01/15/25 17:19 Influenza Types A & B (DEEDEE) - Final
Nasal Swab Negative for Influenza A & B, NAAT
Negative results must be combined with clinical observations
and patient history.
Nucleic Acid Amplification test (NAAT)performed on the
[employer] platform.
01/15/25 CT a/p: Large volume abdominopelvic ascites. High attenuation probable blood products in the right upper quadrant under the right hemidiaphragm, new from prior and of uncertain etiology/origin. No free intraperitoneal air.
--- NOTE | 2025-01-23 10:56 | W.PN.GI.CBS2 ---
Addendum entered and electronically signed by Christy Hinojosa MD 01/23/25 13:34:
I saw and examined the patient.
The PHYSICAL EDUCATION TEACHER or PA's note was reviewed and I agree with the note.
Comment: 84-year-old female past medical history of urothelial cancer status ongoing chemotherapy and immunotherapy, CKD, initially presented January 15 with shortness of breath and increased weakness. Found to have malignant ascites undergoing
paracentesis as needed with recent ascites being hemorrhagic.
GI has been consulted for dysphagia. She has been having issues of food getting stuck in her chest for the last month since her prior admission. No issues with liquids. She also does admit to some worsening reflux. Will she also has some nausea
and vomiting likely due to her malignancy as well as treatment for her malignancy. Patient overall has been declining.
Differential diagnosis for dysphagia include reflux and/or reflux esophagitis with possible esophageal ulcers, candidal esophagitis as she is immunosuppressed although not having odynophagia, structural issue, less likely motility issue.
Barium esophagram is pending.
Will increase Protonix to IV twice daily. Another option is possibly doing a empiric trial of fluconazole although she has no thrush.
Further recommendations pending barium esophagram.
Original Note:
Today's Communication / Plan
-
Esophagram today
Assessment / Plan
-
84-year-old female past medical history of urothelial cancer status ongoing chemotherapy and immunotherapy, CKD, initially presented January 15 with shortness of breath and increased weakness. Found to have malignant ascites undergoing paracentesis as
needed with recent ascites being hemorrhagic. GI is consulted to evaluate dysphagia to solids ongoing for about a month.
PLAN
#Metastatic urothelial cancer ongoing chemo
#Hemorrhagic abd ascites with unclear etiology s/p total 5 L hemorrhagic ascitic fluid drained
Likely esophageal dysphagia
Motility disorder vs structural disorder
This looks like a structural disorder as the patient has problems with food and not liquid
D/D- 1. Stricture 2. Web/ring 3. Mass 4. GERD 5. Candidal esophagitis (patient is on chemotherapy)
- Reports of nausea/vomiting-- d/t chemo-- on Zofran prn
- Dysphagia to solids-- feeling food getting stuck in chest
- No thrush seen on exam-- chances of candidal esophagitis is high as patient is immunosuppressant.
- Esophagram today
- May consider prophylactic anti fungal antibiotic.
Subjective
Subjective
Date of Service: January 23, 2025
No overnight events
Objective
Data Reviewed
Laboratory Data:
Laboratory Results
01/23/25 05:00
01/23/25 05:00
Laboratory Results
PT 15.2 Sec (11.4-14.6) H 01/18/25 03:47
INR 1.17 01/18/25 03:47
APTT 36.3 Sec (23.4-35.0) H 01/18/25 03:47
Phosphorus 2.5 mg/dl (2.5-4.5) 01/23/25 05:00
Magnesium 2.3 mg/dl (1.6-2.3) 01/23/25 05:00
Total Bilirubin 0.4 mg/dl (0.2-1.3) 01/19/25 03:38
AST 21 U/L (14-36) 01/19/25 03:38
ALT 15 U/L (0-35) 01/19/25 03:38
Alkaline Phosphatase 122 U/L (38-126) 01/19/25 03:38
Vital Signs and I&O:
Vital Signs
Temp Pulse Resp BP Pulse Ox
98 F 92 17 139/78 98
01/23/25 07:05 01/23/25 05:30 01/23/25 05:30 01/23/25 05:00 01/23/25 05:30
I&O
01/22/25 01/23/25 01/24/25
06:59 06:59 06:59
Intake Total 2270 / 2270 840 / 840
Output Total 550 / 550 600 / 600
Balance 1720 / 1720 240 / 240
Physical Exam
Physical Exam
Cardiology: Normal Sinus Rhythm, S1 and S2
Pulmonary: Clear
GI: Soft, Non Distended, Non Tender and Normal Bowel Sounds
[2025-01-23] MEDS: PROTONIX IV 40 MG IV ×2 (12:20→20:43)
[2025-01-23] MEDS: NSS (PRESERVATIVE FREE) 10 ML IV ×2 (12:20→20:44)
[2025-01-23] MEDS: AZOPT 1% OPHTHALMIC SUSPENSION 1 DROP BOTH EYES ×3 (12:21→20:42)
[2025-01-23] MEDS: MAALOX PO ×2 (12:21→18:03)
[2025-01-23] MEDS: LIDOCAINE 4% PATCH 1 PATCH TOPICAL (12:25)
[2025-01-23] MEDS: RESTASIS 0.05% OPHTHALMIC EMULSION 1 DROPS BOTH EYES ×2 (12:28→20:40)
[2025-01-23] MEDS: SODIUM BICARBONATE 650 MG PO (12:28)
[2025-01-23] MEDS: LEXAPRO 5 MG PO (12:28)
[2025-01-23] MEDS: FIORICET 1 TAB PO ×2 (12:32→21:03)
[2025-01-23] MEDS: MAALOX 30 ML PO ×2 (12:33→20:41)
--- NOTE | 2025-01-23 13:21 | PTCARENOTE ---
Assumed care of patient at aprox 1115. [place] [facility] [place] AAOX3, KLAMATH. Vitals stable. SR on monitor. IVF hooked back up to R sub port. Pt asking about a diet after NPO status. GI in too see patient and reg diet order. Pt
assessed, turned. Right sided nephrostomy tube emptied of 150M of juanjose urine. Lidocaine patch placed to r lower abd near tube site. PO meds given with eye drops that were due. Compression wraps placed. Plan of care discussed with patient.
[2025-01-23] MEDS: D5/0.9% SODIUM CHLORIDE 1000 IV (13:41)
[2025-01-23] MEDS: ZOFRAN 4 MG IV ×2 (14:05→20:43)
[2025-01-23] MEDS: FLUSH (NSS) 2 FLUSH IV (14:06)
--- NOTE | 2025-01-23 14:10 | W.PN.HOSP.TC ---
Today's Communication/Plan
-
Monitor vitals
See plan
Discussed with daughter over the phone
Continue to monitor hemoglobin
nephrostomy tube draining with yellow urine
prognosis appears guarded; frequent hemorrhagic ascites drainage. cant tolerate PO enough for her needs
Oncology to have conversation with family
Assessment / Plan
Assessment / Plan
Physical Exam
Genera: no acute distress, appears relatively comfortable at this time.
HEENT: Scleral Anicteric, MMM, No JVD
Pulm: CTABL
Cardio: S1 S2 Sinus Tachy no murmurs/rubs/gallops, chest port present
Abd: Soft, NT, distended, BS+. Right nephrostomy tube draining yellow urine.
Ext: Warm, Dry, Bilateral lower extremity pitting edema significantly improved from initial presentation since start compressive RADAMES wraps
Neuro: AAOx3
Psych: Calm cooperative
84F urothelial Ca on chemo CKD IV GERD Endometriosis originally here for symptomatic severe Anemia Hgb 5.9 responded well to 2PRBC transfusion and was discharged home with home services. Patient however returned next day d/t increased weakness
shortness of breath exertional dyspnea leg swelling. CT scan was concerning for large ascites and possible colitis. CXR also noted possible atelectasis vs pna. Stable respiratory status on room air, patient was started on empiric abx. 2L ascites
was drawn on paracentesis.
#Possible Sepsis (leukocytosis, tachycardia)
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 High risk of reaccumulation
- influenza/COVID neg
- IV Rocephin, IV doxycycline given in ER
- Incentive spirometry
-urine cx neg follow blood and ascites cx's
- ID eval appreciated; appears para tap's + for blood and correct WBC is not significant. further abx stopped. monitor
discussed with oncology. Abdominal ascites with Bx + 12/05/2024 malignant cells -01/15 s/p 3000 cc of dark hemorrhagic ascitic fluid
#Acute abdominal ascites in a static probable blood products in the right upper quadrant
Status post peritoneal fluid biopsy 12/05/2024 malignant cells
- Consult IR appreciated paracentesis with cytology status post 2.1 L of serosanguineous fluid thought to be combination of blood and ascites
- paracentesis repeated 01/18 1850 cc of grossly bloody ascitic fluid was evacuated, albumin bolus provided following paracentesis.
-Saturday 01/20 repeat Therapeutic Paracentesis requested with increased distension abd pain poor appetite nausea vomiting
-Potential may require drain placement vs scheduled weekly paracentesis outpt (less likely to be effective w/ freq need for drain)
para 01/21 with hemophagic ascites fluid
Discussed with oncology 01/22, does appear to be secondary to malignancy. Patient has been declining and is taking limited oral intake. Been documented previously the goals of care are restorative however patient has been requiring frequent
paracentesis with hemorrhagic ascites. Very limited oral intake. Does not feel like she is strong enough to undergo further treatments.
Discussed with daughter and they requesting to speak to oncology regarding goals of care. I did speak to patient regarding TPN however she is not interested. Peg tube doesnt seem to be an option too given hemorrhagic ascites.
#Poor Appetite, nausea vomiting
nausea prn zofran, prn ativan if zofran insufficient
IVF support gentle hydration while oral intake remains poor
patient also reported dysphagia; hx of GERD. GI following, barium esophagram
nystatin
#Anemia symptomatic from chemotherapy/malignancy/CKD 4
#Likely Anemia of Chronic disease
-01/15 Transfused 2 units PRBC Hgb 7.8 noted on ED evaluation, improved appropriately to 9.3
-Required 3rd transfusion 01/19 Hgb 6.4, responded well
-monitor H&H
-transfuse prn Hgb<7.5 as per
transfuse 1 unit prbc 01/21
Lower Ext Edema/Ascites/Anasarca
-Lasix placed on hold d/t poor appetite/oral intake/nausea/vomiting as above
-Venous Duplex neg for DVT
-RADAMES compression wrapping ordered
-ECHO appreciated EF >75% no significant valve disease, no significant change from prior ECHO 04/20/25
-Cardio eval appreciated heart failure ruled out
#CLAUDIA on CKD stage IV
Initial Creat 2.6. since improving and now 1.6
Follow BMP
Hypomagnesemia
-monitor and replete as necessary
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
#Status post peritoneal fluid biopsy 12/05/2024 malignant cells at [facility]
Status post radiation treatment left kidney August 2024
#Right-sided hydronephrosis/urethral obstruction in setting of urothelial cancer,-on chemotherapy
status post nephrostomy tube 12/07/2024 [facility]
-IR eval requested concern leaking nephrostomy tube though urine output is good. Assessed and found to be in good condition/position 01/17/25. No further episodes of leaking noted. urine is yellow in nephrostomy bag
-Oncology eval appreciated
-pain control, 2 lidocaine patches abd pain, prn Tylenol, prn IV dilaudid moderate severe pain
Migraine
-prn Fioricet
#hx HTN
bp consistently low normotensive
Lasix held as above
home amlodipine discontinued at this time
GERD
Heartburn
-Protonix 40 mg daily switched to IV d/t poor oral intake/nausea/vomiting as above
-Maalox ACHS (noted some improvement on this new regimen).
#Endometriosis
Glaucoma
Continue latanoprost both eyes at bedtime
Depression
-Continue Lexapro 5 mg daily, doxepin 50 mg nightly
PT/OT appreciated Home Health vs SNF rehab (patient adamantly against going to SNF see case mgmt note 01/20)
DVT prophylaxis SCDs
Full Code
Oncology to discuss prognosis; patient is declining with limited PO intake. recurrence of hemorrhagic ascites every few days. likely 2/2 malignancy. nephrostomy tube has no bleeding
I spent a total of 52 minutes with the patient or on the floor. More than 50% of this time involved counseling and coordination of care.
Anticipated Discharge: > 48 hours
Subjective/Interval History
-
Date of Service: January 23, 2025
has pain in abdomen
Objective Data
-
Labs:
Laboratory Results
01/23/25
05:00
WBC 12.1 H
Hgb 8.2 L
Hct 25.6 L
Plt Count 371
Sodium 142
Potassium 3.6
Chloride 110 H
Carbon Dioxide 28
BUN 28 H
Creatinine 1.6 H
Glucose 130 H
Calcium 7.9 L
Vital Signs:
Vital Signs
Temp Pulse Resp BP Pulse Ox
97.7 F 100 18 130/66 95
01/23/25 11:05 01/23/25 13:30 01/23/25 13:30 01/23/25 13:00 01/23/25 12:30
I&O
01/22/25 01/23/25 01/24/25
06:59 06:59 06:59
Intake Total 2270 / 2270 840 / 840
Output Total 550 / 550 600 / 600 150 / 150
Balance 1720 / 1720 240 / 240 -150 / -150
[2025-01-23] MEDS: MYCOSTATIN ORAL SUSPENSION 5 ML PO ×2 (14:32→20:40)
[2025-01-23] MEDS: MYCOSTATIN ORAL SUSPENSION PO (18:04)
--- NOTE | 2025-01-23 18:27 | W.PN.ONC2 ---
Today's Communication / Plan
-
Home hospice. Needs code status downgrade to DNR but this was not discussed and should be discussed tomorrow.
Impression
Impression
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
Abdominal ascites with Bx + 12/05/2024 malignant cells -01/15 s/p 3000 cc of dark hemorrhagic ascitic fluid, cx NTD. No evidence of acute DIC with elevated fibrinogen
Anemia symptomatic from chemotherapy/CKD 4 (on REINALDO) +/- hemorrhagic ascites s/p 3U PRBC, last 01/19.
CKD stage IV
Right-sided hydronephrosis/urethral obstruction in setting of urothelial cancer,-on chemotherapy s/p nephrostomy tube 12/07/2024
LE edema US neg for DVT 01/16
Plan
Plan
Long discussion 30 min with patient and family. Agree that hemorrhagic ascites is most likely related to peritoneal disease involvement/carcinomatosis.
PS precludes further Tx
She is making no improvement despite > 1 week aggressive supportive care.
They are now requesting transition to hospice care at home.
This is the best option and I agree.
Further chemotherapy futile and will worsen her PS.
Subjective/Objective
Chief Complaint
ACS
Subjective
Still no appetite. Vomiting and diarrhea. Bare has eaten anything in 4 days. Recurrent hemorrhagic ascites.
Vital Signs:
Vital Signs
Temp Pulse Resp BP Pulse Ox
97.7 F 97 21 124/62 95
01/23/25 15:05 01/23/25 16:30 01/23/25 16:30 01/23/25 16:00 01/23/25 12:30
Lab Results:
Laboratory Data
WBC 12.1 10^3/uL (4.8-10.8) H 01/23/25 05:00
Hgb 8.2 g/dL (12.0-16.0) L 01/23/25 05:00
Plt Count 371 10^3/uL (130-400) 01/23/25 05:00
PT 15.2 Sec (11.4-14.6) H 01/18/25 03:47
INR 1.17 01/18/25 03:47
APTT 36.3 Sec (23.4-35.0) H 01/18/25 03:47
eGFR 31.21 01/23/25 05:00
Physical Exam
HEENT: Other (cachetic, frail. PS 4)
Cardiology: S1 and S2
Pulmonary: Other (decreased)
GI: Distended and Fluid Wave
Extremities: Edema
[2025-01-23] MEDS: SINEQUAN 50 MG PO (20:42)
[2025-01-23] MEDS: MELATONIN 5 MG PO (20:42)
[2025-01-23] MEDS: XALATAN OPHTHALMIC SOLUTION 1 DROP BOTH EYES (20:44)
--- NOTE | 2025-01-23 22:24 | PTCARENOTE ---
Received patient at start of shift. Dtr Brandi at bedside and requested Hospice contact her to coordinate Hospice eval with patients spouse visit. and confirmed wanting Hospice. RN sent tt to hospice director, hospice sw and director with
request to contact dtr to coordinate visit. Message received and liaison confirms she will visit tomorrow and coordinate timing with spouse visit at that time. Updated dtr Brandi.
Patient aao x3 at start of shift, able to make needs known. NSR on the monitor, +2 b/l le edema with wk pp. Lung sounds diminished throughout, pox 93-98% on ra. BS active x 4. Nephrostomy tube patent and draining juanjose/yellow urine to bag. Dressing
c/d/i and bag emptied for 150ml at start of shift. Patient c/o 8/10 galvez, prn fiorcet administered per order. Call hollis within reach, will continue to monitor.
[2025-01-24] VITALS (23 sets, daily range): BP systolic 88–146; BP diastolic 52–91; BMI 25.8
[2025-01-24] MEDS: FIORICET 1 TAB PO ×3 (02:20→20:35)
--- NOTE | 2025-01-24 02:26 | PTCARENOTE ---
Patient c/o headache, prn fiorcet administered as ordered. Repositioned for comfort and pressure relief. Call hollis within reach, will continue to monitor.
[2025-01-24] MEDS: D5/0.9% SODIUM CHLORIDE 1000 IV ×2 (03:39→16:22)
[2025-01-24 05:07] LABS: Hematocrit 23.3 % (37.0-47.0); Hemoglobin 7.4 g/dL (12.0-16.0); Mean Corp Hgb Conc. 31.8 g/dL (33.0-37.0); Mean Corpuscular Hgb 27.4 pg (27.0-31.0); Mean Corpuscular Volume 86.3 fL (81.0-99.0); Mean Platelet Volume 9.2 fL (7.4-10.4); Platelet Count 386 10^3/uL (130-400); Red Cell Dist. Width 17.8 % (11.5-14.5); White Blood Cell Count 11.5 10^3/uL (4.8-10.8)
[2025-01-24 05:18] LABS: Blood Urea Nitrogen 26 mg/dl (7-17); Calcium 7.7 mg/dl (8.4-10.2); Carbon Dioxide 28 mmol/L (22-30); Chloride 112 mmol/L (98-107); Estimated Creatinine Clearance 19 ml/min; Glucose 129 mg/dl (70-99); Magnesium 2.4 mg/dl (1.6-2.3); Phosphorus 2.6 mg/dl (2.5-4.5); Potassium 3.6 mmol/L (3.5-5.1); Sodium 141 mmol/L (135-145); eGFR 29.02
[2025-01-24] MEDS: MAALOX 30 ML PO ×4 (07:48→21:23)
[2025-01-24] MEDS: PROTONIX IV 40 MG IV ×2 (07:48→20:36)
[2025-01-24] MEDS: SODIUM BICARBONATE 650 MG PO (08:38)
[2025-01-24] MEDS: LEXAPRO 5 MG PO (08:38)
[2025-01-24] MEDS: LIDOCAINE 4% PATCH 1 PATCH TOPICAL (08:39)
[2025-01-24] MEDS: AZOPT 1% OPHTHALMIC SUSPENSION 1 DROP BOTH EYES ×3 (08:39→21:23)
[2025-01-24] MEDS: RESTASIS 0.05% OPHTHALMIC EMULSION 1 DROPS BOTH EYES ×2 (08:39→20:45)
[2025-01-24] MEDS: MYCOSTATIN ORAL SUSPENSION 5 ML PO ×3 (08:39→18:10)
[2025-01-24] MEDS: NSS (PRESERVATIVE FREE) 10 ML IV ×2 (08:40→20:36)
--- NOTE | 2025-01-24 09:04 | CM ---
CM following for discharge planning. Pt is appropriate for hospice care. I spoke with Denise' daughter, Brandi, who advised that she will be speaking with Jenn from [facility] today to coordinate discharge to home with hospice care.
Pt's daughter and son will be taking turns staying with pt and her at home. CM discussed option for hiring private care services if needed in the home. Daughter had been looking into private assistance if needed and has a couple agencies
in mind if additional assistance is needed.
Referral sent to Hospice via [facility].
Plan: Discharge to home with Hospice and family caregivers; possibly hiring private caregivers if needed.
--- NOTE | 2025-01-24 09:26 | HOSPNOTE ---
Addendum entered by Princess Cary RN 01/24/25 13:12:
Met with family and patient and discussed hospice and the philosophy, all in agreement with hospice. Equipment was ordered and will be delivered tomorrow 01/25 and then the patient will be transferred home Friday 01/26. OOH DNR needed on chart and I
am asking for transport at 11am. Attending and CM aware of plan.
Original Note:
Family meeting today at 11am to discuss hospice and the philosophy. More information to follow.
--- NOTE | 2025-01-24 09:40 | W.PN.ID1 ---
Date of Service
Date of Service: January 24, 2025
Today's Communication
- agree with trial of fluconazole, defer management to GI
- management of recurrent ascites per oncology
- ID service will no longer actively follow this patient please recall for further questions
Assessment / Plan
Ruled out SBP
Right-sided hydronephrosis/urethral obstruction in setting of urothelial cancer,-on chemotherapy
status post nephrostomy tube 12/07/2024
Hemorrhagic products in the ascites - unclear cause
Leukocytosis
CKD4
Port
- SBP ruled out
- leukocytosis is likely reactive
- cultures remain negative
- agree with trial of fluconazole, defer management to GI
- management of recurrent ascites per oncology
- ID service will no longer actively follow this patient please recall for further questions
Chief Complaint
-: Leukocytosis
Subjective / Review of Systems
remains afebrile
bp stable
no new complaints
Vital Signs / Physical Exam
Vital Signs
Vital Signs
Temp Pulse Resp BP Pulse Ox
98.5 F 93 14 130/65 94
01/24/25 07:19 01/24/25 02:00 01/24/25 02:00 01/24/25 02:00 01/24/25 02:00
Physical Exam
Constitutional: No Acute Distress and Chronically Ill
Cardiovascular: Regular Rate and S1/S2; Negative Murmur or Rub
Pulmonary: Clear and Symmetric; Negative Wheezes or Rales
Gastrointestinal: Soft, Non Tender, Non Distended and Normal Bowel Sounds
Skin: Warm and Dry; Negative Rash or Jaundice
Objective Data
Lab Data
Lab Results
01/24/25 04:32
01/24/25 04:32
PT 15.2 Sec (11.4-14.6) H 01/18/25 03:47
INR 1.17 01/18/25 03:47
APTT 36.3 Sec (23.4-35.0) H 01/18/25 03:47
Estimated Creat Clear 19 ml/min 01/24/25 04:32
Total Bilirubin 0.4 mg/dl (0.2-1.3) 01/19/25 03:38
AST 21 U/L (14-36) 01/19/25 03:38
ALT 15 U/L (0-35) 01/19/25 03:38
Alkaline Phosphatase 122 U/L (38-126) 01/19/25 03:38
Most recent labs reviewed.
Micro Results:
01/21/25 13:59 Body Fluid Culture - Preliminary
Peritoneal Fluid No Growth After 48 Hours
Gram Stain - Preliminary
01/18/25 16:04 Body Fluid Culture - Final
Peritoneal Fluid No Growth After 72 Hours
Gram Stain - Final
01/15/25 17:20 Blood Culture - Final
Blood/Venous No Growth - Final Report
01/15/25 17:20 Blood Culture - Final
Blood/Venous No Growth - Final Report
01/15/25 16:33 Body Fluid Culture - Final
Peritoneal Fluid No Growth After 72 Hours
Gram Stain - Final
01/15/25 11:16 Urine Culture - Final
Urine NO GROWTH
01/15/25 17:19 Influenza Types A & B (DEEDEE) - Final
Nasal Swab Negative for Influenza A & B, NAAT
Negative results must be combined with clinical observations
and patient history.
Nucleic Acid Amplification test (NAAT)performed on the
[employer] platform.
01/15/25 CT a/p: Large volume abdominopelvic ascites. High attenuation probable blood products in the right upper quadrant under the right hemidiaphragm, new from prior and of uncertain etiology/origin. No free intraperitoneal air.
--- NOTE | 2025-01-24 10:27 | W.PN.GI.CBS2 ---
Addendum entered and electronically signed by Christy Hinojosa MD 01/24/25 15:23:
I saw and evaluated the patient. I reviewed the resident�s note and agree with findings and plan as documented in the resident�s note.
84-year-old female past medical history of urothelial cancer status ongoing chemotherapy and immunotherapy, CKD, initially presented January 15 with shortness of breath and increased weakness. Found to have malignant ascites undergoing paracentesis as
needed with recent ascites being hemorrhagic.
GI has been consulted for dysphagia. BE yesterday with severe esophagitis with esophageal ulcers and mucosal irregularities, severe reflux, transient obstruction of barium in distal esophagus.
Recommend protonix twice a day x 8 weeks then daily.
Also questionable thrush - will also add fluconazole as well.
Pt to be discharged with home hospice.
GI will sign off please call with ?S.
Original Note:
Today's Communication / Plan
-
Esophagram on 01/23 noted esophageal ulcers. Thrush seen on exam will start on Diflucan 400 mg once and then 200 mg daily for 21 days. Stop nystatin
Patient and family decided to transition to home hospice.
Assessment / Plan
-
84-year-old female past medical history of urothelial cancer status ongoing chemotherapy and immunotherapy, CKD, initially presented January 15 with shortness of breath and increased weakness. Found to have malignant ascites undergoing paracentesis as
needed with recent ascites being hemorrhagic. GI is consulted to evaluate dysphagia to solids ongoing for about a month. Esophagram on 01/23 noted severe esophagitis with esophageal ulceration and mucosal irregularities throughout the mid and distal
esophagus.
PLAN
#Metastatic urothelial cancer ongoing chemo
#Hemorrhagic abd ascites with unclear etiology s/p total 5 L hemorrhagic ascitic fluid drained
Likely esophageal dysphagia
Motility disorder vs structural disorder
This looks like a structural disorder as the patient has problems with food and not liquid. Less likely motility disorder.
D/D- 1. Stricture 2. Web/ring 3. Mass 4. Reflux esophagitis likely esophageal ulcers 5. Candidal esophagitis (patient is on chemotherapy)
- Reports of nausea/vomiting-- d/t chemo-- on Zofran prn
- Dysphagia to solids-- feeling food getting stuck in chest. Denies odynophagia.
- Esophagram on 01/23 noted severe esophagitis with esophageal ulceration and mucosal irregularities throughout the mid and distal esophagus.
- Thrush seen on exam--will start fluconazole 400 mg on day 1 then 200 mg p.o. daily for total 21 days. Will stop nystatin
Ongoing discussion about transitioning to home hospice. The patient and family decided to proceed with home hospice, and wants comfort care only. They have discussed this plan with oncology team yesterday.
Subjective
Subjective
Date of Service: January 24, 2025
Objective
Data Reviewed
Laboratory Data:
Laboratory Results
01/24/25 04:32
01/24/25 04:32
Laboratory Results
PT 15.2 Sec (11.4-14.6) H 01/18/25 03:47
INR 1.17 01/18/25 03:47
APTT 36.3 Sec (23.4-35.0) H 01/18/25 03:47
Phosphorus 2.6 mg/dl (2.5-4.5) 01/24/25 04:32
Magnesium 2.4 mg/dl (1.6-2.3) H 01/24/25 04:32
Total Bilirubin 0.4 mg/dl (0.2-1.3) 01/19/25 03:38
AST 21 U/L (14-36) 01/19/25 03:38
ALT 15 U/L (0-35) 01/19/25 03:38
Alkaline Phosphatase 122 U/L (38-126) 01/19/25 03:38
Vital Signs and I&O:
Vital Signs
Temp Pulse Resp BP Pulse Ox
98.5 F 93 14 130/65 94
01/24/25 07:19 01/24/25 02:00 01/24/25 02:00 01/24/25 02:00 01/24/25 02:00
I&O
01/23/25 01/24/25 01/25/25
06:59 06:59 06:59
Intake Total 840 / 840 1760 / 1760
Output Total 600 / 600 550 / 550 75 / 75
Balance 240 / 240 1210 / 1210 -75 / -75
Physical Exam
Physical Exam
HEENT: Other (Thrush +)
Cardiology: Normal Sinus Rhythm
GI: Soft, Non Distended and Non Tender
--- NOTE | 2025-01-24 10:35 | W.PN.ONC2 ---
Today's Communication / Plan
-
.
Impression
Impression
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
Abdominal ascites with Bx + 12/05/2024 malignant cells -01/15 s/p 3000 cc of dark hemorrhagic ascitic fluid most likely related to peritoneal disease involvement/carcinomatosis.
No evidence of acute DIC with elevated fibrinogen
Anemia symptomatic from chemotherapy/CKD 4 (on REINALDO) +/- hemorrhagic ascites s/p 4U PRBC, last 01/21.
CKD stage IV
Right-sided hydronephrosis/urethral obstruction in setting of urothelial cancer,-on chemotherapy s/p nephrostomy tube 12/07/2024
LE edema US neg for DVT 01/16
Plan
Plan
Family at bedside. Plan for home hospice.
Please reach out for any further questions or concerns.
Subjective/Objective
Subjective
no new complaints
Vital Signs:
Vital Signs
Temp Pulse Resp BP Pulse Ox
98.5 F 93 14 130/65 94
01/24/25 07:19 01/24/25 02:00 01/24/25 02:00 01/24/25 02:00 01/24/25 02:00
Lab Results:
Laboratory Data
WBC 11.5 10^3/uL (4.8-10.8) H 01/24/25 04:32
Hgb 7.4 g/dL (12.0-16.0) L 01/24/25 04:32
Plt Count 386 10^3/uL (130-400) 01/24/25 04:32
PT 15.2 Sec (11.4-14.6) H 01/18/25 03:47
INR 1.17 01/18/25 03:47
APTT 36.3 Sec (23.4-35.0) H 01/18/25 03:47
eGFR 29.02 01/24/25 04:32
Physical Exam
HEENT: Moist Mucous Membranes; No Jaundice
Cardiology: Normal Sinus Rhythm
Pulmonary: Clear
GI: Soft
Extremities: Pulses Present
--- NOTE | 2025-01-24 11:09 | W.PN.HOSP.TC ---
Today's Communication/Plan
-
Monitor vital signs see plan
Discussed with patient and family at bedside, CODE STATUS changed to DNR
Patient and family wants hospice, hospice to meet later today
DC further lab check
Assessment / Plan
Assessment / Plan
Physical Exam
Genera: no acute distress, appears relatively comfortable at this time.
HEENT: Scleral Anicteric, MMM, No JVD
Pulm: CTABL
Cardio: S1 S2 Sinus Tachy no murmurs/rubs/gallops, chest port present
Abd: Soft, NT, distended, BS+. Right nephrostomy tube draining yellow urine.
Ext: Warm, Dry, Bilateral lower extremity pitting edema
Neuro: AAOx3
Psych: Calm cooperative
84F urothelial Ca on chemo CKD IV GERD Endometriosis originally here for symptomatic severe Anemia Hgb 5.9 responded well to 2PRBC transfusion and was discharged home with home services. Patient however returned next day d/t increased weakness
shortness of breath exertional dyspnea leg swelling. CT scan was concerning for large ascites and possible colitis. CXR also noted possible atelectasis vs pna. Stable respiratory status on room air, patient was started on empiric abx. 2L ascites
was drawn on paracentesis.
#Possible Sepsis (leukocytosis, tachycardia)
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 High risk of reaccumulation
- influenza/COVID neg
- IV Rocephin, IV doxycycline given in ER
- Incentive spirometry
-urine cx neg follow blood and ascites cx's
- ID eval appreciated; appears para tap's + for blood and correct WBC is not significant. further abx stopped. monitor
discussed with oncology. Abdominal ascites with Bx + 12/05/2024 malignant cells -01/15 s/p 3000 cc of dark hemorrhagic ascitic fluid
#Acute abdominal ascites in a static probable blood products in the right upper quadrant
Status post peritoneal fluid biopsy 12/05/2024 malignant cells
- Consult IR appreciated paracentesis with cytology status post 2.1 L of serosanguineous fluid thought to be combination of blood and ascites
- paracentesis repeated 01/18 1850 cc of grossly bloody ascitic fluid was evacuated, albumin bolus provided following paracentesis.
-Saturday 01/20 repeat Therapeutic Paracentesis requested with increased distension abd pain poor appetite nausea vomiting
-Potential may require drain placement vs scheduled weekly paracentesis outpt (less likely to be effective w/ freq need for drain)
para 01/21 with hemophagic ascites fluid
Discussed with oncology 01/22, does appear to be secondary to malignancy. Patient has been declining and is taking limited oral intake. Been documented previously the goals of care are restorative however patient has been requiring frequent
paracentesis with hemorrhagic ascites. Very limited oral intake. Does not feel like she is strong enough to undergo further treatments.
Discussed with daughter and they requesting to speak to oncology regarding goals of care. I did speak to patient regarding TPN however she is not interested. Peg tube doesnt seem to be an option too given hemorrhagic ascites.
Discussed with oncology, patient is appropriate for hospice. Family decided for home hospice. Hospice to meet with family 01/24.
pain control
Discussed CODE STATUS 01/24, changed to DNR
#Poor Appetite, nausea vomiting
nausea prn zofran, prn ativan if zofran insufficient
IVF support gentle hydration while oral intake remains poor
patient also reported dysphagia; hx of GERD. GI following, barium esophagram
Thrush; cw fluconazole
#Anemia symptomatic from chemotherapy/malignancy/CKD 4
#Likely Anemia of Chronic disease
-01/15 Transfused 2 units PRBC Hgb 7.8 noted on ED evaluation, improved appropriately to 9.3
-Required 3rd transfusion 01/19 Hgb 6.4, responded well
-monitor H&H
-transfuse prn Hgb<7.5 as per; discussed with family, no transfusion as they now want hospice
transfuse 1 unit prbc 01/21
Lower Ext Edema/Ascites/Anasarca
-Lasix placed on hold d/t poor appetite/oral intake/nausea/vomiting as above
-Venous Duplex neg for DVT
-RADAMES compression wrapping ordered
-ECHO appreciated EF >75% no significant valve disease, no significant change from prior ECHO 04/20/25
-Cardio eval appreciated heart failure ruled out
#CLAUDIA on CKD stage IV
Initial Creat 2.6. since improving and now 1.7
Follow BMP
Hypomagnesemia
-monitor and replete as necessary
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
#Status post peritoneal fluid biopsy 12/05/2024 malignant cells at [facility]
Status post radiation treatment left kidney August 2024
#Right-sided hydronephrosis/urethral obstruction in setting of urothelial cancer,-on chemotherapy
status post nephrostomy tube 12/07/2024 [facility]
-IR eval requested concern leaking nephrostomy tube though urine output is good. Assessed and found to be in good condition/position 01/17/25. No further episodes of leaking noted. urine is yellow in nephrostomy bag
-Oncology eval appreciated
-pain control, 2 lidocaine patches abd pain, prn Tylenol, prn IV dilaudid moderate severe pain
Migraine
-prn Fioricet
#hx HTN
bp consistently low normotensive
Lasix held as above
home amlodipine discontinued at this time
GERD
Heartburn
-Protonix 40 mg daily switched to IV d/t poor oral intake/nausea/vomiting as above
-Maalox ACHS (noted some improvement on this new regimen).
#Endometriosis
Glaucoma
Continue latanoprost both eyes at bedtime
Depression
-Continue Lexapro 5 mg daily, doxepin 50 mg nightly
PT/OT appreciated Home Health vs SNF rehab (patient adamantly against going to SNF see case mgmt note 01/20)
DVT prophylaxis SCDs
Full Code
Oncology discussed prognosis; patient is declining with limited PO intake. recurrence of hemorrhagic ascites every few days. likely 2/2 malignancy. nephrostomy tube has no bleeding. Plan for hospice.
Anticipated Discharge: Within 24 hours
Subjective/Interval History
-
Date of Service: January 24, 2025
still has abdominal pain
Objective Data
-
Labs:
Laboratory Results
01/24/25
04:32
WBC 11.5 H
Hgb 7.4 L
Hct 23.3 L
Plt Count 386
Sodium 141
Potassium 3.6
Chloride 112 H
Carbon Dioxide 28
BUN 26 H
Creatinine 1.7 H
Glucose 129 H
Calcium 7.7 L
Vital Signs:
Vital Signs
Temp Pulse Resp BP Pulse Ox
98.5 F 93 14 130/65 94
01/24/25 07:19 01/24/25 02:00 01/24/25 02:00 01/24/25 02:00 01/24/25 02:00
I&O
01/23/25 01/24/25 01/25/25
06:59 06:59 06:59
Intake Total 840 / 840 1760 / 1760
Output Total 600 / 600 550 / 550 75 / 75
Balance 240 / 240 1210 / 1210 -75 / -75
[2025-01-24] MEDS: IMODIUM LIQUID 2 MG PO ×2 (12:12→18:10)
[2025-01-24] MEDS: MORPHINE ORAL SOLUTION 10 MG PO ×2 (13:02→20:35)
[2025-01-24] MEDS: DIFLUCAN 200 MG PO (16:22)
--- NOTE | 2025-01-24 16:43 | PTCARENOTE ---
Pt continues to be incontinent of liquid stools; Pt extremely upset of these occurences and clearly anxious of the possiblity of them happening again. Provider agreed to order loperamide to slow liquid stools. Pt agreeable to rectal trumpet placed
in the interim. Will continue to monitor and assess.
[2025-01-24] MEDS: ZOFRAN 4 MG IV (20:36)
[2025-01-24] MEDS: SINEQUAN 50 MG PO (21:22)
[2025-01-24] MEDS: XALATAN OPHTHALMIC SOLUTION 1 DROP BOTH EYES (21:23)
[2025-01-24] MEDS: MYCOSTATIN ORAL SUSPENSION PO (21:24)
[2025-01-25] VITALS (13 sets, daily range): BP systolic 92–135; BP diastolic 50–68
[2025-01-25] MEDS: MORPHINE ORAL SOLUTION 10 MG PO (05:03)
--- NOTE | 2025-01-25 05:22 | PTCARENOTE ---
Pt appearing to get rest over night. Pt vitals stable at this time, respirations even unlabored. Pt had complaints of pain this morning after care prn medication given, see mar.
--- NOTE | 2025-01-25 08:32 | PTCARENOTE ---
Pt is sleeping For dc home on Hospice tomorrow am. Pt on RA . R subq port.
[2025-01-25] MEDS: LEXAPRO 5 MG PO (09:24)
[2025-01-25] MEDS: DIFLUCAN 100 MG PO (09:24)
[2025-01-25] MEDS: RESTASIS 0.05% OPHTHALMIC EMULSION 1 DROPS BOTH EYES ×2 (09:24→20:29)
[2025-01-25] MEDS: MAALOX 30 ML PO ×3 (09:24→16:59)
[2025-01-25] MEDS: NSS (PRESERVATIVE FREE) 10 ML IV ×2 (09:25→20:29)
[2025-01-25] MEDS: PROTONIX IV 40 MG IV ×2 (09:25→20:29)
[2025-01-25] MEDS: LIDOCAINE 4% PATCH 1 PATCH TOPICAL (09:26)
[2025-01-25] MEDS: MYCOSTATIN ORAL SUSPENSION 5 ML PO ×2 (09:26→12:16)
[2025-01-25] MEDS: AZOPT 1% OPHTHALMIC SUSPENSION 1 DROP BOTH EYES ×3 (09:27→21:07)
--- NOTE | 2025-01-25 12:57 | W.PN.HOSP.TC ---
Today's Communication/Plan
-
monitor vitals
see plan
cw flucanozole
cw imodium
pain control
plan for home hospice 01/26
Discussed with daughter
Assessment / Plan
Assessment / Plan
Physical Exam
Genera: no acute distress, appears relatively comfortable at this time.
HEENT: Scleral Anicteric, MMM, No JVD
Pulm: CTABL
Cardio: S1 S2 Sinus Tachy no murmurs/rubs/gallops, chest port present
Abd: Soft, NT, distended, BS+. Right nephrostomy tube draining yellow urine.
Ext: Warm, Dry, Bilateral lower extremity pitting edema
Neuro: AAOx3
Psych: Calm cooperative
84F urothelial Ca on chemo CKD IV GERD Endometriosis originally here for symptomatic severe Anemia Hgb 5.9 responded well to 2PRBC transfusion and was discharged home with home services. Patient however returned next day d/t increased weakness
shortness of breath exertional dyspnea leg swelling. CT scan was concerning for large ascites and possible colitis. CXR also noted possible atelectasis vs pna. Stable respiratory status on room air, patient was started on empiric abx. 2L ascites
was drawn on paracentesis.
#Possible Sepsis (leukocytosis, tachycardia)
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 High risk of reaccumulation
- influenza/COVID neg
- IV Rocephin, IV doxycycline given in ER
- Incentive spirometry
-urine cx neg follow blood and ascites cx's
- ID eval appreciated; appears para tap's + for blood and correct WBC is not significant. further abx stopped. monitor
discussed with oncology. Abdominal ascites with Bx + 12/05/2024 malignant cells -01/15 s/p 3000 cc of dark hemorrhagic ascitic fluid
#Acute abdominal ascites in a static probable blood products in the right upper quadrant
Status post peritoneal fluid biopsy 12/05/2024 malignant cells
- Consult IR appreciated paracentesis with cytology status post 2.1 L of serosanguineous fluid thought to be combination of blood and ascites
- paracentesis repeated 01/18 1850 cc of grossly bloody ascitic fluid was evacuated, albumin bolus provided following paracentesis.
-Saturday 01/20 repeat Therapeutic Paracentesis requested with increased distension abd pain poor appetite nausea vomiting
-Potential may require drain placement vs scheduled weekly paracentesis outpt (less likely to be effective w/ freq need for drain)
para 01/21 with hemophagic ascites fluid
Discussed with oncology 01/22, does appear to be secondary to malignancy. Patient has been declining and is taking limited oral intake. Been documented previously the goals of care are restorative however patient has been requiring frequent
paracentesis with hemorrhagic ascites. Very limited oral intake. Does not feel like she is strong enough to undergo further treatments.
Discussed with daughter and they requesting to speak to oncology regarding goals of care. I did speak to patient regarding TPN however she is not interested. Peg tube doesnt seem to be an option too given hemorrhagic ascites.
Discussed with oncology, patient is appropriate for hospice. Family decided for home hospice. Met with hospice. Plan for home with hospice 01/26
pain control
Discussed CODE STATUS 01/24, changed to DNR
#Poor Appetite, nausea vomiting
nausea prn zofran, prn ativan if zofran insufficient
IVF support gentle hydration while oral intake remains poor
patient also reported dysphagia; hx of GERD. GI following, barium esophagram
Thrush; cw fluconazole
#Anemia symptomatic from chemotherapy/malignancy/CKD 4
#Likely Anemia of Chronic disease
-01/15 Transfused 2 units PRBC Hgb 7.8 noted on ED evaluation, improved appropriately to 9.3
-Required 3rd transfusion 01/19 Hgb 6.4, responded well
-monitor H&H
-transfuse prn Hgb<7.5 as per; discussed with family, no transfusion as they now want hospice
transfuse 1 unit prbc 01/21
Lower Ext Edema/Ascites/Anasarca
-Lasix placed on hold d/t poor appetite/oral intake/nausea/vomiting as above
-Venous Duplex neg for DVT
-RADAMES compression wrapping ordered
-ECHO appreciated EF >75% no significant valve disease, no significant change from prior ECHO 04/20/25
-Cardio eval appreciated heart failure ruled out
#CLAUDIA on CKD stage IV
Initial Creat 2.6. since improving and now 1.7
Hypomagnesemia
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
#Status post peritoneal fluid biopsy 12/05/2024 malignant cells at [facility]
Status post radiation treatment left kidney August 2024
#Right-sided hydronephrosis/urethral obstruction in setting of urothelial cancer,-on chemotherapy
status post nephrostomy tube 12/07/2024 [facility]
-IR eval requested concern leaking nephrostomy tube though urine output is good. Assessed and found to be in good condition/position 01/17/25. No further episodes of leaking noted. urine is yellow in nephrostomy bag
-Oncology eval appreciated
-pain control, 2 lidocaine patches abd pain, prn Tylenol, prn IV dilaudid moderate severe pain
roxanol PRN
Migraine
-prn Fioricet
#hx HTN
bp consistently low normotensive
Lasix held as above
home amlodipine discontinued at this time
GERD
Heartburn
-Protonix 40 mg daily switched to IV d/t poor oral intake/nausea/vomiting as above
-Maalox ACHS (noted some improvement on this new regimen).
#Endometriosis
Glaucoma
Continue latanoprost both eyes at bedtime
Depression
-Continue Lexapro 5 mg daily, doxepin 50 mg nightly
PT/OT appreciated Home Health vs SNF rehab (patient adamantly against going to SNF see case mgmt note 01/20)
DVT prophylaxis SCDs
Full Code
Oncology discussed prognosis; patient is declining with limited PO intake. recurrence of hemorrhagic ascites every few days. likely 2/2 malignancy. nephrostomy tube has no bleeding. Plan for hospice. home hospice 01/26
Anticipated Discharge: Within 24 hours
Subjective/Interval History
-
Date of Service: January 25, 2025
Denies nausea
Objective Data
-
Vital Signs:
Vital Signs
Temp Pulse Resp BP Pulse Ox
98.2 F 90 16 135/66 94
01/25/25 11:54 01/25/25 12:00 01/25/25 12:00 01/25/25 12:00 01/25/25 10:00
I&O
01/24/25 01/25/25 01/26/25
06:59 06:59 06:59
Intake Total 1760 / 1760 340 / 340
Output Total 550 / 550 225 / 225
Balance 1210 / 1210 115 / 115
[2025-01-25] MEDS: ZOFRAN 4 MG IV (16:11)
--- NOTE | 2025-01-25 16:13 | CM ---
Patient with Hx Metastatic urothelial cancer on chemo with Dx Sepsis secondary to bibasilar pneumonia, Abdominal ascites s/p paracentesis, Anemia s/p transfusions.
spoke with daughter Brandi by phone;
confirmed home address: [address] [place] [address] Rd, [facility] [place] [address] (not [place] address).
Daughter states she is ready for her mother to return home tomorrow at 11am by ambulance, with Hospice.
Daughter states she received DME today that was arranged by [facility]. She already has RW, SPC and transport chair, however daughter is aware patient has been staying on bedrest while here.
Daughter states there is adequate family support as caregivers, including 2 Dtrs, son and grand-dtr who is a nurse.
IMM completed with daughter and copy sent to her email: [email or web address]
[facility] DNR signed on chart.
Plan home tomorrow with Hospice 11am by ambulance.
[2025-01-25] MEDS: FIORICET 1 TAB PO (20:37)
[2025-01-25] MEDS: MELATONIN 5 MG PO (20:38)
[2025-01-25] MEDS: MAALOX PO (21:07)
[2025-01-25] MEDS: SINEQUAN 50 MG PO (21:07)
[2025-01-25] MEDS: XALATAN OPHTHALMIC SOLUTION 1 DROP BOTH EYES (21:07)
[2025-01-26] VITALS: BP 102/49
--- NOTE | 2025-01-26 00:52 | PTCARENOTE ---
Pt appearing in good spirits. Pt happy she gets to go home Tuesday. pt able to make her needs known. Call hollis within reach. Assessment care and vitals as charted.
[2025-01-26 02:00] VITALS: BP 101/50
[2025-01-26 04:00] VITALS: BP 111/56
[2025-01-26 06:00] VITALS: BP 99/53
--- NOTE | 2025-01-26 07:31 | PTCARENOTE ---
Pt AAOx3 excited to go home. no co at this time
[2025-01-26 08:00] VITALS: BP 111/52
[2025-01-26] MEDS: NSS (PRESERVATIVE FREE) 10 ML IV (08:23)
[2025-01-26] MEDS: RESTASIS 0.05% OPHTHALMIC EMULSION 1 DROPS BOTH EYES (08:23)
[2025-01-26] MEDS: PROTONIX IV 40 MG IV (08:23)
[2025-01-26] MEDS: AZOPT 1% OPHTHALMIC SUSPENSION 1 DROP BOTH EYES (08:24)
[2025-01-26] MEDS: MAALOX 30 ML PO (08:24)
[2025-01-26] MEDS: LEXAPRO 5 MG PO (08:24)
[2025-01-26] MEDS: DIFLUCAN 100 MG PO (08:24)
[2025-01-26] MEDS: LIDOCAINE 4% PATCH 1 PATCH TOPICAL (08:25)
[2025-01-26 09:50] VITALS: BP 108/48
--- NOTE | 2025-01-26 10:10 | W.PN.HOSP.TC ---
Today's Communication/Plan
-
Monitor vital signs and see plan
Home hospice today, discussed with daughter at bedside
time of discharge 37 minutes
Assessment / Plan
Assessment / Plan
Physical Exam
Genera: no acute distress, appears relatively comfortable at this time.
HEENT: Scleral Anicteric
Pulm: no audible wheeze
Cardio: S1 S2 Sinus Tachy, chest port present
Abd: Soft, NT, distended, BS+. Right nephrostomy tube draining yellow urine.
Ext: Bilateral lower extremity pitting edema
Neuro: AAOx3
Psych: Calm cooperative
84F urothelial Ca on chemo CKD IV GERD Endometriosis originally here for symptomatic severe Anemia Hgb 5.9 responded well to 2PRBC transfusion and was discharged home with home services. Patient however returned next day d/t increased weakness
shortness of breath exertional dyspnea leg swelling. CT scan was concerning for large ascites and possible colitis. CXR also noted possible atelectasis vs pna. Stable respiratory status on room air, patient was started on empiric abx. 2L ascites
was drawn on paracentesis.
#Possible Sepsis (leukocytosis, tachycardia)
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 High risk of reaccumulation
- influenza/COVID neg
- IV Rocephin, IV doxycycline given in ER
- Incentive spirometry
-urine cx neg follow blood and ascites cx's
- ID eval appreciated; appears para tap's + for blood and correct WBC is not significant. further abx stopped. monitor
discussed with oncology. Abdominal ascites with Bx + 12/05/2024 malignant cells -01/15 s/p 3000 cc of dark hemorrhagic ascitic fluid
#Acute abdominal ascites in a static probable blood products in the right upper quadrant
Status post peritoneal fluid biopsy 12/05/2024 malignant cells
- Consult IR appreciated paracentesis with cytology status post 2.1 L of serosanguineous fluid thought to be combination of blood and ascites
- paracentesis repeated 01/18 1850 cc of grossly bloody ascitic fluid was evacuated, albumin bolus provided following paracentesis.
-Saturday 01/20 repeat Therapeutic Paracentesis requested with increased distension abd pain poor appetite nausea vomiting
-Potential may require drain placement vs scheduled weekly paracentesis outpt (less likely to be effective w/ freq need for drain)
para 01/21 with hemophagic ascites fluid
Discussed with oncology 01/22, does appear to be secondary to malignancy. Patient has been declining and is taking limited oral intake. Been documented previously the goals of care are restorative however patient has been requiring frequent
paracentesis with hemorrhagic ascites. Very limited oral intake. Does not feel like she is strong enough to undergo further treatments.
Discussed with daughter and they requesting to speak to oncology regarding goals of care. I did speak to patient regarding TPN however she is not interested. Peg tube doesnt seem to be an option too given hemorrhagic ascites.
Discussed with oncology, patient is appropriate for hospice. Family decided for home hospice. Met with hospice. Plan for home with hospice 01/26
pain control
Discussed CODE STATUS 01/24, changed to DNR
#Poor Appetite, nausea vomiting
nausea prn zofran, prn ativan if zofran insufficient
IVF support gentle hydration while oral intake remains poor
patient also reported dysphagia; hx of GERD. GI following, barium esophagram
Thrush; cw fluconazole
#Anemia symptomatic from chemotherapy/malignancy/CKD 4
#Likely Anemia of Chronic disease
-01/15 Transfused 2 units PRBC Hgb 7.8 noted on ED evaluation, improved appropriately to 9.3
-Required 3rd transfusion 01/19 Hgb 6.4, responded well
-monitor H&H
-transfuse prn Hgb<7.5 as per; discussed with family, no transfusion as they now want hospice
transfuse 1 unit prbc 01/21
Lower Ext Edema/Ascites/Anasarca
-Lasix placed on hold d/t poor appetite/oral intake/nausea/vomiting as above
-Venous Duplex neg for DVT
-RADAMES compression wrapping ordered
-ECHO appreciated EF >75% no significant valve disease, no significant change from prior ECHO 04/20/25
-Cardio eval appreciated heart failure ruled out
#CLAUDIA on CKD stage IV
Initial Creat 2.6. since improving and now 1.7
Hypomagnesemia
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
#Status post peritoneal fluid biopsy 12/05/2024 malignant cells at [facility]
Status post radiation treatment left kidney August 2024
#Right-sided hydronephrosis/urethral obstruction in setting of urothelial cancer,-on chemotherapy
status post nephrostomy tube 12/07/2024 [facility]
-IR eval requested concern leaking nephrostomy tube though urine output is good. Assessed and found to be in good condition/position 01/17/25. No further episodes of leaking noted. urine is yellow in nephrostomy bag
-Oncology eval appreciated
-pain control, 2 lidocaine patches abd pain, prn Tylenol, prn IV dilaudid moderate severe pain
roxanol PRN
Migraine
-prn Fioricet
#hx HTN
bp consistently low normotensive
Lasix held as above
home amlodipine discontinued at this time
GERD
Heartburn
-Protonix 40 mg daily switched to IV d/t poor oral intake/nausea/vomiting as above
-Maalox ACHS (noted some improvement on this new regimen).
#Endometriosis
Glaucoma
Continue latanoprost both eyes at bedtime
Depression
-Continue Lexapro 5 mg daily, doxepin 50 mg nightly
PT/OT appreciated Home Health vs SNF rehab (patient adamantly against going to SNF see case mgmt note 01/20)
DVT prophylaxis SCDs
Full Code
Oncology discussed prognosis; patient is declining with limited PO intake. recurrence of hemorrhagic ascites every few days. likely 2/2 malignancy. nephrostomy tube has no bleeding. Plan for hospice. home hospice 01/26
Anticipated Discharge: Today
Subjective/Interval History
-
Date of Service: January 26, 2025
no nausea
Objective Data
-
Vital Signs:
Vital Signs
Temp Pulse Resp BP Pulse Ox
98.5 F 80 11 99/53 94
01/26/25 07:00 01/26/25 06:00 01/26/25 06:00 01/26/25 06:00 01/26/25 08:00
I&O
01/25/25 01/26/25 01/27/25
06:59 06:59 06:59
Intake Total 340 / 340 180 / 180
Output Total 225 / 225 200 / 200
Balance 115 / 115 180 / 180 -200 / -200
--- NOTE | 2025-01-26 10:13 | W.DCSUMMARY ---
Discharge Summary
Discharge Data
Date of Admission: 01/15/25
Date of Discharge: 01/26/25
-
Pending Results: No
Hospital Course
84-year-old female with past medical history of CKD stage IV, GERD, urothelial cancer with metastases, anemia, migraine, hypertension, GERD, glaucoma, endometriosis, depression came to the hospital with acute abdominal ascites. Patient required
multiple paracentesis with bloody ascites fluid. Initially there was suspicion of patient having SBP and was seen by infectious disease. However after multiple paracentesis, SBP was ruled out and patient antibiotics was discontinued. Patient
continued to had hemorrhagic ascites which was the likely thought was coming secondary to her malignancy. Patient was seen by oncology throughout hospitalization. Patient required multiple times blood transfusion along with paracentesis. Patient
symptoms continue to get worse over time and then oncology recommended that patient is appropriate for hospice. In the meantime patient also had dysphagia and was seen by gastroenterology and had an esophagram which showed possible esophagitis and
patient was then started on Diflucan. Given her prognosis and oncology recommendation, patient was then discharged home on home hospice.
Discharge Plan
-
Patient Disposition: Home with Hospice
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
Acute blood loss anemia
Dysphagia
Oral Thrush
Acute kidney injury on chronic kidney disease
Metastatic urothelial cancer
Diet: As tolerated
Activity: As tolerated
Driving Restrictions: As prior to admission
Bathing Restrictions: None
Activity Restrictions/Additional Instructions:
Please follow-up with your hospice physician
Referrals:
Rigo Ball MD [Family Provider] - in less than 1 week
Prescriptions:
New
fluconazole 100 mg Tablet
100 mg PO DAILY Qty: 20 0RF
loperamide 1 mg/7.5 mL Liquid
2 mg PO Q4HPRN PRN (Reason: diarrhea) Qty: 120 0RF
lidocaine 4 % Adhesive Patch,Medicated
1 patch topical DAILY Qty: 30 0RF
alum-mag hydroxide-simeth [Mag-Al Plus] 200-200-20 mg/5 mL Suspension
30 ml PO ACHS Qty: 0 0RF
pantoprazole [Protonix] 40 mg tablet,delayed release (DR/EC)
40 mg PO BID Qty: 60 0RF
morphine concentrate 100 mg/5 mL (20 mg/mL) Solution
5 mg PO Q3HPRN PRN (Reason: moderate pain and/or dyspnea) Qty: 15 0RF
Rx Instructions:
5mg or 0.25mL every 3 hours as needed
lorazepam 0.5 mg Tablet
0.5 mg PO Q4HPRN PRN (Reason: anxiety or restlessness) Qty: 10 0RF
Rx Instructions:
0.5mg every 4 hours as needed
Continued
doxepin 25 mg Capsule
50 mg PO QHS
brinzolamide 1 % Drops,Suspension
1 drp BOTH EYES TID
Restasis MultiDose 0.05 % Drops
1 drp BOTH EYES BID
latanoprost 0.005 % drops
1 drp BOTH EYES HS
prochlorperazine maleate 10 mg Tablet
10 mg PO Q6HPRN PRN (Reason: nausea)
ondansetron 8 mg Tablet,Disintegrating
8 mg PO Q8HPRN PRN (Reason: nausea)
acetaminophen 650 mg Tablet Extended Release
1,300 mg PO [id number] PRN (Reason: mild pain)
famotidine 20 mg Tablet
20 mg PO BID
escitalopram oxalate 5 mg Tablet
5 mg PO DAILY
erfxtgiiia-abvrmewxqpchc-nnaw [Fioricet] 50-300-40 mg Capsule
1 cap PO Q4H PRN (Reason: Migraine headache)
Discontinued
amlodipine 2.5 mg tablet
2.5 mg PO DAILY
sodium bicarbonate 650 mg tablet
650 mg PO DAILY
potassium chloride 10 mEq tablet,ER particles/crystals
10 meq PO DAILY
furosemide [Lasix] 40 mg Tablet
40 mg PO DAILY Qty: 0
Gentle Iron 28 mg iron-60mg -400 mcg-8 mcg Capsule
1 cap PO DAILY
omega 9-[id number]-fish oil [Fish Oil] 1,000 (120-180) mg Capsule
1 cap PO DAILY
cranberry 450 mg Tablet
450 mg PO DAILY
Theragen Tablet
1 tab PO DAILY
Discharge Orders:
Discharge Patient (As Directed); Ordered 01/26/25
Ordered By: Eagle Ambrose
Discharge Date and Time
Discharge Date/Time: 01/26/25 11:06
Print Language: [place]
[2025-01-26] MEDS: IMODIUM LIQUID 2 MG PO (10:15)
--- NOTE | 2025-01-26 10:57 | CM ---
Home today with family support and [facility].
Plan; Home with [facility].
--- NOTE | 2025-01-26 11:10 | PTCARENOTE ---
Pt left via ambulance for home on hospice
== END 2025-01-26 11:06 | disposition hospice, home (50) | DRG 374 ==
LOC: IMU 17:06
PROVIDERS: Clinical Nurse Specialist Family Health; Internal Medicine; Nurse Practitioner Acute Care; Nurse Practitioner Family; Radiology Vascular & Interventional Radiology; ADMITTING PHYSICIAN Internal Medicine; ATTENDING PHYSICIAN Internal Medicine; CONSULT PHYSICIAN Internal Medicine Cardiovascular Disease; CONSULT PHYSICIAN Internal Medicine Gastroenterology; CONSULT PHYSICIAN Student in an Organized Health Care Education/Training Program; EMERGENCY PHYSICIAN Emergency Medicine; FAMILY PHYSICIAN Family Medicine; OTHER PHYSICIAN Internal Medicine Hematology & Oncology
PROC: 30243N1 Transfusion of Nonautologous Red Blood Cells into Central Vein, Percutaneous Approach (ICD-10-PCS; 2025-01-15)
PROC: 0W9G3ZZ Drainage of Peritoneal Cavity, Percutaneous Approach (ICD-10-PCS; 2025-01-15)
PROC: BT111ZZ Fluoroscopy of Right Kidney using Low Osmolar Contrast (ICD-10-PCS; 2025-01-17)
DX: C78.6 Secondary malignant neoplasm of retroperitoneum and peritoneum (principal); A41.9 Sepsis, unspecified organism; J18.9 Pneumonia, unspecified organism; K66.1 Hemoperitoneum; J98.11 Atelectasis; N13.30 Unspecified hydronephrosis; C78.2 Secondary malignant neoplasm of pleura; J90 Pleural effusion, not elsewhere classified; D62 Acute posthemorrhagic anemia; R18.0 Malignant ascites; D84.9 Immunodeficiency, unspecified; B37.81 Candidal esophagitis; B37.0 Candidal stomatitis; N17.9 Acute kidney failure, unspecified; N18.4 Chronic kidney disease, stage 4 (severe); M79.89 Other specified soft tissue disorders; D63.1 Anemia in chronic kidney disease; I45.10 Unspecified right bundle-branch block; N36.8 Other specified disorders of urethra; H40.9 Unspecified glaucoma; G43.909 Migraine, unspecified, not intractable, without status migrainosus; F32.A Depression, unspecified; D75.839 Thrombocytosis, unspecified; N80.9 Endometriosis, unspecified; I12.9 Hypertensive chronic kidney disease with stage 1 through stage 4 chronic kidney disease, or unspecified chronic kidney disease; K21.00 Gastro-esophageal reflux disease with esophagitis, without bleeding; C67.9 Malignant neoplasm of bladder, unspecified; R13.14 Dysphagia, pharyngoesophageal phase; D64.81 Anemia due to antineoplastic chemotherapy; E83.42 Hypomagnesemia; T45.1X5A Adverse effect of antineoplastic and immunosuppressive drugs, initial encounter; Y92.9 Unspecified place or not applicable; Z96.653 Presence of artificial knee joint, bilateral; Z93.6 Other artificial openings of urinary tract status; Z92.21 Personal history of antineoplastic chemotherapy; Z87.891 Personal history of nicotine dependence; Z90.710 Acquired absence of both cervix and uterus; Z88.8 Allergy status to other drugs, medicaments and biological substances; Z92.3 Personal history of irradiation; Z11.52 Encounter for screening for COVID-19
CPT/HCPCS: 49083; 50431; 71045; 74176; 74220; 76705; 80048; 80053; 81003; 81015; 82042; 82607; 82728; 82746; 82945; 83520; 83540; 83550; 83615; 83735; 83880; 84100; 84157; 85014; 85018; 85025; 85027; 85384; 85610; 85730; 86850; 86900; 86901; 86920; 87015; 87040; 87070; 87086; 87205; 87502; 87811; 89051; 93005; 93306; 93970; 96365; 96375; 97163; 97166; 97530; 99285; P9016; P9047